=== PATIENT | female | born 1990 | race Hispanic/Latino ===

== ENCOUNTER 2018-06-25 20:49 | Emergency (ER) | payer OTHER, SELFPAY ==
--- NOTE | 2018-06-25 22:14 | ER ---
Nurse's Notes [facility] Name: Sandra Amado Age: 27 yrs Sex: Female : 1990 Arrival Date: 06/25/2018 Time: 20:53 Bed 5 Private MD: Diagnosis: Vomiting;Bronchitis, not specified as acute or chronic;Acute tonsillitis Presentation: 06/25 21:10 Presenting complaint: Patient states: "For the past week I've been throwing up blood. aj1 Then last night my right throat and right ear are hurting and I'm having bad chest pain, bad shortness of breath and my left kidney is hurting" Patient has not seen her PHCP regarding this complaint. Denies fever, abdominal pain. Transition of care: patient was not received from another setting of care. Onset of symptoms was June 18, 2018. Risk Assessment: Do you want to hurt yourself or someone else? Patient reports no desire to harm self or others. Initial Sepsis Screen: Does the patient meet any 2 criteria? HR > 90 bpm. No. Patient's initial sepsis screen is negative. Does the patient have a suspected source of infection? No. Patient's initial sepsis screen is negative. Care prior to arrival: None. 21:10 Method Of Arrival: Ambulatory aj 21:10 Acuity: HUGO 3 aj1 Triage Assessment: 21:14 General: Appears in no apparent distress. uncomfortable, Behavior is calm, cooperative, aj1 appropriate for age. Pain: Complains of pain in right ear, chest, left aspect of posterior pharynx and right aspect of posterior pharynx Pain currently is 10 out of 10 on a pain scale. Neuro: Level of Consciousness is awake, alert, obeys commands. Cardiovascular: Patient's skin is warm and dry. Respiratory: Airway is patent Respiratory effort is even, unlabored, Respiratory pattern is regular, symmetrical, Denies cough, Parent/caregiver reports the patient having shortness of breath. GI: Abdomen is non-distended, Reports nausea, vomiting, Patient currently denies abdominal pain. Derm: Skin is pink, warm \\T\\ dry. normal. 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 - Social history:: Smoking status: Patient uses tobacco products, denies chronic smoking, but will smoke occasionally. - Ebola Screening: : Patient denies travel to an Ebola-affected area in the 21 days before illness onset. - Family history:: not pertinent. Screenin:27 Abuse screen: Denies threats or abuse. Denies injuries from another. Nutritional bp screening: No deficits noted. Tuberculosis screening: No symptoms or risk factors identified. Fall Risk None identified. Assessment: 21:25 General: Appears in no apparent distress. comfortable, Behavior is cooperative, bp appropriate for age, anxious. Pain: Complains of pain in right ear, chest, left aspect of posterior pharynx and right aspect of posterior pharynx. Neuro: Level of Consciousness is awake, alert, obeys commands, Oriented to person, place, time, situation, Appropriate for age. Cardiovascular: Capillary refill < 3 seconds Patient's skin is warm and dry. Respiratory: Airway is patent Respiratory effort is even, unlabored, Respiratory pattern is regular, symmetrical. GI: No deficits noted. : No signs and/or symptoms were reported regarding the genitourinary system. EENT: No signs and/or symptoms were reported regarding the EENT system. Derm: No deficits noted. Musculoskeletal: Circulation, motion, and sensation intact. Range of motion: intact in all extremities. 22:40 Reassessment: PT D/C HOME AMBULATORY, AIRWAY PATENT, DX WITH BRONCHITIS AND TONSILITIS. bp Vital Signs: 21:14 BP 120 / 90; Pulse 103; Resp 18; Temp 98.8(TE); Pulse Ox 99% on R/A; Weight 84.82 kg aj1 (R); Height 5 ft. 5 in. (165.10 cm); Pain 10/10; 21:14 Body Mass Index 31.12 (84.82 kg, 165.10 cm) aj ED Course: 20:53 Patient arrived in ED. es 21:13 Triage completed. aj1 21:14 Arm band placed on Patient placed in an exam room. [facility] 21:16 Rubén Gonzáles MD is Attending Physician. [facility] 21:24 Anamaria, Robert, RN is Primary Nurse. bp 21:28 Patient has correct armband on for positive identification. Bed in low position. Call bp light in reach. Side rails up X2. 22:39 No provider procedures requiring assistance completed. Patient did not have IV access bp during this emergency room visit. Administered Medications: 22:30 Drug: Zofran 4 mg Route: PO; bp 22:38 Follow up: Response: No adverse reaction bp 22:30 Drug: Zithromax 500 mg Route: PO; bp 22:38 Follow up: Response: No adverse reaction bp 22:30 Drug: Tylenol #3 (300 mg-30 mg) 2 tabs Route: PO; bp 22:38 Follow up: Response: Medication administered at discharge. bp Outcome: 22:14 Discharge ordered by . allan 22:39 Discharged to home ambulatory. bp 22:39 Condition: stable 22:39 Discharge instructions given to patient, Instructed on discharge instructions, follow up and referral plans. medication usage, Demonstrated understanding of instructions, follow-up care, medications, Prescriptions given X 3. 22:40 Patient left the ED. bp Signatures: Liset Espinoza, RN RN aj1 Rubén Gonzáles MD MD cha Salyer, Edna es Peltier, Brian, RN RN bp
--- NOTE | 2018-06-25 22:14 | EDPHYS ---
Physician Documentation [facility] Name: Sandra Amado Age: 27 yrs Sex: Female : 1990 Arrival Date: 06/25/2018 Time: 20:53 Bed 5 Private MD: ED Physician Rubén Gonzáles HPI: 06/25 21:24 This 27 yrs old Female presents to ER via Ambulatory with complaints of allan Vomiting, Chest Pain, Sore Throat, Shortness Of Breath. 21:24 The patient presents to the emergency department with nausea, vomiting, abdominal pain, allan of the epigastric area, right upper quadrant and left upper quadrant. Onset: The symptoms/episode began/occurred 2 day(s) ago. Possible causes: unknown. The symptoms are aggravated by nothing. The symptoms are alleviated by nothing. Associated signs and symptoms: The patient has no apparent associated signs or symptoms. Severity of symptoms: At their worst the symptoms were mild in the emergency department the symptoms are unchanged. The patient has not experienced similar symptoms in the past. 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 - Social history:: Smoking status: Patient uses tobacco products, denies chronic smoking, but will smoke occasionally. - Ebola Screening: : Patient denies travel to an Ebola-affected area in the 21 days before illness onset. - Family history:: not pertinent. ROS: 21:24 Constitutional: Negative for fever, chills, and weight loss, Eyes: Negative for injury, allan pain, redness, and discharge, Neck: Negative for injury, pain, and swelling, Cardiovascular: Negative for chest pain, palpitations, and edema, Respiratory: Negative for shortness of breath, cough, wheezing, and pleuritic chest pain, Back: Negative for injury and pain, : Negative for injury, bleeding, discharge, and swelling, MS/Extremity: Negative for injury and deformity, Skin: Negative for injury, rash, and discoloration, Neuro: Negative for headache, weakness, numbness, tingling, and seizure, Psych: Negative for depression, anxiety, suicide ideation, homicidal ideation, and hallucinations, Allergy/Immunology: Negative for hives, rash, and allergies, Endocrine: Negative for neck swelling, polydipsia, polyuria, polyphagia, and marked weight changes, Hematologic/Lymphatic: Negative for swollen nodes, abnormal bleeding, and unusual bruising. 21:24 ENT: Positive for sore throat. 21:24 Abdomen/GI: Positive for abdominal pain, nausea and vomiting, trace blood. Exam: 21:24 Constitutional: This is a well developed, well nourished patient who is awake, alert, allan and in no acute distress. Head/Face: Normocephalic, atraumatic. Eyes: Pupils equal round and reactive to light, extra-ocular motions intact. Lids and lashes normal. Conjunctiva and sclera are non-icteric and not injected. Cornea within normal limits. Periorbital areas with no swelling, redness, or edema. Neck: Trachea midline, no thyromegaly or masses palpated, and no cervical lymphadenopathy. Supple, full range of motion without nuchal rigidity, or vertebral point tenderness. No Meningismus. Chest/axilla: Normal chest wall appearance and motion. Nontender with no deformity. No lesions are appreciated. Cardiovascular: Regular rate and rhythm with a normal S1 and S2. No gallops, murmurs, or rubs. Normal PMI, no JVD. No pulse deficits. Respiratory: Lungs have equal breath sounds bilaterally, clear to auscultation and percussion. No rales, rhonchi or wheezes noted. No increased work of breathing, no retractions or nasal flaring. Abdomen/GI: Soft, non-tender, with normal bowel sounds. No distension or tympany. No guarding or rebound. No evidence of tenderness throughout. Back: No spinal tenderness. No costovertebral tenderness. Full range of motion. Skin: Warm, dry with normal turgor. Normal color with no rashes, no lesions, and no evidence of cellulitis. MS/ Extremity: Pulses equal, no cyanosis. Neurovascular intact. Full, normal range of motion. Neuro: Awake and alert, GCS 15, oriented to person, place, time, and situation. Cranial nerves II-XII grossly intact. Motor strength 5/5 in all extremities. Sensory grossly intact. Cerebellar exam normal. Normal gait. Psych: Awake, alert, with orientation to person, place and time. Behavior, mood, and affect are within normal limits. 21:24 ENT: Posterior pharynx: Tonsils: enlarged on the right, with erythema. Vital Signs: 21:14 BP 120 / 90; Pulse 103; Resp 18; Temp 98.8(TE); Pulse Ox 99% on R/A; Weight 84.82 kg [facility] (R); Height 5 ft. 5 in. (165.10 cm); Pain 10/10; 21:14 Body Mass Index 31.12 (84.82 kg, 165.10 cm) [facility] MDM: 21:16 Patient medically screened. [facility] 21:40 Data reviewed: vital signs, nurses notes, lab test result(s). [facility] 06/25 21:24 Order name: Urine Culture [facility] 06/25 21:47 Order name: Urine Dipstick--Ancillary (enter results) [facility] 06/25 21:47 Order name: Urine --Ancillary (enter results) [facility] 06/25 21:24 Order name: Urine Dipstick-Ancillary (obtain specimen); Complete Time: 21:39 [facility] 06/25 21:24 Order name: Urine Test (obtain specimen); Complete Time: 21:39 [facility] Administered Medications: 22:30 Drug: Zofran 4 mg Route: PO; bp 22:38 Follow up: Response: No adverse reaction bp 22:30 Drug: Zithromax 500 mg Route: PO; bp 22:38 Follow up: Response: No adverse reaction bp 22:30 Drug: Tylenol #3 (300 mg-30 mg) 2 tabs Route: PO; bp 22:38 Follow up: Response: Medication administered at discharge. bp Disposition: 06/25/18 22:14 Discharged to Home. Impression: Vomiting, Bronchitis, not specified as acute or chronic, Acute tonsillitis. - Condition is Stable. - Discharge Instructions: Acute Bronchitis, Adult, Nausea and Vomiting, Adult, Tonsillitis, Nausea and Vomiting, Adult, [id number]. - Prescriptions for Pepcid 20 mg Oral Tablet - take 1 tablet by ORAL route every 12 hours for 10 days; 20 tablet. Zofran 4 mg Oral Tablet - take 1 tablet by ORAL route every 12 hours As needed; 20 tablet. Zithromax Z- Derian 250 mg Oral Tablet - take 1 tablet by ORAL route as directed for 5 days Day 1 - take two (2) tablets one time. Day 2, 3, 4 , 5 take one (1) tablet once daily.; 6 tablet. - Medication Reconciliation Form, Thank You Letter, Antibiotic Education, Prescription Opioid Use, Work release form form. - Follow up: Private Physician; When: 2 - 3 days; Reason: Recheck today's complaints, Continuance of care, Re-evaluation by your physician. - Problem is new. - Symptoms have improved. Signatures: Dispatcher [employer] EDLiset Samuel RN RN aj1 Rubén Gonzáles MD MD cha Peltier, Brian RN RN bp Corrections: (The following items were deleted from the chart) 22:40 22:14 06/25/2018 22:14 Discharged to Home. Impression: Vomiting; Bronchitis, not bp specified as acute or chronic; Acute tonsillitis. Condition is Stable. Forms are Medication Reconciliation Form, Thank You Letter, Antibiotic Education, Prescription Opioid Use. Follow up: Private Physician; When: 2 - 3 days; Reason: Recheck today's complaints, Continuance of care, Re-evaluation by your physician. Problem is new. Symptoms have improved. allan
[2018-06-25 22:16] LABS: Urine Blood TRACE (NEG); Urine Glucose NEGATIVE (NEG); Urine Protein 1+ (NEG); Urine Specific Gravity 1.015 (1.005-1.030); Urine pH 8.5 (5.0-7.0)
[2018-06-25] MEDS ORDERED: AZITHROMYCIN 250 MG TAB ONE (22:30)
[2018-06-25] MEDS ORDERED: ONDANSETRON 4 MG (ODT) TAB ONE (22:30)
[2018-06-25] MEDS ORDERED: CODEINE 30MG/APAP 300MG TAB ONE (22:38)
[2018-06-25 22:44] VITALS: BP 120/90; TEMP 98.8; O2SAT 99
== END 2018-06-25 22:40 | disposition home or self-care (01) ==
LOC: ER 20:49
DX: J40 Bronchitis, not specified as acute or chronic (principal); R11.10 Vomiting, unspecified; Z88.5 Allergy status to narcotic agent; Z88.0 Allergy status to penicillin; Z72.0 Tobacco use; I10 Essential (primary) hypertension
CPT/HCPCS: 81003; 81025; 87077; 87086; 87088; 87186; 99283

== ENCOUNTER 2018-08-13 16:12 | Emergency (ER) | payer SELFPAY ==
[2018-08-13 17:21] LABS: Urine Blood TRACE (NEG); Urine Glucose NEGATIVE (NEG); Urine Protein TRACE (NEG); Urine Specific Gravity 1.025 (1.005-1.030)
[2018-08-13 17:31] LABS: Urine Bacteria >50 /HPF (<20); Urine Culture Reflex Order REFLEXED; Urine RBC <5 /HPF (NONE SEEN)
--- NOTE | 2018-08-13 17:47 | ER ---
Nurse's Notes [facility] Name: Sandra Amado Age: 27 yrs Sex: Female : 1990 Arrival Date: 08/13/2018 Time: 16:14 Bed 25 Private MD: None, None Diagnosis: Presentation: 08/13 16:19 Presenting complaint: Patient states: RLQ and left back pain started last night. c/o sv nausea, denies vomiting, diarrhea. Transition of care: patient was not received from another setting of care. Onset of symptoms was August 12, 2018. Care prior to arrival: None. 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 - Social history:: Smoking status: Patient uses tobacco products, smokes one-half pack cigarettes per day. - Ebola Screening: : No symptoms or risks identified at this time. Assessment: 17:30 Reassessment: Pt not found in room or in ER lobby. Attempted to call patient with ss number on file. Not a working number. Vital Signs: 16:20 BP 106 / 64; Pulse 88; Resp 16; Temp 97; Pulse Ox 100% ; Weight 78.47 kg; Height 5 ft. sv 5 in. (165.10 cm); Pain 8/10; 16:20 Body Mass Index 28.79 (78.47 kg, 165.10 cm) sv ED Course: 16:14 Patient arrived in ED. sb2 16:15 None, None is Private Physician. sb2 16:20 Triage completed. sv 16:21 Arm band placed on left wrist. sv 16:23 Tanya Torres F[facility]-C [facility] kb 16:23 Lorena Bryan MD is Attending Physician. kb 17:25 Venice Walls RN is Primary Nurse. tw2 Administered Medications: No medications were administered Outcome: 17:30 Eloped from patient exam room, after seeing physician Time discovered patient gone: tw2 August 13, 2018 at 17:30 17:46 Patient left the ED. tw2 Addendum: 08/17/2018 10:42 Addendum: Culture Results: Positive urine culture. No further action required. Patient a a5 eloped prior to discharge. Signatures: Tanya Torres, LUCIO-C ORTHOPAEDIC NURSE-Tanja Small, RN RN Anita Baxter, RN RN aa5 Suyapa Bullock RN RN ss Wise, Tara, RN RN tw2 Katerin Weaver 2
--- NOTE | 2018-08-13 17:47 | EDPHYS ---
Physician Documentation [facility] Name: Sandra Amado Age: 27 yrs Sex: Female : 1990 Arrival Date: 08/13/2018 Time: 16:14 Bed 25 Private MD: None, None ED Physician Lorena Bryan HPI: 08/13 17:34 This 27 yrs old Female presents to ER via Ambulatory with complaints of kb Abdominal Pain. 17:34 The patient presents with abdominal pain right lower quadrant. Onset: The kb symptoms/episode began/occurred this morning. The symptoms do not radiate. Associated signs and symptoms: Pertinent positives: nausea and vomiting. The symptoms are described as constant. Modifying factors: The symptoms are alleviated by nothing, the symptoms are aggravated by pressure. Severity of pain: At its worst the pain was moderate in the emergency department the pain is unchanged. The patient has not experienced similar symptoms in the past. The patient has not recently seen a physician. 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 - Social history:: Smoking status: Patient uses tobacco products, smokes one-half pack cigarettes per day. - Ebola Screening: : No symptoms or risks identified at this time. ROS: 17:33 Constitutional: Negative for fever, chills, and weight loss, Cardiovascular: Negative kb for chest pain, palpitations, and edema, Respiratory: Negative for shortness of breath, cough, wheezing, and pleuritic chest pain, : Negative for injury, bleeding, discharge, and swelling, MS/Extremity: Negative for injury and deformity, Skin: Negative for injury, rash, and discoloration, Neuro: Negative for headache, weakness, numbness, tingling, and seizure. 17:33 Abdomen/GI: Positive for abdominal pain, nausea and vomiting, Negative for diarrhea, constipation, abdominal cramps, abdominal distension, anorexia. 17:33 Back: Positive for flank pain, on the left. Exam: 17:34 Constitutional: This is a well developed, well nourished patient who is awake, alert, kb and in no acute distress. Head/Face: Normocephalic, atraumatic. Chest/axilla: Normal chest wall appearance and motion. Nontender with no deformity. No lesions are appreciated. Cardiovascular: Regular rate and rhythm with a normal S1 and S2. No gallops, murmurs, or rubs. Normal PMI, no JVD. No pulse deficits. Respiratory: Lungs have equal breath sounds bilaterally, clear to auscultation and percussion. No rales, rhonchi or wheezes noted. No increased work of breathing, no retractions or nasal flaring. Back: No spinal tenderness. No costovertebral tenderness. Full range of motion. Skin: Warm, dry with normal turgor. Normal color with no rashes, no lesions, and no evidence of cellulitis. MS/ Extremity: Pulses equal, no cyanosis. Neurovascular intact. Full, normal range of motion. Neuro: Awake and alert, GCS 15, oriented to person, place, time, and situation. Cranial nerves II-XII grossly intact. Motor strength 5/5 in all extremities. Sensory grossly intact. Cerebellar exam normal. Normal gait. 17:34 Abdomen/GI: Inspection: abdomen appears normal, Bowel sounds: normal, in all quadrants, Palpation: soft, in all quadrants, moderate abdominal tenderness, in the suprapubic area and right lower quadrant. Vital Signs: 16:20 BP 106 / 64; Pulse 88; Resp 16; Temp 97; Pulse Ox 100% ; Weight 78.47 kg; Height 5 ft. sv 5 in. (165.10 cm); Pain 8/10; 16:20 Body Mass Index 28.79 (78.47 kg, 165.10 cm) sv MDM: 16:23 Patient medically screened. kb 17:33 Data reviewed: vital signs, nurses notes. Data interpreted: Pulse oximetry: on room air kb is 100 %. Interpretation: normal. 08/13 17:12 Order name: Urine Microscopic Only; Complete Time: 17:31 kb 08/13 16:24 Order name: Urine Test (obtain specimen); Complete Time: 17:25 kb 08/13 17:18 Order name: Urine Dipstick--Ancillary (enter results); Complete Time: 17:22 eb 08/13 17:18 Order name: Urine --Ancillary (enter results); Complete Time: 17:22 eb 08/13 17:33 Order name: Urine Culture [facility] 08/13 16:24 Order name: Urine Dipstick-Ancillary (obtain specimen); Complete Time: 17:25 kb Administered Medications: No medications were administered Disposition: 18:43 Co-signature as Attending Physician, Lorena Bryan MD. ma2 Disposition: 08/13/18 17:46 Patient left the facility after being seen by provider. - Patient left due to (see nurse's notes). Signatures: Dispatcher [employer] [facility] Tanya Torres, LUCIO-C LUCIO-Tanja Small, RN RN Venice Walls RN RN tw2 Lorena Bryan MD MD ma2 Corrections: (The following items were deleted from the chart) 17:46 17:46 08/13/2018 17:46 Patient left the facility after being seen by provider. Reason tw2 stated they are leaving due to (see nurse's notes). tw2
[2018-08-13 17:58] VITALS: BP 106/64; TEMP 97; O2SAT 100
== END 2018-08-13 17:46 | disposition left against medical advice (07) ==
LOC: ER 16:12
DX: R11.2 Nausea with vomiting, unspecified (principal); I10 Essential (primary) hypertension; F17.210 Nicotine dependence, cigarettes, uncomplicated; Z88.0 Allergy status to penicillin; Z88.6 Allergy status to analgesic agent
CPT/HCPCS: 81003; 81015; 81025; 87077; 87086; 87088; 87186; 99281

== ENCOUNTER 2018-10-15 13:57 | Emergency (ER) | payer SELFPAY ==
[2018-10-15] MEDS ORDERED: IBUPROFEN 400 MG TAB ONE (15:18)
[2018-10-15] MEDS ORDERED: ONDANSETRON 4 MG (ODT) TAB ONE (16:14)
--- NOTE | 2018-10-15 16:47 | EDPHYS ---
Physician Documentation [facility] Name: Sandra Amado Age: 27 yrs Sex: Female : 1990 Arrival Date: 10/15/2018 Time: 14:00 Bed 12 Private MD: None, None ED Physician Benjamin Luna HPI: 10/15 16:54 This 27 yrs old Female presents to ER via Ambulatory with complaints of Sore kb Throat, Body aches. 16:54 The patient presents with sore throat. The patient describes throat pain as constant. kb Onset: The symptoms/episode began/occurred 2 day(s) ago. Severity of symptoms: At their worst the symptoms were moderate, in the emergency department the symptoms are unchanged. Modifying factors: The symptoms are alleviated by nothing, the symptoms are aggravated by swallowing, Patient's oral intake status: limited fluid intake, limited food intake. Associated signs and symptoms: Pertinent positives: chills, nausea, Sore throat vomiting. The patient has not experienced similar symptoms in the past. The patient has not recently seen a physician. 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 - Social history:: Smoking status: Patient/guardian denies using tobacco. - Ebola Screening: : Patient negative for fever greater than or equal to 101.5 degrees Fahrenheit, and additional compatible Ebola Virus Disease symptoms Patient denies exposure to infectious person Patient denies travel to an Ebola-affected area in the 21 days before illness onset No symptoms or risks identified at this time. ROS: 16:52 Cardiovascular: Negative for chest pain, palpitations, and edema, Respiratory: Negative kb for shortness of breath, cough, wheezing, and pleuritic chest pain, Back: Negative for injury and pain, : Negative for injury, bleeding, discharge, and swelling, MS/Extremity: Negative for injury and deformity, Skin: Negative for injury, rash, and discoloration, Neuro: Negative for headache, weakness, numbness, tingling, and seizure. 16:52 Constitutional: Positive for body aches, chills, malaise, Negative for fatigue, fever, poor PO intake, weight loss. 16:52 ENT: Positive for sore throat. 16:52 Abdomen/GI: Positive for nausea and vomiting. Exam: 16:53 Constitutional: This is a well developed, well nourished patient who is awake, alert, kb and in no acute distress. Head/Face: Normocephalic, atraumatic. Chest/axilla: Normal chest wall appearance and motion. Nontender with no deformity. No lesions are appreciated. Cardiovascular: Regular rate and rhythm with a normal S1 and S2. No gallops, murmurs, or rubs. Normal PMI, no JVD. No pulse deficits. Respiratory: Lungs have equal breath sounds bilaterally, clear to auscultation and percussion. No rales, rhonchi or wheezes noted. No increased work of breathing, no retractions or nasal flaring. Abdomen/GI: Soft, non-tender, with normal bowel sounds. No distension or tympany. No guarding or rebound. No evidence of tenderness throughout. Back: No spinal tenderness. No costovertebral tenderness. Full range of motion. Skin: Warm, dry with normal turgor. Normal color with no rashes, no lesions, and no evidence of cellulitis. MS/ Extremity: Pulses equal, no cyanosis. Neurovascular intact. Full, normal range of motion. Neuro: Awake and alert, GCS 15, oriented to person, place, time, and situation. Cranial nerves II-XII grossly intact. Motor strength 5/5 in all extremities. Sensory grossly intact. Cerebellar exam normal. Normal gait. 16:53 ENT: Posterior pharynx: Airway: normal, no evidence of obstruction, Tonsils: bilaterally enlarged, with erythema, with exudate, Uvula: normal, midline, swelling, that is mild, that is moderate, erythema, that is moderate, exudate, that is moderate. Vital Signs: 14:28 BP 102 / 67; Pulse 83; Resp 19; Temp 98.6; Pulse Ox 100% on R/A; Weight 79.83 kg; aj Height 5 ft. 5 in. (165.10 cm); 14:28 Body Mass Index 29.29 (79.83 kg, 165.10 cm) aj MDM: 14:54 Patient medically screened. kb 16:53 Data reviewed: vital signs, nurses notes. Data interpreted: Pulse oximetry: on room air kb is 100 %. Interpretation: normal. Counseling: I had a detailed discussion with the patient and/or guardian regarding: the historical points, exam findings, and any diagnostic results supporting the discharge/admit diagnosis, lab results, the need for outpatient follow up, a family practitioner, to return to the emergency department if symptoms worsen or persist or if there are any questions or concerns that arise at home. 10/15 14:39 Order name: Flu; Complete Time: 15:57 kb 10/15 14:39 Order name: Strep; Complete Time: 15:57 kb 10/15 15:37 Order name: Throat Culture EDCO 10/15 16:02 Order name: PO challenge; Complete Time: 16:04 kb Administered Medications: 15:15 Drug: Ibuprofen 800 mg Route: PO; sg 16:04 Drug: Zofran 4 mg Route: PO; sg Disposition: 10/16 13:54 Co-signature as Attending Physician, Benjamin Luna MD I agree with the assessment and kdr plan of care. Disposition: 10/15/18 16:47 Discharged to Home. Impression: Acute pharyngitis. - Condition is Stable. - Discharge Instructions: Pharyngitis, [id number]. - Prescriptions for Zofran 4 mg Oral Tablet - take 1 tablet by ORAL route every 6 hours As needed; 20 tablet. - Medication Reconciliation Form, Thank You Letter, Antibiotic Education, Prescription Opioid Use, Work release form form. - Follow up: Emergency Department; When: As needed; Reason: Worsening of condition. Follow up: Private Physician; When: 2 - 3 days; Reason: Recheck today's complaints, Continuance of care, Re-evaluation by your physician. Signatures: Dispatcher [employer] EDCO Tanya Torres, DARY SMITHP-Kevin Brown RN RN sg Myers, Amanda, RN RN aj Rittger, Kevin, MD MD [facility] Liliya Rios RN RN iw Corrections: (The following items were deleted from the chart) 10/15 16:55 16:54 Onset: The symptoms/episode began/occurred this morning, kb kb 17:35 16:47 10/15/2018 16:47 Discharged to Home. Impression: Acute pharyngitis. Condition is iw Stable. Forms are Work release form, Medication Reconciliation Form, Thank You Letter, Antibiotic Education, Prescription Opioid Use. Follow up: Emergency Department; When: As needed; Reason: Worsening of condition. Follow up: Private Physician; When: 2 - 3 days; Reason: Recheck today's complaints, Continuance of care, Re-evaluation by your physician. kb
--- NOTE | 2018-10-15 16:47 | ER ---
Nurse's Notes [facility] Name: Sandra Amado Age: 27 yrs Sex: Female : 1990 Arrival Date: 10/15/2018 Time: 14:00 Bed 12 Private MD: None, None Diagnosis: Acute pharyngitis Presentation: 10/15 14:25 Presenting complaint: Patient states: Sore throat, body aches, and cough for 2 days. aj Transition of care: patient was not received from another setting of care. Onset of symptoms was October 13, 2018. Risk Assessment: Do you want to hurt yourself or someone else? Patient reports no desire to harm self or others. Initial Sepsis Screen: Does the patient meet any 2 criteria? No. Patient's initial sepsis screen is negative. Does the patient have a suspected source of infection? No. Patient's initial sepsis screen is negative. Care prior to arrival: None. 14:25 Method Of Arrival: Ambulatory 14:25 Acuity: HUGO 4 aj Triage Assessment: 14:28 General: Appears in no apparent distress. comfortable, Behavior is calm, cooperative, aj appropriate for age. Pain: Complains of pain in left aspect of posterior pharynx and right aspect of posterior pharynx. EENT: Reports pain when swallowing. Neuro: Level of Consciousness is awake, alert, obeys commands, Oriented to person, place, time, situation, Appropriate for age. Respiratory: Airway is patent Respiratory effort is even, unlabored, Respiratory pattern is regular, symmetrical. Respiratory: Reports cough that is. Derm: Skin is intact, is healthy with good turgor, Skin is pink, warm \T\ dry. normal. 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 - Social history:: Smoking status: Patient/guardian denies using tobacco. - Ebola Screening: : Patient negative for fever greater than or equal to 101.5 degrees Fahrenheit, and additional compatible Ebola Virus Disease symptoms Patient denies exposure to infectious person Patient denies travel to an Ebola-affected area in the 21 days before illness onset No symptoms or risks identified at this time. Screenin:10 Abuse screen: Denies threats or abuse. Denies injuries from another. Nutritional sg screening: No deficits noted. Tuberculosis screening: No symptoms or risk factors identified. Never had TB. Fall Risk None identified. Assessment: 15:10 General: Appears in no apparent distress. comfortable, well groomed, well developed, sg well nourished, Behavior is calm, cooperative, appropriate for age. Pain: Complains of pain in sore throat and body aches. 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 Full function Speech is normal, Facial symmetry appears normal. Cardiovascular: Capillary refill is brisk in bilateral Patient's skin is warm and dry. Chest pain is denied. Respiratory: Airway is patent Respiratory effort is even, unlabored, Respiratory pattern is regular, symmetrical, Breath sounds are clear. GI: No signs and/or symptoms were reported involving the gastrointestinal system. : No signs and/or symptoms were reported regarding the genitourinary system. EENT: No signs and/or symptoms were reported regarding the EENT system. Sclera/Cornea are clear in right eye and left eye Nares are clear bilaterally Oral mucosa is moist. Throat is pink. Derm: Skin is pink, warm \T\ dry. Musculoskeletal: No signs and/or symptoms reported regarding the musculoskeletal system. Vital Signs: 14:28 BP 102 / 67; Pulse 83; Resp 19; Temp 98.6; Pulse Ox 100% on R/A; Weight 79.83 kg; aj Height 5 ft. 5 in. (165.10 cm); 14:28 Body Mass Index 29.29 (79.83 kg, 165.10 cm) aj ED Course: 14:00 Patient arrived in ED. mr 14:01 None, None is Private Physician. mr 14:27 Triage completed. aj 14:28 Arm band placed on left wrist. Patient placed in waiting room, Patient notified of wait aj time. 14:39 Tanya Torres [facility]C [facility] kb 14:39 Benjamin Luna MD is Attending Physician. kb 15:07 Mathur, Kevin, RN is Primary Nurse. sg 15:15 No provider procedures requiring assistance completed. Flu and/or RSV swab sent to lab. sg Strep swab sent to lab. Patient did not have IV access during this emergency room visit. Administered Medications: 15:15 Drug: Ibuprofen 800 mg Route: PO; sg 16:04 Drug: Zofran 4 mg Route: PO; sg Outcome: 16:47 Discharge ordered by . kb 17:35 Patient left the ED. iw Signatures: Tanya Torres, LUCIO-C LUCIO-Kevin Brown, RN Amanda Wagoner RN RN aj Rivera, Mary mr Williams, Irene, RN RN iw
[2018-10-15 19:15] VITALS: BP 102/67; TEMP 98.6; O2SAT 100
== END 2018-10-15 17:35 | disposition home or self-care (01) ==
LOC: ER 13:57
DX: J02.9 Acute pharyngitis, unspecified (principal); I10 Essential (primary) hypertension; Z88.0 Allergy status to penicillin; Z88.5 Allergy status to narcotic agent
CPT/HCPCS: 87070; 87081; 87804; 99283

== ENCOUNTER 2019-01-11 23:38 | Emergency (ER) | payer SELFPAY ==
--- OUTSIDE RECORDS SUMMARY | 2019-01-11 23:58 | XMS REPORT ---
:1990 Author Organization [facility] Address [address] [place] [address] Dr. Johnson [address] [place] [id number] Care Team Providers Name Role Phone Unavailable Unavailable Unavailable Problems This patient has no known problems. Allergies, Adverse Reactions, Alerts This patient has no known allergies or adverse reactions. Medications This patient has no known medications.
[2019-01-12 00:19] LABS: Absolute Lymphocytes (CBC) 2.4 K/uL (0.7-4.9); Absolute Monocytes 0.7 K/uL (0.1-1.3); Basophils % 0.8 % (0-1.3); Eosinophils % 2.4 % (0-4.4); Hematocrit 41.1 % (36.0-45.0); Lymphocytes % 22.8 % (15.3-44.8); MPV 8.6 fL (7.6-11.3); Monocytes % 6.7 % (3.3-12.3); RBC Red Blood Cell Count 4.83 M/uL (3.86-4.86)
[2019-01-12 00:36] LABS: BUN Blood Urea Nitrogen 17 mg/dL (7-18); Bicarbonate 26 mmol/L (21-32); Glucose Level 99 mg/dL (74-106); Potassium 3.9 mmol/L (3.5-5.1); Sodium Level 141 mmol/L (136-145)
[2019-01-12 00:39] LABS: HCG, Quantitative < 1 mIU/mL (1-3)
[2019-01-12 00:47] LABS: Urine Blood 2+ (NEG); Urine Glucose NEGATIVE (NEG); Urine Protein NEGATIVE (NEG)
--- NOTE | 2019-01-12 00:57 | EDPHYS ---
Physician Documentation [facility] Name: Sandra Amado Age: 28 yrs Sex: Female : 1990 Arrival Date: 01/11/2019 Time: 23:40 Bed 6 Private MD: ED Physician Rubén Gonzáles HPI: 01/12 00:26 This 28 yrs old Female presents to ER via EMS with complaints of Vaginal snw Bleeding, + Preg <12wks. 00:26 The patient presents with vaginal bleeding that is moderate. Onset: The snw symptoms/episode began/occurred suddenly, just prior to arrival. Associated signs and symptoms: The patient has no apparent associated signs or symptoms. Severity of symptoms: At their worst the symptoms were moderate. The patient has not experienced similar symptoms in the past. pt states she was seen at [facility] in , awaiting Medicaid so has not been seen since. Pt states she had some bright red blood post void today with some abd cramping. UPT negative in ED.. 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 - Social history:: Smoking status: Patient/guardian denies using tobacco. - Ebola Screening: : Patient negative for fever greater than or equal to 101.5 degrees Fahrenheit, and additional compatible Ebola Virus Disease symptoms Patient denies exposure to infectious person Patient denies travel to an Ebola-affected area in the 21 days before illness onset No symptoms or risks identified at this time. ROS: 01/12 00:09 Constitutional: Negative for fever, chills, and weight loss, Eyes: Negative for injury, snw pain, redness, and discharge, ENT: Negative for injury, pain, and discharge, Neck: Negative for injury, pain, and swelling, Cardiovascular: Negative for chest pain, palpitations, and edema, Respiratory: Negative for shortness of breath, cough, wheezing, and pleuritic chest pain, Abdomen/GI: Negative for abdominal pain, nausea, vomiting, diarrhea, and constipation, Back: Negative for injury and pain, Skin: Negative for injury, rash, and discoloration, Neuro: Negative for headache, weakness, numbness, tingling, and seizure. Exam: 00:09 Constitutional: This is a well developed, well nourished patient who is awake, alert, snw and in no acute distress. Head/Face: Normocephalic, atraumatic. Eyes: Pupils equal round and reactive to light, extra-ocular motions intact. Lids and lashes normal. Conjunctiva and sclera are non-icteric and not injected. Cornea within normal limits. Periorbital areas with no swelling, redness, or edema. ENT: Nares patent. No nasal discharge, no septal abnormalities noted. Tympanic membranes are normal and external auditory canals are clear. Oropharynx with no redness, swelling, or masses, exudates, or evidence of obstruction, uvula midline. Mucous membranes moist. Neck: Trachea midline, no thyromegaly or masses palpated, and no cervical lymphadenopathy. Supple, full range of motion without nuchal rigidity, or vertebral point tenderness. No Meningismus. Chest/axilla: Normal chest wall appearance and motion. Nontender with no deformity. No lesions are appreciated. Cardiovascular: Regular rate and rhythm with a normal S1 and S2. No gallops, murmurs, or rubs. Normal PMI, no JVD. No pulse deficits. Respiratory: Lungs have equal breath sounds bilaterally, clear to auscultation and percussion. No rales, rhonchi or wheezes noted. No increased work of breathing, no retractions or nasal flaring. Abdomen/GI: Soft, non-tender, with normal bowel sounds. No distension or tympany. No guarding or rebound. No evidence of tenderness throughout. Back: No spinal tenderness. No costovertebral tenderness. Full range of motion. Skin: Warm, dry with normal turgor. Normal color with no rashes, no lesions, and no evidence of cellulitis. MS/ Extremity: Pulses equal, no cyanosis. Neurovascular intact. Full, normal range of motion. Neuro: Awake and alert, GCS 15, oriented to person, place, time, and situation. Cranial nerves II-XII grossly intact. Motor strength 5/5 in all extremities. Sensory grossly intact. Cerebellar exam normal. Normal gait. Vital Signs: 01/11 23:43 BP 111 / 77; Pulse 65; Resp 16; Temp 98(O); Pulse Ox 100% on R/A; Weight 80.74 kg; ed1 Height 5 ft. 5 in. (165.10 cm); Pain 07/11; 01/12 00:43 BP 109 / 76; Pulse 64; Resp 16; Pulse Ox 99% on R/A; Pain 8; ed1 01/11 23:43 Body Mass Index 29.62 (80.74 kg, 165.10 cm) ed1 MDM: 01/11 23:45 Patient medically screened. [facility] 01/12 00:58 Data reviewed: vital signs, nurses notes. Data interpreted: Pulse oximetry: on room air snw is 99 %. Interpretation: normal. Counseling: I had a detailed discussion with the patient and/or guardian regarding: the historical points, exam findings, and any diagnostic results supporting the discharge/admit diagnosis, lab results, the need for outpatient follow up, to return to the emergency department if symptoms worsen or persist or if there are any questions or concerns that arise at home. Special discussion: Based on the patient's Hx, exam, and Dx evaluation, there is no indication for emergent surgery or inpatient Tx. It is understood by the patient/guardian that if the Sx's persist or worsen they need to return immediately for re-evaluation. Based on the history and exam findings, there is no indication for further emergent testing or inpatient evaluation. 01/11 23:45 Order name: Quantitative Hcg; Complete Time: 00:55 snw 01/11 23:45 Order name: Abo/rh Typing; Complete Time: 00:55 snw 01/11 23:45 Order name: Basic Metabolic Panel; Complete Time: 00:55 snw 01/11 23:45 Order name: CBC with Diff snw 01/12 00:05 Order name: Urine Dipstick--Ancillary (enter results) 01/12 00:05 Order name: Urine --Ancillary (enter results) 01/11 23:45 Order name: Urine Test (obtain specimen); Complete Time: 00:06 snw 02/10 23:45 Order name: IV Saline Lock; Complete Time: 00:06 snw 01/11 23:45 Order name: Labs collected and sent; Complete Time: 00:06 snw 01/11 23:45 Order name: NPO; Complete Time: 00:06 snw 01/11 23:45 Order name: Urine Dipstick-Ancillary (obtain specimen); Complete Time: 00:06 snw Administered Medications: No medications were administered Point of Care Testing: Urine : 00:04 hCG Reading: Negative; Control Reading: Positive; ed1 Disposition: 09:03 Co-signature as Attending Physician, Rubén Gonzáles MD I agree with the assessment and allan plan of care. Disposition: 01/12/19 00:57 Discharged to Home. Impression: Menses. - Condition is Stable. - Discharge Instructions: Abdominal Pain, Adult, Premenstrual Syndrome. - Medication Reconciliation Form, Thank You Letter, Antibiotic Education, Prescription Opioid Use form. - Follow up: Private Physician; When: 2 - 3 days; Reason: Recheck today's complaints, Continuance of care, Re-evaluation by your physician. Follow up: Emergency Department; When: As needed; Reason: Worsening of condition. Signatures: Dispatcher [employer] [facility] Rubén Gonzáles MD MD cha Therrien, Shelly, DOOR FRAME ASSEMBLER MACHINE-C DOOR FRAME ASSEMBLER MACHINE-Quintonw Florencia Yoon RN RN ed1 Corrections: (The following items were deleted from the chart) 00:22 01/11 23:49 OB Limited+[id number].BRZ ordered. [facility] 01/12 01:06 00:57 01/12/2019 00:57 Discharged to Home. Impression: Menses. Condition is Stable. ed1 Forms are Medication Reconciliation Form, Thank You Letter, Antibiotic Education, Prescription Opioid Use. Follow up: Private Physician; When: 2 - 3 days; Reason: Recheck today's complaints, Continuance of care, Re-evaluation by your physician. Follow up: Emergency Department; When: As needed; Reason: Worsening of condition. snw
--- NOTE | 2019-01-12 00:57 | ER ---
Nurse's Notes [facility] Name: Sandra Amado Age: 28 yrs Sex: Female : 1990 Arrival Date: 01/11/2019 Time: 23:40 Bed 6 Private MD: Diagnosis: Menses Presentation: 01/11 23:41 Presenting complaint: EMS states: She was using the bathroom and wiped and there was a ed1 large amount of red blood and a blood clot. Patient is around 14 weeks . No care at this time. Transition of care: patient was not received from another setting of care. Onset of symptoms was January 11, 2019. Risk Assessment: Do you want to hurt yourself or someone else? Patient reports no desire to harm self or others. Initial Sepsis Screen: Does the patient meet any 2 criteria? No. Patient's initial sepsis screen is negative. Does the patient have a suspected source of infection? No. Patient's initial sepsis screen is negative. Care prior to arrival: IV initiated. 20 GA, in the right hand. 23:41 Method Of Arrival: [facility] ed1 23:41 Acuity: HUGO 3 ed1 Triage Assessment: 23:43 General: Appears uncomfortable, Behavior is calm, cooperative. Pain: Complains of pain ed1 in suprapubic area and right lower quadrant Pain radiates to low back area Pain currently is 8 out of 10 on a pain scale. Quality of pain is described as crampy, sharp, Pain began gradually, 2 hours ago. EENT: No signs and/or symptoms were reported regarding the EENT system. Neuro: Level of Consciousness is awake, alert, obeys commands, Oriented to person, place, time, situation. Cardiovascular: Denies chest pain, Heart tones S1 S2 present. Respiratory: Airway is patent Respiratory effort is even, unlabored, Respiratory pattern is regular, symmetrical, Breath sounds are clear bilaterally. GI: Abdomen is non-distended, Bowel sounds present X 4 quads. Abd is soft and non tender X 4 quads. Reports lower abdominal pain, Patient currently denies diarrhea, nausea, vomiting. : Reports vaginal bleeding that is bright red, with clots. Derm: Skin is intact, is healthy with good turgor, Skin is dry, Skin is normal, Skin temperature is warm. Musculoskeletal: Circulation, motion, and sensation intact. Range of motion: intact in all extremities. DAM OPERATOR: 23:43 6, 1, Living 4, LMP 10/13/2018, Verified, EDC 07/20/2019, ed1 Gestational age from LMP: 13 weeks 0 days Historical: - Allergies: 23:43 PENICILLINS (Anaphylaxis); ed1 23:43 tramadol; hallucinations; ed1 - Home Meds: 23:43 Metoprolol Tartrate Oral [Active]; ed1 - PMHx: 23:43 Hypertension; Kidney stones; RAPID HEART RATE; Diabetes - NIDDM; ed1 - PSHx: 23:43 None; ed1 - Immunization history:: Adult Immunizations up to date. - Social history:: Smoking status: Patient/guardian denies using tobacco. - Ebola Screening: : Patient negative for fever greater than or equal to 101.5 degrees Fahrenheit, and additional compatible Ebola Virus Disease symptoms Patient denies exposure to infectious person Patient denies travel to an Ebola-affected area in the 21 days before illness onset No symptoms or risks identified at this time. Screenin:47 Abuse screen: Denies threats or abuse. Denies injuries from another. Nutritional ed1 screening: No deficits noted. Tuberculosis screening: No symptoms or risk factors identified. Fall Risk None identified. Assessment: 23:47 Obstetrical Assessment: General assessment: awake and alert, skin warm and dry, ed1 respirations even and unlabored, Patient reports Abdominal pain, vaginal bleeding, bright red with clots. General: See triage assessment. 01/12 00:43 Reassessment: Patient appears in no apparent distress at this time. Patient and/or ed1 family updated on plan of care and expected duration. Pain level reassessed. Patient is alert, oriented x 3, equal unlabored respirations, skin warm/dry/pink. Pt states "Can you take this IV out? They brought me from the [place] detention and I don't have a phone or anything.". 01:04 Reassessment: Patient appears in no apparent distress at this time. Patient and/or ed1 family updated on plan of care and expected duration. Pain level reassessed. Patient is alert, oriented x 3, equal unlabored respirations, skin warm/dry/pink. Patient states symptoms have improved. Vital Signs: 01/11 23:43 BP 111 / 77; Pulse 65; Resp 16; Temp 98(O); Pulse Ox 100% on R/A; Weight 80.74 kg; ed1 Height 5 ft. 5 in. (165.10 cm); Pain 8; 01/12 00:43 BP 109 / 76; Pulse 64; Resp 16; Pulse Ox 99% on R/A; Pain 8/10; ed1 01/11 23:43 Body Mass Index 29.62 (80.74 kg, 165.10 cm) ed1 Vitals: 01:06 Heart Tones N/A. ed1 ED Course: 01/11 23:40 Patient arrived in ED. ed1 23:42 Triage completed. ed1 23:43 Arm band placed on. ed1 23:45 Daylin Mcguire FNP-C is PHCP. snw 23:45 Rubén Gonzáles MD is Attending Physician. snw 23:47 Patient has correct armband on for positive identification. Placed in gown. Bed in low ed1 position. Call light in reach. Side rails up X 1. Pulse ox on. NIBP on. 23:47 Maintain EMS IV. Dressing intact. Good blood return noted. Site clean \\T\\ dry. Gauge \\T\\ ed 1 site: 20G right hand. 11 00:04 Florencia Yoon, RN is Primary Nurse. ed1 00:04 Initial lab(s) drawn, by me, sent to lab. Urine collected: clean catch specimen, cloudy.ed1 00:43 No provider procedures requiring assistance completed. IV discontinued, intact, ed1 bleeding controlled, No redness/swelling at site. Pressure dressing applied. Administered Medications: No medications were administered Point of Care Testing: Urine : 00:04 hCG Reading: Negative; Control Reading: Positive; ed1 Outcome: 00:43 Discharged to home ambulatory. ed1 00:43 Condition: good 00:43 Discharge instructions given to patient, Instructed on discharge instructions, follow up and referral plans. Demonstrated understanding of instructions, follow-up care. 00:57 Discharge ordered by . chantel 01:06 Patient left the ED. ed1 Signatures: Daylin Mcguire FNP-C MACHINE CERAMIC COATER-Csnw Florencia Yoon, RN RN ed1 Corrections: (The following items were deleted from the chart) 01:05 00:43 Pulse 64bpm; Resp 16bpm; Pulse Ox 99% RA; Pain 8/10; ed1 ed1
[2019-01-12 01:33] VITALS: TEMP 98
[2019-01-12 01:34] VITALS: BP 109/76; O2SAT 99
== END 2019-01-12 01:06 | disposition home or self-care (01) ==
LOC: ER 23:38
DX: N92.6 Irregular menstruation, unspecified (principal); I10 Essential (primary) hypertension; E11.9 Type 2 diabetes mellitus without complications; Z88.0 Allergy status to penicillin; Z88.5 Allergy status to narcotic agent
CPT/HCPCS: 36415; 80048; 81003; 81025; 84702; 85025; 86900; 86901; 99284

== ENCOUNTER 2019-04-24 19:42 | Emergency (ER) | payer SELFPAY ==
--- OUTSIDE RECORDS SUMMARY | 2019-04-24 19:45 | XMS REPORT ---
:1990 [facility] Address [address] [place] [address] Dr. Johnson [address] [place] [id number] Care Team Providers Name Role Phone Unavailable Unavailable Unavailable Problems This patient has no known problems. Allergies, Adverse Reactions, Alerts This patient has no known allergies or adverse reactions. Medications This patient has no known medications.
[2019-04-24 20:15] LABS: Absolute Lymphocytes (CBC) 2.4 K/uL (0.7-4.9); Absolute Monocytes 0.6 K/uL (0.1-1.3); Absolute Neutrophil 7.6 K/uL (1.8-8.0); Basophils % 0.8 % (0-1.3); Eosinophils % 2.6 % (0-4.4); Hematocrit 39.7 % (36.0-45.0); Lymphocytes % 22.2 % (15.3-44.8); MPV 8.6 fL (7.6-11.3); Monocytes % 5.6 % (3.3-12.3); RBC Red Blood Cell Count 4.56 M/uL (3.86-4.86)
[2019-04-24 20:34] LABS: Barbiturates NEGATIVE (NEGATIVE); Benzodiazepines NEGATIVE (NEGATIVE); Cocaine NEGATIVE (NEGATIVE); METHAMPHETAM NEGATIVE (NEGATIVE); Methadone NEGATIVE (NEGATIVE); Opiates NEGATIVE (NEGATIVE); Phencyclidine NEGATIVE (NEGATIVE); THC Cannibis POSITIVE (NEGATIVE)
[2019-04-24 20:54] LABS: ALT/SGPT 21 U/L (12-78); AST/SGOT 12 U/L (15-37); Albumin 3.7 g/dL (3.4-5.0); Alkaline Phosphatase 56 U/L (45-117); BUN Blood Urea Nitrogen 16 mg/dL (7-18); Bicarbonate 25 mmol/L (21-32); Bilirubin Direct < 0.1 mg/dL (0-0.2); Bilirubin Total 0.3 mg/dL (0.2-1.0); Glucose Level 89 mg/dL (74-106); Magnesium 2.1 mg/dL (1.8-2.4); NT PRO-BNP 142 pg/mL (<125); Potassium 3.9 mmol/L (3.5-5.1); Protein, Total 6.7 g/dL (6.4-8.2); Sodium Level 144 mmol/L (136-145); Troponin (Emerg Dept Use Only) 0.02 ng/mL (0.0-0.045)
[2019-04-24 22:01] LABS: Protime INR 0.93
--- NOTE | 2019-04-24 22:38 | ER ---
Nurse's Notes [facility] Name: Sandra Amado Age: 28 yrs Sex: Female : 1990 Arrival Date: 04/24/2019 Time: 19:45 Bed 14 Private MD: Diagnosis: Chest pain Presentation: 04/24 19:40 Presenting complaint: EMS states: started to have chest pain 10/10 pain score. she rr5 supposed to take lopressor but have not taken it. she has history of SVT. 19:40 Transition of care: [facility]. Onset of symptoms was April 24, 2019 at 18:30. Risk Assessment: rr5 Do you want to hurt yourself or someone else? Patient reports no desire to harm self or others. Initial Sepsis Screen: Does the patient meet any 2 criteria? No. Patient's initial sepsis screen is negative. Does the patient have a suspected source of infection? No. Patient's initial sepsis screen is negative. Note she is 2 weeks VS BP 127/65, CR 80-BPM. from 09/10 for the went to 07/11 after she took the aspirin said by the patient per EMS. Care prior to arrival: Medication(s) given: ASA, 324mg by EMS. 19:40 Method Of Arrival: EMS: [facility] rr5 19:40 Acuity: HUGO 3 rr5 FLOOR SPACE ALLOCATOR: 20:00 LMP 02/21/2019 rr5 Historical: - Allergies: 19:40 PENICILLINS (Anaphylaxis); rr5 19:40 tramadol; hallucinations; rr5 - Home Meds: 19:40 Metoprolol Tartrate Oral [Active]; anxiety, depression and bipolar medication cannot rr5 recall the name [Active]; - PMHx: 19:40 Diabetes - NIDDM; Hypertension; Kidney stones; RAPID HEART RATE; neck Cancer; ovary rr5 cyst; Depression; Bipolar disorder; Anxiety; - PSHx: 19:40 None; rr5 - Immunization history:: Adult Immunizations up to date. - Social history:: Smoking status: Patient/guardian denies using tobacco, Patient/guardian denies using alcohol, street drugs. - Ebola Screening: : Patient negative for fever greater than or equal to 101.5 degrees Fahrenheit, and additional compatible Ebola Virus Disease symptoms Patient denies exposure to infectious person Patient denies travel to an Ebola-affected area in the 21 days before illness onset. Screenin:00 Abuse screen: Denies threats or abuse. Denies injuries from another. Nutritional rr5 screening: No deficits noted. Tuberculosis screening: No symptoms or risk factors identified. Fall Risk IV access (20 points). Total Dumont Fall Scale indicates No Risk (0-24 pts). Assessment: 19:45 General: Appears in no apparent distress. uncomfortable, Behavior is calm, cooperative, rr5 appropriate for age. Pain: Complains of pain in chest Pain radiates to left arm Pain currently is 8 out of 10 on a pain scale. Quality of pain is described as aching, Pain began gradually, Is intermittent. Neuro: Level of Consciousness is awake, alert, obeys commands, Oriented to person, place, time, situation, Appropriate for age. 19:45 Cardiovascular: Reports chest pain, Capillary refill < 3 seconds Patient's skin is warm rr5 and dry. Respiratory: Airway is patent Respiratory effort is even, unlabored, Respiratory pattern is regular, symmetrical. GI: No signs and/or symptoms were reported involving the gastrointestinal system. : Reports i am 2 weeks ago tested positive in test. EENT: No signs and/or symptoms were reported regarding the EENT system. Derm: Skin is intact, Skin temperature is warm. Musculoskeletal: Circulation, motion, and sensation intact. Capillary refill < 3 seconds. 20:05 Reassessment: test negative result. ED provider aware. rr5 20:50 Reassessment: Patient appears in no apparent distress at this time. Patient is alert, rr5 oriented x 3, equal unlabored respirations, skin warm/dry/pink. no complaints made, awaiting for review. Patient states symptoms have improved. 21:52 Reassessment: Patient appears in no apparent distress at this time. Patient is alert, rr5 oriented x 3, equal unlabored respirations, skin warm/dry/pink. no complaints made awaiting for D dimer result. 22:40 Reassessment: Patient appears in no apparent distress at this time. Patient is alert, rr5 oriented x 3, equal unlabored respirations, skin warm/dry/pink. discharge instruction given and explained without complaints made. escorted by safety instruction police officer. Patient states feeling better. Patient states symptoms have improved. Vital Signs: 19:40 BP 104 / 63; Pulse 67; Resp 18; Pulse Ox 97% on R/A; Weight 77.11 kg; Height 5 ft. 5 rr5 in. (165.10 cm); Pain 8/10; 20:00 Temp 98.3(O); rr5 20:50 BP 107 / 74; Pulse 60; Resp 16; Temp 98.2; Pulse Ox 99% on R/A; Pain 3/10; rr5 21:17 BP 97 / 55; Pulse 60; Resp 16; Pulse Ox 99% on R/A; rr5 22:00 BP 99 / 60; Pulse 58; Resp 15; Pulse Ox 98% on R/A; rr5 22:40 BP 102 / 61; Pulse 60; Resp 16; Temp 98.3; Pulse Ox 99% on R/A; rr5 19:40 Body Mass Index 28.29 (77.11 kg, 165.10 cm) rr5 ED Course: 19:40 Maintain EMS IV. Dressing intact. Good blood return noted. Site clean \T\ dry. Gauge \T\ rr 5 site: G20 at Right AC. IV is patent, is intact, Flushed right antecubital with 5 ml normal saline. 19:44 Gabe Cheatham, RN is Primary Nurse. rr5 19:45 Patient arrived in ED. ds1 19:45 Patient has correct armband on for positive identification. Placed in gown. Bed in low rr5 position. Call light in reach. Side rails up X2. slide fasteners inspector on. Pulse ox on. NIBP on. 19:45 Arm band placed on. rr5 19:52 Triage completed. rr5 19:58 Mata Platt MD is Attending Physician. pkl 22:40 No provider procedures requiring assistance completed. IV discontinued, intact, rr5 bleeding controlled, No redness/swelling at site. Pressure dressing applied. Administered Medications: No medications were administered Outcome: 22:37 Discharge ordered by . pkl 22:40 Discharged to shelter rr5 22:40 Condition: stable 22:40 Discharge instructions given to patient, Instructed on discharge instructions, follow up and referral plans. Demonstrated understanding of instructions, follow-up care. 22:44 Patient left the ED. rr5 Signatures: Mata Platt MD MD pkl Daija Manzanares ds1 Gabe Cheatham, RN RN rr5
--- NOTE | 2019-04-24 22:39 | EDPHYS ---
Physician Documentation [facility] Name: Sandra Amado Age: 28 yrs Sex: Female : 1990 Arrival Date: 04/24/2019 Time: 19:45 Bed 14 Private MD: ED Physician Mata Platt HPI: 04/24 20:24 This 28 yrs old Female presents to ER via EMS with complaints of Chest Pain. pkl 20:24 The patient or guardian reports chest pain that is located primarily in the substernal pkl area. The pain radiates to the left arm. Associated signs and symptoms: The patient has no apparent associated signs or symptoms. The chest pain is described as stabbing. The patient has experienced similar episodes in the past, a few times. 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 - Social history:: Smoking status: Patient/guardian denies using tobacco, Patient/guardian denies using alcohol, street drugs. - Ebola Screening: : Patient negative for fever greater than or equal to 101.5 degrees Fahrenheit, and additional compatible Ebola Virus Disease symptoms Patient denies exposure to infectious person Patient denies travel to an Ebola-affected area in the 21 days before illness onset. ROS: 20:24 Eyes: Negative for injury, pain, redness, and discharge, ENT: Negative for injury, pkl pain, and discharge, Neck: Negative for injury, pain, and swelling. 20:24 Cardiovascular: Positive for chest pain. 20:24 Respiratory: Negative for cough, shortness of breath. 20:24 Abdomen/GI: Negative for abdominal pain, nausea, vomiting, and diarrhea. 20:24 Back: Negative for acute changes. 20:24 : Negative for urinary symptoms. 20:24 MS/extremity: Negative for acute changes. 20:24 Skin: Negative for rash. 20:24 Neuro: Negative for altered mental status. Exam: 20:24 Head/Face: Normocephalic, atraumatic. Eyes: Pupils equal round and reactive to light, pkl extra-ocular motions intact. Lids and lashes normal. Conjunctiva and sclera are non-icteric and not injected. Cornea within normal limits. Periorbital areas with no swelling, redness, or edema. ENT: Nares patent. No nasal discharge, no septal abnormalities noted. Tympanic membranes are normal and external auditory canals are clear. Oropharynx with no redness, swelling, or masses, exudates, or evidence of obstruction, uvula midline. Mucous membranes moist. Neck: Trachea midline, no thyromegaly or masses palpated, and no cervical lymphadenopathy. Supple, full range of motion without nuchal rigidity, or vertebral point tenderness. No Meningismus. Chest/axilla: Normal chest wall appearance and motion. Nontender with no deformity. No lesions are appreciated. Cardiovascular: Regular rate and rhythm with a normal S1 and S2. No gallops, murmurs, or rubs. Normal PMI, no JVD. No pulse deficits. Respiratory: Lungs have equal breath sounds bilaterally, clear to auscultation and percussion. No rales, rhonchi or wheezes noted. No increased work of breathing, no retractions or nasal flaring. Abdomen/GI: Soft, non-tender, with normal bowel sounds. No distension or tympany. No guarding or rebound. No evidence of tenderness throughout. Back: No spinal tenderness. No costovertebral tenderness. Full range of motion. Skin: Warm, dry with normal turgor. Normal color with no rashes, no lesions, and no evidence of cellulitis. MS/ Extremity: Pulses equal, no cyanosis. Neurovascular intact. Full, normal range of motion. Neuro: Awake and alert, GCS 15, oriented to person, place, time, and situation. Cranial nerves II-XII grossly intact. Motor strength 5/5 in all extremities. Sensory grossly intact. Cerebellar exam normal. Normal gait. Vital Signs: 19:40 BP 104 / 63; Pulse 67; Resp 18; Pulse Ox 97% on R/A; Weight 77.11 kg; Height 5 ft. 5 rr5 in. (165.10 cm); Pain 8/10; 20:00 Temp 98.3(O); rr5 20:50 BP 107 / 74; Pulse 60; Resp 16; Temp 98.2; Pulse Ox 99% on R/A; Pain 3/10; rr5 21:17 BP 97 / 55; Pulse 60; Resp 16; Pulse Ox 99% on R/A; rr5 22:00 BP 99 / 60; Pulse 58; Resp 15; Pulse Ox 98% on R/A; rr5 22:40 BP 102 / 61; Pulse 60; Resp 16; Temp 98.3; Pulse Ox 99% on R/A; rr5 19:40 Body Mass Index 28.29 (77.11 kg, 165.10 cm) rr5 MDM: 19:58 Patient medically screened. pkl 22:36 Data reviewed: vital signs, nurses notes, lab test result(s), EKG. pkl 04/24 20:01 Order name: Basic Metabolic Panel; Complete Time: 21:23 rr5 04/24 20:01 Order name: CBC with Diff; Complete Time: 21:23 rr5 04/24 20:01 Order name: LFT's; Complete Time: 21:23 rr5 04/24 20:01 Order name: Magnesium; Complete Time: 21:23 rr5 04/24 20:01 Order name: NT PRO-BNP; Complete Time: 21:23 rr5 04/24 20:01 Order name: PT-INR; Complete Time: 22:34 rr5 04/24 20:01 Order name: Troponin (emerg Dept Use Only); Complete Time: 21:23 rr5 04/24 20:01 Order name: EKG; Complete Time: 20:01 rr5 04/24 20:01 Order name: Cardiac monitoring; Complete Time: 20:00 rr5 04/24 20:08 Order name: Test, Serum; Complete Time: 21:23 pkl 04/24 20:09 Order name: UDS; Complete Time: 21:23 pkl 04/24 21:45 Order name: D-Dimer; Complete Time: 22:34 EDMS 04/24 20:01 Order name: EKG - Nurse/Tech; Complete Time: 20:01 rr5 04/24 20:01 Order name: IV Saline Lock; Complete Time: 20:14 rr5 05/24 20:01 Order name: Labs collected and sent; Complete Time: 20:14 rr5 04/24 20:01 Order name: O2 Per Protocol; Complete Time: 20:14 rr5 04/24 20:01 Order name: O2 Sat Monitoring; Complete Time: 20:14 rr5 Administered Medications: No medications were administered Disposition: 04/24/19 22:37 Discharged to Home. Impression: Chest pain. - Condition is Stable. - Medication Reconciliation Form, Thank You Letter, Antibiotic Education, Prescription Opioid Use form. - Follow up: Private Physician; When: 2 - 3 days; Reason: Re-evaluation by your physician. - Problem is new. - Symptoms have improved. Signatures: Dispatcher [employer] EDWV Mata Platt MD MD pkGabe Stern RN RN rr5 Corrections: (The following items were deleted from the chart) 20:24 20:01 Chest Single View+RAD.RAD.BRZ ordered. [facility] EDWV 21:44 20:08 D-DIMER+COAG.LAB.BRZ ordered. [facility] 22:44 22:37 04/24/2019 22:37 Discharged to Home. Impression: Chest pain. Condition is Stable. rr5 Forms are Medication Reconciliation Form, Thank You Letter, Antibiotic Education, Prescription Opioid Use. Follow up: Private Physician; When: 2 - 3 days; Reason: Re-evaluation by your physician. Problem is new. Symptoms have improved. pkl
[2019-04-24 23:01] VITALS: TEMP 98.2
[2019-04-24 23:04] VITALS: BP 99/60; O2SAT 98
--- NOTE | 2019-04-25 08:11 | EKG ---
Test Date: 2019-04-24 Test Time: 19:54:17 Calender Roll Operator: PAM MEASUREMENT RESULTS: Intervals: Rate: 69 RI: 126 QRSD: 74 QT: 404 QTc: 432 [place]: P: 57 RI: 126 QRS: 73 T: 56 INTERPRETIVE STATEMENTS: Normal sinus rhythm with sinus arrhythmia Normal ECG Compared to ECG 09/26/2016 01:04:17 Sinus tachycardia no longer present Electronically Signed On 04-25-19 08:10:09 CDT by Timothy Quintanilla
== END 2019-04-24 22:44 | disposition home or self-care (01) ==
LOC: ER 19:42
DX: R07.9 Chest pain, unspecified (principal); I10 Essential (primary) hypertension; F32.9 Major depressive disorder, single episode, unspecified; F31.9 Bipolar disorder, unspecified; E11.9 Type 2 diabetes mellitus without complications; F41.9 Anxiety disorder, unspecified; Z88.0 Allergy status to penicillin; Z88.5 Allergy status to narcotic agent; Z85.89 Personal history of malignant neoplasm of other organs and systems
CPT/HCPCS: 36415; 80048; 80076; 80307; 83735; 83880; 84484; 84703; 85025; 85379; 85610; 93005; 99284

== ENCOUNTER 2019-10-04 15:30 | Emergency (ER) | payer SELFPAY ==
--- NOTE | 2019-10-04 15:42 | ER ---
Nurse's Notes [facility] Name: Sandra Amado Age: 28 yrs Sex: Female : 1990 Arrival Date: 10/04/2019 Time: 15:32 Bed 20 Private MD: None, None Diagnosis: Acute pharyngitis;Otalgia, left ear Presentation: 10/04 15:33 Presenting complaint: Patient states: sore throat since saturday. Transition of care: la1 patient was not received from another setting of care. Onset of symptoms was October 04, 2019. Risk Assessment: Do you want to hurt yourself or someone else? Patient reports no desire to harm self or others. Initial Sepsis Screen: Does the patient meet any 2 criteria? No. Patient's initial sepsis screen is negative. Does the patient have a suspected source of infection? No. Patient's initial sepsis screen is negative. Care prior to arrival: None. 15:33 Method Of Arrival: Ambulatory la1 15:33 Acuity: HUGO 4 la1 Historical: - Allergies: 15:34 PENICILLINS (Anaphylaxis); la1 15:34 tramadol; hallucinations; la1 - PMHx: 15:34 Anxiety; Bipolar disorder; Depression; Hypertension; Kidney stones; Neck Cancer; ovary la1 cyst; RAPID HEART RATE; - Immunization history:: Adult Immunizations up to date. - Social history:: Smoking status: Patient/guardian denies using tobacco. - Ebola Screening: : No symptoms or risks identified at this time. Screenin:46 Abuse screen: Denies threats or abuse. Nutritional screening: No deficits noted. em Tuberculosis screening: No symptoms or risk factors identified. Fall Risk None identified. Assessment: 15:46 General: Appears in no apparent distress. uncomfortable, Behavior is calm, cooperative, em appropriate for age, Denies fever. Pain: Complains of pain in left ear and throat Pain currently is 6 out of 10 on a pain scale. Neuro: Level of Consciousness is awake, alert, obeys commands, Oriented to person, place, time, situation, Appropriate for age. Cardiovascular: Capillary refill < 3 seconds Patient's skin is warm and dry. Respiratory: Airway is patent Respiratory effort is even, unlabored, Respiratory pattern is regular, symmetrical, Breath sounds are clear bilaterally. EENT: Nares are clear Oral mucosa is moist. Throat is reddened bilaterally Reports pain when swallowing. Derm: Skin is intact, is healthy with good turgor, Skin is pink, warm \T\ dry. Musculoskeletal: Capillary refill < 3 seconds, Range of motion: intact in all extremities. Vital Signs: 15:34 BP 103 / 72; Pulse 105; Resp 16; Temp 98.7; Pulse Ox 100% on R/A; Weight 77.11 kg; la1 Height 5 ft. 5 in. (165.10 cm); 15:34 Body Mass Index 28.29 (77.11 kg, 165.10 cm) la1 ED Course: 15:32 Patient arrived in ED. ag5 15:33 None, None is Private Physician. ag5 15:34 Triage completed. la1 15:34 Arm band placed on left wrist. la1 15:35 Tyrese Barry NP is PHCP. pm1 15:35 Wesley Holguin MD is Attending Physician. pm1 15:39 Gaetano Hernandez LVN is Primary Nurse. em 15:41 Wesley Holguin MD is Referral Physician. pm1 15:46 Patient has correct armband on for positive identification. Call light in reach. em 15:46 No provider procedures requiring assistance completed. em 15:46 Patient did not have IV access during this emergency room visit. em Administered Medications: No medications were administered Outcome: 15:42 Discharge ordered by . pm1 15:46 Discharged to home ambulatory. em 15:46 Condition: good 15:46 Discharge instructions given to patient, Instructed on discharge instructions, follow up and referral plans. medication usage, Demonstrated understanding of instructions, follow-up care, medications, Prescriptions given X 1. 16:03 Patient left the ED. em Signatures: Gaetano Hernandez LVN LVN em Derik Mcmillan RN RN la1 Tyrese Barry NP CONFIGURATION MANAGEMENT MANAGER pm1 Nitin Sheldon ag5
--- NOTE | 2019-10-04 15:43 | EDPHYS ---
Physician Documentation [facility] Name: Sandra Amado Age: 28 yrs Sex: Female : 1990 Arrival Date: 10/04/2019 Time: 15:32 Bed 20 Private MD: None, None ED Physician Wesley Holguin HPI: 10/04 15:49 This 28 yrs old Female presents to ER via Ambulatory with complaints of Sore pm1 Throat, Ear Pain. 15:49 The patient presents with sore throat. The patient describes throat pain as constant, pm1 raw, scratchy. Onset: The symptoms/episode began/occurred 2 day(s) ago. Severity of symptoms: in the emergency department the symptoms are actually worse. Modifying factors: The symptoms are alleviated by nothing, the symptoms are aggravated by swallowing, Patient's oral intake status: good. Associated signs and symptoms: Pertinent positives: earache, Pertinent negatives chest pain, cough, fever, flu-like symptoms, shortness of breath, vomiting. The patient has not recently seen a physician, and does not have an established primary care provider. Historical: - Allergies: 15:34 PENICILLINS (Anaphylaxis); la1 15:34 tramadol; hallucinations; la1 - PMHx: 15:34 Anxiety; Bipolar disorder; Depression; Hypertension; Kidney stones; Neck Cancer; ovary la1 cyst; RAPID HEART RATE; - Immunization history:: Adult Immunizations up to date. - Social history:: Smoking status: Patient/guardian denies using tobacco. - Ebola Screening: : No symptoms or risks identified at this time. ROS: 15:49 Constitutional: Negative for fever, chills, and weight loss, Eyes: Negative for injury, pm1 pain, redness, and discharge. 15:49 Neck: Negative for injury, pain, and swelling, Cardiovascular: Negative for chest pain, palpitations, and edema, Respiratory: Negative for shortness of breath, cough, wheezing, and pleuritic chest pain, Abdomen/GI: Negative for abdominal pain, nausea, vomiting, diarrhea, and constipation, Back: Negative for injury and pain, MS/Extremity: Negative for injury and deformity, Skin: Negative for injury, rash, and discoloration. 15:49 Neuro: Negative for headache, weakness, numbness, tingling, and seizure. 15:49 ENT: Positive for ear pain, sore throat, Negative for drainage from ear(s), rhinorrhea, sinus congestion, sinus pain. Exam: 15:49 Constitutional: This is a well developed, well nourished patient who is awake, alert, pm1 and in no acute distress. Head/Face: Normocephalic, atraumatic. 15:49 Chest/axilla: Normal chest wall appearance and motion. Nontender with no deformity. No lesions are appreciated. Cardiovascular: Regular rate and rhythm with a normal S1 and S2. No gallops, murmurs, or rubs. Normal PMI, no JVD. No pulse deficits. Respiratory: Lungs have equal breath sounds bilaterally, clear to auscultation and percussion. No rales, rhonchi or wheezes noted. No increased work of breathing, no retractions or nasal flaring. Back: No spinal tenderness. No costovertebral tenderness. Full range of motion. Skin: Warm, dry with normal turgor. Normal color with no rashes, no lesions, and no evidence of cellulitis. MS/ Extremity: Pulses equal, no cyanosis. Neurovascular intact. Full, normal range of motion. 15:49 ENT: External ear(s): are unremarkable, Ear canal(s): are normal, TM's: bulging, on the left, erythema, is not appreciated, Examination of the other ear shows no obvious abnormality, Nose: is normal, Mouth: is normal, no gum abnomalities, no lip abnormalities, no mucosal abnormalities, no tongue abnormalities, abscess, is not appreciated, drooling, is not appreciated. 15:49 Neck: External neck: is normal, Lymph nodes: lymphadenopathy is appreciated, anterior cervical nodes. 15:49 Neuro: Orientation: is normal, Motor: is normal, Gait: is steady, at a normal pace, without difficulty. Vital Signs: 15:34 BP 103 / 72; Pulse 105; Resp 16; Temp 98.7; Pulse Ox 100% on R/A; Weight 77.11 kg; la1 Height 5 ft. 5 in. (165.10 cm); 15:34 Body Mass Index 28.29 (77.11 kg, 165.10 cm) la1 MDM: 15:35 Patient medically screened. pm1 15:40 Data reviewed: vital signs. Data interpreted: Pulse oximetry: on room air is 100 %. pm1 Interpretation: normal. Counseling: I had a detailed discussion with the patient and/or guardian regarding: the historical points, exam findings, and any diagnostic results supporting the discharge/admit diagnosis, the need for outpatient follow up, to return to the emergency department if symptoms worsen or persist or if there are any questions or concerns that arise at home. 10/04 15:40 Order name: Strep; Complete Time: 16:02 pm1 10/04 15:58 Order name: Throat Culture EDMS Administered Medications: No medications were administered Disposition: 17:31 Co-signature as Attending Physician, Wesley Holguin MD. rn Disposition: 10/04/19 15:42 Discharged to Home. Impression: Acute pharyngitis, Otalgia, left ear. - Condition is Stable. - Discharge Instructions: Earache, Adult, Pharyngitis. - Prescriptions for Zithromax Z- Derian 250 mg Oral Tablet - take 1 tablet by ORAL route as directed for 5 days Day 1 - take two (2) tablets one time. Day 2, 3, 4 , 5 take one (1) tablet once daily.; 6 tablet. - Work release form, Medication Reconciliation Form, Thank You Letter, Antibiotic Education, Prescription Opioid Use form. - Follow up: Emergency Department; When: As needed; Reason: Worsening of condition. Follow up: Wesley Holguin MD; When: 2 - 3 days; Reason: Recheck today's complaints, Continuance of care, Re-evaluation by your physician. - Problem is new. - Symptoms have improved. Signatures: Dispatcher [employer] EDNE Gaetano Hernandez, VEHICLE WINDOW TINTER VEHICLE WINDOW TINTER Wesley Nickerson MD MD rn Attema, Lee, RN RN la1 Tyrese Barry, [employer] AUTOMATIC [employer]IC CUTTER pm1 Corrections: (The following items were deleted from the chart) 16:03 15:42 10/04/2019 15:42 Discharged to Home. Impression: Acute pharyngitis; Otalgia, left em ear. Condition is Stable. Forms are Medication Reconciliation Form, Thank You Letter, Antibiotic Education, Prescription Opioid Use. Follow up: Emergency Department; When: As needed; Reason: Worsening of condition. Follow up: Dr. Wesley Holguin; When: 2 - 3 days; Reason: Recheck today's complaints, Continuance of care, Re-evaluation by your physician. Problem is new. Symptoms have improved. pm1
[2019-10-04 20:36] VITALS: BP 103/72; TEMP 98.7; O2SAT 100
== END 2019-10-04 16:03 | disposition home or self-care (01) ==
LOC: ER 15:30
DX: J02.9 Acute pharyngitis, unspecified (principal); H92.02 Otalgia, left ear; Z88.0 Allergy status to penicillin; Z88.6 Allergy status to analgesic agent
CPT/HCPCS: 87070; 87081; 99282

== ENCOUNTER 2019-10-13 19:32 | Emergency (ER) | payer SELFPAY ==
--- OUTSIDE RECORDS SUMMARY | 2019-10-13 19:35 | XMS REPORT ---
:1990 [facility] Address [address] [place] [address] Dr. Licona[address] [place] [id number] Care Team Providers Name Role Phone Unavailable Unavailable Unavailable Problems This patient has no known problems. Allergies, Adverse Reactions, Alerts This patient has no known allergies or adverse reactions. Medications This patient has no known medications.
[2019-10-13] MEDS ORDERED: dexAMETHasone 10 MG/ML VIAL ONE (20:45)
--- NOTE | 2019-10-13 20:45 | EDPHYS ---
Physician Documentation [facility] Name: Sandra Amado Age: 28 yrs Sex: Female : 1990 Arrival Date: 10/13/2019 Time: 19:36 Bed 9 Private MD: ED Physician Rubén Gonzáles HPI: 10/13 20:41 This 28 yrs old Female presents to ER via Ambulatory with complaints of Ear jmm Pain, Vomiting, Sore Throat. 20:41 The patient presents with pain. Onset: The symptoms/episode began/occurred gradually, 1 jmm week(s) ago. Modifying factors: The symptoms are alleviated by nothing, the symptoms are aggravated by nothing. This is a 28 year old female with a history of anxiety, bipolar that presents to the ED with complaints of sore throat, right ear pain which began approx 1 week ago. Patient prescribed oral abx without relief. patient states ear pain has worsened. . Historical: - Allergies: 19:44 PENICILLINS (Anaphylaxis); rv 19:44 tramadol; hallucinations; rv - Home Meds: 19:44 anxiety, depression and bipolar medication cannot recall the name [Active]; Metoprolol rv Tartrate Oral [Active]; - PMHx: 19:44 Anxiety; Bipolar disorder; Depression; Diabetes - NIDDM; Hypertension; Kidney stones; rv Neck Cancer; ovary cyst; RAPID HEART RATE; - PSHx: 19:44 None; rv - Immunization history:: Adult Immunizations up to date. - Social history:: Smoking status: Patient/guardian denies using tobacco. - Ebola Screening: : No symptoms or risks identified at this time. ROS: 20:41 Constitutional: Positive for body aches, chills. jmm 20:41 ENT: Positive for sore throat. 20:41 Respiratory: Positive for cough. 20:41 Abdomen/GI: Negative for vomiting. 20:41 All other systems are negative. Exam: 20:41 Constitutional: This is a well developed, well nourished patient who is awake, alert, jmm and in no acute distress. Head/Face: atraumatic. Eyes: EOMI, no conjunctival erythema appreciated 20:41 Cardiovascular: Regular rate and rhythm. No edema appreciated Respiratory: Normal respirations, no respiratory distress appreciated Abdomen/GI: Non distended, soft Back: Normal ROM Skin: General appearance color normal MS/ Extremity: Moves all extremities, no obvious deformities appreciated, no edema noted to the lower extremities Neuro: Awake and alert, normal gait Psych: Behavior is normal, Mood is normal, Patient is cooperative and pleasant 20:41 ENT: Posterior pharynx: erythema, that is moderate, exudate, that is mild. Vital Signs: 19:43 BP 104 / 72; Pulse 96; Resp 16; Temp 98.4; Pulse Ox 97% on R/A; Weight 77.11 kg; Height rv 5 ft. 5 in. (165.10 cm); 19:43 Body Mass Index 28.29 (77.11 kg, 165.10 cm) rv MDM: 20:32 Patient medically screened. ashley 20:42 Data reviewed: vital signs, nurses notes. Counseling: I had a detailed discussion with mer the patient and/or guardian regarding: the historical points, exam findings, and any diagnostic results supporting the discharge/admit diagnosis, the need for outpatient follow up, to return to the emergency department if symptoms worsen or persist or if there are any questions or concerns that arise at home. ED course: Patient is alert and non toxic in appearance in the ED. Patient advised to follow up with ent for reevaluation. Otherwise given strict return precautions. patient also advised to closely monitor Bgl due to dexamethasone. . 10/13 20:41 Order name: Franklyn john Administered Medications: 20:52 Drug: Dexamethasone 10 mg Route: IM; Site: right deltoid; aj1 21:17 Follow up: Response: No adverse reaction aj1 Disposition: 10/14 06:56 Co-signature as Attending Physician, Rubén Gonzáles MD I agree with the assessment and allan plan of care. Disposition: 10/13/19 20:45 Discharged to Home. Impression: Acute pharyngitis, Otalgia, right ear. - Condition is Stable. - Discharge Instructions: Pharyngitis. - Prescriptions for Clindamycin HCl 300 mg Oral Capsule - take 1 capsule by ORAL route every 6 hours for 10 days; 40 capsule. - Work release form, Medication Reconciliation Form, Thank You Letter, Antibiotic Education, Prescription Opioid Use form. - Follow up: Tanja House MD; When: 2 - 3 days; Reason: Recheck today's complaints, Continuance of care, Re-evaluation by your physician. Signatures: Dispatcher [employer] EDLiset Samuel, DENIS RN aj1 Rubén Gonzáles MD MD cha Mickail, Joel, PA PA jmm Vicente, Ronaldo, RN RN rv Corrections: (The following items were deleted from the chart) 10/13 21:24 20:45 10/13/2019 20:45 Discharged to Home. Impression: Acute pharyngitis; Otalgia, aj1 right ear. Condition is Stable. Forms are Medication Reconciliation Form, Thank You Letter, Antibiotic Education, Prescription Opioid Use. Follow up: Tanja House; When: 2 - 3 days; Reason: Recheck today's complaints, Continuance of care, Re-evaluation by your physician. mer
--- NOTE | 2019-10-13 20:45 | ER ---
Nurse's Notes [facility] Name: Sandra Amado Age: 28 yrs Sex: Female : 1990 Arrival Date: 10/13/2019 Time: 19:36 Bed 9 Private MD: Diagnosis: Acute pharyngitis;Otalgia, right ear Presentation: 10/13 19:40 Presenting complaint: Patient states: STARTED HAVING FEVER, SORE THROAT AND EAR PAINS rv TWO DAYS AGO. HAVE BEEN TAKING TYLENOL FOR THE FEVER AND PAIN. TODAY SHE VOMITED AND IS NOT ABLE TO EAT BECAUSE OF THE PAIN. Transition of care: patient was not received from another setting of care. Onset of symptoms was October 11, 2019 at 08:00. Risk Assessment: Do you want to hurt yourself or someone else? Patient reports no desire to harm self or others. Initial Sepsis Screen: Does the patient meet any 2 criteria? No. Patient's initial sepsis screen is negative. Does the patient have a suspected source of infection? No. Patient's initial sepsis screen is negative. Care prior to arrival: None. 19:40 Method Of Arrival: Ambulatory rv 19:40 Acuity: HUGO 4 rv Triage Assessment: 19:44 General: Appears in no apparent distress. Behavior is calm, cooperative. Pain: rv Complains of pain in THROAT. EENT: Throat is reddened. Neuro: Level of Consciousness is awake, alert, obeys commands, Oriented to person, place, time, situation. Cardiovascular: Patient's skin is warm and dry. Respiratory: Airway is patent. GI: No signs and/or symptoms were reported involving the gastrointestinal system. : No signs and/or symptoms were reported regarding the genitourinary system. Derm: Skin is intact. Musculoskeletal: No signs and/or symptoms reported regarding the musculoskeletal system. Historical: - Allergies: 19:44 PENICILLINS (Anaphylaxis); rv 19:44 tramadol; hallucinations; rv - Home Meds: 19:44 anxiety, depression and bipolar medication cannot recall the name [Active]; Metoprolol rv Tartrate Oral [Active]; - PMHx: 19:44 Anxiety; Bipolar disorder; Depression; Diabetes - NIDDM; Hypertension; Kidney stones; rv Neck Cancer; ovary cyst; RAPID HEART RATE; - PSHx: 19:44 None; rv - Immunization history:: Adult Immunizations up to date. - Social history:: Smoking status: Patient/guardian denies using tobacco. - Ebola Screening: : No symptoms or risks identified at this time. Screenin:00 Abuse screen: Denies threats or abuse. Denies injuries from another. Nutritional aj1 screening: No deficits noted. Tuberculosis screening: No symptoms or risk factors identified. Fall Risk None identified. Assessment: 21:00 General: Appears in no apparent distress. comfortable, Behavior is calm, cooperative, aj1 appropriate for age. Pain: Complains of pain in left aspect of posterior pharynx and right aspect of posterior pharynx Pain does not radiate. Neuro: Level of Consciousness is awake, alert, obeys commands, Oriented to person, place, time, situation. Cardiovascular: Patient's skin is warm and dry. Respiratory: Airway is patent Respiratory effort is even, unlabored, Respiratory pattern is regular, symmetrical. GI: No signs and/or symptoms were reported involving the gastrointestinal system. : No signs and/or symptoms were reported regarding the genitourinary system. EENT: Reports sore throat, ear pain. Derm: No signs and/or symptoms reported regarding the dermatologic system. Skin is pink, warm \T\ dry. normal. Musculoskeletal: No signs and/or symptoms reported regarding the musculoskeletal system. Circulation, motion, and sensation intact. Vital Signs: 19:43 BP 104 / 72; Pulse 96; Resp 16; Temp 98.4; Pulse Ox 97% on R/A; Weight 77.11 kg; Height rv 5 ft. 5 in. (165.10 cm); 19:43 Body Mass Index 28.29 (77.11 kg, 165.10 cm) rv ED Course: 19:36 Patient arrived in ED. cf2 19:43 Triage completed. rv 19:47 James Mcwilliams PA is PHCP. jmm 19:48 Rubén Gonzáles MD is Attending Physician. jmm 20:42 Liset Espinoza, DENIS is Primary Nurse. aj1 20:44 Tanja House MD is Referral Physician. m 21:00 Patient has correct armband on for positive identification. Bed in low position. Call aj1 light in reach. Side rails up X 1. 21:00 No provider procedures requiring assistance completed. Patient did not have IV access aj1 during this emergency room visit. Administered Medications: 20:52 Drug: Dexamethasone 10 mg Route: IM; Site: right deltoid; aj1 21:17 Follow up: Response: No adverse reaction aj1 Outcome: 20:45 Discharge ordered by . mer 21:22 Discharged to home ambulatory. aj1 21:22 Condition: good 21:22 Discharge instructions given to patient, Instructed on discharge instructions, follow up and referral plans. no driving heavy equipment, Demonstrated understanding of instructions, follow-up care, medications, Prescriptions given X 1. 21:24 Patient left the ED. aj1 Signatures: Liset Espinoza, RN RN aj1 James Mcwilliams PA PA jmm Vicente, Ronaldo, RN RN Gama Callaway cf2
[2019-10-13 21:29] VITALS: BP 104/72; TEMP 98.4; O2SAT 97
== END 2019-10-13 21:24 | disposition home or self-care (01) ==
LOC: ER 19:32
DX: J02.9 Acute pharyngitis, unspecified (principal); I10 Essential (primary) hypertension; E11.9 Type 2 diabetes mellitus without complications; F31.9 Bipolar disorder, unspecified; F41.9 Anxiety disorder, unspecified; Z88.0 Allergy status to penicillin; Z88.5 Allergy status to narcotic agent; Z85.89 Personal history of malignant neoplasm of other organs and systems
CPT/HCPCS: 87070; 87081; 96372; 99283; J1100

== ENCOUNTER 2020-01-28 00:42 | Emergency (ER) | payer OTHER, SELFPAY ==
[2020-01-28] MEDS ORDERED: NA CHLORIDE 0.9% 500 ML ONE (01:38)
[2020-01-28 02:05] LABS: Absolute Lymphocytes (CBC) 2.6 K/uL (0.7-4.9); Hematocrit 39.3 % (36.0-45.0); Lymphocytes % 23.4 % (15.3-44.8); MPV 8.3 fL (7.6-11.3); RBC Red Blood Cell Count 4.53 M/uL (3.86-4.86)
[2020-01-28 02:34] LABS: BUN Blood Urea Nitrogen 18 mg/dL (7-18); Bicarbonate 26 mmol/L (21-32); Glucose Level 78 mg/dL (74-106); Potassium 3.6 mmol/L (3.5-5.1); Sodium Level 138 mmol/L (136-145)
--- NOTE | 2020-01-28 02:40 | ER ---
Nurse's Notes [facility] Name: Sandra Amado Age: 29 yrs Sex: Female : 1990 Arrival Date: 01/28/2020 Time: 00:44 Bed 16 Private MD: Diagnosis: Orthostatic hypotension;Cough;Chest pain, unspecified Presentation: 01/28 00:44 Chief complaint: Patient states: Reports chest pain, dizziness, shortness of breath for ea about a week and a half. States she is 10 weeks reports spotting last night. Coronavirus screen: The patient has NOT traveled to [place] in the past 14 days. Proceed with normal triage procedures. Ebola Screen: No symptoms or risks identified at this time. Risk Assessment: Do you want to hurt yourself or someone else? Patient reports no desire to harm self or others. 00:44 Method Of Arrival: Ambulatory ea 00:44 Acuity: HUGO 3 ea 00:48 Initial Sepsis Screen: Does the patient meet any 2 criteria? No. Patient's initial ea sepsis screen is negative. Does the patient have a suspected source of infection? No. Patient's initial sepsis screen is negative. 01:15 Onset of symptoms is unknown. Triage Assessment: 00:47 General: Appears in no apparent distress. Behavior is calm, cooperative, appropriate ea for age. Pain: Complains of pain in chest Pain radiates to right arm. Cardiovascular: Patient's skin is warm and dry. PERSONNEL ASSISTANT: 01:15 Verified Historical: - Allergies: 00:47 PENICILLINS (Anaphylaxis); ea 00:47 tramadol; hallucinations; ea - Home Meds: 01:49 Vitamin Oral tab 1 tab once daily [Active]; wh - PMHx: 00:47 Anxiety; Bipolar disorder; Depression; Hypertension; Diabetes - NIDDM; Kidney stones; ea Neck Cancer; ovary cyst; RAPID HEART RATE; - PSHx: 00:47 None; ea - Immunization history:: Adult Immunizations up to date. - Social history:: Smoking status: Patient denies any tobacco usage or history of. Screenin:55 Abuse screen: Denies threats or abuse. Nutritional screening: No deficits noted. ea Tuberculosis screening: No symptoms or risk factors identified. Fall Risk None identified. Assessment: 01:15 General: Appears in no apparent distress. Behavior is calm, cooperative, appropriate for age. Pain: Complains of pain in chest Pain does not radiate. Pain currently is 5 out of 10 on a pain scale. Quality of pain is described as sharp, Pain began 1 week ago Is intermittent. Neuro: Level of Consciousness is awake, alert, obeys commands, Oriented to person, place, time, situation, Appropriate for age. Cardiovascular: Heart tones S1 S2 Rhythm is regular. Respiratory: Airway is patent Respiratory effort is even, unlabored, Respiratory pattern is regular, symmetrical, Breath sounds are clear bilaterally. GI: Abdomen is flat, non-distended. : No signs and/or symptoms were reported regarding the genitourinary system. EENT: No signs and/or symptoms were reported regarding the EENT system. Derm: Skin is intact, is healthy with good turgor, Skin is pink, warm \T\ dry. normal. Musculoskeletal: Circulation, motion, and sensation intact. 02:30 Reassessment: Patient appears in no apparent distress at this time. No changes from previously documented assessment. Patient and/or family updated on plan of care and expected duration. Pain level reassessed. Patient is alert, oriented x 3, equal unlabored respirations, skin warm/dry/pink. Pt with order awaiting Rhogam injection being prepared by Lab, Charge Nurse notified. 03:30 Reassessment: Patient appears in no apparent distress at this time. No changes from previously documented assessment. Patient and/or family updated on plan of care and expected duration. Pain level reassessed. Patient is alert, oriented x 3, equal unlabored respirations, skin warm/dry/pink. Pt sleeping well no signs of distress noted. 04:30 Reassessment: Patient appears in no apparent distress at this time. No changes from previously documented assessment. Patient and/or family updated on plan of care and expected duration. Pain level reassessed. Patient is alert, oriented x 3, equal unlabored respirations, skin warm/dry/pink. Vital Signs: 00:56 BP 91 / 59; Pulse 81; Resp 18; Temp 97.7; Pulse Ox 99% on R/A; Weight 75.75 kg; Height ea 5 ft. 5 in. (165.10 cm); 01:45 BP 102 / 62; Pulse 89; Resp 18; Pulse Ox 98% on R/A; 03:00 BP 106 / 52; Pulse 70; Resp 18; Pulse Ox 98% on R/A; wh 04:30 BP 98 / 52; Pulse 60; Resp 18; Pulse Ox 98% on R/A; wh 00:56 Body Mass Index 27.79 (75.75 kg, 165.10 cm) ED Course: 00:44 Patient arrived in ED. ag3 00:45 Derik Mcmillan FNP-C [facility]. la1 00:45 Wesley Holguin MD is Attending Physician. la1 00:46 Triage completed. ea 00:55 EKG done, by ED staff. ea 00:56 Arm band placed on right wrist. Patient placed in an exam room, on a stretcher. ea 00:57 Patient maintains SpO2 saturation greater than 95% on room air. ea 01:15 Patient has correct armband on for positive identification. Bed in low position. Call light in reach. Side rails up X 1. golf club head inspector and adjuster on. Pulse ox on. NIBP on. 01:25 Noemi Lo is Primary Nurse. 01:41 Chest Single View XRAY In Process Unspecified. EDMS 04:38 No provider procedures requiring assistance completed. IV discontinued, intact, wh bleeding controlled, No redness/swelling at site. Administered Medications: 01:45 Drug: NS 0.9% 500 ml Route: IV; Rate: bolus; Site: left antecubital; 04:39 Follow up: Response: No adverse reaction; IV Status: Completed infusion 04:25 Drug: RhoGAM (Human) 300 mcg Route: IM; Site: left deltoid; 04:39 Follow up: Response: No adverse reaction Outcome: 02:39 Discharge ordered by . la1 04:38 Discharged to home ambulatory, with family. 04:38 Condition: stable 04:38 Discharge instructions given to patient, family, Instructed on discharge instructions, follow up and referral plans. POC Demonstrated understanding of instructions, follow-up care, POC 04:40 Patient left the ED. Signatures: Dispatcher [employer] EDMS Derik Mcmillan FNP-C RAILWAY TRACTION LINE WORKER-Cla1 Anisa Javier RN RN ea [place], Winsy Sandie Subramanian ag3
--- NOTE | 2020-01-28 02:41 | EDPHYS ---
Physician Documentation [facility] Name: Sandra Amado Age: 29 yrs Sex: Female : 1990 Arrival Date: 01/28/2020 Time: 00:44 Bed 16 Private MD: ED Physician Wesley Holguin HPI: 01/28 01:25 This 29 yrs old Female presents to ER via Ambulatory with complaints of Cough, la1 Chest Pain. 01:25 The patient or guardian reports cough, described as moderate, with productive sputum, la1 that is green, that is yellow. Onset: The symptoms/episode began/occurred 1.5 week(s) ago. Severity of symptoms: At their worst the symptoms were moderate. Modifying factors: The symptoms are alleviated by nothing, the symptoms are aggravated by nothing. Associated signs and symptoms: Pertinent positives: syncope. The patient has not experienced similar symptoms in the past. pt reports that she has been having chest pain, cough, dizziness for the last 1.5 weeks and had one syncopal episode after changing position from laying down to standing. Pt reports some blood streaking in her sputum as well. Also reports some light spotting and being about 17 weeks , confirmed IUP, denies abd pain. No swelling/pain to LE, pt quit smoking about three weeks ago but was smoking about 1/2PPD prior to that.. 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 - Social history:: Smoking status: Patient denies any tobacco usage or history of. ROS: 01:28 Constitutional: Negative for fever, chills, and weight loss, Eyes: Negative for injury, la1 pain, redness, and discharge, ENT: Negative for injury, pain, and discharge. 01:28 Abdomen/GI: Negative for abdominal pain, nausea, vomiting, diarrhea, and constipation, Back: Negative for injury and pain. 01:28 MS/Extremity: Negative for injury and deformity, Neuro: Negative for headache, weakness, numbness, tingling, and seizure. 01:28 Neck: Positive for swollen nodes, of the left anterior aspect of neck. 01:28 Cardiovascular: Positive for chest pain, Negative for edema, orthopnea, palpitations, paroxysmal nocturnal dyspnea. 01:28 Respiratory: Positive for cough, with clear sputum, hemoptysis. 01:28 : Positive for vaginal bleeding. Exam: :29 Constitutional: This is a well developed, well nourished patient who is awake, alert, la1 and in no acute distress. Head/Face: Normocephalic, atraumatic. Eyes: Pupils equal round and reactive to light, extra-ocular motions intact ENT: Mucous membranes moist. Neck: Trachea midline, Supple, full range of motion without nuchal rigidity, or vertebral point tenderness. No Meningismus. Chest/axilla: Normal chest wall appearance and motion. Nontender with no deformity. No lesions are appreciated. Cardiovascular: Regular rate and rhythm with a normal S1 and S2. No gallops, murmurs, or rubs. Normal PMI, no JVD. No pulse deficits. Respiratory: Lungs have equal breath sounds bilaterally, clear to auscultation Abdomen/GI: Soft, non-tender, with normal bowel sounds. No distension or tympany. Back: No spinal tenderness. No costovertebral tenderness. Full range of motion. Skin: Warm, dry with normal turgor. Normal color with no rashes, no lesions, and no evidence of cellulitis. MS/ Extremity: Pulses equal, no cyanosis. Neurovascular intact. Full, normal range of motion. Vital Signs: 00:56 BP 91 / 59; Pulse 81; Resp 18; Temp 97.7; Pulse Ox 99% on R/A; Weight 75.75 kg; Height ea 5 ft. 5 in. (165.10 cm); 01:45 BP 102 / 62; Pulse 89; Resp 18; Pulse Ox 98% on R/A; wh 03:00 BP 106 / 52; Pulse 70; Resp 18; Pulse Ox 98% on R/A; wh 04:30 BP 98 / 52; Pulse 60; Resp 18; Pulse Ox 98% on R/A; wh 00:56 Body Mass Index 27.79 (75.75 kg, 165.10 cm) ea MDM: 01:17 Patient medically screened. la1 02:33 Data reviewed: vital signs, nurses notes, lab test result(s), EKG, radiologic studies, la1 I have discussed the patient's presentation/case with the attending Emergency Department Physician; and as a result, I will discharge patient. Data interpreted: Pulse oximetry: on room air is 98 %. Interpretation: normal. Test interpretation: by ED physician or midlevel provider: ECG, plain radiologic studies. Counseling: I had a detailed discussion with the patient and/or guardian regarding: the historical points, exam findings, and any diagnostic results supporting the discharge/admit diagnosis, lab results, radiology results, the need for outpatient follow up, an OB/Gyne specialist, to return to the emergency department if symptoms worsen or persist or if there are any questions or concerns that arise at home. Special discussion: Based on the patient's history, exam, and Dx evaluation, there is no indication for emergent intervention or inpatient Tx. It is understood by the patient/guardian that if the Sx's persist or worsen they need to return immediately for re-evaluation. Based on the history and exam findings, there is no indication for further emergent testing or inpatient evaluation. I discussed with the patient/guardian the need to see the OB Gyne specialist for further evaluation of the symptoms. ED course: pt is not tachypneic, tachycardic, or hypoxic, does not have any swelling in her lower extremities, denies SOB. Instructed pt to FU with OB and PCP. Strict return precautions given for new or worsening of symptoms.. 01/28 01:19 Order name: CBC with Diff; Complete Time: 02:29 01/28 01:19 Order name: BMP; Complete Time: 02:34 01/28 01:19 Order name: Rh Typing 01/28 02:36 Order name: Antibody Screen EDAL 01/28 02:36 Order name: Fetalscreen [facility] 01/28 02:36 Order name: Cord Rh type [facility] 01/28 01:19 Order name: EKG; Complete Time: 01:19 01/28 01:19 Order name: EKG - Nurse/Tech; Complete Time: 01:45 01/28 01:19 Order name: Chest Single View XRAY 01/28 01:19 Order name: IV; Complete Time: 01:45 la1 01/28 02:36 Order name: Rhogam EDMS Administered Medications: 01:45 Drug: NS 0.9% 500 ml Route: IV; Rate: bolus; Site: left antecubital; 04:39 Follow up: Response: No adverse reaction; IV Status: Completed infusion 04:25 Drug: RhoGAM (Human) 300 mcg Route: IM; Site: left deltoid; 04:39 Follow up: Response: No adverse reaction Disposition: 04:47 Co-signature as Attending Physician, Wesley Holguin MD. rn Disposition: 01/28/20 02:39 Discharged to Home. Impression: Orthostatic hypotension, Cough, Chest pain, unspecified. - Condition is Stable. - Discharge Instructions: Acute Bronchitis, Adult, Orthostatic Hypotension, Cough, Adult. - Medication Reconciliation Form, Thank You Letter, Work release form, Family Work Release form. - Follow up: Private Physician; When: 2 - 3 days; Reason: Recheck today's complaints, Re-evaluation by your physician. Follow up: Emergency Department; When: As needed; Reason: Trouble breathing, Worsening of condition. - Problem is new. - Symptoms have improved. Signatures: Dispatcher [employer] EDMS Wesley Holguin MD MD rn Derik Mcmillan, EMERGENCY MAN-C EMERGENCY MAN-Cla1 Anisa Javier RN RN ea [place], Winsy Corrections: (The following items were deleted from the chart) 04:40 02:39 01/28/2020 02:39 Discharged to Home. Impression: Orthostatic hypotension; Cough; wh Chest pain, unspecified. Condition is Stable. Discharge Instructions: Acute Bronchitis, Adult, Orthostatic Hypotension, Cough, Adult. Forms are Medication Reconciliation Form, Thank You Letter, Antibiotic Education, Prescription Opioid Use. Follow up: Private Physician; When: 2 - 3 days; Reason: Recheck today's complaints, Re-evaluation by your physician. Follow up: Emergency Department; When: As needed; Reason: Trouble breathing, Worsening of condition. Problem is new. Symptoms have improved. la1
[2020-01-28 04:45] VITALS: TEMP 97.7
[2020-01-28 04:47] VITALS: O2SAT 98
[2020-01-28 04:52] VITALS: BP 98/52
--- NOTE | 2020-01-28 10:09 | EKG ---
Test Date: 2020-01-28 Test Time: 00:53:50 Inventory Control Analyst: FAUSTINO MEASUREMENT RESULTS: Intervals: Rate: 84 DE: 118 QRSD: 70 QT: 346 QTc: 408 [place]: P: 50 DE: 118 QRS: 45 T: 24 INTERPRETIVE STATEMENTS: Normal sinus rhythm with sinus arrhythmia Normal ECG Compared to ECG 04/24/2019 19:54:17 No significant changes Electronically Signed On 01-28-20 10:08:41 FASHION MODEL by Timothy Quintanilla
--- NOTE | 2020-01-28 10:21 | RAD REPORT ---
EXAM DESCRIPTION: RAD - Chest Single View - 01/28/2020 5:00 am CLINICAL HISTORY: The patient is 29 years old and is Female; COUGH TECHNIQUE: Frontal view of the chest. COMPARISON: No relevant prior studies available. FINDINGS: LUNGS: Unremarkable. No consolidation. PLEURAL SPACE: Unremarkable. No pneumothorax. HEART: Unremarkable. No cardiomegaly. MEDIASTINUM: Unremarkable. BONES/JOINTS: Unremarkable. IMPRESSION: No acute cardiopulmonary process. Electronically signed by: Lorena Boucher MD 01/28/2020 4:46 AM SYSTEMS ADMINISTRATION ANALYST Due to temporary technical issues with the PACS/Fluency reporting system, reports are being signed by the in house radiologist as a courtesy to ensure prompt reporting. The interpreting radiologist is f ully responsible for the content of the report.
== END 2020-01-28 04:40 | disposition home or self-care (01) ==
LOC: ER 00:42
DX: O26.891 Other specified pregnancy related conditions, first trimester (principal); I95.1 Orthostatic hypotension; Z3A.10 10 weeks gestation of pregnancy; Z88.0 Allergy status to penicillin; Z88.6 Allergy status to analgesic agent
CPT/HCPCS: 36415; 71045; 80048; 85025; 86850; 86901; 93005; 96360; 96361; 96372; 99285; J2790; J7040

== ENCOUNTER 2020-12-25 12:14 | Emergency (ER) | payer OTHER ==
--- OUTSIDE RECORDS SUMMARY | 2020-12-25 12:16 | XMS REPORT | Continuity of Care Document ---
:1990 Author Organization [facility] t Address [address] [place] [place] [address] Care Team Providers Name Role Phone Rowdy Saez MD Attending Clinician Jose RN, D Attending Clinician Unavailable Roque VALDES, R Attending Clinician Ashley Lees MA Attending Clinician Unavailable Ultrasound Attending Clinician Unavailable Gabriel VALDES, N Attending Clinician Rowdy Saez MD Admitting Clinician Problems This patient has no known problems. Allergies, Adverse Reactions, Alerts This patient has no known allergies or adverse reactions. Medications This patient has no known medications. Procedures This patient has no known procedures. Encounters Start End Encounter Admission Attending Care Care Encounter Source Date/Time Date/Time Type Type Clinicians Facility Department ID 2020-07-03 2020-07-06 [facility] SUBHASH Saez [id number] 19:39:00 16:26:00 Encounter Pedro Rowdy CALIXTO [id number] [facility] [id number] 2020-07-02 2020-07-02 Nurse SUBHASH Garcia [id number] 00:00:00 00:00:00 Triage Lilo Sarabia MARILY [id number] [facility] [id number] 2020-06-27 2020-06-27 Routine Roque INVICKY [id number] 15:32:39 16:14:31 Roshunda R FIRE FIGHTER [id number] Visit REGIONAL [id number] MATERNAL [id number] & CHILD 107 [facility] 2020-06-23 2020-06-23 Abstract Roque INVICKY [id number] 00:00:00 00:00:00 Roshunda R FIRE FIGHTER [id number] REGIONAL [id number] MATERNAL [id number] & CHILD 107 [facility] 2020-06-23 2020-06-23 Telephone SUBHASH Lees [id number] 00:00:00 00:00:00 Cherie Ashley MARILY [id number] [facility] [id number] 2020-06-22 2020-06-22 Process Safety Engineer Ultrasound, [facility] [id number] 14:18:43 14:48:43 Visit [facility]ley FIRE FIGHTER [id number] REGIONAL [id number] MATERNAL [id number] & CHILD 369 [facility] 2020-06-22 2020-06-22 Telephone Gabriel, [facility] [id number] 00:00:00 00:00:00 Pretty Ashraf FIRE FIGHTER [id number] REG[facility]AL [id number] MATERNAL [id number] & CHILD 107 [facility] 2020-06-21 2020-06-21 Routine Roque [facility] [id number] 14:11:25 15:15:39 Roshunda R FIRE FIGHTER [id number] Visit REGIONAL [id number] MATERNAL [id number] & CHILD 107 [facility] Results This patient has no known results.
--- NOTE | 2020-12-25 13:38 | RAD REPORT ---
EXAM DESCRIPTION: RAD - Chest Single View - 12/25/2020 1:24 pm CLINICAL HISTORY: COUGHI am going to pain, shortness of breath COMPARISON: Portable January 2020 TECHNIQUE: AP portable chest image was obtained 12/25/2020 1:24 pm . FINDINGS: Lungs are clear. Heart and vasculature are normal. No measurable pleural effusion and no p neumothorax. No acute bony abnormality seen. No acute aortic findings suspected. IMPRESSION: No acute cardiopulmonary process. No significant change from comparison study.
[2020-12-25 14:19] LABS: SARS-COV-2 RT PCR POSITIVE (NEGATIVE)
--- NOTE | 2020-12-25 14:26 | ER ---
Nurse's Notes [facility] Name: Sandra Amado Age: 30 yrs Sex: Female : 1990 Arrival Date: 12/25/2020 Time: 12:17 Bed 16 Private MD: Diagnosis: Coronavirus infection, unspecified Presentation: 12/25 12:27 Chief complaint: Patient states: chest pain, cough, SOB, my lungs burning, can't keep ca1 anything down, N/V, loss of appetite started yesterday at 0200. Coronavirus screen: Client denies travel out of the [place] in the last 14 days. congestion, cough unrelated to allergies, nausea, shortness of breath, vomiting. Client presents with at least one sign or symptom that may indicate coronavirus-19. Standard/surgical mask placed on the client. Provider contacted for isolation considerations. Ebola Screen: Patient negative for fever greater than or equal to 101.5 degrees Fahrenheit, and additional compatible Ebola Virus Disease symptoms Patient denies exposure to infectious person. Patient denies travel to an Ebola-affected area in the 21 days before illness onset. No symptoms or risks identified at this time. Initial Sepsis Screen: Does the patient meet any 2 criteria? No. Patient's initial sepsis screen is negative. Does the patient have a suspected source of infection? No. Patient's initial sepsis screen is negative. Risk Assessment: Do you want to hurt yourself or someone else? Patient reports no desire to harm self or others. Onset of symptoms was December 24, 2020. 12:27 Method Of Arrival: Ambulatory ca1 12:27 Acuity: HUGO 3 ca1 IT SECURITY ANALYST: 12:31 LMP 12/13/2020 ca1 Historical: - Allergies: 12:31 PENICILLINS (Anaphylaxis); ca1 12:31 tramadol; hallucinations; ca1 - Home Meds: 12:31 none [Active]; ca1 - PMHx: 12:31 Anxiety; Bipolar disorder; Depression; Diabetes - NIDDM; Hypertension; Kidney stones; ca1 Neck Cancer; ovary cyst; RAPID HEART RATE; gestational diabetes; - PSHx: 12:31 None; ca1 - Immunization history:: Flu vaccine is not up to date. - Social history:: Smoking status: Patient denies any tobacco usage or history of. Screenin:00 Abuse screen: Denies threats or abuse. Denies injuries from another. Nutritional zb screening: No deficits noted. Tuberculosis screening: No symptoms or risk factors identified. Fall Risk None identified. Assessment: 12:32 Reassessment: Notified ARMOND Martínez. No EKG at this time. ca1 13:00 General: Appears in no apparent distress. uncomfortable, Behavior is calm, cooperative, zb appropriate for age. Pain: Complains of pain in mid-sternal area and posterior chest Pain does not radiate. Pain currently is 6 out of 10 on a pain scale. Quality of pain is described as aching, dull, Pain began 1 day ago. Neuro: Level of Consciousness is awake, alert, obeys commands, Oriented to person, place, time, situation. Cardiovascular: Heart tones S1 S2 Capillary refill < 3 seconds in bilateral fingers Patient's skin is warm and dry. Respiratory: Reports cough that is Airway is patent Respiratory effort is even, unlabored, Respiratory pattern is regular, symmetrical, Breath sounds are diminished in right posterior middle lobe and right posterior lower lobe. GI: Abdomen is round non-distended, Bowel sounds present X 4 quads. Abd is soft and non tender X 4 quads. Reports diarrhea, nausea. : No signs and/or symptoms were reported regarding the genitourinary system. EENT: No signs and/or symptoms were reported regarding the EENT system. Derm: Skin is intact, Skin is dry, Skin is normal, Skin temperature is warm. Musculoskeletal: Circulation, motion, and sensation intact. Capillary refill < 3 seconds, in bilateral fingers. Range of motion: intact in all extremities. 14:00 Reassessment: Patient appears in no apparent distress at this time. Patient and/or zb family updated on plan of care and expected duration. Pain level reassessed. Patient is alert, oriented x 3, equal unlabored respirations, skin warm/dry/pink. pt waiting covid results. 14:15 Reassessment: EKG preformed given to ECP. zb 14:50 Reassessment: pt d/c gait even and steady. questions answer. covid precautions zb discussed. Vital Signs: 12:27 BP 100 / 73; Pulse 91; Resp 16 S; Temp 97.8(TE); Pulse Ox 100% on R/A; Weight 97.52 kg ca1 (R); Height 5 ft. 5 in. (165.10 cm) (R); Pain 9/10; 13:00 BP 102 / 69; Pulse 74; Resp 16; Pulse Ox 99% on R/A; zb 14:00 BP 101 / 70; Pulse 80; Resp 18; Pulse Ox 98% on R/A; zb 12:27 Body Mass Index 35.78 (97.52 kg, 165.10 cm) [facility] ED Course: 12:17 Patient arrived in ED. ag5 12:30 Triage completed. ca1 12:31 Arm band placed on right wrist. ca1 12:32 Tanya Torres FNP-C is PHCP. kb 12:32 Wesley Holguin MD is Attending Physician. kb 12:40 COVID swab sent to lab. Flu and/or RSV swab sent to lab. ca1 12:41 Flu Sent. ca1 13:24 Chest Single View XRAY In Process Unspecified. EDMS 13:47 Carole Arce, RN is Primary Nurse. zb 14:38 Patient has correct armband on for positive identification. Call light in reach. zb color television console monitor on. Pulse ox on. NIBP on. 14:38 Patient did not have IV access during this emergency room visit. Patient maintains SpO2 zb saturation greater than 95% on room air. 14:39 No provider procedures requiring assistance completed. zb Administered Medications: No medications were administered Outcome: 14:25 Discharge ordered by MD. kb 14:40 Discharged to home ambulatory. zb 14:40 Condition: stable 14:40 Discharge instructions given to patient, Instructed on discharge instructions, follow up and referral plans. Demonstrated understanding of instructions, follow-up care, medications, Prescriptions given X 1. 14:51 Patient left the ED. zb Signatures: Dispatcher [employer] EDMS Tanya Torres FNP-C FNP-CkNicol Mcclendon RN RN ca1 Nitin Sheldon ag5 Carole Arce, DENIS RN zb Corrections: (The following items were deleted from the chart) 13:19 12:41 CORONAVIRUS+ drawn and sent. ca1 EDMS 14:38 13:00 Respiratory: Airway is patent Respiratory effort is even, unlabored, Respiratory zb pattern is regular, symmetrical, Breath sounds are diminished in right posterior middle lobe and right posterior lower lobe zb 14:41 14:40 Discharge instructions given to patient, Instructed on discharge instructions, zb follow up and referral plans. Demonstrated understanding of instructions, follow-up care, zb
--- NOTE | 2020-12-25 14:26 | EDPHYS ---
Physician Documentation [facility] Name: Sandra Amado Age: 30 yrs Sex: Female : 1990 Arrival Date: 12/25/2020 Time: 12:17 Bed 16 Private MD: ED Physician Wesley Holguin HPI: 12/25 14:29 This 30 yrs old Female presents to ER via Ambulatory with complaints of Chest kb Pain, Shortness Of Breath. 14:29 The patient or guardian reports cough, that is intermittent, described as moderate, kb with no sputum, flu symptoms, myalgias. Onset: The symptoms/episode began/occurred yesterday, at 02:00. Severity of symptoms: At their worst the symptoms were moderate, in the emergency department the symptoms are unchanged. Modifying factors: The symptoms are alleviated by nothing, the symptoms are aggravated by nothing. Associated signs and symptoms: Pertinent positives: chest pain, nausea, rhinorrhea, sore throat, vomiting. The patient has not experienced similar symptoms in the past. The patient has not recently seen a physician. APPLICATION COUNSELOR: 12:31 LMP 12/13/2020 ca1 Historical: - Allergies: 12:31 PENICILLINS (Anaphylaxis); ca1 12:31 tramadol; hallucinations; ca1 - Home Meds: 12:31 none [Active]; ca1 - PMHx: 12:31 Anxiety; Bipolar disorder; Depression; Diabetes - NIDDM; Hypertension; Kidney stones; ca1 Neck Cancer; ovary cyst; RAPID HEART RATE; gestational diabetes; - PSHx: 12:31 None; ca1 - Immunization history:: Flu vaccine is not up to date. - Social history:: Smoking status: Patient denies any tobacco usage or history of. ROS: 14:28 Back: Negative for injury and pain, MS/Extremity: Negative for injury and deformity, kb Skin: Negative for injury, rash, and discoloration, Neuro: Negative for headache, weakness, numbness, tingling, and seizure. 14:28 Constitutional: Positive for body aches, chills, fatigue, malaise. 14:28 ENT: Positive for ear pain, sore throat. 14:28 Cardiovascular: Positive for chest pain, with cough. 14:28 Respiratory: Positive for cough, Negative for dyspnea on exertion, hemoptysis, orthopnea, pleurisy, shortness of breath, sputum production, wheezing. 14:28 Abdomen/GI: Positive for nausea and vomiting. 14:28 Neuro: Positive for headache. Exam: 14:29 Constitutional: This is a well developed, well nourished patient who is awake, alert, kb and in no acute distress. Head/Face: Normocephalic, atraumatic. ENT: Nares patent. No nasal discharge, no septal abnormalities noted. Tympanic membranes are normal and external auditory canals are clear. Oropharynx with no redness, swelling, or masses, exudates, or evidence of obstruction, uvula midline. Mucous membranes moist. Chest/axilla: Normal chest wall appearance and motion. Nontender with no deformity. No lesions are appreciated. Cardiovascular: Regular rate and rhythm with a normal S1 and S2. No gallops, murmurs, or rubs. Normal PMI, no JVD. No pulse deficits. Respiratory: Lungs have equal breath sounds bilaterally, clear to auscultation and percussion. No rales, rhonchi or wheezes noted. No increased work of breathing, no retractions or nasal flaring. Abdomen/GI: Soft, non-tender, with normal bowel sounds. No distension or tympany. No guarding or rebound. No evidence of tenderness throughout. Skin: Warm, dry with normal turgor. Normal color with no rashes, no lesions, and no evidence of cellulitis. MS/ Extremity: Pulses equal, no cyanosis. Neurovascular intact. Full, normal range of motion. Neuro: Awake and alert, GCS 15, oriented to person, place, time, and situation. Cranial nerves II-XII grossly intact. Motor strength 5/5 in all extremities. Sensory grossly intact. Cerebellar exam normal. Normal gait. Vital Signs: 12:27 BP 100 / 73; Pulse 91; Resp 16 S; Temp 97.8(TE); Pulse Ox 100% on R/A; Weight 97.52 kg ca1 (R); Height 5 ft. 5 in. (165.10 cm) (R); Pain 9/10; 13:00 BP 102 / 69; Pulse 74; Resp 16; Pulse Ox 99% on R/A; zb 14:00 BP 101 / 70; Pulse 80; Resp 18; Pulse Ox 98% on R/A; zb 12:27 Body Mass Index 35.78 (97.52 kg, 165.10 cm) ca1 MDM: 13:22 Patient medically screened. kb 14:23 Data reviewed: vital signs, nurses notes. Data interpreted: Pulse oximetry: on room air kb is 100 %. Interpretation: normal. Counseling: I had a detailed discussion with the patient and/or guardian regarding: the historical points, exam findings, and any diagnostic results supporting the discharge/admit diagnosis, lab results, radiology results, the need for outpatient follow up, a family practitioner, to return to the emergency department if symptoms worsen or persist or if there are any questions or concerns that arise at home. 12/25 12:32 Order name: Chest Single View XRAY; Complete Time: 13:38 kb 12/25 13:38 Order name: EKG; Complete Time: 13:38 kb 12/25 13:38 Order name: EKG - Nurse/Tech; Complete Time: 14:33 kb 12/25 14:20 Order name: COVID-19/FLU A+B; Complete Time: 14:23 EDMS Administered Medications: No medications were administered Disposition: 16:05 Co-signature as Attending Physician, Wesley Holguin MD. rn Disposition: 12/25/20 14:25 Discharged to Home. Impression: Coronavirus infection, unspecified. - Condition is Stable. - Discharge Instructions: Viral Respiratory Infection, Nkoo-Zy-Rqrn, COVID-19. - Prescriptions for Zofran 4 mg Oral Tablet - take 1 tablet by ORAL route every 6 hours As needed; 20 tablet. - Medication Reconciliation Form, Thank You Letter, Antibiotic Education, Prescription Opioid Use form. - Follow up: Emergency Department; When: As needed; Reason: Worsening of condition. Follow up: Private Physician; When: 2 - 3 days; Reason: Recheck today's complaints, Continuance of care, Re-evaluation by your physician. Signatures: Dispatcher [employer] EDVT Tanya Torres, CONSUMER INSIGHT ANALYST-C CONSUMER INSIGHT ANALYST-Ckb Wesley Holguin MD MD rn Acob, Nicol, RN Carole Bess RN RN zb Corrections: (The following items were deleted from the chart) 13:19 12:34 CORONAVIRUS+.BRÁlvaro ordered. EDVT EDVT 14:51 14:25 12/25/2020 14:25 Discharged to Home. Impression: Coronavirus infection, zb unspecified. Condition is Stable. Forms are Medication Reconciliation Form, Thank You Letter, Antibiotic Education, Prescription Opioid Use. Follow up: Emergency Department; When: As needed; Reason: Worsening of condition. Follow up: Private Physician; When: 2 - 3 days; Reason: Recheck today's complaints, Continuance of care, Re-evaluation by your physician. kb
[2020-12-25 14:55] VITALS: TEMP 97.8
[2020-12-25 14:58] VITALS: BP 101/70; O2SAT 98
--- NOTE | 2020-12-26 07:31 | EKG ---
Test Date: 2020-12-25 Test Time: 13:57:46 Substance Abuse Rn: MANAS MEASUREMENT RESULTS: Intervals: Rate: 76 FL: 128 QRSD: 70 QT: 390 QTc: 438 [place]: P: 48 FL: 128 QRS: 66 T: 53 INTERPRETIVE STATEMENTS: Normal sinus rhythm Normal ECG Compared to ECG 01/28/2020 00:53:50 Sinus arrhythmia no longer present Electronically Signed On 12-26-20 07:30:03 COUNTY ASSESSOR by Timothy Quintanilla
== END 2020-12-25 14:51 | disposition home or self-care (01) ==
LOC: ER 12:14
DX: U07.1 COVID-19 (principal); I10 Essential (primary) hypertension; Z88.0 Allergy status to penicillin; Z88.5 Allergy status to narcotic agent; Z85.89 Personal history of malignant neoplasm of other organs and systems
CPT/HCPCS: 93005; 0240U; 71045; 99285

== ENCOUNTER 2022-08-24 17:21 | Emergency (ER) | payer OTHER ==
--- OUTSIDE RECORDS SUMMARY | 2022-08-24 17:24 | XMS REPORT | Continuity of Care Document ---
:1990 Author Organization [facility] t Address [address] [place] [address] Care Team Providers Name Role Phone KAREN RIDLEY Primary Care Physician Unavailable CHRISTOPHER ADAMS Attending Clinician Unavailable CHRISTOPHER ADAMS Attending Clinician Unavailable NICKIE CAROLINA Attending Clinician Unavailable KAREN RIDLEY Attending Clinician Unavailable Nickie Venegas Attending Clinician [phone] Pedro Saez MD Attending Clinician Lilo Garcia RN Attending Clinician Unavailable Karen Espinal Attending Clinician Cherie Lees MA Attending Clinician Unavailable Ultrasound, Ang[facility] Attending Clinician Unavailable Pretty Gray Attending Clinician Edd_Naun Attending Clinician Unavailable Pedro Saez MD Admitting Clinician Jose A Admitting Clinician Unavailable Payers Payer Name Policy Type Policy Number Effective Date Expiration Date [facility] [id number] 2019 CHOICE [place] STAR 00:00:00 Problems Condition Condition Condition Status Onset Resolution Last Treating Co mments Source Name Details Category Date Date Treatment Clinician Date Supervisio Supervisio Disease Active U nivers n of n of 808 [place] Grand Grand Disease Active Univers multiparit multiparit 07-09 it y of y, y, 00:00: [place] antepartum antepartum 00 Me dical Branch Other Other Disease Active Overview: Univer s depression depression 07-09 Formattin ity of 00:00: g of this [place] 00 note Medical might be Branch different from the original. Reports father passed 01/2020, report recent break with FOB Obesity in Obesity in Disease Active U nivers 7-27 ity of 00:00: Medical Branch Rh Rh Disease Active Univers negative negative 3-24 ity of state in state in 00:00: [place] antepartum antepartum 00 Me dical period period Branch History of History of Disease Active U nivers substance substance 3-24 ity of use use 00:00: Medical Branch Allergies, Adverse Reactions, Alerts Allergy Allergy Status Severity Reaction(s) Onset Inactive Treating Comm ents Source Name Type Date Date Clinician Tramadol Propensi Active Hives Univer s ty to 1-14 ity of adverse 00:00: [place] reaction 00 Medical s Branch TRAMADOL DRUG Active Hives Univers INGREDI 1-14 ity of 00:00: Medical Branch Penicill Propensi Active Hives Univer s ins ty to 5-13 ity of adverse 00:00: [place] reaction 00 Medical s Branch PENICILL Drug Active Hives Univers INS Class 5-13 ity of 00:00: [place] 00 Medical Branch Social History Social Habit Start Date Stop Date Quantity Comments Source ASSERTION 2022-06-13 University of 00:00:00 [facility] Branch Exposure to 2022-06-29 2022-07-09 Not sure University SARS-CoV-2 00:00:00 13:49:00 [facility] (event) Branch Tobacco use and 2022-07-09 2022-07-09 User of smokeless Un iversity of exposure 00:00:00 00:00:00 tobacco [facility] Alcohol intake 2022-07-09 2022-07-09 Ex-drinker University of 00:00:00 00:00:00 (finding) [facility] Tobacco Comment 2022-07-09 2022-07-09 2 ciggs a day Univer sity of 00:00:00 00:00:00 [facility] History of 2021-07-02 Passive smoker [place] of tobacco use 00:00:00 [facility] Sex Ass[birth year] At [birth year] Universit y of 00:00:00 00:00:00 [facility] Smoking Status Start Date Stop Date Source Ex-smoker 2022-07-09 00:00:00 2022-07-09 00:00:00 Universi ty of [facility] Medications Ordered Filled Start Stop Current Ordering Indication Dosage Frequency Signature Comments Components Source Medication Medication Date Date Medication? Clinician (SIG) Name Name Yes [id number] 1{tbl} Take 1 U nivers multivitami 8-08 tablet by ity of n ( [place] VITAMIN[place] 00 the Medical tablet morning. Branch buPROPion Yes [id number] 150mg Take 1 U nivers XL 8-08 tablet by ity of (WELLBUTRIN [place] XL[place] 150 mg 00 the Medical 24 hr morning. Branch tablet 2021- No [id number] 1{tbl} Take 1 Univers vitamin 07-06- tablet by ity of w/FA tablet 00:00[place] :[place] daily. Medical Branch docusate 2021- No [id number] 240mg Take 1 Univers calcium 240 07-06 capsule by i ty of mg capsule 00:00: 00:00 mouth once [place] 00 :00 daily as Medical needed for Branch Constipati on. ferrous 2021- No [id number] 325mg Take 1 U nivers sulfate 325 07-06- tablet by it y of mg (65 mg 00:00: 00:00 [place] iron[place] 00 :00 (two) Medical tablet times Branch daily. ibuprofen 2021- No [id number] 600mg Take 1 Univers 600 mg 07-06- tablet by ity of tablet 00:00: 00:00 mouth [place] 00 :00 every 6 Medical (six) Branch hours as needed (Pain). Take with food or milk. Immunizations Ordered Filled Immunization Date Status Comments Sour e Immunization Name Name Rho (d) Immune 2009-09-19 Completed [facility] 00:00:00 [facility] Vital Signs Vital Name Observation Time Observation Value Comments Source Systolic blood 2022-07-09 20:04:00 109 mm[Hg] Univer sity of pressure [facility] Diastolic blood 2022-07-09 20:04:00 58 mm[Hg] [facility] 2022-07-09 20:04:00 68 /min [facility] Body temperature 2022-07-09 20:04:00 36.28 Mary [facility] Res[facility] rate 2022-07-09 20:04:00 20 /min [facility] Body height 2022-07-09 20:04:00 165.1 cm [facility] Body weight 2022-07-09 20:04:00 99.905 kg [facility] BMI 2022-07-09 20:04:00 36.65 kg/m2 [facility] Procedures Procedure Date / Time Performed Performing Clinician Harley winter POCT TEST 2022-07-09 19:55:00 Nickie Carolina Uni [facility] POCT URINALYSIS W/O 2022-07-09 19:55:00 Nickie Carolina [facility] Encounters Start End Encounter Admission Attending Care Care Encounter Source Date/Time Date/Time Type Type Clinicians Facility Department ID 2022-08-27 2022-08-27 Outpatient R CHRISTOPHER ADAMS [facility] B [id number] Univers 08:00:00 08:00:00 CHRISTOPHER ADAMS [id number] [facility] 2022-08-27 2022-08-27 Outpatient R CHRISTOPHER ADAMS [facility] B [id number] Univers 08:00:00 08:00:00 CHRISTOPHER ADAMS [facility] 2022-08-14 2022-08-14 Outpatient R OSIEL [facility] [id number] Univers 10:45:00 10:45:00 NICKIE [id number] ity o f [facility] 2022-08-14 2022-08-14 Outpatient R AKINSIPE, [facility] [id number] Univers 10:45:00 10:45:00 NICKIE ity o f [facility] 2022-07-23 2022-07-23 Outpatient R AKINSIPE, [facility] [id number] Univers 10:45:00 10:45:00 NICKIE ity o [facility] 2022-07-16 2022-07-16 Outpatient R RIDLEY, [facility] [id number] Univers 13:15:00 13:15:00 ROSDANETTENDA ity o [facility] 2022-07-16 2022-07-16 Outpatient R [facility] [id number] Univers 13:15:00 13:15:00 [id number] ity [facility] 2022-07-09 2022-07-09 [facility] [id number] Univers 15:00:00 16:30:53 Nickie Johnson DOCTOR OF VETERIN[facility] MEDICINE [id number] ity of Visit [facility] [id number] [place] as MATERNAL [id number] [facility] ical & CHILD [address] [place] [address] 2022-07-09 2022-07-09 [facility] [id number] Univers 15:00:00 16:30:53 NICKIE ity o f [facility] 2020-07-03 2020-07-06 Hospital SUBHASH Saez [id number] 19:39:00 16:26:00 Encounter Pedro CALIXTO [id number] [facility] [id number] [id number] 2020-07-02 2020-07-02 Nurse SUBAHSH Garcia [id number] 00:00:00 00:00:00 Triage Lilo CALIXTO [id number] [facility] [id number] [id number] 2020-06-27 2020-06-27 Routine [facility] [id number] 15:32:39 16:14:31 Roshunda R [facility] [id number] Visit REGIONAL [id number] MATERNAL [id number] & CHILD 107 [facility] 2020-06-23 2020-06-23 [facility] [id number] 00:00:00 00:00:00 Roshunda R [facility] [id number] REGIONAL [id number] MATERNAL [id number] & CHILD 107 [facility] 2020-06-23 2020-06-23 Telephone SUBHASH Lees [id number] 00:00:00 00:00:00 Cherie CALIXTO [id number] [facility] [id number] [id number] 2020-06-22 2020-06-22 [facility], [facility] [id number] 14:18:43 14:48:43 Visit [facility] DO[facility] OF VETERINARY MEDICINE [id number] REGIONAL 4.2.7.2.686 MATERNAL [id number] & CHILD 369 [facility] 2020-06-22 2020-06-22 Telephone [facility] [id number] 00:00:00 00:00:00 Pretty Ashraf [facility] MEDICINE [id number] REGIONAL [id number] MATERNAL [id number] & CHILD 107 [facility] 2020-06-21 2020-06-21 [facility] [id number] 14:11:25 15:15:39 Roshunda R [facility] [id number] Visit REGIONAL 4.2.7.2.686 MATERNAL [id number] & CHILD 107 [facility] 2020-03-17 2020-03-17 Outpatient Raju_P MM[facility] MMG [id number] [place] 09:35:00 09:35:00 [id number] [facility] Results Test Description Test Time Test Comments Results Result Comments Source POCT TEST 2022-07-09 19:55:00 Test Item Value Reference Range Interpretation Comme nts POCT PREG (test code = 1605) Positive On board controls acceptable with C Line (test code = 3574) Yes POCT PREG LOT # (test code = 3575) POCT PREG TEST DATE (test code = 3576) [facility] SPECIFIC [id number] 19:55:00 Test Item Value Reference Range Interpretation Comments POCT PH U (test code = 3254) 5 mg/dl 5-8 POCT U LEUK EST (test code = 2+ Negative - Negative 3263) POCT U NIT (test code = 3262) Neg Negative - Negative POCT U PROT (test code = 3259) Trace Negative - Negative POCT U GLU (test code = 3256) Neg Negative - Negative POCT U KETONE (test code = 3258) Neg Negative - Negative POCT U BLD (test code = 3257) Negative - Negative [facility]
[2022-08-24] MEDS ORDERED: NA CHLORIDE 0.9% 1,000 ML ONE (18:12)
[2022-08-24 18:49] LABS: Absolute Lymphocytes (CBC) 1.7 K/uL (0.7-4.9); Hematocrit 37.2 % (36.0-45.0); Lymphocytes % 14.5 % (15.3-44.8); MCV 83.8 fL (80-100); MPV 7.7 fL (7.6-11.3); RBC Red Blood Cell Count 4.43 M/uL (3.86-4.86)
[2022-08-24 18:59] LABS: Potassium 4.1 mmol/L (3.5-5.1); Troponin High Sensitivity 36.4 pg/mL (<58.9)
--- NOTE | 2022-08-24 19:23 | ER ---
Nurse's Notes [facility] Name: Sandra Amado Age: 31 yrs Sex: Female : 1990 Arrival Date: 08/24/2022 Time: 17:38 Bed 18 Private MD: Diagnosis: Chest pain, unspecified Presentation: 08/24 17:49 Chief complaint: EMS states: "patient complains of epigastric pain and numbness in the em6 fingertips. she states being 12 weeks .we gave her [address]". Coronavirus screen: Client denies travel out of the [place] in the last 14 days. Ebola Screen: Patient negative for fever greater than or equal to 101.5 degrees Fahrenheit, and additional compatible Ebola Virus Disease symptoms. Initial Sepsis Screen: Does the patient meet any 2 criteria? No. Patient's initial sepsis screen is negative. Does the patient have a suspected source of infection? No. Patient's initial sepsis screen is negative. Risk Assessment: Do you want to hurt yourself or someone else? Patient reports no desire to harm self or others. Onset of symptoms was August 24, 2022. 17:49 Method Of Arrival: EMS: [facility] em6 17:49 Acuity: HUGO 3 em6 Triage Assessment: 17:56 General: Appears in no apparent distress. Behavior is cooperative. Pain: Complains of em6 pain in epigastric area Pain does not radiate. Pain currently is 3 out of 10 on a pain scale. Quality of pain is described as pressure. Cardiovascular: Heart tones present Patient's skin is warm and dry. Rhythm is sinus rhythm. DANCE STUDIO MANAGER: 17:57 Full Term 7, 1, Living 5 em6 Historical: - Allergies: 17:58 PENICILLINS (Anaphylaxis); em6 17:58 tramadol; hallucinations; em6 - PMHx: 17:58 Anxiety; Bipolar disorder; Depression; Diabetes - NIDDM; gestational diabetes; em6 Hypertension; Kidney stones; Neck Cancer; ovary cyst; RAPID HEART RATE; - Immunization history:: Adult Immunizations unknown. - Social history:: Smoking status: unknown. Screenin:56 Abuse screen: Denies threats or abuse. Nutritional screening: No deficits noted. em6 Tuberculosis screening: No symptoms or risk factors identified. 17:56 Fall Risk IV access (20 points). Total Dumont Fall Scale indicates No Risk (0-24 pts). em6 Assessment: 17:49 General: Appears in no apparent distress. Behavior is calm, cooperative. Pain: em6 Complains of pain in epigastric area Pain does not radiate. Pain currently is 3 out of 10 on a pain scale. Quality of pain is described as pressure, Pain began pain began with she's 12 weeks gestation Is continuous. Neuro: Level of Consciousness is awake, alert, obeys commands, Oriented to person, place, time, situation, Reports numbness in right hand and left hand. Cardiovascular: Heart tones present Patient's skin is warm and dry. Rhythm is sinus rhythm. Respiratory: Airway is patent Respiratory effort is even, unlabored, Respiratory pattern is regular, symmetrical, Breath sounds are clear bilaterally. GI: Abdomen is non-distended. : No signs and/or symptoms were reported regarding the genitourinary system. EENT: No signs and/or symptoms were reported regarding the EENT system. Derm: No signs and/or symptoms reported regarding the dermatologic system. Musculoskeletal: Circulation, motion, and sensation intact. Range of motion: intact in all extremities. 18:50 Reassessment: Patient appears in no apparent distress at this time. No changes from em6 previously documented assessment. Patient and/or family updated on plan of care and expected duration. Pain level reassessed. Patient is alert, oriented x 3, equal unlabored respirations, skin warm/dry/pink. 19:35 General: Appears in no apparent distress. Behavior is calm, cooperative. Pain: Denies lg3 pain. Neuro: No deficits noted. Level of Consciousness is awake, alert, obeys commands, Oriented to person, place, time, situation. Cardiovascular: No deficits noted. Denies chest pain, shortness of breath, Capillary refill < 3 seconds Clubbing of nail beds is absent JVD is absent Patient's skin is warm and dry. Respiratory: No deficits noted. Airway is patent Trachea midline Respiratory effort is even, unlabored, Respiratory pattern is regular, symmetrical, Breath sounds are clear bilaterally. GI: No deficits noted. Abdomen is round non-distended. : No deficits noted. No signs and/or symptoms were reported regarding the genitourinary system. EENT: No deficits noted. No signs and/or symptoms were reported regarding the EENT system. Derm: No deficits noted. No signs and/or symptoms reported regarding the dermatologic system. Skin is intact, is healthy with good turgor, Skin is dry, Skin is normal, Skin temperature is warm. Musculoskeletal: No deficits noted. No signs and/or symptoms reported regarding the musculoskeletal system. Circulation, motion, and sensation intact. Range of motion: intact in all extremities. Vital Signs: 17:49 BP 98 / 59; Pulse 82; Resp 16; Temp 98.3; Pulse Ox 100% ; Weight 104.33 kg; Height 5 em6 ft. 5 in. (165.10 cm); Pain 3/10; 19:37 BP 104 / 81; Pulse 87; Resp 18 S; Pulse Ox 100% on R/A; lg3 17:49 Body Mass Index 38.27 (104.33 kg, 165.10 cm) em6 ED Course: 17:38 Patient arrived in ED. eb 17:49 [facility]. jl9 17:49 Wesley Holguin MD is Attending Physician. jl9 17:56 Triage completed. em6 17:57 Arm band placed on right wrist. em6 17:57 Bed in low position. Call light in reach. Side rails up X2. senior software qa engineer on. Pulse em6 ox on. NIBP on. Warm blanket given. 17:57 Patient maintains SpO2 saturation greater than 95% on room air. em6 18:40 Accessed peripheral vein via ultrasound, utilizing dynamic ultrasound technique using jd3 20G Nexia IV catheter ,sterile technique, per hospital protocol. Clean \\T\\ dry. Dressing intact. Good blood return. Flushes easily. 18:46 Ari Shepard, RN is Primary Nurse. jd3 19:35 No provider procedures requiring assistance completed. IV discontinued, intact, lg3 bleeding controlled, No redness/swelling at site. Pressure dressing applied. Administered Medications: 18:39 Drug: NS 0.9% 1000 ml Route: IV; Rate: 1000 ml; Site: left antecubital; em6 19:34 Follow up: Response: No adverse reaction; IV Status: Completed infusion; IV Intake: lg3 700ml Medication: 19:35 VIS not applicable for this client. lg3 Intake: 19:34 IV: 700ml; Total: 700ml. lg3 Outcome: 19:22 Discharge ordered by . jl9 19:35 Discharged to home ambulatory. lg3 19:35 Condition: stable 19:35 Discharge instructions given to patient, Instructed on discharge instructions, follow up and referral plans. Demonstrated understanding of instructions, follow-up care. 19:38 Patient left the ED. lg3 Signatures: Ari Shepard, RN RN jd3 Rebecca Mares Lacie, RN RN lg3 Rafael Peterson9 Florencia Nielsen RN RN em6 Corrections: (The following items were deleted from the chart) 18:42 17:57 Pain: Pain began started since 12 weeks ago em6 em6
--- NOTE | 2022-08-24 19:23 | EDPHYS ---
Physician Documentation [facility] Name: Sandra Amado Age: 31 yrs Sex: Female : 1990 Arrival Date: 08/24/2022 Time: 17:38 Bed 18 Private MD: ED Physician Wesley Holguin HPI: 08/24 18:48 This 31 yrs old Female presents to ER via EMS with complaints of Chest Pain jl9 earlier today, also reports hyperventilating and feeling her fingers tingle for a short period. Patient reports psych history.. 18:48 Onset: The symptoms/episode began/occurred today. Associated signs and symptoms: The jl9 patient has no apparent associated signs or symptoms. Modifying factors: The patient symptoms are alleviated by nothing, the patient symptoms are aggravated by nothing. The patient has not experienced similar symptoms in the past. 19:11 Patient reports being 12 weeks . . 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 - Social history:: Smoking status: unknown. ROS: 18:49 Constitutional: Negative for fever, chills, and weight loss, Eyes: Negative for injury, jl9 pain, redness, and discharge, ENT: Negative for injury, pain, and discharge, Neck: Negative for injury, pain, and swelling. 18:49 Respiratory: Negative for shortness of breath, cough, wheezing, and pleuritic chest pain, Abdomen/GI: Negative for abdominal pain, nausea, vomiting, diarrhea, and constipation, Back: Negative for injury and pain, : Negative for injury, bleeding, discharge, and swelling, MS/Extremity: Negative for injury and deformity, Skin: Negative for injury, rash, and discoloration, Neuro: Negative for headache, weakness, numbness, tingling, and seizure, Psych: Negative for depression, anxiety, suicide ideation, homicidal ideation, and hallucinations, Allergy/Immunology: Negative for hives, rash, and allergies, Endocrine: Negative for neck swelling, polydipsia, polyuria, polyphagia, and marked weight changes, Hematologic/Lymphatic: Negative for swollen nodes, abnormal bleeding, and unusual bruising. 18:49 Cardiovascular: Positive for chest pain, Negative for edema, orthopnea, palpitations, paroxysmal nocturnal dyspnea. Exam: 18:49 Constitutional: This is a well developed, well nourished patient who is awake, alert, jl9 and in no acute distress. Head/Face: Normocephalic, atraumatic. Eyes: Pupils equal round and reactive to light, extra-ocular motions intact. Lids and lashes normal. Conjunctiva and sclera are non-icteric and not injected. Cornea within normal limits. Periorbital areas with no swelling, redness, or edema. ENT: Mucous membranes moist. Neck: Trachea midline, no thyromegaly or masses palpated, and no cervical lymphadenopathy. Supple, full range of motion without nuchal rigidity, or vertebral point tenderness. No Meningismus. Chest/axilla: Normal chest wall appearance and motion. Nontender with no deformity. No lesions are appreciated. Cardiovascular: Regular rate and rhythm with a normal S1 and S2. No gallops, murmurs, or rubs. Normal PMI, no JVD. No pulse deficits. Respiratory: Lungs have equal breath sounds bilaterally, clear to auscultation and percussion. No rales, rhonchi or wheezes noted. No increased work of breathing, no retractions or nasal flaring. Abdomen/GI: Soft, non-tender, with normal bowel sounds. No distension or tympany. No guarding or rebound. No evidence of tenderness throughout. Back: No spinal tenderness. No costovertebral tenderness. Full range of motion. Skin: Warm, dry with normal turgor. Normal color with no rashes, no lesions, and no evidence of cellulitis. MS/ Extremity: Pulses equal, no cyanosis. Neurovascular intact. Full, normal range of motion. Neuro: Awake and alert, GCS 15, oriented to person, place, time, and situation. Cranial nerves II-XII grossly intact. Motor strength 5/5 in all extremities. Sensory grossly intact. Cerebellar exam normal. Normal gait. Psych: Awake, alert, with orientation to person, place and time. Behavior, mood, and affect are within normal limits. Vital Signs: 17:49 BP 98 / 59; Pulse 82; Resp 16; Temp 98.3; Pulse Ox 100% ; Weight 104.33 kg; Height 5 em6 ft. 5 in. (165.10 cm); Pain 3/10; 19:37 BP 104 / 81; Pulse 87; Resp 18 S; Pulse Ox 100% on R/A; lg3 17:49 Body Mass Index 38.27 (104.33 kg, 165.10 cm) em6 MDM: 17:49 Patient medically screened. 9 18:20 Test interpretation: by ED physician or midlevel provider: ECG. [facility] 18:49 Data reviewed: vital signs, nurses notes. [facility] 19:21 Counseling: I had a detailed discussion with the patient and/or guardian regarding: the [facility] historical points, exam findings, and any diagnostic results supporting the discharge/admit diagnosis, lab results, radiology results, the need for outpatient follow up, to return to the emergency department if symptoms worsen or persist or if there are any questions or concerns that arise at home. Response to treatment: the patient is now symptom free. 08/24 17:57 Order name: Basic Metabolic Panel; Complete Time: 19:02 08/24 17:57 Order name: CBC with Diff; Complete Time: 18:56 [facility] 08/24 17:57 Order name: Troponin HS; Complete Time: 19:02 [facility] 08/24 17:57 Order name: EKG; Complete Time: 17:58 08/24 19:29 Order name: Urine Dipstick-Ancillary; Complete Time: 19:30 [facility] 08/24 17:57 Order name: Cardiac monitoring; Complete Time: 18:42 [facility] 08/24 17:57 Order name: EKG - Nurse/Tech; Complete Time: 18:42 [facility] 08/24 17:57 Order name: IV Saline Lock; Complete Time: 18:42 [facility] 08/24 17:57 Order name: Labs collected and sent; Complete Time: 18:42 [facility] 08/24 17:57 Order name: O2 Per Protocol; Complete Time: 18:42 [facility] 08/24 17:57 Order name: O2 Sat Monitoring; Complete Time: 18:42 08/24 18:58 Order name: Urine Dipstick-Ancillary (obtain specimen); Complete Time: 19:32 [facility] Administered Medications: 18:39 Drug: NS 0.9% 1000 ml Route: IV; Rate: 1000 ml; Site: left antecubital; em6 19:34 Follow up: Response: No adverse reaction; IV Status: Completed infusion; IV Intake: lg3 700ml Disposition: 08/25 08:23 Co-signature as Attending Physician, Wesley Holguin MD. rn Disposition Summary: 08/24/22 19:22 Discharge Ordered Location: Home jl9 Condition: Stable jl9 Diagnosis - Chest pain, unspecified jl9 Followup: jl9 - With: Private Physician - When: 1 - 2 days - Reason: Recheck today's complaints, Continuance of care, Re-evaluation by your physician Discharge Instructions: - Discharge Summary Sheet jl9 - Nonspecific Chest Pain, Adult, [id number] jl9 Forms: - Medication Reconciliation Form jl9 - Thank You Letter jl9 - Antibiotic Education jl9 - Prescription Opioid Use jl9 Signatures: Dispatcher [employer] EDMS Wesley Holguin MD MD rn Linares, John jl9 Florencia Nielsen RN RN em6 Yadira Tan RN lg3 Corrections: (The following items were deleted from the chart) 08/24 18:50 18:48 This 31 yrs old Female presents to ER via EMS with complaints of Chest jl9 Pain earlier today, also reports hyperventilating and feeling her fingers tingle for a short period. . jl9
[2022-08-24 19:29] LABS: Urine Blood Negative (Negative); Urine Glucose Negative (Negative); Urine Protein 1+ (Negative); Urine Specific Gravity 1.025 (1.005-1.030)
[2022-08-26 10:20] VITALS: TEMP 98.3; O2SAT 100
[2022-08-26 10:22] VITALS: BP 104/81
--- NOTE | 2022-08-27 14:12 | EKG ---
Test Date: 2022-08-24 Test Time: 18:10:16 Field Observer: MEASUREMENT RESULTS: Intervals: Rate: 72 WA: 144 QRSD: 74 QT: 386 QTc: 422 Dowell: P: 36 WA: 144 QRS: 65 T: 50 INTERPRETIVE STATEMENTS: Normal sinus rhythm Normal ECG Compared to ECG 12/25/2020 13:57:46 No significant changes Electronically Signed On 08-27-22 14:09:50 CDT by Saurabh Tucker
== END 2022-08-24 19:38 | disposition home or self-care (01) ==
LOC: ER 17:21
DX: O26.891 Other specified pregnancy related conditions, first trimester (principal); R07.9 Chest pain, unspecified; Z3A.12 12 weeks gestation of pregnancy; Z88.5 Allergy status to narcotic agent; Z88.0 Allergy status to penicillin
CPT/HCPCS: 93005; 85025; 80048; 36415; 81003; 84484; 96360; 99285; J7030

== ENCOUNTER 2023-07-22 00:12 | Emergency (ER) | payer OTHER ==
--- OUTSIDE RECORDS SUMMARY | 2023-07-22 00:17 | XMS REPORT | Continuity of Care Document ---
:1990 Author Organization [facility] t Address [address] [place] [address] Care Team Providers Name Role Phone Karen Espinal Primary Care Physician Unavailable BILL VELAZQUEZ Attending Clinician Unavailable Tadeo GARVIN, Priscila Attending Clinician Bethany Parra MD Attending Clinician Bill Velazquez MD Attending Clinician Demarcus Constantino MD Attending Clinician Robert Cannon CRNA Attending Clinician Maurisio Rodriguez MD Attending Clinician MAURISIO RODRIGUEZ Attending Clinician Unavailable Pob, [facility] Attending Clinician Unavailable Doctor Unassigned, [place] Attending Clinician Unavailable CHRISTOPHER ADAMS Attending Clinician Unavailable CHRISTOPHER ADAMS Attending Clinician Unavailable 1, [facility] Attending Clinician Unavailable Radha Britt MD, Gisselle Attending Clinician [phone] GISSELLE ARNOLD Attending Clinician Unavailable BURT ROJAS Attending Clinician Unavailable MICK XIE Attending Clinician Unavailable MICK XIE Attending Clinician Unavailable SENAIT MCKINLEY Attending Clinician Unavailable NNEKA CAROLINA Attending Clinician Unavailable KAREN RIDLEY Attending Clinician Unavailable Nneka Venegas Attending Clinician [phone] ROSA CARDENAS Attending Clinician Unavailable Rosa Cardenas MD Attending Clinician Pedro Saez MD Attending Clinician Jose BARRIOS, Lilo Sarabia Attending Clinician Unavailable Karen Espinal Attending Clinician Cherie Lees MA Attending Clinician Unavailable Raquel, [facility] Attending Clinician Unavailable Senait Gray Attending Clinician BRADLEY TOVAR Attending Clinician Unavailable Rajveronica_P Attending Clinician Unavailable JAGDISH HENLEY Attending Clinician Unavailable LAUREN BANUELOS Attending Clinician Unavailable BILL VELAZQUEZ Admitting Clinician Unavailable Bill Velazquez MD Admitting Clinician ROSA CARDENAS Admitting Clinician Unavailable Pedro Saez MD Admitting Clinician Edd_Naun Admitting Clinician Unavailable Payers Payer Name Policy Type Policy Number Effective Date Expiration Date [facility] [id number] 2019 [facility] MEDICAID 00:00:00 Problems Condition Condition Condition Status Onset Resolution Last Treating Co mments Source Name Details Category Date Date Treatment Clinician Date Encounter Encounter Disease Active Uni vers for for 4-14 [place] of [place] of [place] 00 Med[place] Morbid Morbid Disease Active Univers obesity obesity 4-14 [place] of with body with [place] mass index mass index 00 Me dical of of [place] 40.0-49.9 40.0-49.9 Liveborn Liveborn Disease Active Unive rs infant, of , of 4-14 it y of [place] , , 00 Me dical born in born in [facility] by vaginal by vaginal delivery delivery Inability Inability Disease Active Uni vers to access to access 4-12 ity of health health 00:00: [place] care due care due 00 Medica l to to Branch transporta transporta tion tion insecurity insecurity Need for Need for Disease Active Unive rs Tdap Tdap 3-06 ity of vaccinatio vacc[place] n 00 [place] Back pain Back pain Disease Active 2021-12 Uni vers during during 2-16 [place] of 00:[place] Sciatic Sciatic Disease Active 2021-12 Univers pain, pain, 2-16 ity of right right 00:00: [place] 00 Medical Branch Anxiety Anxiety Disease Active Univers disorder, disorder, 08-29 ity of unspecifie unspecifie 00:[place] d type d type 00 Medical [place] SVT SVT Disease Active Univers (supravent (supravent 08-29 it y of ricular ricular 00:00: [place] tachycardi tachycardi 00 Me dical a) a) Branch Anxiety Anxiety Disease Active Univers and and 08-29 [place] of depression depression [place] Supervisio Supervisio Disease Active U nivers n of n of 8-08 ity of high-risk high-risk 00:[place] 00 [facility] Branch [place] Disease Active Univers multiparit multiparit 8-08 it y of y, y, 00:00: [place] antepartum antepartum 00 Md dical Branch Other Other Disease Active Overview: Univer s depression depression 808 Formattin ity of 00:00: g of this [place] 00 note Medical might be Branch different from the original. Reports father passed 01/2020, report recent break with FOB 41 weeks 41 weeks Disease Active Unive rs gestation gestation 8-02 ity of of of 00:00: [place] 00 [facility] Obesity in Obesity in Disease Active U nivers 7- ity of 00:00: [place] 00 Medical Branch Group B Group B Disease Active Overview: Univ ers streptococ streptococ 7- Formattin ity of critical access hospital 00:00: g of this [place] carriage carriage 00 note Medica l complicati complicati might be Branch ng ng different from the original. Address in Labor and Delivery. Anemia of Anemia of Disease Active Uni vers mother in mother in 7-22 ity of , , 00:00[place] antepartum antepartum 00 Me dical Branch Insufficie Insufficie Disease Active 2019-0 U nivers nt nt 7-21 ity of 00:00: [place] care in care in 00 Medical third third Branch trimester trimester Rh Rh Disease Active Overview: Univer s negative, negative, 3-24 Formattin i ty of antepartum antepartum 00:00: g of this 00 note Medical might be Branch different from the original. Rhogam at 28 weeks History of History of Disease Active 2019- U nivers substance substance 3-24 ity of use use 00:00: [place] 00 Medical Branch Allergies, Adverse Reactions, Alerts Allergy Allergy Status Severity Reaction(s) Onset Inactive Treating Comm ents Source Name Type Date Date Clinician Tramadol Propensi Active Hives Univer s ty to 1-14 ity of adverse 00:00: [place] reaction 00 [facility] TRAMADOL DRUG Active Hives Univers INGREDI 1-14 ity of 00:00: [place] 00 Medical Branch Penicill Propensi Active Hives Univer s ins ty to 5-13 ity of adverse 00:00: [place] reaction 00 Medical s Branch PENICILL Drug Active Hives Univers INS Class 5-13 ity of 00:00: [place] 00 Medical Branch Penicill Propensi Active Hives Univer s ins ty to 5-13 ity of adverse 00:00: [place] reaction [facility] Social History Social Habit Start Date Stop Date Quantity Comments Source ASSERTION 2022-06-13 [facility] 00:00:00 [facility] Exposure to 2023-03-05 2023-03-15 Not sure [facility] SARS-CoV-2 00:00:00 04:57:00 [facility] (event) Branch Alcohol intake 2023-03-12 2023-03-12 Ex-drinker [facility] 00:00:00 00:00:00 (finding) [facility] Tobacco use and 2022-07-09 2022-07-09 User of smokeless Un iversity of exposure 00:00:00 00:00:00 tobacco [facility] Tobacco Comment 2022-07-09 2022-07-09 2 ciggs a day Univer sity of 00:00:00 00:00:00 [facility] History of 2021-07-02 Passive smoker University of tobacco use 00:00:00 [facility] Sex [birth year] At [birth year] Universit y of 00:00:00 00:00:00 [facility] Smoking Status Start Date Stop Date Source Never smoked tobacco [facility] Ex-smoker 2022-07-09 00:00:00 2022-07-09 00:00:00 [facility] Medications Ordered Filled Start Stop Current Ordering Indication Dosage Frequency Signature Comments Components Source Medication Medication Date Date Medication? Clinician (SIG) Name Name abdifatah Farmer Yes Topical, [place] (TUCKS) 50 4-15 Q4HPRN, ity of % topical 00:08: [place] pad 26 on [facility] 03/15/23 at Branch 1908, Until Discontinu ed, Routine, rectal/hem orrhoidal pain ibuprofen 2022-0 Yes 600mg 600 mg, Univ ers (IBU) 4-15 Oral, ity of tablet 600 00:08: Q6HPRN, [place] mg 26 Starting Medical on Sat [place] 03/15/23 at 1908, Until Discontinu ed, Routine, Pain (scale 4-6) acetaminoph 2022-0 Yes 650mg 650 mg, Un [place] en 4-15 Oral, ity of (TYLENOL) 00:08: Q6HPRN, [place] tablet 650 26 Starting Medic al mg on Sat [place] 03/15/23 at 1908, Until Discontinu ed, Routine, Pain (scale 1-3) diphenhydrA 2022-0 Yes 25mg 25 mg, Univ ers MINE 4-15 Oral, ity of (BENADRYL) 00:08: Q6HPRN, [place] tablet 25 26 Starting Medica l mg on Sat [place] 03/15/23 at 1908, Until Discontinu ed, Routine, Sleep, Itching ondansetron 2022-0 Yes 4mg 4 mg, Slow Univers (ZOFRAN 4-15 IV Push, ity of (PF)) 00:08: Q8HPRN, [place] injection 4 26 Starting Medi blair mg on Fri Branch 03/15/23 at 1908, Until Discontinu ed, Routine, Nausea and Vomiting (N/V) simethicone 2022-0 Yes 160mg 160 mg, [place] (GAS RELIEF 4-15 Oral, ity of (SIMETHICON 00:08: PC+HSPRN, [place] E)) 26 Starting Medical chewable on Sat Branch tablet 160 03/15/23 at mg 1908, Until Discontinu ed, Routine, Gas docusate 0 Yes 200mg 200 mg, Unive rs (COLACE) 4-15 Oral, ity of capsule 200 00:08: QDAILYPRN, [place] mg 26 Starting Medical on Fri Branch 03/15/23 at 1908, Until Discontinu ed, Routine, Constipati on magnesium 0 Yes 30mL 30 mL, Univer s hydroxide 4-15 Oral, ity of (MILK OF 00:08: QDAILYPRN, [place] MAGNESIA) 26 Starting Medica l 400 mg/5 mL on Sat Branch suspension 03/15/23 at 30 mL 1907, Until Discontinu ed, Routine, Constipati on benzocaine- 0 Yes Topical, [place] menthol 4-15 PRN, ity of (DERMOPLAST 00:08: [place] 20-0.5 % 26 on Sat Medical topical 03/15/23 at Branch spray 1908, Until Discontinu ed, Routine, Perineum discomfort 0 Yes [id number] 1{tbl} Take 1 Univers vitamin 4-15 tablet by ity of w/FA tablet 00:00: mouth in [place] 00 the Medical morning. Branch docusate 0 Yes [id number] 200mg Take 2 U nivers 100 mg 4-15 capsules ity of capsule 00:00: by mouth [place] 00 once daily Medical as needed Branch for Constipati on. ferrous 0 Yes [id number] 325mg Take 1 [place] sulfate 325 4-15 tablet by ity of mg (65 mg 00:00: [place] iron) 00 the Medical tablet morning Branch and 1 tablet in the evening. ibuprofen 0 Yes [id number] 600mg Take 1 Univers 600 mg 4-15 tablet by ity of tablet 00:00: mouth [place] 00 every 6 Medical (six) Branch hours as needed (Pain). Take with food or milk. 0 Yes [id number] 1{tbl} Take 1 Univers vitamin 4-15 tablet by ity of w/FA tablet 00:00: mouth in [place] 00 the Medical morning. Branch docusate 0 Yes [id number] 200mg Take 2 U nivers 100 mg 4-15 capsules ity of capsule 00:00: by mouth [place] 00 once daily Medical as needed Branch for Constipati on. ferrous 0 Yes [id number] 325mg Take 1 [place] sulfate 325 4-15 tablet by ity of mg (65 mg 00:00: [place] iron) 00 the Medical tablet morning Branch and 1 tablet in the evening. ibuprofen 0 Yes [id number] 600mg Take 1 Univers 600 mg 4-15 tablet by ity of tablet 00:00: mouth [place] 00 every 6 Medical (six) Branch hours as needed (Pain). Take with food or milk. 0 Yes [id number] 1{tbl} Take 1 Univers vitamin 4-15 tablet by ity of w/FA tablet 00:00: mouth in [place] 00 the Medical morning. Branch docusate 0 Yes [id number] 200mg Take 2 U nivers 100 mg 4-15 capsules ity of capsule 00:00: by mouth [place] 00 once daily Medical as needed Branch for Constipati on. ferrous 0 Yes [id number] 325mg Take 1 [place] sulfate 325 4-15 tablet by ity of mg (65 mg 00:00: [place] iron) 00 the Medical tablet morning Branch and 1 tablet in the evening. ibuprofen 0 Yes [id number] 600mg Take 1 Univers 600 mg 4-15 tablet by ity of tablet 00:00: mouth [place] 00 every 6 Medical (six) Branch hours as needed (Pain). Take with food or milk. terbutaline 2022- No .25mg 0.25 mg, Univers (BRETHINE) 03-15 Subcutaneo it y of injection 23:45: 22:46 us, ONCE, [place] 0.25 mg 00 :00 1 dose, On Medica l Fri Branch 03/15/23 at 1845, Routine amnioinfusi 2022- No 1000mL at 750 U nivers on IV 03-15-14 mL/hr, ity of infusion 22:15: 22:36 Intrauteri [place] via PUMP 00 :00 ne, ONCE, Medica l 0.9 NaCL 1 dose, On Branc h 1,000 mL 03/15/23 at 1715, JESS
Ma y give up 1000 mL.&nb sp; I nfuse via Intrauteri ne Pressure Catheter.& nbsp;&nbsp ;The infusion is started at 750 mL/hr by volume controlled infusion pump. "The infusion pump should be clearly labeled AMNIOINF USION.&n bsp; Once 750 mL has been infused, the infusion may be discontinu ed or decreased to 100 mL/hr until the liter is complete.& nbsp;&nbsp ;Notify [facility] Associate if uterine resting tone exceeds 25 mmHg at any time during the amnioinfus ion. Obst etrics (SUNITA) Aminoinfus ion Orders
fentaNYL-ro 2022- No Epidural, Univers pivacaine 2 03-15 ONCE INTRA i ty of mcg/mL-0.1 21:47: 01:01 PROCEDURE, [place] % (PF) in 00 :29 Starting Medica l NS 200 mL on Fri Branch epidural 03/15/23 at infusion 1647, RTU Until Sat03/15/23 at 2000, Routine, Intra-op fentaNYL-ro 2022- No Epidural, Univers pivacaine 2 03-15 CONTINUOUS i ty of mcg/mL-0.1 21:47: 01:01 PRN, [place] % (PF) in 00 :29 Starting Medica l NS 200 mL on Fri Branch epidural 03/15/23 at infusion 1647, RTU Until Sat03/15/23 at 2000, Routine, Intra-op fentaNYL-ro 2022-0 2022- No Epidural, Univers pivacaine 2 03-15 ONCE INTRA i ty of mcg/mL-0.1 21:47: 01:01 PROCEDURE, [place] % (PF) in 00 :29 Starting Medica l NS 200 mL on Fri Branch epidural 4/14/23 at infusion 1647, RTU Until Sat03/15/23 at 2000, Routine, Intra-op fentaNYL-ro 2022- No Epidural, Univers pivacaine 2 03-15 CONTINUOUS i ty of mcg/mL-0.1 21:47: 01:01 PRN, [place] % (PF) in 00 :29 Starting Medica l NS 200 mL on Fri Branch epidural 03/15/23 at infusion 1647, RTU Until Sat03/15/23 at 2000, Routine, Intra-op lidocaine-e 2022- No Epidural, Univers pinephrine 03-15 ONCE INTRA it y of (XYLOCAINE 21:41: 01:01 PROCEDURE, [facility]/EPINEPHRI 00 :29 Starting [facility] [place]) 1.5 on Sat Branch %-1:200,000 03/15/23 at injection 1641, Until Sat03/15/23 at 2000, Routine, Intra-op lidocaine-e 2022- No Epidural, Univers pinephrine 03-15 ONCE INTRA it y of (XYLOCAINE 21:41: 01:01 PROCEDURE, [place] W/EPINEPHRI 00 :29 Starting [facility] [place]) 1.5 on Sat Branch %-1:200,000 03/15/23 at injection 1641, Until Sat03/15/23 at 2000, Routine, Intra-op oxytocin 2022- No 2mU/min at 2-40 [place] (PITOCIN) 03-1515 mL/hr, IV ity of 30 units in 12:53: 00:08 Infusion, [place] NS 500 mL 24 :32 TITRATE, Medica l IV infusion Starting Bran ch on Sat03/15/23 at 0753, Until Sat03/15/23 at 1908, JESS proMETHazin 2022- No 25mg 25 mg, IV Univers e 03-15 Piggyback, ity of (PHENERGAN) 09:34: 00:08 Q4HPRN, [place] 25 mg in 52 :32 Starting Medical NaCl 0.9% on Sat Branch (NS) 50 mL 03/15/23 at IV 0434, piggyback Until Sat03/15/23 at 1908, Routine, Nausea and Vomiting (N/V) FENTanyl PF 2022- No 100ug 100 mcg, Univers (SUBLIMAZE 03-15 04-15 Slow IV ity o f (PF)) 09:34: 00:08 Push, [place] injection 20 :32 Q1HPRN, Medical 100 mcg Starting Branch on Sat03/15/23 at 0434, Until Sat03/15/23 at 1908, Routine, Pain (scale 7-10) lactated 2022- No 500mL at 999 Unive rs ringers IV 03-15 04-15 mL/hr, 500 it y of infusion 09:23: 00:08 mL, IV [place] 500 mL 08 :32 Infusion, Medical PRN - SEE Branch INSTRUCTIO NS, Starting on Sat03/15/23 at 0423, Until Sat03/15/23 at 1908, Routine D5W-LR IV 2022- No 1000mL at 1-125 U nivers infusion 03-15 04-15 mL/hr, IV ity o f 1,000 mL 09:23: 00:08 Infusion, [place] as 08 :32 TITRATE, Medical Starting Branch on Sat03/15/23 at 0423, Until Sat03/15/23 at 1908, Routine buPROPion 2022-0 Yes [id number] 150mg Take 1 U nivers XL 3-31 tablet by ity of (WELLBUTRIN 00:00: mouth in [place] XL) 150 mg 00 the Medical 24 hr morning. Branch tablet buPROPion 2022-0 Yes [id number] 150mg Take 1 U nivers XL 3-31 tablet by ity of (WELLBUTRIN 00:00: mouth in [place] XL) 150 mg 00 the Medical 24 hr morning. Branch tablet buPROPion 2022-0 Yes [id number] 150mg Take 1 U nivers XL 3-31 tablet by ity of (WELLBUTRIN 00:00: mouth in [place] XL) 150 mg 00 the Medical 24 hr morning. Branch tablet buPROPion 2023-0 Yes [id number] 150mg Take 1 U nivers XL 3-31 tablet by ity of (WELLBUTRIN 00:00: mouth in [place] XL) 150 mg 00 the Medical 24 hr morning. Branch tablet buPROPion 2023-0 Yes [id number] 150mg Take 1 U nivers XL 3-31 tablet by ity of (WELLBUTRIN 00:00: mouth in [place] XL) 150 mg 00 the Medical 24 hr morning. Branch tablet buPROPion 2023-0 Yes [id number] 150mg Take 1 U nivers XL 3-31 tablet by ity of (WELLBUTRIN 00:00: mouth in [place] XL) 150 mg 00 the Medical 24 hr morning. Branch tablet buPROPion 3-0 Yes [id number] 150mg Take 1 U nivers XL 3-31 tablet by ity of (WELLBUTRIN 00:00: mouth in [place] XL) 150 mg 00 the Medical 24 hr morning. Branch tablet buPROPion 3-0 Yes [id number] 150mg Take 1 U nivers XL 3-31 tablet by ity of (WELLBUTRIN 00:00: mouth in [place] XL) 150 mg 00 the Medical 24 hr morning. Branch tablet buPROPion 3-0 Yes [id number] 150mg Take 1 U nivers XL 3-31 tablet by ity of (WELLBUTRIN 00:00: mouth in [place] XL) 150 mg 00 the Medical 24 hr morning. Branch tablet buPROPion 2022-0 Yes [id number] 150mg Take 1 U nivers XL 3-31 tablet by ity of (WELLBUTRIN 00:00: mouth in [place] XL) 150 mg 00 the Medical 24 hr morning. Branch tablet buPROPion 3-0 Yes [id number] 150mg Take 1 U nivers XL 3-31 tablet by ity of (WELLBUTRIN 00:00: mouth in [place] XL) 150 mg 00 the Medical 24 hr morning. Branch tablet buPROPion 3-0 Yes [id number] 150mg Take 1 U nivers XL 3-31 tablet by ity of (WELLBUTRIN 00:00: mouth in [place] XL) 150 mg 00 the Medical 24 hr morning. Branch tablet buPROPion 3-0 Yes [id number] 150mg Take 1 U nivers XL 3-31 tablet by ity of (WELLBUTRIN 00:00: mouth in [place] XL) 150 mg 00 the Medical 24 hr morning. Branch tablet busPIRone 5 2022-0 Yes [id number] 5mg Take 1 Univers mg tablet 3-30 tablet by ity o f 00:00: mouth in [place] 00 the Medical morning Branch and 1 tablet in the evening. busPIRone 5 2022-0 Yes [id number] 5mg Take 1 Univers mg tablet 3-30 tablet by ity o f 00:00: mouth in [place] 00 the Medical morning Branch and 1 tablet in the evening. busPIRone 5 2022-0 Yes Univer s mg tablet 3-30 ity of 00:00: [place] 00 Medical Branch busPIRone 5 2022-0 Yes Univer s mg tablet 3-30 ity of 00:00: [place] 00 Medical Branch busPIRone 5 2022-0 Yes Univer s mg tablet 3-30 ity of 00:00: [place] 00 Medical Branch busPIRone 5 2022-0 Yes Univer s mg tablet 3-30 ity of 00:00: [place] 00 Medical Branch busPIRone 5 2022-0 Yes Univer s mg tablet 3-30 ity of 00:00: [place] 00 Medical Branch busPIRone 5 2022-0 Yes Univer s mg tablet 3-30 ity of 00:00: [place] 00 Medical Branch busPIRone 5 2022-0 Yes Univer s mg tablet 3-30 ity of 00:00: [place] 00 Medical Branch busPIRone 5 2022-0 Yes Univer s mg tablet 3-30 ity of 00:00: [place] 00 Medical Branch busPIRone 5 2022-0 2023- No Unive rs mg tablet 3-30 04-15 ity of 00:00: 00:00 [place] 00 :00 Medical Branch busPIRone 5 2022-0 2023- No [id number] 5mg Take 1 Univers mg tablet 3-30 03-31 tablet by ity of 00:00: 00:00 mouth in [place] 00 :00 the Medical morning Branch and 1 tablet in the evening. famotidine 2022-0 Yes [id number] 20mg Take 1 U nivers 20 mg 3-21 tablet by ity of tablet 00:00: mouth in [place] 00 the Medical morning Branch and 1 tablet in the evening. famotidine 2022-0 Yes [id number] 20mg Take 1 U nivers 20 mg 3-21 tablet by ity of tablet 00:00: mouth in [place] 00 the Medical morning Branch and 1 tablet in the evening. famotidine 2022-0 Yes [id number] 20mg Take 1 U nivers 20 mg 3-21 tablet by ity of tablet 00:00: mouth in [place] 00 the Medical morning Branch and 1 tablet in the evening. famotidine 2023-0 Yes [id number] 20mg Take 1 U nivers 20 mg 3-21 tablet by ity of tablet 00:00: mouth in [place] [address] the Medical morning Branch and 1 tablet in the evening. famotidine 2023-0 Yes [id number] 20mg Take 1 U nivers 20 mg 3-21 tablet by ity of tablet 00:00: mouth in [place] [address] the Medical morning Branch and 1 tablet in the evening. famotidine 2023-0 Yes [id number] 20mg Take 1 U nivers 20 mg 3-21 tablet by ity of tablet 00:00: mouth in [place] [address] the Medical morning Branch and 1 tablet in the evening. famotidine 2023-0 Yes [id number] 20mg Take 1 U nivers 20 mg 3-21 tablet by ity of tablet 00:00: mouth in [place] [address] the Medical morning Branch and 1 tablet in the evening. famotidine 2023-0 Yes [id number] 20mg Take 1 U nivers 20 mg 3-21 tablet by ity of tablet 00:00: mouth in [place] [address] the Medical morning Branch and 1 tablet in the evening. famotidine 2023-0 Yes [id number] 20mg Take 1 U nivers 20 mg 3-21 tablet by ity of tablet 00:00: mouth in [place] [address] the Medical morning Branch and 1 tablet in the evening. famotidine 2023-0 Yes [id number] 20mg Take 1 U nivers 20 mg 3-21 tablet by ity of tablet 00:00: mouth in [place] [address] the Medical morning Branch and 1 tablet in the evening. famotidine 2023-0 Yes [id number] 20mg Take 1 U nivers 20 mg 3-21 tablet by ity of tablet 00:00: mouth in [place] [address] the Medical morning Branch and 1 tablet in the evening. famotidine 2023-0 Yes [id number] 20mg Take 1 U nivers 20 mg 3-21 tablet by ity of tablet 00:00: mouth in [place] [address] the Medical morning Branch and 1 tablet in the evening. famotidine 2023-0 Yes [id number] 20mg Take 1 U nivers 20 mg 3-21 tablet by ity of tablet 00:00: mouth in [place] [address] the Medical morning Branch and 1 tablet in the evening. famotidine 2023-0 Yes [id number] 20mg Take 1 U nivers 20 mg 3-21 tablet by ity of tablet 00:00: mouth in [place] 00 the Medical morning Branch and 1 tablet in the evening. famotidine 2022- No [id number] 20mg Take 1 Univers 20 mg 3-21 06-20 tablet by ity of tablet 00:00: 04:59 mouth in [place] 00 :00 the Medical morning Branch and 1 tablet in the evening. Do all this for 90 days. famotidine 2022- No [id number] 20mg Take 1 Univers 20 mg 3-21 06-20 tablet by ity of tablet 00:00: 04:59 mouth in [place] 00 :00 the Medical morning Branch and 1 tablet in the evening. Do all this for 90 days. famotidine 2022-2022- No [id number] 20mg Take 1 Univers 20 mg 3-21 06-20 tablet by ity of tablet 00:00: 04:59 mouth in [place] 00 :00 the [facility] and 1 tablet in the evening. Do all this for 90 days. famotidine 2022- No [id number] 20mg Take 1 Univers 20 mg 3-21 06-20 tablet by ity of tablet 00:00: 04:59 mouth in [place] 00 :00 the [facility] morning Branch and 1 tablet in the evening. Do all this for 90 days. famotidine 2022- No [id number] 20mg Take 1 Univers 20 mg 3-21 06-20 tablet by ity of tablet 00:00: 04:59 mouth in [place] 00 :00 the [facility] morning Branch and 1 tablet in the evening. Do all this for 90 days. famotidine 2022- No [id number] 20mg Take 1 Univers 20 mg 3-21 06-20 tablet by ity of tablet 00:00: 04:59 mouth in [place] 00 :00 the [facility] morning Branch and 1 tablet in the evening. Do all this for 90 days. famotidine 2022-0 2022- No [id number] 20mg Take 1 Univers 20 mg 3-21 06-20 tablet by ity of tablet 00:00: 04:59 mouth in [place] 00 :00 the [facility] morning Branch and 1 tablet in the evening. Do all this for 90 days. famotidine 2022-0 2022- No [id number] 20mg Take 1 Univers 20 mg 3-21 06-20 tablet by ity of tablet 00:00: 04:59 mouth in [place] 00 :00 the [facility] morning Branch and 1 tablet in the evening. Do all this for 90 days. famotidine 2022-0 2022- No [id number] 20mg Take 1 Univers 20 mg 3-21 06-20 tablet by ity of tablet 00:00: 04:59 mouth in [place] 00 :00 the [facility] Branch and 1 tablet in the evening. Do all this for 90 days. famotidine 2022-2022- No [id number] 20mg Take 1 Univers 20 mg 3-21 06-20 tablet by ity of tablet 00:00: 04:59 mouth in [place] 00 :00 the [facility] Branch and 1 tablet in the evening. Do all this for 90 days. famotidine 2022-2022- No [id number] 20mg Take 1 Univers 20 mg 3-21 06-20 tablet by ity of tablet 00:00: 04:59 mouth in [place] 00 :00 the [facility] and 1 tablet in the evening. Do all this for 90 days. famotidine 2022-0 2022- No [id number] 20mg Take 1 Univers 20 mg 3-21 06-20 tablet by ity of tablet 00:00: 04:59 mouth in [place] 00 :00 the [facility] and 1 tablet in the evening. Do all this for 90 days. famotidine 2022-0 2022- No [id number] 20mg Take 1 Univers 20 mg 3-21 06-20 tablet by ity of tablet 00:00: 04:59 mouth in [place] 00 :00 the [facility] and 1 tablet in the evening. Do all this for 90 days. famotidine 2022-0 2022- No [id number] 20mg Take 1 [facility] 20 mg 3-21 06-20 tablet by ity of tablet 00:00: 04:59 mouth in [place] 00 :00 the [facility] and 1 tablet in the evening. Do all this for 90 days. famotidine 2022-0 2022- No [id number] 20mg Take 1 [facility] 20 mg 3-21 06-20 tablet by ity of tablet 00:00: 04:59 mouth in [place] 00 :00 the [facility] and 1 tablet in the evening. Do all this for 90 days. famotidine 2023-0 2023- No [id number] 20mg Take 1 [facility] 20 mg 3-21 04-15 tablet by ity of tablet 00:00: 00:00 mouth in [place] 00 :00 the Medical morning Branch and 1 tablet in the evening. Do all this for 90 days. famotidine 2022- No [id number] 20mg Take 1 [facility] 20 mg 3-21 04-15 tablet by ity of tablet 00:00: 00:00 mouth in [place] 00 :00 the Medical morning Branch and 1 tablet in the evening. famotidine 0 Yes [id number] 20mg Take 1 [facility] nivers 20 mg 3-17 tablet by ity of tablet 00:00: mouth in [place] 00 the Medical morning Branch and 1 tablet in the evening. famotidine 0 Yes [id number] 20mg Take 1 [facility]ivers 20 mg 3-17 tablet by ity of tablet 00:00: mouth in [place] 00 the Medical morning Branch and 1 tablet in the evening. famotidine 2022- No [id number] 20mg Take 1 [facility] 20 mg 3-17 03-21 tablet by ity of tablet 00:00: 00:00 mouth in [place] 00 :00 the Medical morning Branch and 1 tablet in the evening. SELECT-OB + 2022-0 Yes [facility]iver s DHA 29 mg 1-06 ity of iron-1 mg 00:00: [place] -250 mg 00 Medical combo pack Branch SELECT-OB + 2022-0 Yes Univer s DHA 29 mg 1-06 ity of iron-1 mg 00:00: [place] -250 mg 00 Medical combo pack Branch SELECT-OB + 2022-0 Yes [facility] s DHA 29 mg 1-06 ity of iron-1 mg 00:00: [place] -250 mg 00 Medical combo pack Branch SELECT-OB + 2022-0 Yes Univer s DHA 29 mg 1-06 ity of iron-1 mg 00:00: [place] -250 mg 00 Medical combo pack Branch SELECT-OB + 2022-0 Yes [facility]iver s DHA 29 mg 1-06 ity of iron-1 mg 00:00: [place] -250 mg 00 Medical combo pack Branch SELECT-OB + 2022-0 Yes [facility] s DHA 29 mg 1-06 ity of iron-1 mg 00:00: [place] -250 mg 00 Medical combo pack Branch SELECT-OB + 2022-0 Yes Univer s DHA 29 mg 1-06 ity of iron-1 mg 00:00: [place] -250 mg 00 Medical combo pack Branch SELECT-OB + 2022-0 Yes [facility] s DHA 29 mg 1-06 ity of iron-1 mg 00:00: [place] -250 mg 00 Medical combo pack Branch SELECT-OB + 2022-0 Yes [facility]iver s DHA 29 mg 1-06 ity of iron-1 mg 00:00: [place] -250 mg 00 Medical combo pack Branch SELECT-OB + 2022-0 Yes [facility]iver s DHA 29 mg 1-06 ity of iron-1 mg 00:00: [place] -250 mg 00 Medical combo pack Branch SELECT-OB + 2022-0 Yes Univer s DHA 29 mg 1-06 ity of iron-1 mg 00:00: [place] -250 mg 00 Medical combo pack Branch SELECT-OB + 2022-0 Yes Univer s DHA 29 mg 1-06 ity of iron-1 mg 00:00: [place] -250 mg 00 Medical combo pack Branch SELECT-OB + 2022-0 Yes [facility]iver s DHA 29 mg 1-06 ity of iron-1 mg 00:00: [place] -250 mg 00 Medical combo pack Branch SELECT-OB + 2022-0 Yes Univer s DHA 29 mg 1-06 ity of iron-1 mg 00:00: [place] -250 mg 00 Medical combo pack Branch SELECT-OB + 2022-0 Yes Univer s DHA 29 mg 1-06 ity of iron-1 mg 00:00: [place] -250 mg 00 Medical combo pack Branch SELECT-OB + 2022-0 Yes Univer s DHA 29 mg 1-06 ity of iron-1 mg 00:00: [place] -250 mg 00 Medical combo pack Branch SELECT-OB + 2022-0 Yes Univer s DHA 29 mg 1-06 ity of iron-1 mg 00:00: [place] -250 mg 00 Medical combo pack Branch SELECT-OB + 2022-0 Yes Univer s DHA 29 mg 1-06 ity of iron-1 mg 00:00: [place] -250 mg 00 Medical combo pack Branch SELECT-OB + 2022-0 2022- No Unive rs DHA 29 mg 1-06 04-15 ity of iron-1 mg 00:00: 00:00 [place] -250 mg 00 :00 Medical combo pack Branch magnesium 2021-12 Yes [id number] 400mg Take 1 U nivers oxide 400 1-18 tablet by ity o f mg (241.3 00:00: [place] mg 00 the Medical magnesium) morning. Branc h tablet magnesium 2021-12 Yes [id number] 400mg Take 1 U nivers oxide 400 1-18 tablet by ity o f mg (241.3 00:00: [place] mg 00 the Medical magnesium) morning. Branc h tablet magnesium 2021-12 Yes [id number] 400mg Take 1 U nivers oxide 400 1-18 tablet by ity o f mg (241.3 00:00: [place] mg 00 the Medical magnesium) morning. Branc h tablet magnesium 2021-12 Yes [id number] 400mg Take 1 U nivers oxide 400 1-18 tablet by ity o f mg (241.3 00:00: [place] mg 00 the Medical magnesium) morning. Branc h tablet magnesium 2021-12 Yes [id number] 400mg Take 1 U nivers oxide 400 1-18 tablet by ity o f mg (241.3 00:00: [place] mg 00 the Medical magnesium) morning. Branc h tablet magnesium 2021-12 Yes [id number] 400mg Take 1 U nivers oxide 400 1-18 tablet by ity o f mg (241.3 00:00: [place] mg 00 the Medical magnesium) morning. Branc h tablet magnesium 2021-12 Yes [id number] 400mg Take 1 U nivers oxide 400 1-18 tablet by ity o f mg (241.3 00:00: [place] mg 00 the Medical magnesium) morning. Branc h tablet magnesium 2021-12 Yes [id number] 400mg Take 1 U nivers oxide 400 1-18 tablet by ity o f mg (241.3 00:00: [place] mg 00 the Medical magnesium) morning. Branc h tablet magnesium 2021-12 Yes [id number] 400mg Take 1 U nivers oxide 400 1-18 tablet by ity o f mg (241.3 00:00: [place] mg 00 the Medical magnesium) morning. Branc h tablet magnesium 2021-12 Yes [id number] 400mg Take 1 U nivers oxide 400 1-18 tablet by ity o f mg (241.3 00:00: [place] mg 00 the Medical magnesium) morning. Branc h tablet magnesium 2021-12 Yes [id number] 400mg Take 1 U nivers oxide 400 1-18 tablet by ity o f mg (241.3 00:00: [place] mg 00 the Medical magnesium) morning. Branc h tablet magnesium 2021-12 Yes [id number] 400mg Take 1 U nivers oxide 400 1-18 tablet by ity o f mg (241.3 00:00: [place] mg 00 the Medical magnesium) morning. Branc h tablet magnesium 2021-12 Yes [id number] 400mg Take 1 U nivers oxide 400 1-18 tablet by ity o f mg (241.3 00:00: [place] mg 00 the Medical magnesium) morning. Branc h tablet magnesium 2021-12 Yes [id number] 400mg Take 1 U nivers oxide 400 1-18 tablet by ity o f mg (241.3 00:00: [place] mg 00 the Medical magnesium) morning. Branc h tablet magnesium 2021-12 Yes [id number] 400mg Take 1 U nivers oxide 400 1-18 tablet by ity o f mg (241.3 00:00: [place] mg 00 the Medical magnesium) morning. Branc h tablet magnesium 2021-12 Yes [id number] 400mg Take 1 U nivers oxide 400 1-18 tablet by ity o f mg (241.3 00:00: [place] mg 00 the Medical magnesium) morning. Branc h tablet magnesium 2021-12 Yes [id number] 400mg Take 1 U nivers oxide 400 1-18 tablet by ity o f mg (241.3 00:00: [place] mg 00 the Medical magnesium) morning. Branc h tablet magnesium 2021-12 Yes [id number] 400mg Take 1 U nivers oxide 400 1-18 tablet by ity o f mg (241.3 00:00: [place] mg 00 the Medical magnesium) morning. Branc h tablet magnesium 2021-12 Yes [id number] 400mg Take 1 U nivers oxide 400 1-18 tablet by ity o f mg (241.3 00:00: [place] mg 00 the Medical magnesium) morning. Branc h tablet magnesium 2021-12 Yes [id number] 400mg Take 1 U nivers oxide 400 1-18 tablet by ity o f mg (241.3 00:00: [place] mg 00 the Medical magnesium) morning. Branc h tablet magnesium 2021-12- No [id number] 400mg Take 1 [facility] oxide 400 1-18 04-15 tablet by ity of mg (241.3 00:00: 00:00 mouth in [place] mg 00 :00 the Medical magnesium) morning. Branc h tablet 2021-12 Yes [id number] 1{tbl} Take 1 U nivers multivitami 0-03 tablet by ity of n ( 00:00: mouth in [place] VITAMIN) 00 the Medical tablet morning. [place] 2021-12 Yes [id number] 1{tbl} Take 1 U nivers multivitami 0-03 tablet by ity of n ( 00:00: mouth in [place] VITAMIN) 00 the Medical tablet morning. [place] 2021-12 Yes [id number] 1{tbl} Take 1 U nivers multivitami 0-03 tablet by ity of n ( 00:00: mouth in [place] VITAMIN) 00 the Medical tablet morning. [place] 2021-12 Yes [id number] 1{tbl} Take 1 U nivers multivitami 0-03 tablet by ity of n ( 00:00: mouth in [place] VITAMIN) 00 the Medical tablet morning. [place] 2021-12 Yes [id number] 1{tbl} Take 1 U nivers multivitami 0-03 tablet by ity of n ( 00:00: mouth in [place] VITAMIN) 00 the Medical tablet morning. [place] 2021-12 Yes [id number] 1{tbl} Take 1 U nivers multivitami 0-03 tablet by ity of n ( 00:00: mouth in [place] VITAMIN) 00 the Medical tablet morning. [place] 2021-12 Yes [id number] 1{tbl} Take 1 U nivers multivitami 0-03 tablet by ity of n ( 00:00: mouth in [place] VITAMIN) 00 the Medical tablet morning. [facility] 2021-12 Yes [id number] 1{tbl} Take 1 U nivers multivitami 0-03 tablet by ity of n ( 00:00: mouth in [place] VITAMIN) 00 the Medical tablet morning. [place] 2021-12 Yes [id number] 1{tbl} Take 1 U nivers multivitami 0-03 tablet by ity of n ( 00:00: mouth in [place] VITAMIN) 00 the Medical tablet morning. [place] 2021-12 Yes [id number] 1{tbl} Take 1 U nivers multivitami 0-03 tablet by ity of n ( 00:00: mouth in [place] VITAMIN) 00 the Medical tablet morning. [place] 2021-12 Yes [id number] 1{tbl} Take 1 U nivers multivitami 0-03 tablet by ity of n ( 00:00: mouth in [place] VITAMIN) 00 the Medical tablet morning. [facility] 2021-12 Yes [id number] 1{tbl} Take 1 U nivers multivitami 0-03 tablet by ity of n ( 00:00: mouth in [place] VITAMIN) 00 the Medical tablet morning. [place] 2021-12 Yes [id number] 1{tbl} Take 1 U nivers multivitami 0-03 tablet by ity of n ( 00:00: mouth in [place] VITAMIN) 00 the Medical tablet morning. [place] 2021-12 Yes [id number] 1{tbl} Take 1 U nivers multivitami 0-03 tablet by ity of n ( 00:00: mouth in [place] VITAMIN) 00 the Medical tablet morning. [place] 2021-12 Yes [id number] 1{tbl} Take 1 U nivers multivitami 0-03 tablet by ity of n ( 00:00: mouth in [place] VITAMIN) 00 the Medical tablet morning. [place] 2021-12 Yes [id number] 1{tbl} Take 1 U nivers multivitami 0-03 tablet by ity of n ( 00:00: mouth in [place] VITAMIN) 00 the Medical tablet morning. [facility] 2021-12 Yes [id number] 1{tbl} Take 1 U nivers multivitami 0-03 tablet by ity of n ( 00:00: mouth in [place] VITAMIN) 00 the Medical tablet morning. [place] 2021-12 Yes [id number] 1{tbl} Take 1 U nivers multivitami 0-03 tablet by ity of n ( 00:00: mouth in [place] VITAMIN) 00 the Medical tablet morning. [place] 2021-12 Yes [id number] 1{tbl} Take 1 U nivers multivitami 0-03 tablet by ity of n ( 00:00: mouth in [place] VITAMIN) 00 the Medical tablet morning. [place] 2021-12 Yes [id number] 1{tbl} Take 1 U nivers multivitami 0-03 tablet by ity of n ( 00:00: mouth in [place] VITAMIN) 00 the Medical tablet morning. [place] 2021-12 Yes [id number] 1{tbl} Take 1 U nivers multivitami 0-03 tablet by ity of n ( 00:00: mouth in [place] VITAMIN) 00 the Medical tablet morning. [place] 2021-12 Yes [id number] 1{tbl} Take 1 U nivers multivitami 0-03 tablet by ity of n ( 00:00: mouth in [place] VITAMIN) 00 the Medical tablet morning. [place] 2021-12 Yes [id number] 1{tbl} Take 1 U nivers multivitami 0-03 tablet by ity of n ( 00:00: mouth in [place] VITAMIN) 00 the Medical tablet morning. [place] 2021-12 Yes [id number] 1{tbl} Take 1 U nivers multivitami 0-03 tablet by ity of n ( 00:00: mouth in [place] VITAMIN) 00 the Medical tablet morning. [place] 2021-12 [id number] 1{tbl} Take 1 [facility] multivitami 0-03 04-15 tablet by it y of n ( 00:00: 00:00 mouth in [place] VITAMIN) 00 :00 the Medical tablet morning. [place] buPROPion Yes [id number] 150mg Take 1 U nivers XL 9-28 tablet by ity of (WELLBUTRIN 00:00: mouth in [place] XL) 150 mg 00 the Medical 24 hr morning. [place] tablet busPIRone 5 Yes [id number] 5mg Take 1 [facility] mg tablet 9-28 tablet by ity o f 00:00: mouth in [place] 00 the Medical morning Branch and 1 tablet in the evening. buPROPion 2021-0 Yes [id number] 150mg Take 1 U nivers XL 9-28 tablet by ity of (WELLBUTRIN 00:00: mouth in [place] XL) 150 mg 00 the Medical 24 hr morning. Branch tablet busPIRone 5 2021-0 Yes [id number] 5mg Take 1 [facility] mg tablet 9-28 tablet by ity o f 00:00: mouth in [place] 00 the Medical morning Branch and 1 tablet in the evening. buPROPion 2021-0 Yes [id number] 150mg Take 1 U nivers XL 9-28 tablet by ity of (WELLBUTRIN 00:00: mouth in [place] XL) 150 mg 00 the Medical 24 hr morning. Branch tablet busPIRone 5 2021-0 Yes [id number] 5mg Take 1 [facility] mg tablet 9-28 tablet by ity o f 00:00: mouth in [place] 00 the Medical morning Branch and 1 tablet in the evening. buPROPion 2021-0 Yes [id number] 150mg Take 1 U nivers XL 9-28 tablet by ity of (WELLBUTRIN 00:00: mouth in [place] XL) 150 mg 00 the Medical 24 hr morning. Branch tablet busPIRone 5 2021-0 Yes [id number] 5mg Take 1 [facility] mg tablet 9-28 tablet by ity o f 00:00: mouth in [place] 00 the Medical morning Branch and 1 tablet in the evening. buPROPion 2021-0 Yes [id number] 150mg Take 1 U nivers XL 9-28 tablet by ity of (WELLBUTRIN 00:00: mouth in [place] XL) 150 mg 00 the Medical 24 hr morning. Branch tablet busPIRone 5 2021-0 Yes [id number] 5mg Take 1 [facility] mg tablet 9-28 tablet by ity o f 00:00: mouth in [place] 00 the Medical morning Branch and 1 tablet in the evening. buPROPion 2021-0 Yes [id number] 150mg Take 1 U nivers XL 9-28 tablet by ity of (WELLBUTRIN 00:00: mouth in [place] XL) 150 mg 00 the Medical 24 hr morning. Branch tablet busPIRone 5 2021-0 Yes [id number] 5mg Take 1 [facility] mg tablet 9-28 tablet by ity o f 00:00: mouth in [place] 00 the Medical morning Branch and 1 tablet in the evening. buPROPion 2021-0 Yes [id number] 150mg Take 1 U nivers XL 9-28 tablet by ity of (WELLBUTRIN 00:00: mouth in [place] XL) 150 mg 00 the Medical 24 hr morning. Branch tablet busPIRone 5 2021-0 Yes [id number] 5mg Take 1 [facility] mg tablet 9-28 tablet by ity o f 00:00: mouth in [place] 00 the Medical morning Branch and 1 tablet in the evening. buPROPion 2021-0 Yes [id number] 150mg Take 1 U nivers XL 9-28 tablet by ity of (WELLBUTRIN 00:00: mouth in [place] XL) 150 mg 00 the Medical 24 hr morning. Branch tablet busPIRone 5 2021-0 Yes [id number] 5mg Take 1 [facility] mg tablet 9-28 tablet by ity o f 00:00: mouth in [place] 00 the Medical morning Branch and 1 tablet in the evening. buPROPion 2021-0 Yes [id number] 150mg Take 1 U nivers XL 9-28 tablet by ity of (WELLBUTRIN 00:00: mouth in [place] XL) 150 mg 00 the Medical 24 hr morning. Branch tablet busPIRone 5 2021-0 Yes [id number] 5mg Take 1 [facility] mg tablet 9-28 tablet by ity o f 00:00: mouth in [place] 00 the Medical morning Branch and 1 tablet in the evening. buPROPion 2021-0 Yes [id number] 150mg Take 1 U nivers XL 9-28 tablet by ity of (WELLBUTRIN 00:00: mouth in [place] XL) 150 mg 00 the Medical 24 hr morning. Branch tablet busPIRone 5 2021-0 Yes [id number] 5mg Take 1 [facility] mg tablet 9-28 tablet by ity o f 00:00: mouth in [place] 00 the Medical morning Branch and 1 tablet in the evening. buPROPion 2021-0 Yes [id number] 150mg Take 1 U nivers XL 9-28 tablet by ity of (WELLBUTRIN 00:00: mouth in [place] XL) 150 mg 00 the Medical 24 hr morning. Branch tablet busPIRone 5 2021-0 Yes [id number] 5mg Take 1 [facility] mg tablet 9-28 tablet by ity o f 00:00: mouth in [place] 00 the Medical morning Branch and 1 tablet in the evening. buPROPion 2021-0 Yes [id number] 150mg Take 1 U nivers XL 9-28 tablet by ity of (WELLBUTRIN 00:00: mouth in [place] XL) 150 mg 00 the Medical 24 hr morning. Branch tablet busPIRone 5 2021-0 Yes [id number] 5mg Take 1 [facility] mg tablet 9-28 tablet by ity o f 00:00: mouth in [place] 00 the Medical morning Branch and 1 tablet in the evening. buPROPion 2021-0 Yes [id number] 150mg Take 1 U nivers XL 9-28 tablet by ity of (WELLBUTRIN 00:00: mouth in [place] XL) 150 mg 00 the Medical 24 hr morning. Branch tablet busPIRone 5 2021-0 Yes [id number] 5mg Take 1 [facility] mg tablet 9-28 tablet by ity o f 00:00: mouth in [place] 00 the Medical morning Branch and 1 tablet in the evening. buPROPion 2021-0 Yes [id number] 150mg Take 1 U nivers XL 9-28 tablet by ity of (WELLBUTRIN 00:00: mouth in [place] XL) 150 mg 00 the Medical 24 hr morning. Branch tablet busPIRone 5 2021-0 Yes [id number] 5mg Take 1 [facility] mg tablet 9-28 tablet by ity o f 00:00: mouth in [place] 00 the Medical morning Branch and 1 tablet in the evening. buPROPion 2021-0 Yes [id number] 150mg Take 1 U nivers XL 9-28 tablet by ity of (WELLBUTRIN 00:00: mouth in [place] XL) 150 mg 00 the Medical 24 hr morning. Branch tablet buPROPion 2021-0 Yes [id number] 150mg Take 1 U nivers XL 9-28 tablet by ity of (WELLBUTRIN 00:00: mouth in [place] XL) 150 mg 00 the Medical 24 hr morning. Branch tablet buPROPion 2021-0 3- No [id number] 150mg Take 1 [facility] XL 9-28 03-31 tablet by ity of (WELLBUTRIN 00:00: 00:00 mouth in [place] XL) 150 mg 00 :00 the Medical 24 hr morning. Branch tablet busPIRone 5 2022- No [id number] 5mg Take 1 [facility] mg tablet 08-29-30 tablet by ity of 00:00: 00:00 mouth in [place] 00 :00 the Medical morning Branch and 1 tablet in the evening. Yes [id number] 1{tbl} Take 1 U nivers multivitami 8-08 tablet by ity of n ( 00:00: mouth in [place] VITAMIN) 00 the Medical tablet morning. Branch buPROPion Yes [id number] 150mg Take 1 U nivers XL 8-08 tablet by ity of (WELLBUTRIN 00:00: mouth in [place] XL) 150 mg 00 the Medical 24 hr morning. Branch tablet Yes [id number] 1{tbl} Take 1 U nivers multivitami 8-08 tablet by ity of n ( 00:00: mouth in [place] VITAMIN) 00 the Medical tablet morning. Branch buPROPion Yes [id number] 150mg Take 1 U nivers XL 8-08 tablet by ity of (WELLBUTRIN 00:00: mouth in [place] XL) 150 mg 00 the Medical 24 hr morning. Branch tablet Yes [id number] 1{tbl} Take 1 U nivers multivitami 8-08 tablet by ity of n ( 00:00: mouth in [place] VITAMIN) 00 the Medical tablet morning. Branch Yes [id number] 1{tbl} Take 1 U nivers multivitami 8-08 tablet by ity of n ( 00:00: mouth in [place] VITAMIN) 00 the Medical tablet morning. Branch 2021- No [id number] 1{tbl} Take 1 [facility] multivitami 8-08 10-03 tablet by it y of n ( 00:00: 00:00 mouth in [place] VITAMIN) 00 :00 the Medical tablet morning. Branch buPROPion 2021- No [id number] 150mg Take 1 [facility] XL 8-08 -28 tablet by ity of (WELLBUTRIN 00:00: 00:00 mouth in [place] XL) 150 mg 00 :00 the Medical 24 hr morning. Branch tablet No [id number] 1{tbl} Take 1 [facility] vitamin 07-06 tablet by ity of w/FA tablet 00:00: [place] :[place] daily. Medical Branch docusate No [id number] 240mg Take 1 [facility] calcium 240 07-06 capsule by i ty of mg capsule 00:00: 00:00 mouth once [place] 00 :00 daily as Medical needed for Branch Constipati on. ferrous No [id number] 325mg Take 1 U nivers sulfate 325 07-06 tablet by it y of mg (65 mg 00:00: 00:00 [place] iron) 00 :00 (two) Medical tablet times Branch daily. ibuprofen No [id number] 600mg Take 1 [facility] 600 mg 07-06 tablet by ity of tablet 00:00: 00:00 mouth [place] 00 :00 every 6 Medical (six) Branch hours as needed (Pain). Take with food or milk. Immunizations Ordered Filled Immunization Date Status Comments [facility] e Immunization Name Name Rho (d) Immune 2023-03-16 Completed [facility] Gl[facility] 00:00:00 [facility] Rho (d) Immune 2023-03-16 Completed [facility] Globulin 00:00:00 [facility] TDAP 2023-02-04 Completed University of 00:00:00 [facility] Rho (d) Immune 2023-02-04 Completed [facility] of Globulin 00:00:00 [facility] TDAP 2023-02-04 Completed University of 00:00:00 [facility] Rho (d) Immune 2023-02-04 Completed [facility] of Globulin 00:00:00 [facility] TDAP 2023-02-04 Completed University of 00:00:00 [facility] Rho (d) Immune 2023-02-04 Completed [facility] of Globulin 00:00:00 [facility] TDAP 2023-02-04 Completed University of 00:00:00 [facility] Rho (d) Immune 2023-02-04 Completed [facility] of Globulin 00:00:00 [facility] TDAP 2023-02-04 Completed University of 00:00:00 [facility] Rho (d) Immune 2023-02-04 Completed University of Globulin 00:00:00 [facility] TDAP 2023-02-04 Completed University of 00:00:00 [facility] Rho (d) Immune 2023-02-04 Completed University of Globulin 00:00:00 [facility] TDAP 2023-02-04 Completed University of 00:00:00 [facility] Branch Rho (d) Immune 2023-02-04 Completed University of Globulin 00:00:00 [facility] TDAP 2023-02-04 Completed University of 00:00:00 [facility] Rho (d) Immune 2023-02-04 Completed University of Globulin 00:00:00 [facility] TDAP 2023-02-04 Completed University of 00:00:00 [facility] Rho (d) Immune 2023-02-04 Completed University of Globulin 00:00:00 [facility] TDAP 2023-02-04 Completed University of 00:00:00 [facility] Rho (d) Immune 2023-02-04 Completed University of Globulin 00:00:00 [facility] TDAP 2023-02-04 Completed University of 00:00:00 [facility] Rho (d) Immune 2023-02-04 Completed University of Globulin 00:00:00 [facility] TDAP 2023-02-04 Completed University of 00:00:00 [facility] Rho (d) Immune 2023-02-04 Completed University of Globulin 00:00:00 [facility] TDAP 2023-02-04 Completed University of 00:00:00 [facility] Rho (d) Immune 2023-02-04 Completed University of Globulin 00:00:00 [facility] TDAP 2023-02-04 Completed University of 00:00:00 [facility] Branch Rho (d) Immune 2023-02-04 Completed University of Globulin 00:00:00 [facility] TDAP 2023-02-04 Completed University of 00:00:00 [facility] Branch Rho (d) Immune 2023-02-04 Completed University of Globulin 00:00:00 [facility] TDAP 2023-02-04 Completed University of 00:00:00 [facility] Rho (d) Immune 2023-02-04 Completed University of Globulin 00:00:00 [facility] TDAP 2023-02-04 Completed University of 00:00:00 [facility] Branch Rho (d) Immune 2023-02-04 Completed University of Globulin 00:00:00 [facility] TDAP 2023-02-04 Completed University of 00:00:00 [facility] Rho (d) Immune 2023-02-04 Completed University of Globulin 00:00:00 [facility] TDAP 2023-02-04 Completed University of 00:00:00 [facility] Rho (d) Immune 2023-02-04 Completed University of Globulin 00:00:00 [facility] TDAP 2023-02-04 Completed University of 00:00:00 [facility] Rho (d) Immune 2023-02-04 Completed University of Globulin 00:00:00 [facility] TDAP 2023-02-04 Completed University of 00:00:00 [facility] Rho (d) Immune 2023-02-04 Completed University of Globulin 00:00:00 [facility] TDAP 2023-02-04 Completed University of 00:00:00 [facility] Rho (d) Immune 2023-02-04 Completed University of Globulin 00:00:00 [facility] Rho (d) Immune 2009-09-19 Completed University of Globulin 00:00:00 [facility] Rho (d) Immune 2009-09-19 Completed University of Globulin 00:00:00 [facility] Rho (d) Immune 2009-09-19 Completed University of Globulin 00:00:00 [facility] Rho (d) Immune 2009-09-19 Completed University of Globulin 00:00:00 [facility] Rho (d) Immune 2009-09-19 Completed University of Globulin 00:00:00 [facility] Rho (d) Immune 2009-09-19 Completed University of Globulin 00:00:00 [facility] Rho (d) Immune 2009-09-19 Completed University of Globulin 00:00:00 [facility] Rho (d) Immune 2009-09-19 Completed University of Globulin 00:00:00 [facility] Rho (d) Immune 2009-09-19 Completed University of Globulin 00:00:00 [facility] Rho (d) Immune 2009-09-19 Completed University of Globulin 00:00:00 [facility] Rho (d) Immune 2009-09-19 Completed University of Globulin 00:00:00 [facility] Rho (d) Immune 2009-09-19 Completed University of Globulin 00:00:00 [facility] Rho (d) Immune 2009-09-19 Completed [facility] 00:00:00 [facility] Rho (d) Immune 2009-09-19 Completed [facility] Gl[facility]ulin 00:00:00 [facility] Rho (d) Immune 2009-09-19 Completed [facility] Globulin 00:00:00 [facility] Rho (d) Immune 2009-09-19 Completed [facility] Globulin 00:00:00 [facility] Rho (d) Immune 2009-09-19 Completed [facility]ulin 00:00:00 [facility] Rho (d) Immune 2009-09-19 Completed [facility] Globulin 00:00:00 [facility] Rho (d) Immune 2009-09-19 Completed [facility] Globulin 00:00:00 [facility] Rho (d) Immune 2009-09-19 Completed [facility] Gl[facility]ulin 00:00:00 [facility] Rho (d) Immune 2009-09-19 Completed [facility] 00:00:00 [facility] Rho (d) Immune 2009-09-19 Completed [facility] Gl[facility]ulin 00:00:00 [facility] Rho (d) Immune 2009-09-19 Completed [facility]ulin 00:00:00 [facility] Rho (d) Immune 2009-09-19 Completed [facility] Gl[facility]ulin 00:00:00 [facility] Rho (d) Immune 2009-09-19 Completed [facility] Gl[facility]ulin 00:00:00 [facility] Rho (d) Immune 2009-09-19 Completed [facility] Gl[facility]ulin 00:00:00 [facility] Rho (d) Immune 2009-09-19 Completed [facility] Gl[facility]ulin 00:00:00 [facility] Rho (d) Immune 2009-09-19 Completed [facility] Gl[facility]ulin 00:00:00 [facility] Rho (d) Immune 2009-09-19 Completed [facility] 00:00:00 [facility] Rho (d) Immune 2009-09-19 Completed [facility] 00:00:00 [facility] Rho (d) Immune 2009-09-19 Completed [facility] 00:00:00 [facility] Rho (d) Immune 2009-09-19 Completed [facility] 00:00:00 [facility] Vital Signs Vital Name Observation Time Observation Value Comments Source Systolic blood 2023-03-17 01:40:00 112 mm[Hg] Univer sity of pressure [facility] Diastolic blood 2023-03-17 01:40:00 61 mm[Hg] Unive rsity of pressure [facility] Heart rate 2023-03-17 01:40:00 73 /min [facility] Body temperature 2023-03-17 01:40:00 36.11 Mary [facility] Respiratory rate 2023-03-17 01:40:00 18 /min [facility] Oxygen saturation in 2023-03-17 01:40:00 99 /min [facility] Arterial blood by [facility] Pulse oximetry Branch Body height 2023-03-15 10:03:00 165.1 cm [facility] Body weight 2023-03-15 10:03:00 117.935 kg [facility] BMI 2023-03-15 10:03:00 43.27 kg/m2 [facility] Systolic blood 2023-03-12 21:25:00 111 mm[Hg] [facility] Diastolic blood 2023-03-12 21:25:00 75 mm[Hg] Unive [facility] Heart rate 2023-03-12 21:25:00 87 /min [facility] Body temperature 2023-03-12 21:25:00 36.72 Mary [facility] Respiratory rate 2023-03-12 21:25:00 17 /min [facility] Body height 2023-03-12 21:25:00 165.1 cm [facility] Body weight 2023-03-12 21:25:00 117.028 kg [facility] BMI 2023-03-12 21:25:00 42.93 kg/m2 [facility] Systolic blood 2023-03-05 14:31:00 115 mm[Hg] [facility] Diastolic blood 2023-03-05 14:31:00 78 mm[Hg] [facility] Heart rate 2023-03-05 14:31:00 81 /min [facility] Respiratory rate 2023-03-05 14:31:00 18 /min [facility] Body height 2023-03-05 14:31:00 165.1 cm [facility] Body weight 2023-03-05 14:31:00 117.028 kg [facility] BMI 2023-03-05 14:31:00 42.93 kg/m2 [facility] Systolic blood 2023-02-15 20:17:00 118 mm[Hg] [facility] Diastolic blood 2023-02-15 20:17:00 76 mm[Hg] [facility] Heart rate 2023-02-15 20:17:00 80 /min [facility] Body temperature 2023-02-15 20:17:00 36.67 Mary [facility] Respiratory rate 2023-02-15 20:17:00 18 /min [facility] Body height 2023-02-15 20:17:00 165.1 cm [facility] Body weight 2023-02-15 20:17:00 115.667 kg [facility] BMI 2023-02-15 20:17:00 42.43 kg/m2 [facility] Systolic blood 2023-02-04 21:13:00 126 mm[Hg] [facility] Diastolic blood 2023-02-04 21:13:00 72 mm[Hg] [facility] Heart rate 2023-02-04 21:13:00 88 /min [facility] Body temperature 2023-02-04 21:13:00 36.83 Mary [facility] Respiratory rate 2023-02-04 21:13:00 18 /min [facility] Body height 2023-02-04 21:13:00 165.1 cm [facility] Body weight 2023-02-04 21:13:00 114.261 kg [facility] BMI 2023-02-04 21:13:00 41.92 kg/m2 [facility] Systolic blood 2022-11-16 20:26:00 102 mm[Hg] [facility] Diastolic blood 2022-11-16 20:26:00 66 mm[Hg] [facility] Heart rate 2022-11-16 20:26:00 77 /min [facility] Body temperature 2022-11-16 20:26:00 36.67 Mary [facility] Respiratory rate 2022-11-16 20:26:00 18 /min [facility] Body height 2022-11-16 20:26:00 165.1 cm [facility] Body weight 2022-11-16 20:26:00 113.853 kg [facility] BMI 2022-11-16 20:26:00 41.77 kg/m2 [facility] Systolic blood 2022-10-19 20:58:00 104 mm[Hg] [facility] Diastolic blood 2022-10-19 20:58:00 68 mm[Hg] [facility] Heart rate 2022-10-19 20:58:00 91 /min [facility] Body temperature 2022-10-19 20:58:00 36.78 Mary [facility] Respiratory rate 2022-10-19 20:58:00 18 /min [facility] Body height 2022-10-19 20:58:00 165.1 cm [facility] Body weight 2022-10-19 20:58:00 113.853 kg [facility] BMI 2022-10-19 20:58:00 41.77 kg/m2 [facility] Systolic blood 2022-08-29 16:00:00 109 mm[Hg] [facility] Diastolic blood 2022-08-29 16:00:00 71 mm[Hg] Unive [facility] Heart rate 2022-08-29 15:21:00 80 /min [facility] Body temperature 2022-08-29 15:21:00 36.94 Mary [facility] Respiratory rate 2022-08-29 15:21:00 18 /min [facility] Body height 2022-08-29 15:21:00 165.1 cm [facility] Body weight 2022-08-29 15:21:00 105.325 kg [facility] BMI 2022-08-29 15:21:00 38.64 kg/m2 [facility] Systolic blood 2022-07-09 20:04:00 109 mm[Hg] [facility] Diastolic blood 2022-07-09 20:04:00 58 mm[Hg] [facility] Heart rate 2022-07-09 20:04:00 68 /min [facility] Body temperature 2022-07-09 20:04:00 36.28 [facility] Respiratory rate 2022-07-09 20:04:00 20 /[facility] Body height 2022-07-09 20:04:00 165.1 cm [facility] Body weight 2022-07-09 20:04:00 99.905 kg [facility] BMI 2022-07-09 20:04:00 36.65 kg/m2 [facility] Procedures Procedure Date / Time Performed Performing Clinician Sour e CBC WITH DIFF 2023-03-16 10:02:00 [facility] 2023-03-16 10:02:00 Priscila Piedra [facility] HEMORRHAGE SCREEN [facility] CENTRAL NEURAXIAL 2023-03-15 21:32:00 Demarcus Constantino [facility] ANTI-D R/O PANEL 2023-03-15 18:36:00 [facility]AV (BLOOD 2023-03-15 18:36:00 Bill Velazquez [facility] BANK) [facility] PREPARE PACKED RBC 2023-03-15 18:14:00 Bill [facility]az[facility] HB ABO GROUPING 2023-03-15 10:44:[address] [facility] [place] [place] RHO (D) IMMUNE 2023-03-15 10:44:00 [facility] CONSENT/REFUSAL FOR 2023-03-13 22:06:36 Doctor Unassigned, No Un [facility] DIAGNOSIS AND Name Medical Branch TREATMENT PHYSICIAN ORDERS 2023-03-12 05:01:00 [facility] PO[facility] URINALYSIS W/O 2023-03-12 00:00:00 Christopher [facility] POCT URINALYSIS W/O 2023-03-05 00:00:00 Christopher Adams [facility] POCT URINALYSIS W/O 2023-02-15 00:00:00 Bill Velazquez [facility] DSU PRE-OP 2023-02-08 06:01:00 Doctor UnassKristie craven sity [facility] TDAP VACCINE, >11 YRS, 2023-02-04 21:44:40 [facility]/O 2023-02-04 00:00:00 Christopher [facility] POCT URINALYSIS W/O 2022-11-16 00:00:00 Bill Velazquez [facility] POCT URINALYSIS W/O 2022-10-19 00:00:00 Christopher [facility] <14 WEEKS US 2022-08-29 19:59:32 Bill Velazquez [facility] GLUCOSE 1 HOUR POST 2022-08-29 18:05:00 Bill Velazquez [facility] ASSIGNMENT OF BENEFITS 2022-08-29 16:33:28 Doctor UnassKristie craven [facility] POCT URINALYSIS W/O 2022-08-29 00:00:00 Bill Velazquez [facility] POCT TEST 2022-07-09 19:55:00 Nneka [facility] POCT URINALYSIS W/O 2022-07-09 19:55:00 Nneka Carolina Uni [facility] Encounters Start End Encounter Admission Attending Care Care Encounter Source Date/Time Date/Time Type Type Clinicians Facility Department ID 2021-09-29 Outpatient [facility] [id number] Univers 10:16:10 ity of [facility] 2023-04-05 2023-04-05 Outpatient BILL KRISHNAMURTHY [facility] [id number] Univers 15:15:00 15:15:00 ity of [facility] 2023-03-20 2023-03-20 [facility] 1.2.840.11 [id number] Univers 00:00:00 00:00:00 kandiceMaryPriscilakymberly HADDAD 350.1.13.10 ity of [place] [facility] [id number] [place] [address] Branch 2023-03-15 2023-03-16 Inpatient BILL FAYE [facility] SUNITA [id number] Univers 04:02:00 21:47:00 ity of [facility] 2023-03-15 2023-03-16 [facility] Bethany Parra [facility] 1.2.840.11 [id number] Univers 04:02:00 21:47:00 Encounter MarcusBill Lai DI[place] 350.1.13.10 [place] 4.2.7.2.686 [facility] [id number] [place] [id number] Branch 2023-03-15 2023-03-15 [facility]est[facility] 1.2.840.114 1 [id number] Univers 16:32:00 19:59:00 Event Demarcus DIAMOND 350.1.13.10 ity [address] [facility] 4.2.7.2.686 [facility] [id number] [facility] 083 Branch 2023-03-15 2023-03-15 Anesthesia [facility] 1.2.840.114 [id number] Univers 13:15:30 13:15:30 Event Robert DIAMOND 350.1.13.10 i ty of [facility] 4.2.7.2.686 [facility] [id number] [place] 083883 Branch 2023-03-14 2023-03-14 Hospital BIGG Rodriguez 1.2.840.114 [id number] Univers 13:17:00 23:59:00 Encounter Maurisio Maddox 350.1.13.10 ity of [facility] 4.2.7.2.686 [place] [id number] [facility] 031 Branch 2023-03-14 2023-03-14 Outpatient R JENN[facility]ER[facility] ACO [id number] Univers 00:00:00 23:59:00 MAURISIO itdiandra [facility] 2023-03-13 2023-03-13 Softball Coach Vladimir, Adc Lab Main [facility] 1.2.8 40.114 [id number] Univers 08:45:00 09:00:00 Visit Maurisio Rodriguez 350.1.13.10 [place] [id number] Md dical [facility] [address] [facility] 2023-03-13 2023-03-13 Outpatient Rik JENNIFER [facility] [id number] Univers 08:45:00 08:45:00 MAURISIO itdiandra [facility] 2023-03-13 2023-03-13 Orders Doctor SUBHASH 1.2.840.114 [id number] Univers 00:00:00 00:00:00 Only Unassigned, MARILY 350.1.13.10 ity of [place] [facility] 4.2.7.2.686 [place] [id number] [facility] 009 Branch 2023-03-12 2023-03-12 Outpatient R AMALIACHRISTOPHER BOONE [facility] B [id number] Univers 16:15:00 16:37:17 TRICHRISTOPHER BOONE ity [facility] 2023-03-12 2023-03-12 Routine [facility] 1.2.840.114 [id number] Univers 16:15:00 16:37:17 Christopher HADDAD 350.1.13.10 i ty of [place] [id number] [facility] 134 Branch 2023-03-12 2023-03-12 Orders Doctor SUBHASH 1.2.840.114 [id number] Univers 00:00:00 00:00:00 Only Unassigned, MARILY 350.1.13.10 ity of [place] [facility] 4.2.7.2.686 [place] [id number] [place] [address] Branch 2023-03-08 2023-03-08 Tele[facility] 1.2.840.114 [id number] Univers 00:00:00 00:00:00 Lai HADDAD 350.1.13.10 it y [place] [id number] [address] 2023-03-05 2023-03-05 Outpatient R CHRISTOPHER ADAMS [facility] B [id number] Univers 09:15:00 09:51:39 CHRISTOPHER ADAMS ity [facility] 2023-03-05 2023-03-05 [facility]ine [facility] 1.2.840.114 [id number] Univers 09:15:00 09:51:39 Christopher HADDAD 350.1.13.10 i ty of [place] [id number] [address] 2023-03-01 2023-03-01 Outpatient R MARCUS [facility] [id number] Univers 08:00:00 08:00:00 ity of [facility] 2023-03-01 2023-03-01 Telephone Marcus [facility] 1.2.840.114 10 [id number] Univers 00:00:00 00:00:00 Lai DIAMOND 350.1.13.10 i ty of [facility] 4.2.7.2.[place] [id number] Md dic[address] 2023-02-28 2023-02-28 Telephone Marcus [facility] 1.2.840.114 [id number] Univers 00:00:00 00:00:00 Lai DIAMOND 350.1.13.10 i ty [place] [id number] Md dicok NAL [address] [place] [address] 2023-02-28 2023-02-28 Telephone Marcus [facility] 1.2.840.114 [id number] Univers 00:00:00 00:00:00 Lai HADDAD 350.1.13.10 it [place] [facility] [id number] [address] 2023-02-22 2023-02-22 Outpatient R MARCUS BILL [facility] [id number] Univers 13:00:00 13:00:00 ity of [facility] 2023-02-20 2023-02-20 Softball Coach 1Lin Room [facility] 1.2. 840.114 [id number] Univers 08:00:00 09:00:00 Visit Gisselle Arnold SOFTWARE TEST MANAGER 350.1. 13.[address] [facility] 4.2.7.2.686 [place] MATERNAL [id number] Med ical & CHILD [address] [place] [address] 2023-02-20 2023-02-20 Outpatient P RADHA [facility] [id number] Univers 08:00:00 08:00:00 NOREEN it y of S [place] [facility] 2023-02-20 2023-02-20 Case Stefano [facility] 1.2.840.114 [id number] Univers 00:00:00 00:00:00 Management Christopher HADDAD 350.1.13.10 it[place] [id number] [address] 2023-02-19 2023-02-19 Telephone Marcus [facility] 1.2.840.114 10 [id number] Univers 00:00:00 00:00:00 Lai DIAMOND 350.1.13.10 i [place] [id number] Md dical [address] 2023-02-15 2023-02-15 Outpatient R MARCUS BILL [facility] [id number] Univers 15:15:00 15:34:40 ity of [facility] 2023-02-15 2023-02-15 Routine Marcus [facility] 1.2.840.114 10 [id number] Univers 15:15:00 15:34:40 Lai HADDAD 350.1.13.10 i ty of [place] [id number] [facility] 134 Branch 2023-02-08 2023-02-08 Orders Doctor SUBHASH 1.2.840.114 [id number] Univers 00:00:00 00:00:00 Only Unassigned, MARILY 350.1.13.10 ity of [place] [facility] 4.2.7.2.686 [place] [id number] [facility] 009 Branch 2023-02-05 2023-02-05 Outpatient R [facility] [id number] Univers 09:30:00 09:30:00 [facility] 2023-02-04 2023-02-04 Outpatient R CHRISTOPHER ADAMS [facility] B [id number] Univers 14:45:00 15:47:35 CHRISTOPHER ADAMS [facility] 2023-02-04 2023-02-04 [facility] 1.2.840.114 [id number] Univers 14:45:00 15:47:35 Christopher HADDAD 350.1.13.10 i ty of Visit [place] [id number] [facility] 134 Branch 2023-01-30 2023-01-30 Outpatient R CHRISTOPHER ADAMS [facility] B [id number] Univers 16:15:00 16:15:00 CHRISTOPHER ADAMS [facility] 2022-12-14 2022-12-14 Outpatient R CHRISTOPHER ADAMS [facility] B [id number] Univers 13:30:00 13:30:00 CHRISTOPHER ADAMS [facility] 2022-12-03 2022-12-03 Outpatient R CRYSTAL [facility] [id number] Univers 14:00:00 14:00:00 BURT kiser o f [facility] 2022-11-30 2022-11-30 Outpatient P [facility] [id number] Univers 08:45:00 08:45:00 y [facility] 2022-11-20 2022-11-20 Outpatient R MICK XIE [facility] [id number] Univers 13:00:00 13:00:00 MICK XIE itdiandra [facility] 2022-11-16 2022-11-16 Outpatient R BILL VELAZQUEZ [facility] [id number] Univers 14:00:00 15:22:13 ity of [facility] 2022-11-16 2022-11-16 Routine Bill Velazquez [facility] 1.2.840.114 [id number] Univers 14:00:00 15:22:13 Lai HADDAD 350.1.13.10 i ty of [place] [id number] [address] 2022-10-19 2022-10-19 Outpatient R ELOISELAZARO [facility] B [id number] Univers 14:15:00 15:18:29 ELOISECHRISTOPHER WILLIS diandra [facility] 2022-10-19 2022-10-19 [facility] 1.2.840.114 [id number] Univers 14:15:00 15:18:29 Christopher HADDAD 350.1.13.10 i ty of [place] [id number] [address] 2022-10-19 2022-10-19 Case Stefano [facility] 1.2.840.114 [id number] Univers 00:00:00 00:00:00 Management Christopher CATIE 350.1.13.10 [place] [id number] [address] 2022-09-26 2022-09-26 Outpatient R ELOISELUDIVINA WILLISJOANNE [facility] B [id number] Univers 09:30:00 09:30:00 [facility] 2022-09-07 2022-09-07 Telephone Bill Velazquez [facility] 1.2.840.114 [id number] Univers 00:00:00 00:00:00 Lai DIAMOND 350.1.13.10 i ty [place] [id number] Md dical NAL [address] [facility] 2022-08-31 2022-08-31 Telephone Bill Velazquez [facility] 1.2.840.114 [id number] Univers 00:00:00 00:00:00 Cam [place] 350.1.13.10 i ty of [facility] 4.2.7.2.[place] [id number] Md dicok NAL [address] [facility] 2022-08-29 2022-08-29 Softball Coach Fern Gilbert Lab Main [facility] 1.2.8 40.114 [id number] Univers 11:15:00 11:30:00 Visit Bill Velazquez 350.1.13.10 ity [facility] 4.2.7.2.[place] [id number] [facility] NAL [address] [facility] 2022-08-29 2022-08-29 Outpatient R BILL VELAZQUEZ [facility] [id number] Univers 10:00:00 11:08:03 ity of [facility] 2022-08-29 2022-08-29 Initial Bill Velazquez [facility] 1.2.340.860 [id number] Univers 10:00:00 11:08:03 Lai DIAMOND 350.1.13.10 ity of [place] [id number] [facility] [address] [facility] 2022-08-29 2022-08-29 Orders Doctor SUBHASH 1.2.840.114 [id number] Univers 00:00:00 00:00:00 Only Unassigned, MARILY 350.1.13.10 ity of [place] [facility] 4.2.7.2.686 [place] [id number] [address] 2022-08-27 2022-08-27 Outpatient P ARLEN [facility] [id number] Univers 14:00:00 14:00:00 SENAIT kiser [facility] 2022-08-27 2022-08-27 Outpatient R CHRISTOPHER ADAMS [facility] B [id number] Univers 08:00:00 08:00:00 CHRISTOPHER ADAMS [facility] 2022-08-14 2022-08-14 Outpatient R AKINSIPE, [facility] [id number] Univers 10:45:00 10:45:00 NNEKA ity o [facility] 2022-07-23 2022-07-23 Outpatient R AKINSIPE, [facility] [id number] Univers 10:45:00 10:45:00 NNEKA ity o [facility] 2022-07-16 2022-07-16 Outpatient R KHAI, [facility] [id number] Univers 13:15:00 13:15:00 NAOMINDA ity o [facility] 2022-07-09 2022-07-09 Initial Ronnsipe, [facility] 1.2.003.270 [id number] Univers 15:00:00 16:30:53 Nneka Johnson SOFTWARE TEST MANAGER 350.1.13.[address] [facility] 4.2.7.2.686 [place] MATERNAL [id number] [facility] ical & CHILD [address] [place] [address] 2022-07-09 2022-07-09 Outpatient R AKINSIPE, [facility] [id number] Univers 15:00:00 16:30:53 NNEKA ity o [facility] 2022-07-09 2022-07-09 Outpatient R AKINSIPE, [facility] [id number] Univers 15:00:00 16:30:53 NNEKA ity o [facility] 2022-07-09 2022-07-09 Outpatient R AKINSIPE, [facility] [id number] Univers 15:00:00 16:30:53 NNEKA ity o [facility] 2022-07-09 2022-07-09 Orders Doctor SUBHASH 1.2.840.114 [id number] Univers 00:00:00 00:00:00 Only Unassigned, MARILY 350.1.13.10 ity of [place] [facility] 4.2.7.2.686 [place] [id number] [address] 2022-04-24 2022-04-25 Emergency X JOSH, [facility] ERT [id number] Univers 23:27:00 02:29:00 ROSA ity [facility] 2022-04-24 2022-04-25 Emergency [facility] [id number] Univers 23:27:00 02:29:00 Rosa DIAMOND [id number] [facility] 4.2.7[facility]2.686 [facility] [id number] [place] [address] [place] 2020-09-19 2020-09-19 Outpatient R AKINSIPE, [facility] [id number] Univers 15:15:00 15:15:00 NNEKA ity o f [facility] 2020-08-01 2020-08-01 Outpatient R AKINSIPE, [facility] [id number] Univers 13:45:00 13:45:00 NNEKA ity o f [facility] 2020-07-28 2020-07-28 Outpatient R AKINSIPE, [facility] [id number] Univers 14:45:00 14:45:00 NNEKA ity o [facility] 2020-07-03 2020-07-06 Hospital SUBHASH Saez [id number] 19:39:00 16:26:00 Encounter Pedro CALIXTO [id number] [facility] 4.2.7.2.686 [id number] 2020-07-02 2020-07-02 Nurse SUBHASH Garcia [id number] 00:00:00 00:00:00 Triage Lilo Cornell CALIXTO [id number] [facility] 4.2.7.2.686 [id number] 2020-06-27 2020-06-27 [facility] [id number] 15:32:39 16:14:31 Karen R SOFTWARE TEST MANAGER [id number] Visit REGIONAL 4.2.7.2.686 MATERNAL [id number] & CHILD [address] [place] [address] 2020-06-27 2020-06-27 Outpatient R KHAI [facility] [id number] Univers 15:30:00 15:30:00 ROSHUNDA margi o [place] [facility] 2020-06-23 2020-06-23 Margarito Ridley [facility] [id number] 00:00:00 00:00:00 Roshunda R SOFTWARE TEST MANAGER [id number] REGIONAL 4.2.7.2.686 MATERNAL [id number] & CHILD 107 [facility] 2020-06-23 2020-06-23 Telephone SUBHASH Lees [id number] 00:00:00 00:00:00 Cherie CALIXTO 350.1.13.10 [place] [id number] 2020-06-22 2020-06-22 Softball Coach Ultrasound, [facility] [id number] 14:18:43 14:48:43 Visit [facility] SOFTWARE TEST MANAGER [id number] REGIONAL 4.2.7.2.686 MATERNAL [id number] & CHILD 369 [facility] 2020-06-22 2020-06-22 Outpatient P [facility] [id number] Univers 14:15:00 14:15:[facility] 2020-06-22 2020-06-22 Telephone [facility] [id number] 00:00:00 00:00:00 Senait N SOFTWARE TEST MANAGER 350.1.13.10 REGIONAL 4.2.7.2.686 MATERNAL [id number] & CHILD 107 [facility] 2020-06-21 2020-06-21 [facility] [id number] 14:11:25 15:15:39 Roshunda R SOFTWARE TEST MANAGER [id number] Visit REGIONAL 4.2.7.2.686 MATERNAL [id number] & CHILD 107 [facility] 2020-06-21 2020-06-21 Outpatient R RIDLEY, [facility] [id number] Univers 10:00:00 10:00:00 ROSHUNDA ity o f [facility] 2020-06-03 2020-06-03 Outpatient R AKINSIPE, [facility] [id number] Univers 14:15:00 14:15:00 NNEKA ity o f [facility] 2020-05-16 2020-05-16 Outpatient P [facility] [id number] Univers 11:00:00 11:00:00 [facility] 2020-05-12 2020-05-12 Outpatient R AKINSIPE, [facility] [id number] Univers 15:30:00 15:30:00 NNEKA ity o f [facility] 2020-04-05 2020-04-05 Outpatient R AKINSIPE, [facility] [id number] Univers 13:15:00 13:15:00 NNEKA granty o [facility] 2020-04-04 2020-04-04 Outpatient P BRADLEY TOVAR [facility] [id number] Univers 11:45:00 11:45:00 [facility] 2020-03-22 2020-03-22 Outpatient R AKINSIPE, [facility] [id number] Univers 13:45:00 13:45:00 NNEKA kiser o [facility] 2020-03-17 2020-03-17 Outpatient Raju_P [facility] [id number] [place] 09:35:00 09:35:00 [facility] 2020-03-07 2020-03-07 Outpatient P [facility] [id number] Univers 11:00:00 11:00:00 [facility] 2020-03-04 2020-03-04 Outpatient P KALE, [facility] [id number] Univers 13:30:00 13:30:00 JAGDISH [facility] 2020-02-26 2020-02-26 Outpatient R AKINSIPE, [facility] [id number] Univers 15:00:00 15:00:00 NNEKA ity o [facility] 2020-02-25 2020-02-25 Outpatient R [facility] [id number] Univers 13:30:00 13:30:00 [facility] 2020-02-23 2020-02-23 Outpatient R ARLEN, [facility] [id number] Univers 12:45:00 12:45:00 SENAIT [facility] 2020-01-08 2020-01-08 Outpatient R LAKISHA, [facility] [id number] Univers 15:45:00 15:45:00 LAUREN [facility] Results Test Description Test Time Test Comments Results Result Comments Source RHO (D) IMMUNE GLOBULIN 2023-03-16 01:34:00 Test Item Value Reference Range Interpretation Comme nts RHIG CANDIDATE? (test code = Yes- see comment A Patient is a candidate for RhIg- 5188) Patient is Rh N egative and baby is Rh Positive.Per formed at [facility] Laboratory Serv ices - [facility] Blood [address] [place] [id number] Free: [phone] No. [id number] Lab Interpretation (test code Abnormal = 90680-5) [facility] [id number] 00:23:24 Test Item Value Reference Range Interpretation Comments ANTIBODY (test Anti-D Probable PATIENT RE CEIVED code = 683) RhIg RHIG 02/04/23.Performe d at [facility] - [facility] Blood [address] [place] [address] 417[address]Ckxq Free: [phone] A No. [id number] [facility] Screen - ONCE [id number] 12:12:00 Test Item Value Reference Range Interpretation Comments ABO & RH (test code = 20) A Negative IAT (test code = 1185) Positive [facility] W/O SPECIFIC [id number] 21:22:00 Test Item Value Reference Range Interpretation Comments POCT PH U (test code = 3254) n/a 5-8 POCT U LEUK EST (test code = n/a Negative - Negative 3263) POCT U NIT (test code = 3262) n/a Negative - Negative POCT U PROT (test code = 3259) negative Negative - Negative POCT U GLU (test code = 3256) negative Negative - Negative POCT U KETONE (test code = 3258) n/a Negative - Negative POCT U BLD (test code = 3257) n/a Negative - Negative [facility] W/O SPECIFIC [id number] 14:41:00 Test Item Value Reference Range Interpretation Comments POCT PH U (test code = 3254) N/A 5-8 POCT U LEUK EST (test code = N/A Negative - Negative 3263) POCT U NIT (test code = 3262) N/A Negative - Negative POCT U PROT (test code = 3259) Negative Negative - Negative POCT U GLU (test code = 3256) Negative Negative - Negative POCT U KETONE (test code = 3258) N/A Negative - Negative POCT U BLD (test code = 3257) N/A Negative - Negative [facility] URINALYSIS W/O SPECIFIC [id number] 20:17:00 Test Item Value Reference Range Interpretation Comments POCT PH U (test code = 3254) n/a 5-8 POCT U LEUK EST (test code = n/a Negative - Negative 3263) POCT U NIT (test code = 3262) n/a Negative - Negative POCT U PROT (test code = 3259) negative Negative - Negative POCT U GLU (test code = 3256) negative Negative - Negative POCT U KETONE (test code = 3258) n/a Negative - Negative POCT U BLD (test code = 3257) n/a Negative - Negative [facility] URINALYSIS W/O SPECIFIC [id number] 21:11:00 Test Item Value Reference Range Interpretation Comments POCT PH U (test code = 3254) n/a 5-8 POCT U LEUK EST (test code = n/a Negative - Negative 3263) POCT U NIT (test code = 3262) n/a Negative - Negative POCT U PROT (test code = 3259) negative Negative - Negative POCT U GLU (test code = 3256) negative Negative - Negative POCT U KETONE (test code = 3258) n/a Negative - Negative POCT U BLD (test code = 3257) n/a Negative - Negative [facility] SPECIFIC [id number] 20:30:00 Test Item Value Reference Range Interpretation Comments POCT PH U (test code = 3254) 7 mg/dl 5-8 POCT U LEUK EST (test code = neg Negative - Negative 3263) POCT U NIT (test code = 3262) neg Negative - Negative POCT U PROT (test code = 3259) trace Negative - Negative POCT U GLU (test code = 3256) neg Negative - Negative POCT U KETONE (test code = 3258) neg Negative - Negative POCT U BLD (test code = 3257) neg Negative - Negative [facility] W/O SPECIFIC [id number] 21:06:00 Test Item Value Reference Range Interpretation Comments POCT PH U (test code = 3254) N/A 5-8 POCT U LEUK EST (test code = N/A Negative - Negative 3263) POCT U NIT (test code = 3262) N/A Negative - Negative POCT U PROT (test code = 3259) Negative Negative - Negative POCT U GLU (test code = 3256) Negative Negative - Negative POCT U KETONE (test code = 3258) N/A Negative - Negative POCT U BLD (test code = 3257) N/A Negative - Negative [facility] H[facility] POST [id number] 19:18:59 Test Item Value Reference Range Interpretation Comments GLUC 1 HR (test code = [id number]) 68 mg/dL 120-170 L Lab Interpretation (test code = Abnormal 63987-0) [facility] URINALYSIS W/O SPECIFIC [id number] 15:26:00 Test Item Value Reference Range Interpretation Comments POCT PH U (test code = 3254) n/a 5-8 POCT U LEUK EST (test code = n/a Negative - Negative 3263) POCT U NIT (test code = 3262) n/a Negative - Negative POCT U PROT (test code = 3259) negative Negative - Negative POCT U GLU (test code = 3256) negative Negative - Negative POCT U KETONE (test code = 3258) n/a Negative - Negative POCT U BLD (test code = 3257) n/a Negative - Negative [facility] [id number] 19:55:00 Test Item Value Reference Range Interpretation Comments POCT PREG (test code = 1605) Positive On board controls acceptable with C Yes Line (test code = 3574) POCT PREG LOT # (test code = 3575) POCT PREG TEST DATE (test code = 3576) [facility] URINALYSIS W/O SPECIFIC [id number] 19:55:00 Test Item Value Reference Range Interpretation [...] (test code = 3257) Negative - Negative [facility]
[2023-07-22 01:36] LABS: Absolute Lymphocytes (CBC) 2.5 K/uL (0.7-4.9); Hematocrit 35.5 % (36.0-45.0); Lymphocytes % 33.5 % (15.3-44.8); MPV 8.1 fL (7.6-11.3); Platelets 270 thou/uL (152-406); RBC Red Blood Cell Count 4.17 M/uL (3.86-4.86)
[2023-07-22 01:38] LABS: Protime INR 0.92
[2023-07-22 01:54] LABS: Albumin 3.6 g/dL (3.4-5.0); Bilirubin Total 0.3 mg/dL (0.2-1.0); Protein, Total 7.1 g/dL (6.4-8.2)
[2023-07-22 01:55] LABS: Potassium 4.3 mEq/L (3.5-5.1)
--- NOTE | 2023-07-22 03:12 | ER ---
Nurse's Notes [facility] Name: Sandra Amado Age: 32 yrs Sex: Female : 1990 Arrival Date: 07/22/2023 Time: 00:12 Bed 13 Private MD: Diagnosis: of undetermined location Presentation: 07/22 00:34 Chief complaint: Patient states: I've had my period for over a month, I'm having bad vc1 stomach cramps. Last night my heart rate shot way up and I feel numbness in my hands. Today at work I felt dizzy and felt like passing out. Coronavirus screen: Vaccine status: Patient reports being unvaccinated. Client denies travel out of the [place] in the last 14 days. At this time, the client does not indicate any symptoms associated with coronavirus-19. Ebola Screen: Patient negative for fever greater than or equal to 101.5 degrees Fahrenheit, and additional compatible Ebola Virus Disease symptoms Patient denies exposure to infectious person. Patient denies travel to an Ebola-affected area in the 21 days before illness onset. No symptoms or risks identified at this time. Initial Sepsis Screen: Does the patient meet any 2 criteria? No. Patient's initial sepsis screen is negative. Does the patient have a suspected source of infection? No. Patient's initial sepsis screen is negative. Risk Assessment: Do you want to hurt yourself or someone else? Patient reports no desire to harm self or others. Onset of symptoms is unknown. 00:34 Method Of Arrival: Ambulatory vc1 00:34 Acuity: HUGO 3 vc1 Triage Assessment: 00:37 General: Appears in no apparent distress. uncomfortable, Behavior is calm, cooperative, vc1 appropriate for age. Pain: Complains of pain in abdomen Pain does not radiate. Pain currently is 7 out of 10 on a pain scale. Quality of pain is described as crampy, Pain began over a month Also complains of dizziness. EENT: No deficits noted. No signs and/or symptoms were reported regarding the EENT system. Neuro: Level of Consciousness is awake, alert, obeys commands, Oriented to person, place, time, situation, Appropriate for age. Cardiovascular: No deficits noted. Respiratory: Airway is patent Respiratory effort is even, unlabored, Respiratory pattern is regular, symmetrical. GI: Reports cramping. : Reports vaginal bleeding that is bright red, since over a month. Derm: No deficits noted. No signs and/or symptoms reported regarding the dermatologic system. Musculoskeletal: No deficits noted. No signs and/or symptoms reported regarding the musculoskeletal system. 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 - Social history:: Smoking status: Reported history of juuling and/or vaping. - Family history:: not pertinent. Screenin:39 Abuse screen: Denies threats or abuse. Nutritional screening: No deficits noted. vc1 Tuberculosis screening: No symptoms or risk factors identified. 03:21 [facility] ED Fall Risk Assessment (Adult) History of falling in the last 3 months, vc1 including since admission No falls in past 3 months (0 pts) Confusion or Disorientation No (0 pts) Intoxicated or Sedated Impaired Gait No (0 pts) Mobility Assist Device Used No (0 pt) Altered Elimination No (0 pt) Score/Fall Risk Level 0 - 2 = Low Risk Oriented to surroundings, Maintained a safe environment, Educated pt \T\ family on fall prevention, incl call for assistance when getting out of bed. Vital Signs: 00:34 BP 118 / 89; Pulse 67; Resp 15; Temp 98.7; Pulse Ox 97% ; Weight 108.86 kg; Height 5 vc1 ft. 5 in. ; Pain 7/10; 02:00 BP 100 / 67; Pulse 64; Resp 15; Pulse Ox 98% ; vc1 03:00 BP 119 / 70; Pulse 67; Resp 15; Pulse Ox 98% ; vc1 00:34 Body Mass Index 39.94 (108.86 kg, 165.1 cm) vc1 00:34 Pain Scale: Adult vc1 ED Course: 00:16 Patient arrived in ED. es 00:30 Erick Nesbitt MD is Attending Physician. rt 00:34 Calcote, Ruby, RN is Primary Nurse. vc1 00:36 Triage completed. vc1 00:38 Arm band placed on left wrist. vc1 00:39 Patient has correct armband on for positive identification. Bed in low position. Call vc1 light in reach. Pulse ox on. NIBP on. 01:17 Inserted saline lock: 22 gauge in right forearm, using aseptic technique. Blood ha1 collected. 02:41 HCG, Quantitative Sent. pf1 02:56 Transvaginal OB In Process Unspecified. EDMS 03:21 No provider procedures requiring assistance completed. vc1 03:41 Provided Education on: RhoGam. vc1 03:42 IV discontinued, intact, bleeding controlled, No redness/swelling at site. Pressure vc1 dressing applied. Administered Medications: 04:00 Drug: Rho D Immune Globulin IM 300 mcg Route: IM; Site: right gluteus; vc1 04:11 Follow up: Response: No adverse reaction vc1 Medication: 00:39 VIS not applicable for this client. vc1 Outcome: 03:11 Discharge ordered by MD. rt 03:41 Condition: good vc1 03:41 Discharge instructions given to patient, Instructed on discharge instructions, follow up and referral plans. Demonstrated understanding of instructions, follow-up care. 04:12 Discharged to home ambulatory, with significant other. vc1 04:12 Patient left the ED. vc1 Signatures: Dispatcher [employer] Narda Molina Vanessa, RN RN vc1 Jaelyn Anton RN RN ha1 Erick Nesbitt MD MD rt Manda Hoffman RN RN pf1 Corrections: (The following items were deleted from the chart) 04:11 04:11 Rho D Immune Globulin IM 300 mcg IM in right gluteus vc1 vc1
--- NOTE | 2023-07-22 03:12 | EDPHYS ---
Physician Documentation [facility] Name: Sandra Amado Age: 32 yrs Sex: Female : 1990 Arrival Date: 07/22/2023 Time: 00:12 Bed 13 Private MD: ED Physician Erick Nesbitt HPI: 07/22 02:13 This 32 yrs old Female presents to ER via Ambulatory with complaints of rt Abdominal Pain, Vaginal Bleeding, Numbness Of Hand. 02:13 Patient presents to the ED with vaginal bleeding for 1 month. The patient is a G6, P6 rt having her last child in March. She states that she has been on her menstruation for that whole time and that she has abdominal cramping. She denies other acute complaints at this time. Symptoms are moderate severity, no other aggravating or alleviating factors.. 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 - Social history:: Smoking status: Reported history of juuling and/or vaping. - Family history:: not pertinent. ROS: 02:13 Constitutional: Negative for fever, chills, and weight loss, Cardiovascular: Negative rt for chest pain, palpitations, and edema, Respiratory: Negative for shortness of breath, cough, wheezing, and pleuritic chest pain, MS/Extremity: Negative for injury and deformity, Skin: Negative for injury, rash, and discoloration, Neuro: Negative for headache, weakness, numbness, tingling, and seizure. 02:13 Abdomen/GI: Positive for abdominal pain, Negative for nausea. 02:13 : Positive for vaginal bleeding, Negative for urinary symptoms. Exam: 02:13 Constitutional: This is a well developed, well nourished patient who is awake, alert, rt and in no acute distress. Head/Face: Normocephalic, atraumatic. Chest/axilla: Normal chest wall appearance and motion. Nontender with no deformity. No lesions are appreciated. Cardiovascular: Regular rate and rhythm with a normal S1 and S2. No gallops, murmurs, or rubs. Normal PMI, no JVD. No pulse deficits. Respiratory: Lungs have equal breath sounds bilaterally, clear to auscultation and percussion. No rales, rhonchi or wheezes noted. No increased work of breathing, no retractions or nasal flaring. Abdomen/GI: Soft, non-tender, with normal bowel sounds. No distension or tympany. No guarding or rebound. No evidence of tenderness throughout. Skin: Warm, dry with normal turgor. Normal color with no rashes, no lesions, and no evidence of cellulitis. MS/ Extremity: Pulses equal, no cyanosis. Neurovascular intact. Full, normal range of motion. Neuro: Awake and alert, GCS 15, oriented to person, place, time, and situation. Cranial nerves II-XII grossly intact. Motor strength 5/5 in all extremities. Sensory grossly intact. Cerebellar exam normal. Normal gait. Psych: Awake, alert, with orientation to person, place and time. Behavior, mood, and affect are within normal limits. Vital Signs: 00:34 BP 118 / 89; Pulse 67; Resp 15; Temp 98.7; Pulse Ox 97% ; Weight 108.86 kg; Height 5 vc1 ft. 5 in. ; Pain 7/10; 02:00 BP 100 / 67; Pulse 64; Resp 15; Pulse Ox 98% ; vc1 03:00 BP 119 / 70; Pulse 67; Resp 15; Pulse Ox 98% ; vc1 00:34 Body Mass Index 39.94 (108.86 kg, 165.1 cm) vc1 00:34 Pain Scale: Adult vc1 MDM: 00:44 Patient medically screened. rt 05:36 Differential diagnosis: Menses, ectopic , miscarriage, first trimester rt . Data reviewed: vital signs, nurses notes, lab test result(s), radiologic studies. I considered the following discharge prescriptions or medication management in the emergency department Medications were administered in the Emergency Department. See MAR. Care significantly affected by the following chronic conditions: Diabetes. Counseling: I had a detailed discussion with the patient and/or guardian regarding the historical points, exam findings, and any diagnostic results supporting the discharge/admit diagnosis, lab results, radiology results, Discussed findings of low beta-hCG with unremarkable ultrasound. Patient was instructed to obtain follow-up within 48 hours for recheck of hCG with possible follow-on ultrasound. Patient verbalizes understanding and will follow-up.. 07/22 00:45 Order name: CBC with Diff; Complete Time: 02:07 rt 07/22 00:45 Order name: CMP; Complete Time: 02:48 rt 07/22 00:45 Order name: PT-INR; Complete Time: 02:07 rt 07/22 00:45 Order name: Ptt, Activated; Complete Time: 02:07 rt 07/22 00:45 Order name: Test, Serum; Complete Time: 02:07 rt 07/22 00:45 Order name: Type And Screen rt 07/22 02:20 Order name: HCG, Quantitative; Complete Time: 02:48 EDMS 07/22 03:27 Order name: Rh Typing EDMS 07/22 03:27 Order name: Fetalscreen EDMS 07/22 03:27 Order name: Cord Rh type EDMS 07/22 03:27 Order name: Rhogam EDMS 07/22 02:56 Order name: Transvaginal OB EDMS Administered Medications: 04:00 Drug: Rho D Immune Globulin IM 300 mcg Route: IM; Site: right gluteus; vc1 04:11 Follow up: Response: No adverse reaction vc1 Disposition Summary: 07/22/23 03:11 Discharge Ordered Location: Home rt Problem: new rt Symptoms: are unchanged rt Condition: Stable rt Diagnosis - of undetermined location rt Followup: rt - With: Emergency Department - When: 48 Hours - Reason: Repeat Beta-HCG (48 Hours) Followup: rt - With: Private Physician - When: 48 Hours - Reason: Discharge Instructions: - Discharge Summary Sheet rt - Ectopic rt - Vaginal Bleeding During , First Trimester rt Forms: - Work release form rt - Medication Reconciliation Form rt - Thank You Letter rt - Antibiotic Education rt - Prescription Opioid Use rt - Patient Portal Instructions rt - Leadership Thank You Letter rt Signatures: Dispatcher [employer] Ruby Mejia RN RN vc1 Erick Nesbitt MD MD rt Corrections: (The following items were deleted from the chart) 02:20 02:09 QUANTITATIVE HCG+C.LAB.BRZ ordered. EDMS EDMS 02:56 02:09 OB Limited+US.RAD.BRZ ordered. EDMS EDMS
[2023-07-22 04:57] VITALS: TEMP 98.7
[2023-07-22 05:10] VITALS: BP 119/70; O2SAT 98
--- NOTE | 2023-07-22 13:28 | RAD REPORT ---
EXAM DESCRIPTION: US - Transvaginal OB - 07/22/2023 2:55 am CLINICAL HISTORY: 32 years, Female, VAGINAL BLEEDING COMPARISON: None. TECHNIQUE: Utilizing a transvaginal array transducer, real-time ultrasound evaluation of the female pelvis was performed. Color Doppler imaging was used to assess vascular flow. FINDINGS: The uterus measures 7.3 x 3.9 x 5.0 cm. The endometrial stripe demonstrate to be normal and measure 6.1 mm. No evidence for intrauterine /or gestational sac identified within the e ndometrial cavity. The right ovary measured 2.4 x 1.5 x 1.5 cm, the left ovary measures 2.9 x 2.1 x 1.6 cm. There is nor mal vascular flow and spectral waveforms with no evidence for torsion. No free fluid was identified in the posterior cul-de-sac, no adnexal masses seen. IMPRESSION: No evidence for intrauterine . Otherwise unremarkable pelvic ultrasound. Electronically signed by: Rafael Garcia MD 07/22/2023 3:20 AM CDT Due to temporary technical issues with the PACS/Fluency reporting system, reports are being signed by the in house radiologist without review as a courtesy to ensure prompt reporting. The interpreting r adiologist is fully responsible for the content of the report.
== END 2023-07-22 04:12 | disposition home or self-care (01) ==
LOC: ER 00:12
DX: O00.90 Unspecified ectopic pregnancy without intrauterine pregnancy (principal); Z88.0 Allergy status to penicillin; Z88.5 Allergy status to narcotic agent
CPT/HCPCS: 36415; 76817; 80053; 84702; 84703; 85025; 85610; 85730; 86850; 86900; 86901; 96372; 99284

== ENCOUNTER 2023-07-25 20:59 | Emergency (ER) | payer OTHER ==
--- OUTSIDE RECORDS SUMMARY | 2023-07-25 21:04 | XMS REPORT | Continuity of Care Document ---
:1990 Author Organization [facility] t Address [address] [place] [address] Care Team Providers Name Role Phone Karen Espinal Primary Care Physician Unavailable BILL VELAZQUEZ Attending Clinician Unavailable Tadeo GARVIN, Priscila Attending Clinician Bethany Parra MD Attending Clinician Bill Velazquez MD Attending Clinician Demarcus Constantino MD Attending Clinician Robert Cannon CRNA Attending Clinician Maurisio Rodriguez MD Attending Clinician MAURISIO RODRIGUEZ Attending Clinician Unavailable Pob, [facility] Attending Clinician Unavailable Doctor Unassigned, [place] Attending Clinician Unavailable CHRISTOPHER ADAMS Attending Clinician Unavailable CHRISTOPHER ADAMS Attending Clinician Unavailable 1, [facility] Attending Clinician Unavailable Radha Britt MD, Gisselle Attending Clinician [phone] GISSELLE ARNOLD Attending Clinician Unavailable BURT ROJAS Attending Clinician Unavailable MICK XIE Attending Clinician Unavailable MICK XIE Attending Clinician Unavailable SENAIT MCKINLEY Attending Clinician Unavailable NNEKA CAROLINA Attending Clinician Unavailable KAREN RIDLEY Attending Clinician Unavailable Nneka Venegas Attending Clinician [phone] ROSA CARDENAS Attending Clinician Unavailable Rosa [...] Type Policy Number Effective Date Expiration Date [facility] [id number] 2019 [facility] MEDICAID 00:00:00 Problems Condition Condition Condition Status Onset Resolution Last Treating Co mments Source Name Details Category Date Date Treatment Clinician Date Encounter Encounter Disease Active Uni vers for for 4-14 [place] labor of [place] 00 Med[place] Morbid Morbid Disease Active Univers obesity obesity 4-14 [place] with [place] mass index mass index 00 Me dical of of [place] 40.0-49.9 40.0-49.9 Liveborn Liveborn Disease Active Unive rs infant, of , of 4-14 [place] y of [place] , , 00 [place] dical born in born in [facility] by vaginal by vaginal delivery delivery [...] of high-risk high-risk 00:[place] 00 [facility] Grand Grand Disease Active Univers multiparit multiparit 8-08 it y of y, y, 00:00: [place] antepartum antepartum 00 Pa dical Branch Other Other Disease Active Overview: Univer s depression depression 808 Formattin ity of 00:00: g of this [place] 00 note Medical might be Branch different from the original. Reports father passed 01/2020, report recent break with FOB 41 weeks 41 weeks Disease Active Unive rs gestation gestation 8-02 ity of of of 00:00: [place] 00 [facility] Obesity in Obesity in Disease Active U nivers 7- ity of 00:00: [place] 00 Medical Branch Group B Group B Disease Active Overview: Univ ers streptococ streptococ 7- Formattin ity of [facility] 00:00: g of this [place] carriage [...] nivers nt nt 7-21 ity of 00:00: [place] care in care in 00 Medical third [...] ity of adverse 00:00: [place] reaction 00 [facility] Branch TRAMADOL DRUG Active Hives Univers INGREDI [...] 5-13 ity of adverse 00:00: [place] reaction [facility] Branch Social History Social Habit Start Date Stop Date Quantity Comments Source ASSERTION 2022-06-13 [facility] 00:00:00 [place] [facility] Exposure to 2023-03-05 2023-03-15 Not sure [facility] SARS-CoV-2 00:00:00 04:57:00 [facility] (event) Branch Alcohol intake 2023-03-12 2023-03-12 Ex-drinker [facility] 00:00:00 00:00:00 (finding) [place] [facility] Tobacco use and 2022-07-09 2022-07-09 User of smokeless Un iversity of exposure 00:00:00 00:00:00 tobacco [place] [facility] Tobacco Comment 2022-07-09 2022-07-09 2 ciggs a day Univer sity of 00:00:00 00:00:00 [place] [facility] History of 2021-07-02 Passive smoker University of tobacco use 00:00:00 [place] [facility] Sex Ass[birth year] At [birth year] Universit y of 00:00:00 00:00:00 [place] [facility] Smoking Status Start Date Stop Date Source Never smoked tobacco [facility] Ex-smoker 2022-07-09 00:00:00 2022-07-09 [facility] Medications Ordered Filled Start Stop Current Ordering Indication Dosage Frequency Signature Comments Components Source Medication Medication Date Date Medication? Clinician (SIG) Name Name abdifatah Farmer Yes Topical, Un [place] (TUCKS) 50 4-15 Q4HPRN, ity of % topical 00:08[place] 26 on [facility] 03/15/23 at Branch 1908, Until Discontinu ed, Routine, rectal/hem orrhoidal pain ibuprofen 2022-0 Yes 600mg 600 mg, Univ ers (IBU) 4-15 Oral, ity of tablet 600 00:08: Q6HPRN, [place] mg 26 Starting Medical on Sat [place] 03/15/23 at 1908, Until Discontinu ed, Routine, Pain (scale 4-6) acetaminoph 2022-0 Yes 650mg 650 mg, Un [place] en 4-15 Oral, ity of (TYLENOL) 00:08: Q6HPRN, [place] tablet 650 26 Starting Medic al mg on Sat [place] 03/15/23 at 1908, Until Discontinu ed, Routine, Pain (scale 1-3) diphenhydrA 2022-0 Yes 25mg 25 mg, Univ ers MINE 4-15 Oral, ity of (BENADRYL) 00:08: Q6HPRN, [place] tablet 25 26 Starting Medica l mg on Sat [place] 03/15/23 at 1908, Until Discontinu ed, Routine, [...] Discontinu ed, Routine, Perineum discomfort 0 Yes [id number] 1{tbl} Take 1 Univers vitamin 4-15 tablet by ity of w/FA tablet 00:00: mouth [place] 00 the Medical morning. Branch docusate 0 Yes [id number] 200mg Take 2 U nivers 100 mg 4-15 capsules ity of capsule 00:00: by mouth [place] 00 once daily Medical as needed Branch for Constipati on. ferrous 0 Yes [id number] 325mg Take 1 Un [place] sulfate 325 4-15 tablet by ity of mg (65 mg 00:00: [place] iron) 00 the Medical tablet morning Branch and 1 tablet in the evening. ibuprofen 0 Yes [id number] 600mg Take 1 Univers 600 mg 4-15 tablet by ity of tablet 00:00: mouth [place] 00 every 6 Medical (six) Branch hours as needed (Pain). Take with food or milk. 0 Yes [id number] 1{tbl} Take 1 Univers vitamin 4-15 tablet by ity of w/FA tablet 00:00: mouth [place] 00 the Medical morning. Branch docusate 0 Yes [id number] 200mg Take 2 U nivers 100 mg 4-15 capsules ity of capsule 00:00: by mouth [place] 00 once daily Medical as needed Branch for Constipati on. ferrous 0 Yes [id number] 325mg Take 1 [place] sulfate 325 4-15 tablet by ity of mg (65 mg 00:00: [place] iron) 00 the Medical tablet morning Branch and 1 tablet in the evening. ibuprofen 0 Yes [id number] 600mg Take 1 Univers 600 mg 4-15 tablet by ity of tablet 00:00: mouth [place] 00 every 6 Medical (six) Branch hours as needed (Pain). Take with food or milk. 0 Yes [id number] 1{tbl} Take 1 Univers vitamin 4-15 tablet by ity of w/FA tablet 00:00: mouth [place] 00 the Medical morning. Branch docusate 0 Yes [id number] 200mg Take 2 U nivers 100 mg 4-15 capsules ity of capsule 00:00: by mouth [place] 00 once daily Medical as needed Branch for Constipati on. ferrous 0 Yes [id number] 325mg Take 1 [place] sulfate 325 4-15 tablet by ity of mg (65 mg 00:00: [place] iron) 00 the Medical tablet morning Branch and 1 tablet in the evening. ibuprofen 0 Yes [id number] 600mg Take 1 Univers 600 mg 4-15 [...] until the liter is complete.& nbsp;&nbsp ;Notify Press Bucker if uterine resting tone exceeds 25 mmHg [...] it y of (XYLOCAINE 21:41: 01:01 PROCEDURE, [facility]/EPINEPHRI 00 :29 Starting [facility] [place]) 1.5 on Sat Branch %-1:200,000 03/15/23 at injection 1641, Until Sat03/15/23 at 2000, Routine, Intra-op lidocaine-e 2022- No Epidural, Univers pinephrine 03-15 ONCE INTRA it y of (XYLOCAINE 21:41: 01:01 PROCEDURE, [place] W/EPINEPHRI 00 :29 Starting [facility] [place]) 1.5 on Sat Branch %-1:200,000 03/15/23 at injection 1641, Until Sat03/15/23 at 2000, Routine, Intra-op oxytocin 2022- No 2mU/min at 2-40 [place] (PITOCIN) 03-1515 mL/hr, IV ity of 30 units in 12:53: 00:08 Infusion, [place] NS 500 mL 24 :32 TITRATE, Medica [...] Sat03/15/23 at 1908, Routine buPROPion 2022-0 Yes [id number] 150mg Take 1 U nivers XL 3-31 tablet by ity of (WELLBUTRIN 00:00: mouth in [place] XL) 150 mg 00 the Medical 24 hr morning. Branch tablet buPROPion 2022-0 Yes [id number] 150mg Take 1 U nivers XL 3-31 tablet by ity of (WELLBUTRIN 00:00: mouth in [place] XL) 150 mg 00 the Medical 24 hr morning. Branch tablet buPROPion 2022-0 Yes [id number] 150mg Take 1 U nivers XL 3-31 tablet by ity of (WELLBUTRIN 00:00: mouth in [place] XL) 150 mg 00 the Medical 24 hr morning. Branch tablet buPROPion 2023-0 Yes [id number] 150mg Take 1 U nivers XL 3-31 tablet by ity of (WELLBUTRIN 00:00: mouth in [place] XL) 150 mg 00 the Medical 24 hr morning. Branch tablet buPROPion 2023-0 Yes [id number] 150mg Take 1 U nivers XL 3-31 tablet by ity of (WELLBUTRIN 00:00: mouth in [place] XL) 150 mg 00 the Medical 24 hr morning. Branch tablet buPROPion 2023-0 Yes [id number] 150mg Take 1 U nivers XL 3-31 tablet by ity of (WELLBUTRIN 00:00: mouth in [place] XL) 150 mg 00 the Medical 24 hr morning. Branch tablet buPROPion 3-0 Yes [id number] 150mg Take 1 U nivers XL 3-31 tablet by ity of (WELLBUTRIN 00:00: mouth in [place] XL) 150 mg 00 the Medical 24 hr morning. Branch tablet buPROPion 3-0 Yes [id number] 150mg Take 1 U nivers XL 3-31 tablet by ity of (WELLBUTRIN 00:00: mouth in [place] XL) 150 mg 00 the Medical 24 hr morning. Branch tablet buPROPion 3-0 Yes [id number] 150mg Take 1 U nivers XL 3-31 tablet by ity of (WELLBUTRIN 00:00: mouth [place] XL) 150 mg 00 the Medical 24 hr morning. Branch tablet buPROPion 2022-0 Yes [id number] 150mg Take 1 U nivers XL 3-31 tablet by ity of (WELLBUTRIN 00:00: mouth [place] XL) 150 mg 00 the Medical 24 hr morning. Branch tablet buPROPion 3-0 Yes [id number] 150mg Take 1 U nivers XL 3-31 tablet by ity of (WELLBUTRIN 00:00: mouth [place] XL) 150 mg 00 the Medical 24 hr morning. Branch tablet buPROPion 3-0 Yes [id number] 150mg Take 1 U nivers XL 3-31 tablet by ity of (WELLBUTRIN 00:00: mouth [place] XL) 150 mg 00 the Medical 24 hr morning. Branch tablet buPROPion 3-0 Yes [id number] 150mg Take 1 U nivers XL 3-31 tablet by ity of (WELLBUTRIN 00:00: mouth [place] XL) 150 mg 00 the Medical 24 hr morning. Branch tablet busPIRone 5 2022-0 Yes [id number] 5mg Take 1 Univers mg tablet 3-30 tablet by ity o f 00:00: mouth in [place] 00 the Medical morning Branch and 1 tablet in the evening. busPIRone 5 2022-0 Yes [id number] 5mg Take 1 Univers mg tablet 3-30 tablet by ity o f 00:00: mouth in [place] 00 the Medical morning Branch and 1 tablet in the evening. busPIRone 5 2022-0 Yes Univer s mg tablet 3-30 ity of 00:00: [place] 00 Medical Branch busPIRone 5 2022-0 Yes Univer s mg tablet 3-30 ity of 00:00: [place] 00 Medical Branch busPIRone 5 2022-0 Yes Univer s mg tablet 3-30 ity of 00:00: [place] 00 Medical Branch busPIRone 5 2022-0 Yes Univer s mg tablet 3-30 ity of 00:00: [place] 00 Medical Branch busPIRone 5 2022-0 Yes Univer s mg tablet 3-30 ity of 00:00: [place] 00 Medical Branch busPIRone 5 2022-0 Yes Univer s mg tablet 3-30 ity of 00:00: [place] 00 Medical Branch busPIRone 5 2022-0 Yes Univer s mg tablet 3-30 ity of 00:00: [place] 00 Medical Branch busPIRone 5 2022-0 Yes Univer s mg tablet 3-30 ity of 00:00: [place] 00 Medical Branch busPIRone 5 2022-0 2023- No Unive rs mg tablet 3-30 04-15 ity of 00:00: 00:00 [place] 00 :00 Medical Branch busPIRone 5 2022-0 2023- No [id number] 5mg Take 1 Univers mg tablet 3-30 03-31 tablet by ity of 00:00: 00:00 mouth in [place] 00 :00 the Medical morning Branch and 1 tablet in the evening. famotidine 2022-0 Yes [id number] 20mg Take 1 U nivers 20 mg 3-21 tablet by ity of tablet 00:00: mouth in [place] 00 the Medical morning Branch and 1 tablet in the evening. famotidine 2022-0 Yes [id number] 20mg Take 1 U nivers 20 mg 3-21 tablet by ity of tablet 00:00: mouth in [place] 00 the Medical morning Branch and 1 tablet in the evening. famotidine 2022-0 Yes [id number] 20mg Take 1 U nivers 20 mg 3-21 tablet by ity of tablet 00:00: mouth in [place] 00 the Medical morning Branch and 1 tablet in the evening. famotidine 2023-0 Yes [id number] 20mg Take 1 U nivers 20 mg 3-21 tablet by ity of tablet 00:00: mouth in [place] [address] the Medical morning Branch and 1 tablet in the evening. famotidine 2023-0 Yes [id number] 20mg Take 1 U nivers 20 mg 3-21 tablet by ity of tablet 00:00: mouth in [place] [address] the Medical morning Branch and 1 tablet in the evening. famotidine 2023-0 Yes [id number] 20mg Take 1 U nivers 20 mg 3-21 tablet by ity of tablet 00:00: mouth in [place] [address] the Medical morning Branch and 1 tablet in the evening. famotidine 2023-0 Yes [id number] 20mg Take 1 U nivers 20 mg 3-21 tablet by ity of tablet 00:00: mouth in [place] [address] the Medical morning Branch and 1 tablet in the evening. famotidine 2023-0 Yes [id number] 20mg Take 1 U nivers 20 mg 3-21 tablet by ity of tablet 00:00: mouth in [place] [address] the Medical morning Branch and 1 tablet in the evening. famotidine 2023-0 Yes [id number] 20mg Take 1 U nivers 20 mg 3-21 tablet by ity of tablet 00:00: mouth in [place] [address] the Medical morning Branch and 1 tablet in the evening. famotidine 2023-0 Yes [id number] 20mg Take 1 U nivers 20 mg 3-21 tablet by ity of tablet 00:00: mouth in [place] [address] the Medical morning Branch and 1 tablet in the evening. famotidine 2023-0 Yes [id number] 20mg Take 1 U nivers 20 mg 3-21 tablet by ity of tablet 00:00: mouth in [place] [address] the Medical morning Branch and 1 tablet in the evening. famotidine 2023-0 Yes [id number] 20mg Take 1 U nivers 20 mg 3-21 tablet by ity of tablet 00:00: mouth in [place] [address] the Medical morning Branch and 1 tablet in the evening. famotidine 2023-0 Yes [id number] 20mg Take 1 U nivers 20 mg 3-21 tablet by ity of tablet 00:00: mouth in [place] [address] the Medical morning Branch and 1 tablet in the evening. famotidine 2023-0 Yes [id number] 20mg Take 1 U nivers 20 mg 3-21 tablet by ity of tablet 00:00: mouth in [place] 00 the Medical morning Branch and 1 tablet in the evening. famotidine 2022- No [id number] 20mg Take 1 Univers 20 mg 3-21 06-20 tablet by ity of tablet 00:00: 04:59 mouth in [place] 00 :00 the Medical morning Branch and 1 tablet in the evening. Do all this for 90 days. famotidine 2022- No [id number] 20mg Take 1 Univers 20 mg 3-21 06-20 tablet by ity of tablet 00:00: 04:59 mouth in [place] 00 :00 the Medical morning Branch and 1 tablet in the evening. Do all this for 90 days. famotidine 2022-2022- No [id number] 20mg Take 1 Univers 20 mg 3-21 06-20 tablet by ity of tablet 00:00: 04:59 mouth in [place] 00 :00 the [facility] and 1 tablet in the evening. Do all this for 90 days. famotidine 2022- No [id number] 20mg Take 1 Univers 20 mg 3-21 06-20 tablet by ity of tablet 00:00: 04:59 mouth in [place] 00 :00 the [facility] morning Branch and 1 tablet in the evening. Do all this for 90 days. famotidine 2022- No [id number] 20mg Take 1 Univers 20 mg 3-21 06-20 tablet by ity of tablet 00:00: 04:59 mouth in [place] 00 :00 the [facility] morning Branch and 1 tablet in the evening. Do all this for 90 days. famotidine 2022- No [id number] 20mg Take 1 Univers 20 mg 3-21 06-20 tablet by ity of tablet 00:00: 04:59 mouth in [place] 00 :00 the [facility] morning Branch and 1 tablet in the evening. Do all this for 90 days. famotidine 2022-0 2022- No [id number] 20mg Take 1 Univers 20 mg 3-21 06-20 tablet by ity of tablet 00:00: 04:59 mouth in [place] 00 :00 the [facility] morning Branch and 1 tablet in the evening. Do all this for 90 days. famotidine 2022-0 2022- No [id number] 20mg Take 1 Univers 20 mg 3-21 06-20 tablet by ity of tablet 00:00: 04:59 mouth in [place] 00 :00 the [facility] morning Branch and 1 tablet in the evening. Do all this for 90 days. famotidine 2022-0 2022- No [id number] 20mg Take 1 Univers 20 mg 3-21 06-20 tablet by ity of tablet 00:00: 04:59 mouth in [place] 00 :00 the [facility] Branch and 1 tablet in the evening. Do all this for 90 days. famotidine 2022-2022- No [id number] 20mg Take 1 Univers 20 mg 3-21 06-20 tablet by ity of tablet 00:00: 04:59 mouth in [place] 00 :00 the [facility] Branch and 1 tablet in the evening. Do all this for 90 days. famotidine 2022-2022- No [id number] 20mg Take 1 Univers 20 mg 3-21 06-20 tablet by ity of tablet 00:00: 04:59 mouth in [place] 00 :00 the [facility] and 1 tablet in the evening. Do all this for 90 days. famotidine 2022-0 2022- No [id number] 20mg Take 1 Univers 20 mg 3-21 06-20 tablet by ity of tablet 00:00: 04:59 mouth in [place] 00 :00 the [facility] and 1 tablet in the evening. Do all this for 90 days. famotidine 2022-0 2022- No [id number] 20mg Take 1 Univers 20 mg 3-21 06-20 tablet by ity of tablet 00:00: 04:59 mouth in [place] 00 :00 the [facility] and 1 tablet in the evening. Do all this for 90 days. famotidine 2022-0 2022- No [id number] 20mg Take 1 Univers 20 mg 3-21 06-20 tablet by ity of tablet 00:00: 04:59 mouth in [place] 00 :00 the [facility] Branch and 1 tablet in the evening. Do all this for 90 days. famotidine 2022-0 2022- No [id number] 20mg Take 1 Univers 20 mg 3-21 06-20 tablet by ity of tablet 00:00: 04:59 mouth in [place] 00 :00 the [facility] and 1 tablet in the evening. Do all this for 90 days. famotidine 2023-0 2023- No [id number] 20mg Take 1 Univers 20 mg 3-21 04-15 tablet by ity of tablet 00:00: 00:00 mouth in [place] 00 :00 the Medical morning Branch and 1 tablet in the evening. Do all this for 90 days. famotidine 2022- No [id number] 20mg Take 1 Univers 20 mg 3-21 04-15 tablet by ity of tablet 00:00: 00:00 mouth in [place] 00 :00 the Medical morning Branch and 1 tablet in the evening. famotidine 0 Yes [id number] 20mg Take 1 U nivers 20 mg 3-17 tablet by ity of tablet 00:00: mouth in [place] 00 the Medical morning Branch and 1 tablet in the evening. famotidine 0 Yes [id number] 20mg Take 1 U nivers 20 mg 3-17 tablet by ity of tablet 00:00: mouth in [place] 00 the Medical morning Branch and 1 tablet in the evening. famotidine 2022- No [id number] 20mg Take 1 Univers 20 mg 3-17 03-21 tablet by ity of tablet 00:00: 00:00 mouth in [place] 00 :00 the Medical morning Branch and [...] Medical combo pack Branch magnesium 2021-12 Yes [id number] 400mg Take 1 U nivers oxide 400 1-18 tablet by ity o f mg (241.3 00:00: [place] mg 00 the Medical magnesium) morning. Branc h tablet magnesium 2021-12 Yes [id number] 400mg Take 1 U nivers oxide 400 1-18 tablet by ity o f mg (241.3 00:00: [place] mg 00 the Medical magnesium) morning. Branc h tablet magnesium 2021-12 Yes [id number] 400mg Take 1 U nivers oxide 400 1-18 tablet by ity o f mg (241.3 00:00: [place] mg 00 the Medical magnesium) morning. Branc h tablet magnesium 2021-12 Yes [id number] 400mg Take 1 U nivers oxide 400 1-18 tablet by ity o f mg (241.3 00:00: [place] mg 00 the Medical magnesium) morning. Branc h tablet magnesium 2021-12 Yes [id number] 400mg Take 1 U nivers oxide 400 1-18 tablet by ity o f mg (241.3 00:00: [place] mg 00 the Medical magnesium) morning. Branc h tablet magnesium 2021-12 Yes [id number] 400mg Take 1 U nivers oxide 400 1-18 tablet by ity o f mg (241.3 00:00: [place] mg 00 the Medical magnesium) morning. Branc h tablet magnesium 2021-12 Yes [id number] 400mg Take 1 U nivers oxide 400 1-18 tablet by ity o f mg (241.3 00:00: [place] mg 00 the Medical magnesium) morning. Branc h tablet magnesium 2021-12 Yes [id number] 400mg Take 1 U nivers oxide 400 1-18 tablet by ity o f mg (241.3 00:00: [place] mg 00 the Medical magnesium) morning. Branc h tablet magnesium 2021-12 Yes [id number] 400mg Take 1 U nivers oxide 400 1-18 tablet by ity o f mg (241.3 00:00: [place] mg 00 the Medical magnesium) morning. Branc h tablet magnesium 2021-12 Yes [id number] 400mg Take 1 U nivers oxide 400 1-18 tablet by ity o f mg (241.3 00:00: [place] mg 00 the Medical magnesium) morning. Branc h tablet magnesium 2021-12 Yes [id number] 400mg Take 1 U nivers oxide 400 1-18 tablet by ity o f mg (241.3 00:00: [place] mg 00 the Medical magnesium) morning. Branc h tablet magnesium 2021-12 Yes [id number] 400mg Take 1 U nivers oxide 400 1-18 tablet by ity o f mg (241.3 00:00: [place] mg 00 the Medical magnesium) morning. Branc h tablet magnesium 2021-12 Yes [id number] 400mg Take 1 U nivers oxide 400 1-18 tablet by ity o f mg (241.3 00:00: [place] mg 00 the Medical magnesium) morning. Branc h tablet magnesium 2021-12 Yes [id number] 400mg Take 1 U nivers oxide 400 1-18 tablet by ity o f mg (241.3 00:00: [place] mg 00 the Medical magnesium) morning. Branc h tablet magnesium 2021-12 Yes [id number] 400mg Take 1 U nivers oxide 400 1-18 tablet by ity o f mg (241.3 00:00: [place] mg 00 the Medical magnesium) morning. Branc h tablet magnesium 2021-12 Yes [id number] 400mg Take 1 U nivers oxide 400 1-18 tablet by ity o f mg (241.3 00:00: [place] mg 00 the Medical magnesium) morning. Branc h tablet magnesium 2021-12 Yes [id number] 400mg Take 1 U nivers oxide 400 1-18 tablet by ity o f mg (241.3 00:00: [place] mg 00 the Medical magnesium) morning. Branc h tablet magnesium 2021-12 Yes [id number] 400mg Take 1 U nivers oxide 400 1-18 tablet by ity o f mg (241.3 00:00: [place] mg 00 the Medical magnesium) morning. Branc h tablet magnesium 2021-12 Yes [id number] 400mg Take 1 U nivers oxide 400 1-18 tablet by ity o f mg (241.3 00:00: [place] mg 00 the Medical magnesium) morning. Branc h tablet magnesium 2021-12 Yes [id number] 400mg Take 1 U nivers oxide 400 1-18 tablet by ity o f mg (241.3 00:00: [place] mg 00 the Medical magnesium) morning. Branc h tablet magnesium 2021-12- No [id number] 400mg Take 1 Univers oxide 400 1-18 04-15 tablet by ity of mg (241.3 00:00: 00:00 mouth in [place] mg 00 :00 the Medical magnesium) morning. Branc h tablet 2021-12 Yes [id number] 1{tbl} Take 1 U nivers multivitami 0-03 tablet by ity of n ( 00:00: mouth in [place] VITAMIN) 00 the Medical tablet morning. [place] 2021-12 Yes [id number] 1{tbl} Take 1 U nivers multivitami 0-03 tablet by ity of n ( 00:00: mouth [place] VITAMIN) 00 the Medical tablet morning. [place] 2021-12 Yes [id number] 1{tbl} Take 1 U nivers multivitami 0-03 tablet by ity of n ( 00:00: mouth [place] VITAMIN) 00 the Medical tablet morning. [place] 2021-12 Yes [id number] 1{tbl} Take 1 U nivers multivitami 0-03 tablet by ity of n ( 00:00: mouth [place] VITAMIN) 00 the Medical tablet morning. [place] 2021-12 Yes [id number] 1{tbl} Take 1 U nivers multivitami 0-03 tablet by ity of n ( 00:00: mouth in [place] VITAMIN) 00 the Medical tablet morning. [place] 2021-12 Yes [id number] 1{tbl} Take 1 U nivers multivitami 0-03 tablet by ity of n ( 00:00: mouth [place] VITAMIN) 00 the Medical tablet morning. [place] 2021-12 Yes [id number] 1{tbl} Take 1 U nivers multivitami 0-03 tablet by ity of n ( 00:00: [place] VITAMIN) 00 the Medical tablet morning. [facility] 2021-12 Yes [id number] 1{tbl} Take 1 U nivers multivitami 0-03 tablet by ity of n ( 00:00: mouth [place] VITAMIN) 00 the Medical tablet morning. [place] 2021-12 Yes [id number] 1{tbl} Take 1 U nivers multivitami 0-03 tablet by ity of n ( 00:00: mouth in [place] VITAMIN) 00 the Medical tablet morning. [place] 2021-12 Yes [id number] 1{tbl} Take 1 U nivers multivitami 0-03 tablet by ity of n ( 00:00: mouth in [place] VITAMIN) 00 the Medical tablet morning. [place] 2021-12 Yes [id number] 1{tbl} Take 1 U nivers multivitami 0-03 tablet by ity of n ( 00:00: mouth [place] VITAMIN) 00 the Medical tablet morning. [facility] 2021-12 Yes [id number] 1{tbl} Take 1 U nivers multivitami 0-03 tablet by ity of n ( 00:00: mouth [place] VITAMIN) 00 the Medical tablet morning. [place] 2021-12 Yes [id number] 1{tbl} Take 1 U nivers multivitami 0-03 tablet by ity of n ( 00:00: [place] VITAMIN) 00 the Medical tablet morning. [place] 2021-12 Yes [id number] 1{tbl} Take 1 U nivers multivitami 0-03 tablet by ity of n ( 00:00: mouth in [place] VITAMIN) 00 the Medical tablet morning. [place] 2021-12 Yes [id number] 1{tbl} Take 1 U nivers multivitami 0-03 tablet by ity of n ( 00:00: mouth in [place] VITAMIN) 00 the Medical tablet morning. [place] 2021-12 Yes [id number] 1{tbl} Take 1 U nivers multivitami 0-03 tablet by ity of n ( 00:00: mouth in [place] VITAMIN) 00 the Medical tablet morning. [facility] 2021-12 Yes [id number] 1{tbl} Take 1 U nivers multivitami 0-03 tablet by ity of n ( 00:00: mouth in [place] VITAMIN) 00 the Medical tablet morning. [place] 2021-12 Yes [id number] 1{tbl} Take 1 U nivers multivitami 0-03 tablet by ity of n ( 00:00: mouth in [place] VITAMIN) 00 the Medical tablet morning. [place] 2021-12 Yes [id number] 1{tbl} Take 1 U nivers multivitami 0-03 tablet by ity of n ( 00:00: mouth in [place] VITAMIN) 00 the Medical tablet morning. [place] 2021-12 Yes [id number] 1{tbl} Take 1 U nivers multivitami 0-03 tablet by ity of n ( 00:00: mouth in [place] VITAMIN) 00 the Medical tablet morning. [place] 2021-12 Yes [id number] 1{tbl} Take 1 U nivers multivitami 0-03 tablet by ity of n ( 00:00: mouth in [place] VITAMIN) 00 the Medical tablet morning. [place] 2021-12 Yes [id number] 1{tbl} Take 1 U nivers multivitami 0-03 tablet by ity of n ( 00:00: mouth in [place] VITAMIN) 00 the Medical tablet morning. [place] 2021-12 Yes [id number] 1{tbl} Take 1 U nivers multivitami 0-03 tablet by ity of n ( 00:00: mouth in [place] VITAMIN) 00 the Medical tablet morning. [place] 2021-12 Yes [id number] 1{tbl} Take 1 U nivers multivitami 0-03 tablet by ity of n ( 00:00: mouth in [place] VITAMIN) 00 the Medical tablet morning. [place] 2021-12 [id number] 1{tbl} Take 1 Univers multivitami 0-03 04-15 tablet by it y of n ( 00:00: 00:00 mouth [place] VITAMIN) 00 :00 the Medical tablet morning. [place] buPROPion Yes [id number] 150mg Take 1 U nivers XL 9-28 tablet by ity of (WELLBUTRIN 00:00: mouth in [place] XL) 150 mg 00 the Medical 24 hr morning. [place] tablet busPIRone 5 Yes [id number] 5mg Take 1 Univers mg tablet 9-28 tablet by ity o f 00:00: mouth in [place] 00 the Medical morning Branch and 1 tablet in the evening. buPROPion 2021-0 Yes [id number] 150mg Take 1 U nivers XL 9-28 tablet by ity of (WELLBUTRIN 00:00: mouth in [place] XL) 150 mg 00 the Medical 24 hr morning. Branch tablet busPIRone 5 2021-0 Yes [id number] 5mg Take 1 Univers mg tablet 9-28 tablet by ity o f 00:00: mouth in [place] 00 the Medical morning Branch and 1 tablet in the evening. buPROPion 2021-0 Yes [id number] 150mg Take 1 U nivers XL 9-28 tablet by ity of (WELLBUTRIN 00:00: mouth [place] XL) 150 mg 00 the Medical 24 hr morning. Branch tablet busPIRone 5 2021-0 Yes [id number] 5mg Take 1 Univers mg tablet 9-28 tablet by ity o f 00:00: mouth in [place] 00 the Medical morning Branch and 1 tablet in the evening. buPROPion 2021-0 Yes [id number] 150mg Take 1 U nivers XL 9-28 tablet by ity of (WELLBUTRIN 00:00: mouth [place] XL) 150 mg 00 the Medical 24 hr morning. Branch tablet busPIRone 5 2021-0 Yes [id number] 5mg Take 1 Univers mg tablet 9-28 tablet by ity o f 00:00: mouth in [place] 00 the Medical morning Branch and 1 tablet in the evening. buPROPion 2021-0 Yes [id number] 150mg Take 1 U nivers XL 9-28 tablet by ity of (WELLBUTRIN 00:00: mouth [place] XL) 150 mg 00 the Medical 24 hr morning. Branch tablet busPIRone 5 2021-0 Yes [id number] 5mg Take 1 Univers mg tablet 9-28 tablet by ity o f 00:00: mouth in [place] 00 the Medical morning Branch and 1 tablet in the evening. buPROPion 2021-0 Yes [id number] 150mg Take 1 U nivers XL 9-28 tablet by ity of (WELLBUTRIN 00:00: mouth [place] XL) 150 mg 00 the Medical 24 hr morning. Branch tablet busPIRone 5 2021-0 Yes [id number] 5mg Take 1 Univers mg tablet 9-28 tablet by ity o f 00:00: mouth in [place] 00 the Medical morning Branch and 1 tablet in the evening. buPROPion 2021-0 Yes [id number] 150mg Take 1 U nivers XL 9-28 tablet by ity of (WELLBUTRIN 00:00: mouth [place] XL) 150 mg 00 the Medical 24 hr morning. Branch tablet busPIRone 5 2021-0 Yes [id number] 5mg Take 1 Univers mg tablet 9-28 tablet by ity o f 00:00: mouth in [place] 00 the Medical morning Branch and 1 tablet in the evening. buPROPion 2021-0 Yes [id number] 150mg Take 1 U nivers XL 9-28 tablet by ity of (WELLBUTRIN 00:00: mouth [place] XL) 150 mg 00 the Medical 24 hr morning. Branch tablet busPIRone 5 2021-0 Yes [id number] 5mg Take 1 Univers mg tablet 9-28 tablet by ity o f 00:00: mouth in [place] 00 the Medical morning Branch and 1 tablet in the evening. buPROPion 2021-0 Yes [id number] 150mg Take 1 U nivers XL 9-28 tablet by ity of (WELLBUTRIN 00:00: mouth [place] XL) 150 mg 00 the Medical 24 hr morning. Branch tablet busPIRone 5 2021-0 Yes [id number] 5mg Take 1 Univers mg tablet 9-28 tablet by ity o f 00:00: mouth in [place] 00 the Medical morning Branch and 1 tablet in the evening. buPROPion 2021-0 Yes [id number] 150mg Take 1 U nivers XL 9-28 tablet by ity of (WELLBUTRIN 00:00: mouth [place] XL) 150 mg 00 the Medical 24 hr morning. Branch tablet busPIRone 5 2021-0 Yes [id number] 5mg Take 1 Univers mg tablet 9-28 tablet by ity o f 00:00: mouth in [place] 00 the Medical morning Branch and 1 tablet in the evening. buPROPion 2021-0 Yes [id number] 150mg Take 1 U nivers XL 9-28 tablet by ity of (WELLBUTRIN 00:00: mouth [place] XL) 150 mg 00 the Medical 24 hr morning. Branch tablet busPIRone 5 2021-0 Yes [id number] 5mg Take 1 Univers mg tablet 9-28 tablet by ity o f 00:00: mouth in [place] 00 the Medical morning Branch and 1 tablet in the evening. buPROPion 2021-0 Yes [id number] 150mg Take 1 U nivers XL 9-28 tablet by ity of (WELLBUTRIN 00:00: mouth [place] XL) 150 mg 00 the Medical 24 hr morning. Branch tablet busPIRone 5 2021-0 Yes [id number] 5mg Take 1 Univers mg tablet 9-28 tablet by ity o f 00:00: mouth in [place] 00 the Medical morning Branch and 1 tablet in the evening. buPROPion 2021-0 Yes [id number] 150mg Take 1 U nivers XL 9-28 tablet by ity of (WELLBUTRIN 00:00: mouth [place] XL) 150 mg 00 the Medical 24 hr morning. Branch tablet busPIRone 5 2021-0 Yes [id number] 5mg Take 1 Univers mg tablet 9-28 tablet by ity o f 00:00: mouth in [place] 00 the Medical morning Branch and 1 tablet in the evening. buPROPion 2021-0 Yes [id number] 150mg Take 1 U nivers XL 9-28 tablet by ity of (WELLBUTRIN 00:00: mouth [place] XL) 150 mg 00 the Medical 24 hr morning. Branch tablet busPIRone 5 2021-0 Yes [id number] 5mg Take 1 Univers mg tablet 9-28 tablet by ity o f 00:00: mouth in [place] 00 the Medical morning Branch and 1 tablet in the evening. buPROPion 2021-0 Yes [id number] 150mg Take 1 U nivers XL 9-28 tablet by ity of (WELLBUTRIN 00:00: mouth [place] XL) 150 mg 00 the Medical 24 hr morning. Branch tablet buPROPion 2021-0 Yes [id number] 150mg Take 1 U nivers XL 9-28 tablet by ity of (WELLBUTRIN 00:00: mouth [place] XL) 150 mg 00 the Medical 24 hr morning. Branch tablet buPROPion 2021-0 3- No [id number] 150mg Take 1 Univers XL 9-28 03-31 tablet by ity of (WELLBUTRIN 00:00: 00:00 mouth [place] XL) 150 mg 00 :00 the Medical 24 hr morning. Branch tablet busPIRone 5 2022- No [id number] 5mg Take 1 Univers mg tablet 08-29-30 tablet by ity of 00:00: 00:00 mouth in [place] 00 :00 the Medical morning Branch and 1 tablet in the evening. Yes [id number] 1{tbl} Take 1 U nivers multivitami 8-08 tablet by ity of n ( 00:00: mouth [place] VITAMIN) 00 the Medical tablet morning. Branch buPROPion Yes [id number] 150mg Take 1 U nivers XL 8-08 tablet by ity of (WELLBUTRIN 00:00: mouth [place] XL) 150 mg 00 the Medical 24 hr morning. Branch tablet Yes [id number] 1{tbl} Take 1 U nivers multivitami 8-08 tablet by ity of n ( 00:00: mouth [place] VITAMIN) 00 the Medical tablet morning. Branch buPROPion Yes [id number] 150mg Take 1 U nivers XL 8-08 tablet by ity of (WELLBUTRIN 00:00: mouth [place] XL) 150 mg 00 the Medical 24 hr morning. Branch tablet Yes [id number] 1{tbl} Take 1 U nivers multivitami 8-08 tablet by ity of n ( 00:00: mouth [place] VITAMIN) 00 the Medical tablet morning. Branch Yes [id number] 1{tbl} Take 1 U nivers multivitami 8-08 tablet by ity of n ( 00:00: mouth [place] VITAMIN) 00 the Medical tablet morning. Branch 2021- No [id number] 1{tbl} Take 1 Univers multivitami 8-08 10-03 tablet by it y of n ( 00:00: 00:00 mouth [place] VITAMIN) 00 :00 the Medical tablet morning. Branch buPROPion 2021- No [id number] 150mg Take 1 Univers XL 8-08 -28 tablet by ity of (WELLBUTRIN 00:00: 00:00 mouth [place] XL) 150 mg 00 :00 the Medical 24 hr morning. Branch tablet No [id number] 1{tbl} Take 1 [facility] vitamin 07-06 tablet by ity of w/FA tablet 00:00: [place] :[place] daily. Medical Branch docusate No [id number] 240mg Take 1 Univers calcium 240 07-06 capsule by i ty of mg capsule 00:00: 00:00 mouth once [place] 00 :00 daily as Medical needed for Branch Constipati on. ferrous No [id number] 325mg Take 1 U nivers sulfate 325 07-06 tablet by it y of mg (65 mg 00:00: 00:[place] iron) 00 :00 (two) Medical tablet times Branch daily. ibuprofen No [id number] 600mg Take 1 Univers 600 mg 07-06 tablet by ity of tablet 00:00: 00:00 mouth [place] 00 :00 every 6 Medical (six) Branch hours as needed (Pain). Take with food or milk. Immunizations Ordered Filled Immunization Date Status Comments [facility] e Immunization Name Name Rho (d) Immune 2023-03-16 Completed University of Globulin 00:00:00 [facility] Rho (d) Immune 2023-03-16 Completed University of Globulin 00:00:00 [facility] TDAP 2023-02-04 Completed University of 00:00:00 [facility] Rho (d) Immune 2023-02-04 Completed University of Globulin 00:00:00 [facility] TDAP 2023-02-04 Completed University of 00:00:00 [facility] Rho (d) Immune 2023-02-04 Completed University of Globulin 00:00:00 [facility] TDAP 2023-02-04 Completed University of 00:00:00 [facility] Rho (d) Immune 2023-02-04 Completed University of Globulin 00:00:00 [facility] TDAP 2023-02-04 Completed University of 00:00:00 [facility] Rho (d) Immune 2023-02-04 Completed University of Globulin 00:00:00 [facility] TDAP 2023-02-04 Completed University of 00:00:00 [facility] Rho (d) Immune 2023-02-04 Completed University of Globulin 00:00:00 [facility] TDAP 2023-02-04 Completed University of 00:00:00 [facility] Rho (d) Immune 2023-02-04 Completed University of Globulin 00:00:00 [facility] TDAP 2023-02-04 Completed University of 00:00:00 [facility] Rho (d) Immune 2023-02-04 Completed University of Globulin 00:00:00 [facility] TDAP 2023-02-04 Completed University of 00:00:00 [facility] Rho (d) Immune 2023-02-04 Completed University of Globulin 00:00:00 [facility] TDAP 2023-02-04 Completed University of 00:00:00 [facility] Rho (d) Immune 2023-02-04 Completed University of Globulin 00:00:00 [facility] TDAP 2023-02-04 Completed University of 00:00:00 [facility] Rho (d) Immune 2023-02-04 Completed University of Globulin 00:00:00 [facility] TDAP 2023-02-04 Completed University of 00:00:00 [facility] Rho (d) Immune 2023-02-04 Completed University of Globulin 00:00:00 [facility] TDAP 2023-02-04 Completed University of 00:00:00 [facility] Rho (d) Immune 2023-02-04 Completed University of Globulin 00:00:00 [facility] TDAP 2023-02-04 Completed University of 00:00:00 [facility] Rho (d) Immune 2023-02-04 Completed University of Globulin 00:00:00 [facility] TDAP 2023-02-04 Completed University of 00:00:00 [facility] Rho (d) Immune 2023-02-04 Completed University of Globulin 00:00:00 [facility] TDAP 2023-02-04 Completed University of 00:00:00 [facility] Rho (d) Immune 2023-02-04 Completed University of Globulin 00:00:00 [facility] TDAP 2023-02-04 Completed University of 00:00:00 [facility] Rho (d) Immune 2023-02-04 Completed University of Globulin 00:00:00 [facility] TDAP 2023-02-04 Completed University of 00:00:00 [facility] Rho (d) Immune 2023-02-04 Completed University of Globulin 00:00:00 [facility] TDAP 2023-02-04 Completed University of 00:00:00 [facility] Rho (d) Immune 2023-02-04 Completed University of Globulin 00:00:00 [facility] TDAP 2023-02-04 Completed University of 00:00:00 [facility] Rho (d) Immune 2023-02-04 Completed University of Globulin 00:00:00 [facility] TDAP 2023-02-04 Completed University of 00:00:00 [facility] Rho (d) Immune 2023-02-04 Completed University of Globulin 00:00:00 [facility] TDAP 2023-02-04 Completed University of 00:00:00 [facility] Rho (d) Immune 2023-02-04 Completed University of Globulin 00:00:00 [facility] TDAP 2023-02-04 Completed University of 00:00:00 [facility] Rho (d) Immune 2023-02-04 Completed University of Globulin 00:00:00 [facility] Rho (d) Immune 2009-09-19 Completed University of Globulin 00:00:00 [facility] Rho (d) Immune 2009-09-19 Completed University of Globulin 00:00:00 [facility] Rho (d) Immune 2009-09-19 Completed University of Globulin 00:00:00 [facility] Rho (d) Immune 2009-09-19 Completed University of Globulin 00:00:00 [facility] Rho (d) Immune 2009-09-19 Completed University of Globulin 00:00:00 [facility] Rho (d) Immune 2009-09-19 Completed University of Globulin 00:00:00 [facility] Rho (d) Immune 2009-09-19 Completed University of Globulin 00:00:00 [facility] Rho (d) Immune 2009-09-19 Completed University of Globulin 00:00:00 [facility] Rho (d) Immune 2009-09-19 Completed University of Globulin 00:00:00 [facility] Rho (d) Immune 2009-09-19 Completed University of Globulin 00:00:00 [facility] Rho (d) Immune 2009-09-19 Completed University of Globulin 00:00:00 [facility] Rho (d) Immune 2009-09-19 Completed University of Globulin 00:00:00 [facility] Rho (d) Immune 2009-09-19 Completed University of Globulin 00:00:00 [facility] Rho (d) Immune 2009-09-19 Completed University of Globulin 00:00:00 [facility] Rho (d) Immune 2009-09-19 Completed University of Globulin 00:00:00 [facility] Rho (d) Immune 2009-09-19 Completed University of Globulin 00:00:00 [facility] Rho (d) Immune 2009-09-19 Completed University of Globulin 00:00:00 [facility] Rho (d) Immune 2009-09-19 Completed University of Globulin 00:00:00 [facility] Rho (d) Immune 2009-09-19 Completed University of Globulin 00:00:00 [facility] Rho (d) Immune 2009-09-19 Completed University of Globulin 00:00:00 [facility] Rho (d) Immune 2009-09-19 Completed University of Globulin 00:00:00 [facility] Rho (d) Immune 2009-09-19 Completed University of Globulin 00:00:00 [facility] Rho (d) Immune 2009-09-19 Completed University of Globulin 00:00:00 [facility] Rho (d) Immune 2009-09-19 Completed University of Globulin 00:00:00 [facility] Rho (d) Immune 2009-09-19 Completed University of Globulin 00:00:00 [facility] Rho (d) Immune 2009-09-19 Completed University of Globulin 00:00:00 [facility] Rho (d) Immune 2009-09-19 Completed University of Globulin 00:00:00 [facility] Rho (d) Immune 2009-09-19 Completed University of Globulin 00:00:00 [facility] Rho (d) Immune 2009-09-19 Completed University of Globulin 00:00:00 [facility] Rho (d) Immune 2009-09-19 Completed University of Globulin 00:00:00 [facility] Rho (d) Immune 2009-09-19 Completed University of Globulin 00:00:00 [facility] Rho (d) Immune 2009-09-19 Completed University of Globulin 00:00:00 [facility] Vital Signs Vital Name Observation Time Observation Value Comments Source Systolic blood 2023-03-17 01:40:00 112 mm[Hg] Univer sity of pressure [facility] Diastolic blood 2023-03-17 01:40:00 61 mm[Hg] Unive rsity of pressure [facility] Heart rate 2023-03-17 01:40:00 73 /min [facility] [place] [facility] Body temperature 2023-03-17 01:40:00 36.11 [facility] [place] [facility] Respiratory rate 2023-03-17 01:40:00 18 /min [facility] [place] [facility] Oxygen saturation in 2023-03-17 01:40:00 99 /min University of Arterial blood by [facility] Pulse oximetry Branch Body height 2023-03-15 10:03:00 165.1 cm [facility] [place] [facility] Body weight 2023-03-15 10:03:00 117.935 kg [facility] [place] [facility] BMI 2023-03-15 10:03:00 43.27 kg/m2 [facility] [place] [facility] Systolic blood 2023-03-12 21:25:00 111 mm[Hg] Univer sity of pressure [place] [facility] Diastolic blood 2023-03-12 21:25:00 75 mm[Hg] Unive rsity of pressure [place] [facility] Heart rate 2023-03-12 21:25:00 87 /min [facility] [place] [facility] Body temperature 2023-03-12 21:25:00 36.72 [facility] [place] [facility] Respiratory rate 2023-03-12 21:25:00 17 /min [facility] [place] [facility] Body height 2023-03-12 21:25:00 165.1 cm [facility] [place] [facility] Body weight 2023-03-12 21:25:00 117.028 kg [facility] [place] [facility] BMI 2023-03-12 21:25:00 42.93 kg/m2 [facility] [place] [facility] Systolic blood 2023-03-05 14:31:00 115 mm[Hg] Univer sity of pressure [place] [facility] Diastolic blood 2023-03-05 14:31:00 78 mm[Hg] Unive rsity of pressure [place] [facility] Heart rate 2023-03-05 14:31:00 81 /min [facility] [place] [facility] Respiratory rate 2023-03-05 14:31:00 18 /min [facility] [place] [facility] Body height 2023-03-05 14:31:00 165.1 cm [facility] [place] [facility] Body weight 2023-03-05 14:31:00 117.028 kg [facility] [place] [facility] BMI 2023-03-05 14:31:00 42.93 kg/m2 [facility] [place] [facility] Systolic blood 2023-02-15 20:17:00 118 mm[Hg] Univer sity of pressure [place] [facility] Diastolic blood 2023-02-15 20:17:00 76 mm[Hg] Unive rsity of pressure [place] [facility] Heart rate 2023-02-15 20:17:00 80 /min [facility] [place] [facility] Body temperature 2023-02-15 20:17:00 36.67 [facility] [place] [facility] Respiratory rate 2023-02-15 20:17:00 18 /min [facility] [place] [facility] Body height 2023-02-15 20:17:00 165.1 cm [facility] [place] [facility] Body weight 2023-02-15 20:17:00 115.667 kg [facility] [place] [facility] BMI 2023-02-15 20:17:00 42.43 kg/m2 [facility] [place] [facility] Systolic blood 2023-02-04 21:13:00 126 mm[Hg] Univer sity of pressure [place] [facility] Diastolic blood 2023-02-04 21:13:00 72 mm[Hg] Unive rsity of pressure [place] [facility] Heart rate 2023-02-04 21:13:00 88 /min [facility] [place] [facility] Body temperature 2023-02-04 21:13:00 36.83 [facility] [place] [facility] Respiratory rate 2023-02-04 21:13:00 18 /min [facility] [place] [facility] Body height 2023-02-04 21:13:00 165.1 cm [facility] [place] [facility] Body weight 2023-02-04 21:13:00 114.261 kg [facility] [place] [facility] BMI 2023-02-04 21:13:00 41.92 kg/m2 [facility] [place] [facility] Systolic blood 2022-11-16 20:26:00 102 mm[Hg] Univer sity of pressure [place] [facility] Diastolic blood 2022-11-16 20:26:00 66 mm[Hg] Unive rsity of pressure [place] [facility] Heart rate 2022-11-16 20:26:00 77 /min [facility] [place] [facility] Body temperature 2022-11-16 20:26:00 36.67 [facility] [place] [facility] Respiratory rate 2022-11-16 20:26:00 18 /min [facility] [place] [facility] Body height 2022-11-16 20:26:00 165.1 cm [facility] [place] [facility] Body weight 2022-11-16 20:26:00 113.853 kg [facility] [place] [facility] BMI 2022-11-16 20:26:00 41.77 kg/m2 [facility] [place] [facility] Systolic blood 2022-10-19 20:58:00 104 mm[Hg] Univer sity of pressure [place] [facility] Diastolic blood 2022-10-19 20:58:00 68 mm[Hg] Unive rsity of pressure [place] [facility] Heart rate 2022-10-19 20:58:00 91 /min [facility] [place] [facility] Body temperature 2022-10-19 20:58:00 36.78 [facility] [place] [facility] Respiratory rate 2022-10-19 20:58:00 18 /min [facility] [place] [facility] Body height 2022-10-19 20:58:00 165.1 cm [facility] [place] [facility] Body weight 2022-10-19 20:58:00 113.853 kg [facility] [place] [facility] BMI 2022-10-19 20:58:00 41.77 kg/m2 [facility] [place] [facility] Systolic blood 2022-08-29 16:00:00 109 mm[Hg] Univer sity of pressure [place] [facility] Diastolic blood 2022-08-29 16:00:00 71 mm[Hg] Unive rsity of pressure [place] [facility] Heart rate 2022-08-29 15:21:00 80 /min [facility] [place] [facility] Body temperature 2022-08-29 15:21:00 36.94 [facility] [place] [facility] Respiratory rate 2022-08-29 15:21:00 18 /min [facility] [place] [facility] Body height 2022-08-29 15:21:00 165.1 cm [facility] [place] [facility] Body weight 2022-08-29 15:21:00 105.325 kg [facility] [place] [facility] BMI 2022-08-29 15:21:00 38.64 kg/m2 [facility] Systolic blood 2022-07-09 20:04:00 109 mm[Hg] [facility] 2022-07-09 20:04:00 58 mm[Hg] [facility] Heart rate 2022-07-09 20:04:00 68 /min [facility] Body temperature 2022-07-09 20:04:00 36.28 [facility] Respiratory rate 2022-07-09 20:04:00 20 /min [facility] Body height 2022-07-09 20:04:00 165.1 cm [facility] Body weight 2022-07-09 20:04:00 99.905 kg [facility] BMI 2022-07-09 20:04:00 36.65 kg/m2 [facility] Procedures Procedure Date / Time Performed Performing Clinician Sour e CBC WITH DIFF 2023-03-16 10:02:00 [facility] HB -MATERNAL 2023-03-16 10:02:00 Priscila Piedra [facility] HEMORRHAGE SCREEN [facility] CENTRAL NEURAXIAL 2023-03-15 21:32:00 Demarcus Constantino [facility] ANTI-D R/O PANEL 2023-03-15 18:36:00 [facility] (BLOOD 2023-03-15 18:36:00 Bill Velazquez [facility] BANK) [facility] PREPARE PACKED RBC 2023-03-15 18:14:00 Bill Velazquez [facility] HB ABO GROUPING 2023-03-15 10:44:00 [facility] RHO (D) IMMUNE 2023-03-15 10:44:00 [facility] CONSENT/REFUSAL FOR 2023-03-13 22:06:36 Doctor Unassigned, No Un [facility] DIAGNOSIS AND Name Medical Branch TREATMENT PHYSICIAN ORDERS 2023-03-12 05:01:00 Doctor UnassignedKristie [facility] POCT URINALYSIS W/O 2023-03-12 00:00:00 Christopher Adams [facility] POCT URINALYSIS W/O 2023-03-05 00:00:00 Christopher Adams [facility] POCT URINALYSIS W/O 2023-02-15 00:00:00 Bill Velazquez [facility] DSU PRE-OP 2023-02-08 06:01:00 Doctor UnassKristie craven sity [facility] TDAP VACCINE, >11 YRS, 2023-02-04 21:44:40 [facility]INALYSIS W/O 2023-02-04 00:00:00 Christopher Adams [facility] POCT URINALYSIS W/O 2022-11-16 00:00:00 Bill Velazquez [facility] POCT URINALYSIS W/O 2022-10-19 00:00:00 Christopher Adams [facility] <14 WEEKS US 2022-08-29 19:59:32 Bill Velazquez [facility] GLUCOSE 1 HOUR POST 2022-08-29 18:05:00 Bill Velazquez [facility] ASSIGNMENT OF BENEFITS 2022-08-29 16:33:28 Doctor UnassKristie craven [facility] POCT URINALYSIS W/O 2022-08-29 00:00:00 Bill Velazquez [facility] POCT TEST 2022-07-09 19:55:00 N[facility]ka [place] [facility] W/O 2022-07-09 19:55:00 Nneka Carolina Uni [facility] Encounters Start End Encounter Admission Attending Care Care Encounter Source Date/Time Date/Time Type Type Clinicians Facility Department ID 2021-09-29 Outpatient [facility] [id number] Univers 10:16:10 ity of [facility] 2023-04-05 2023-04-05 Outpatient BILL KRISHNAMURTHY [facility] [id number] Univers 15:15:00 15:15:00 ity of [facility] 2023-03-20 2023-03-20 [facility] 1.2.840.11 [id number] Univers 00:00:00 00:00:00 kandiceMaryPriscilakymberly HADDAD 350.1.13.10 ity of PEDIAT[place]IC [place].2.[place] [facility] [id number] [place] [address] Branch 2023-03-15 2023-03-16 Inpatient BILL FAYE [place] SUNITA [id number] Univers 04:02:00 21:47:00 ity of [facility] 2023-03-15 2023-03-16 [facility] Bethany Parra [place] 1.2.840.11 [id number] Univers 04:02:00 21:47:00 Encounter MarcusBill Lai DIAMOND 350.1.13.10 ity of [place] 4.2.7.2.686 [facility] [id number] [place] [address]803 Branch 2023-03-15 2023-03-15 [facility] 1.2.840.114 1 [id number] Univers 16:32:00 19:59:00 Event Demarcus DIAMOND 350.1.13.10 ity of [facility] 4.2.7.2.686 [facility] [id number] [facility] 083 Branch 2023-03-15 2023-03-15 Anesthesia [facility] 1.2.840.114 [id number] Univers 13:15:30 13:15:30 Event Robert DIAMOND 350.1.13.10 i ty of [facility] 4.2.7.2.686 [facility] [id number] [place] [address]803 Branch 2023-03-14 2023-03-14 Hospital BIGG Rodriguez 1.2.840.114 1 [id number] Univers 13:17:00 23:59:00 Encounter Maurisio Maddox 350.1.13.10 ity of [facility] 4.2.7.2.686 [place] [id number] [facility] 031 Branch 2023-03-14 2023-03-14 Outpatient [facility] ACO [id number] Univers 00:00:00 23:59:[address] [facility] 2023-03-13 2023-03-13 Stock Clipper Vladimir, Adc Lab Main [place] 1.2.8 40.114 [id number] Univers 08:45:00 09:00:00 Visit Maurisio Rodriguez 350.1.13.10 ity of [place]2.[place] [id number] Pa dical [facility] 2023-03-13 2023-03-13 Outpatient Rik JENNIFER [facility] [id number] Univers 08:45:00 08:45:[address] [facility] 2023-03-13 2023-03-13 Orders Doctor SUBHASH 1.2.840.114 [id number] Univers 00:00:00 00:00:00 Only Unassigned, MARILY 350.1.13.10 ity of [place] [facility] 4.2.7.2.686 [place] [id number] [facility] 009 Branch 2023-03-12 2023-03-12 Outpatient R AMALIACHRISTOPHER BOONE [facility] B [id number] Univers 16:15:00 16:37:17 [address]HER BOONE ity [facility] 2023-03-12 2023-03-12 Routine [facility] 1.2.840.114 [id number] Univers 16:15:00 16:37:17 Christopher HADDAD 350.1.13.10 i ty of Visit [place] [id number] [facility] 134 Branch 2023-03-12 2023-03-12 Orders Doctor SUBHASH 1.2.840.114 [id number] Univers 00:00:00 00:00:00 Only Unassigned, MARILY 350.1.13.10 ity of [place] [facility] 4.2.7.2.686 [place] [id number] [place] [address] Branch 2023-03-08 2023-03-08 [facility]phone [facility] 1.2.840.114 [id number] Univers 00:00:00 00:00:00 Lai HADDAD 350.1.13.10 it y of [place] [id number] [address] 2023-03-05 2023-03-05 Outpatient R CHRISTOPHER ADAMS [facility] B [id number] Univers 09:15:00 09:51:39 CHRISTOPHER ADAMS ity [facility] 2023-03-05 2023-03-05 Routine [facility] 1.2.840.114 [id number] Univers 09:15:00 09:51:39 Christopher HADDAD 350.1.13.10 i ty of Visit [place] [id number] [address] 2023-03-01 2023-03-01 Outpatient R MARCUS [facility] [id number] Univers 08:00:00 08:00:00 ity of [facility] 2023-03-01 2023-03-01 Telephone [facility] 1.2.840.114 10 [id number] Univers 00:00:00 00:00:00 Lai DIAMOND 350.1.13.10 i ty of [facility] 4.2.7.2.[place] [id number] Pa dic[address] 2023-02-28 2023-02-28 Telephone [facility] 1.2.840.114 10 [id number] Univers 00:00:00 00:00:00 Lai DIAMOND 350.1.13.10 i ty of [place] [id number] Pa dicma NAL [address] [place] [address] 2023-02-28 2023-02-28 Telephone [facility] 1.2.840.114 [id number] Univers 00:00:00 00:00:00 Lai HADDAD 350.1.13.10 it y of [place] [id number] [address] 2023-02-22 2023-02-22 Outpatient R MARCUS BILL [facility] [id number] Univers 13:00:00 13:00:00 ity of [facility] 2023-02-20 2023-02-20 Stock Clipper 1Lin Room [place] 1.2. 840.114 [id number] Univers 08:00:00 09:00:00 Visit Gisselle Arnold [employer] 350.1. 13.10 ity of [facility] 4.2.7.2.686 [place] MATERNAL [id number] Med ical & CHILD [address] [place] [address] 2023-02-20 2023-02-20 Outpatient P RADHA [facility] [id number] Univers 08:00:00 08:00:00 NOREEN it y of S [place] [facility] 2023-02-20 2023-02-20 Case Stefano [facility] 1.2.840.114 [id number] Univers 00:00:00 00:00:00 Management Christopher HADDAD 350.1.13.10 ity [place] [id number] [address] 2023-02-19 2023-02-19 Telephone [facility] 1.2.840.114 10 [id number] Univers 00:00:00 00:00:00 Lai DIAMOND 350.1.13.10 i ty of [place] [id number] Pa dical [address] 2023-02-15 2023-02-15 Outpatient R MARCUS BILL [facility] [id number] Univers 15:15:00 15:34:40 ity of [facility] 2023-02-15 2023-02-15 Routine [facility] 1.2.840.114 10 [id number] Univers 15:15:00 15:34:40 Lai HADDAD 350.1.13.10 i ty of Visit [place] [id number] [facility] 134 Branch 2023-02-08 2023-02-08 Orders Doctor SUBHASH 1.2.840.114 [id number] Univers 00:00:00 00:00:00 Only Unassigned, MARILY 350.1.13.10 ity of [place] [facility] 4.2.7.2.686 [place] [id number] [facility] 009 Branch 2023-02-05 2023-02-05 Outpatient R [facility] [id number] Univers 09:30:00 09:30:00 [facility] 2023-02-04 2023-02-04 Outpatient R CHRISTOPHER ADAMS [facility] B [id number] Univers 14:45:00 15:47:35 CHRISTOPHER ADAMS [facility] 2023-02-04 2023-02-04 [facility] 1.2.840.114 [id number] Univers 14:45:00 15:47:35 Christopher HADDAD 350.1.13.10 i ty of Visit [place]2.[place] [id number] [facility] 134 Branch 2023-01-30 2023-01-30 Outpatient R CHRISTOPHER ADAMS [facility] B [id number] Univers 16:15:00 16:15:00 CHRISTOPHER ADAMS [facility] 2022-12-14 2022-12-14 Outpatient R CHRISTOPHER ADAMS [facility] B [id number] Univers 13:30:00 13:30:00 CHRISTOPHER ADAMS [facility] 2022-12-03 2022-12-03 Outpatient R CRYSTAL [facility] [id number] Univers 14:00:00 14:00:00 BURT kiser o f [facility] 2022-11-30 2022-11-30 Outpatient P [facility] [id number] Univers 08:45:00 08:45:[address] [facility] 2022-11-20 2022-11-20 Outpatient R MICK XIE [facility] [id number] Univers 13:00:00 13:00:[address] [facility] 2022-11-16 2022-11-16 Outpatient R BILL VELAZQUEZ [facility] [id number] Univers 14:00:00 15:22:13 ity of [facility] 2022-11-16 2022-11-16 Routine Bill Velazquez [facility] 1.2.840.114 [id number] Univers 14:00:00 15:22:13 Lai HADDAD 350.1.13.10 i ty of [place] [id number] [address] 2022-10-19 2022-10-19 Outpatient R ELOISELAZARO [facility] B [id number] Univers 14:15:00 15:18:29 ELOISECHRISTOPHER WILLIS diandra [facility] 2022-10-19 2022-10-19 [facility] 1.2.840.114 [id number] Univers 14:15:00 15:18:29 Christopher HADDAD 350.1.13.10 i ty of [place] [id number] [address] 2022-10-19 2022-10-19 Case Stefano [facility] 1.2.840.114 [id number] Univers 00:00:00 00:00:00 Management Christopher CATIE 350.1.13.10 ity [place] [id number] [address] 2022-09-26 2022-09-26 Outpatient R ELOISELUDIVINA WILLISJOANNE [facility] B [id number] Univers 09:30:00 09:30:00 [facility] 2022-09-07 2022-09-07 Telephone Bill Velazquez [facility] 1.2.840.114 [id number] Univers 00:00:00 00:00:00 Lai DIAMOND 350.1.13.10 i ty [place] [id number] Pa dical NAL [address] [facility] 2022-08-31 2022-08-31 Telephone Bill Velazquez [facility] 1.2.840.114 [id number] Univers 00:00:00 00:00:00 Cam [place] 350.1.13.10 i ty of [facility] 4.2.7.2.[place] [id number] Pa dicma NAL [facility] 2022-08-29 2022-08-29 Stock Clipper Fern Gilbert Lab Main [place] 1.2.8 40.114 [id number] Univers 11:15:00 11:30:00 Visit Bill Velazquez 350.1.13.10 ity [facility] 4.2.[place].2.[place] [id number] [facility] NAL [address] [facility] 2022-08-29 2022-08-29 Outpatient R BILL VELAZQUEZ [facility] [id number] Univers 10:00:00 11:08:03 ity of [facility] 2022-08-29 2022-08-29 Initial Bill Velazquez [facility] 1.2.816.154 [id number] Univers 10:00:00 11:08:03 Lai DIAMOND 350.1.13.10 ity of [place] [id number] [facility] 2022-08-29 2022-08-29 Orders Doctor SUBHASH 1.2.840.114 [id number] Univers 00:00:00 00:00:00 Only Unassigned, MARILY 350.1.13.10 ity of [place] [facility] 4.2.7.2.686 [place] as [id number] [address] 2022-08-27 2022-08-27 Outpatient P ARLEN [facility] [id number] Univers 14:00:00 14:00:[address] [facility] 2022-08-27 2022-08-27 Outpatient R CHRISTOPHER ADAMS [facility] B [id number] Univers 08:00:00 08:00:[address] [facility] 2022-08-14 2022-08-14 Outpatient R AKINSIPE, [facility] [id number] Univers 10:45:00 10:45:00 NNEKA ity o [facility] 2022-07-23 2022-07-23 Outpatient R AKINSIPE, [facility] [id number] Univers 10:45:00 10:45:00 NNEKA ity o [facility] 2022-07-16 2022-07-16 Outpatient R KHAI, [facility] [id number] Univers 13:15:00 13:15:00 NAOMINDA ity o [facility] 2022-07-09 2022-07-09 Initial [place], [facility] 1.2.047.611 [id number] Univers 15:00:00 16:30:53 Nneka Johnson [employer] 350.1.13.10 ity of Visit [facility] 4.2.7.2.686 [place] MATERNAL [id number] [facility] ical & CHILD [address] [place] [address] 2022-07-09 2022-07-09 Outpatient R AKINSIPE, [facility] [id number] Univers 15:00:00 16:30:53 NNEKA ity o [facility] 2022-07-09 2022-07-09 Outpatient R AKINSIPE, [facility] [id number] Univers 15:00:00 16:30:53 NNEKA ity o [facility] 2022-07-09 2022-07-09 Outpatient R AKINSIPE, [facility] [id number] Univers 15:00:00 16:30:53 NNEKA ity o [facility] 2022-07-09 2022-07-09 Orders Doctor SUBHASH 1.2.840.114 [id number] Univers 00:00:00 00:00:00 Only Unassigned, MARILY 350.1.13.10 ity of [place] [facility] 4.2.7.2.686 [place] [id number] [address] 2022-04-24 2022-04-25 Emergency X JOSH, [facility] ERT [id number] Univers 23:27:00 02:29:[address] [facility] 2022-04-24 2022-04-25 Emergency [facility] 1.2.113.026 [id number] Univers 23:27:00 02:29:00 Rosa [facility]AM[facility] 350.1.13.10 [facility] 4.2.7.2.686 [facility] [id number] [place] [address] Branch 2020-09-19 2020-09-19 Outpatient R AKINSIPE, [facility] [id number] Univers 15:15:00 15:15:00 NNEKA ity o f [facility] 2020-08-01 2020-08-01 Outpatient R AKINSIPE, [facility] [id number] Univers 13:45:00 13:45:00 NNEKA ity o f [facility] 2020-07-28 2020-07-28 Outpatient R AKINSIPE, [facility] [id number] Univers 14:45:00 14:45:00 NNEKA ity o [facility] 2020-07-03 2020-07-06 Hospital SUBHASH Saez 1.2.811.040 [id number] 19:39:00 16:26:00 Encounter Pedro CALIXTO 350.1.13.10 [facility] 4.2.7.2.686 [id number] 038 2020-07-02 2020-07-02 Nurse SUBHASH Garcia 1.2.840.114 [id number] 00:00:00 00:00:00 Triage Lilo Cornell [place] 350.1.13.10 [facility] 4.2.7.2.686 [id number] 019 2020-06-27 2020-06-27 [facility] 1.2.840.114 [id number] 15:32:39 16:14:31 Karen R [employer] 350.1.13.10 Visit REGIONAL 4.2.7.2.686 MATERNAL [id number] & CHILD [address] [place] [address] 2020-06-27 2020-06-27 Outpatient R KHAI [facility] [id number] Univers 15:30:00 15:30:00 ROSHUNDA margi o [place] [facility] 2020-06-23 2020-06-23 Margarito Ridley [facility] 1.2.840.114 [id number] 00:00:00 00:00:00 Roshunda R [employer] 350.1.13.10 REGIONAL 4.2.7.2.686 MATERNAL [id number] & CHILD [address] [facility] 2020-06-23 2020-06-23 Telephone SUBHASH Lees 1.2.840.114 [id number] 00:00:00 00:00:00 Cherie [place] 350.1.13.10 [place] [address].2.7.2.686 [id number] 019 2020-06-22 2020-06-22 Stock Clipper Ultrasound, [facility] 1.2.840.114 [id number] 14:18:43 14:48:43 Visit [facility] [employer] 350.1.13.10 REGIONAL 4.2.7.2.686 MATERNAL [id number] & CHILD [address] [facility] 2020-06-22 2020-06-22 Outpatient P [facility] [id number] Univers 14:15:00 14:15:00 [facility] 2020-06-22 2020-06-22 Telephone [facility] 1.2.840.114 [id number] 00:00:00 00:00:00 Senait N [employer] 350.1.13.10 REGIONAL 4.2.7.2.686 MATERNAL [id number] & CHILD [address] [facility] 2020-06-21 2020-06-21 [facility] 1.2.840.114 [id number] 14:11:25 15:15:39 Roshunda R [employer] 350.1.13.10 Visit REGIONAL 4.2.7.2.686 MATERNAL [id number] & CHILD [address] [facility] 2020-06-21 2020-06-21 Outpatient R RIDLEY, [facility] [id number] Univers 10:00:00 10:00:00 ROSHUNDA ity o f [facility] 2020-06-03 2020-06-03 Outpatient R AKINSIPE, [facility] [id number] Univers 14:15:00 14:15:00 NNEKA ity o f [facility] 2020-05-16 2020-05-16 Outpatient P [facility] [id number] Univers 11:00:00 11:00:00 [facility] 2020-05-12 2020-05-12 Outpatient R AKINSIPE, [facility] [id number] Univers 15:30:00 15:30:00 NNEKA ity o f [facility] 2020-04-05 2020-04-05 Outpatient R AKINSIPE, [facility] [id number] Univers 13:15:00 13:15:00 NNEKA granty o [facility] 2020-04-04 2020-04-04 Outpatient P BRADLEY TOVAR [facility] [id number] Univers 11:45:00 11:45:00 [facility] 2020-03-22 2020-03-22 Outpatient R AKINSIPE, [facility] [id number] Univers 13:45:00 13:45:00 NNEKA kiser o [facility] 2020-03-17 2020-03-17 Outpatient Raju_P [facility] [id number] [place] 09:35:00 09:35:00 04[facility] 2020-03-07 2020-03-07 Outpatient P [facility] [id number] Univers 11:00:00 11:00:00 [facility] 2020-03-04 2020-03-04 Outpatient P KALE, [facility] [id number] Univers 13:30:00 13:30:00 JAGDISH [facility] 2020-02-26 2020-02-26 Outpatient R AKINSIPE, [facility] [id number] Univers 15:00:00 15:00:00 NNEKA ity o [facility] 2020-02-25 2020-02-25 Outpatient R [facility] [id number] Univers 13:30:00 13:30:00 [facility] 2020-02-23 2020-02-23 Outpatient R ARLEN, [facility] [id number] Univers 12:45:00 12:45:00 SENAIT [facility] 2020-01-08 2020-01-08 Outpatient R LAKISHA, [facility] [id number] Univers 15:45:00 15:45:00 LAUREN [facility] Results Test Description Test Time Test Comments Results Result Comments Source RHO (D) IMMUNE GLOBULIN 2023-03-16 01:34:00 Test Item Value Reference Range Interpretation Comme nts RHIG CANDIDATE? (test code = Yes- see comment A Patient is a candidate for RhIg- 5188) Patient is Rh N egative and baby is Rh Positive.Per formed at [facility] Blood [address] [place] [address]Upkg Free: [phone] 266CLIA No. [id number] Lab Interpretation (test code Abnormal = 05439-3) [facility] [id number] 00:23:24 Test Item Value Reference Range Interpretation Comments ANTIBODY (test Anti-D Probable PATIENT RE CEIVED code = 683) RhIg RHIG 02/04/23.Performe d at [facility] Blood [address] [place] [address] 90710Asbw Free: [phone] A No. [id number] [facility] and Screen - ONCE [id number] 12:12:00 Test Item Value Reference Range Interpretation Comments ABO & RH (test code = 20) A Negative IAT (test code = 1185) Positive [facility] W/O SPECIFIC [id number] 21:22:00 Test Item Value Reference Range Interpretation [...] code = 3257) n/a Negative - Negative [facility] W/O SPECIFIC [id number] 14:41:00 Test Item Value Reference Range Interpretation [...] code = 3257) N/A Negative - Negative [facility] URINALYSIS W/O SPECIFIC [id number] 20:17:00 Test Item Value Reference Range Interpretation [...] code = 3257) n/a Negative - Negative [facility] URINALYSIS W/O SPECIFIC [id number] 21:11:00 Test Item Value Reference Range Interpretation [...] code = 3257) n/a Negative - [facility] SPECIFIC [id number] 20:30:00 Test Item Value Reference Range Interpretation [...] code = 3257) neg Negative - Negative [facility] W/O SPECIFIC [id number] 21:06:00 Test Item Value Reference Range Interpretation [...] code = 3257) N/A Negative - Negative [facility] 1 HOUR POST [id number] 19:18:59 Test Item Value Reference Range Interpretation Comments GLUC 1 HR (test code = 9305294597) 68 mg/dL 120-170 L Lab Interpretation (test code = Abnormal 29434-6) [facility] URINALYSIS W/O SPECIFIC [id number] 15:26:00 Test Item Value Reference Range Interpretation [...] code = 3257) n/a Negative - Negative [facility] [id number] 19:55:00 Test Item Value Reference Range Interpretation Comments POCT PREG (test code = 1605) Positive On board controls acceptable with C Yes Line (test code = 3574) POCT PREG LOT # (test code = 3575) POCT PREG TEST DATE (test code = 3576) [facility] URINALYSIS W/O SPECIFIC [id number] 19:55:00 Test Item Value Reference Range Interpretation [...] (test code = 3257) Negative - Negative [facility]
--- NOTE | 2023-07-25 23:42 | EDPHYS ---
Physician Documentation [facility] Name: Sandra Amado Age: 32 yrs Sex: Female : 1990 Arrival Date: 07/25/2023 Time: 20:59 Bed 12 Private MD: ED Physician Seferino Atkins HPI: 07/25 22:58 This 32 yrs old Female presents to ER via Ambulatory with complaints of snw Vaginal Bleeding. 22:58 The patient presents with vaginal bleeding that is light. Onset: The symptoms/episode snw began/occurred acutely, 1 month(s) ago, and became persistent. Modifying factors: The symptoms are alleviated by nothing, the symptoms are aggravated by nothing. Associated signs and symptoms: Pertinent positives: cramping. The patient has experienced similar episodes in the past. The patient has been recently seen by a physician: The patient has been recently seen at the [facility] Emergency Department, this week, for similar complaints the patient was told to return for a recheck, to repeat QHcg. 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 - Social history:: Smoking status: Reported history of juuling and/or vaping. ROS: 22:59 Constitutional: Negative for fever, chills, and weight loss, Eyes: Negative for injury, snw pain, redness, and discharge, ENT: Negative for injury, pain, and discharge, Neck: Negative for injury, pain, and swelling, Cardiovascular: Negative for chest pain, palpitations, and edema, Respiratory: Negative for shortness of breath, cough, wheezing, and pleuritic chest pain, Abdomen/GI: Negative for abdominal pain, nausea, vomiting, diarrhea, and constipation, Back: Negative for injury and pain, : Negative for injury, discharge, and swelling, + vaginal bleeding MS/Extremity: Negative for injury and deformity, Skin: Negative for injury, rash, and discoloration, Neuro: Negative for headache, weakness, numbness, tingling, and seizure, Psych: Negative for depression, anxiety, suicide ideation, homicidal ideation, and hallucinations. Exam: 22:58 Head/Face: Normocephalic, atraumatic. Eyes: Pupils equal round and reactive to light, snw extra-ocular motions intact. Lids and lashes normal. Conjunctiva and sclera are non-icteric and not injected. Cornea within normal limits. Periorbital areas with no swelling, redness, or edema. ENT: Nares patent. No nasal discharge, no septal abnormalities noted. Tympanic membranes are normal and external auditory canals are clear. Oropharynx with no redness, swelling, or masses, exudates, or evidence of obstruction, uvula midline. Mucous membranes moist. Neck: Trachea midline, no thyromegaly or masses palpated, and no cervical lymphadenopathy. Supple, full range of motion without nuchal rigidity, or vertebral point tenderness. No Meningismus. Chest/axilla: Normal chest wall appearance and motion. Nontender with no deformity. No lesions are appreciated. Cardiovascular: Regular rate and rhythm with a normal S1 and S2. No gallops, murmurs, or rubs. Normal PMI, no JVD. No pulse deficits. Respiratory: Lungs have equal breath sounds bilaterally, clear to auscultation and percussion. No rales, rhonchi or wheezes noted. No increased work of breathing, no retractions or nasal flaring. Abdomen/GI: Soft, non-tender, with normal bowel sounds. No distension or tympany. No guarding or rebound. No evidence of tenderness throughout. Back: No spinal tenderness. No costovertebral tenderness. Full range of motion. Skin: Warm, dry with normal turgor. Normal color with no rashes, no lesions, and no evidence of cellulitis. MS/ Extremity: Pulses equal, no cyanosis. Neurovascular intact. Full, normal range of motion. Neuro: Awake and alert, GCS 15, oriented to person, place, time, and situation. Cranial nerves II-XII grossly intact. Motor strength 5/5 in all extremities. Sensory grossly intact. Cerebellar exam normal. Normal gait. Psych: Awake, alert, with orientation to person, place and time. Behavior, mood, and affect are within normal limits. 22:58 Constitutional: The patient appears alert, awake, obese. Vital Signs: 21:20 BP 106 / 72; Pulse 83; Resp 18 S; Temp 98.1(TE); Pulse Ox 98% on R/A; Weight 108.86 kg; as6 Height 5 ft. 5 in. (R); Pain 0/10; 21:20 Body Mass Index 39.94 (108.86 kg, 165.1 cm) as6 21:20 Pain Scale: Adult as6 MDM: 22:42 Patient medically screened. snw 23:39 Differential diagnosis: dysmenorrhea, ectopic , nonspecific abdominal pain. snw Data reviewed: vital signs, nurses notes, lab test result(s). Counseling: I had a detailed discussion with the patient and/or guardian regarding the historical points, exam findings, and any diagnostic results supporting the discharge/admit diagnosis, the need for outpatient follow up, for definitive care. Response to treatment: There is no appreciated change of the patient's symptoms at this time. Special discussion: Based on the history and exam findings, there is no indication for further emergent testing or inpatient evaluation. I discussed with the patient/guardian the need to see the OB Gyne specialist for further evaluation of the symptoms. I discussed with the patient/guardian the need to see the primary care provider for further evaluation of the symptoms. 07/25 21:26 Order name: HCG-Quantitative; Complete Time: 23:39 snw Administered Medications: No medications were administered Disposition: 07/26 00:42 Co-signature as Attending Physician, Seferino Atkins MD I agree with the assessment sp4 and plan of care. I reviewed the patient's care provided by the Advanced Practice Provider and agree with the diagnosis and treatment plan. Disposition Summary: 07/25/23 23:42 Discharge Ordered Location: Home snw Condition: Stable snw Diagnosis - Dysmenorrhea, unspecified snw - Threatened snw Followup: snw - With: Emergency Department - When: As needed - Reason: Worsening of condition Followup: snw - With: Private Physician - When: 2 - 3 days - Reason: Recheck today's complaints, Continuance of care, Re-evaluation by your physician Discharge Instructions: - Discharge Summary Sheet snw - Dysmenorrhea snw - Threatened Miscarriage snw - Vaginal Bleeding During , First Trimester snw Forms: - Work release form snw - Medication Reconciliation Form snw - Thank You Letter snw - Antibiotic Education snw - Prescription Opioid Use snw - Patient Portal Instructions snw - Leadership Thank You Letter snw Signatures: Dispatcher [employer] Daylin Bennett FNP-C ENGINEERING PSYCHOLOGIST-Quintonw Surjit Grmies RN RN as6 Seferino Atkins MD MD sp4
--- NOTE | 2023-07-25 23:42 | ER ---
Nurse's Notes [facility] Name: Sandra Amado Age: 32 yrs Sex: Female : 1990 Arrival Date: 07/25/2023 Time: 20:59 Bed 12 Private MD: Diagnosis: Dysmenorrhea, unspecified;Threatened Presentation: 07/25 21:20 Chief complaint: Patient states: "I was here Saturday and they said if I couldn't get in as6 to see a GYNO with in 48 hours to come back to the ER to get my blood levels rechecked" pt reports vaginal bleeding for 1 month. Coronavirus screen: At this time, the client does not indicate any symptoms associated with coronavirus-19. Ebola Screen: No symptoms or risks identified at this time. Initial Sepsis Screen: Does the patient meet any 2 criteria? No. Patient's initial sepsis screen is negative. Does the patient have a suspected source of infection? No. Patient's initial sepsis screen is negative. Risk Assessment: Do you want to hurt yourself or someone else? Patient reports no desire to harm self or others. Onset of symptoms was July 25, 2023. 21:20 Method Of Arrival: Ambulatory as6 21:20 Acuity: HUGO 3 as6 Triage Assessment: 23:50 General: Appears in no apparent distress. Behavior is calm, cooperative. 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 - Social history:: Smoking status: Reported history of juuling and/or vaping. Screenin:50 [facility] ED Fall Risk Assessment (Adult) History of falling in the last 3 months, including since admission No falls in past 3 months (0 pts) Confusion or Disorientation No (0 pts) Intoxicated or Sedated No (0 pts) Impaired Gait No (0 pts) Mobility Assist Device Used No (0 pt) Altered Elimination No (0 pt) Score/Fall Risk Level 0 - 2 = Low Risk. Abuse screen: Denies threats or abuse. Nutritional screening: No deficits noted. Tuberculosis screening: No symptoms or risk factors identified. Assessment: 23:50 Reassessment: Patient appears in no apparent distress at this time. Pain: Denies pain. kl : Reports vaginal bleeding that is moderate flow. Vital Signs: 21:20 BP 106 / 72; Pulse 83; Resp 18 S; Temp 98.1(TE); Pulse Ox 98% on R/A; Weight 108.86 kg; as6 Height 5 ft. 5 in. (R); Pain 0/10; 21:20 Body Mass Index 39.94 (108.86 kg, 165.1 cm) as6 21:20 Pain Scale: Adult as6 ED Course: 21:00 Patient arrived in ED. jj6 21:17 [facility] Trev[facility]C [facility] snw 21:17 Seferino Atkins MD is Attending Physician. snw 21:23 Triage completed. as6 21:24 Arm band placed on. as6 22:53 HCG-Quantitative Sent. as6 23:50 No provider procedures requiring assistance completed. Patient did not have IV access kl during this emergency room visit. Administered Medications: No medications were administered Medication: 23:50 VIS not applicable for this client. kl Outcome: 23:42 Discharge ordered by . snw 23:50 Discharged to home ambulatory. kl 23:50 Condition: stable 23:50 Discharge instructions given to patient, Instructed on discharge instructions, follow up and referral plans. Demonstrated understanding of instructions, follow-up care. 23:51 Patient left the ED. kl Signatures: Cherie Baez, RN RN Daylin Velázquez FNP-C SPORTS RECRUITER-Aishwarya Cabello jj6 Surjit Grimes RN RN as6
== END 2023-07-25 23:51 | disposition home or self-care (01) ==
LOC: ER 20:59
DX: O20.0 Threatened abortion (principal); Z88.0 Allergy status to penicillin; Z88.5 Allergy status to narcotic agent
CPT/HCPCS: 36415; 84702; 99283

== ENCOUNTER 2023-09-20 19:25 | Emergency (ER) | payer OTHER, SELFPAY ==
--- OUTSIDE RECORDS SUMMARY | 2023-09-20 19:30 | XMS REPORT | Continuity of Care Document ---
:1990 Author Organization [facility] t Address [address] [place] [address] Care Team Providers Name Role Phone Karen Espinal Primary Care Physician Unavailable BILL VELAZQUEZ Attending Clinician Unavailable Tadeo GARVIN, Priscila Attending Clinician Bethany Parra MD Attending Clinician Bill Velazquez MD Attending Clinician Demarcus Constantino MD Attending Clinician Robert Cannon CRNA Attending Clinician Maurisio Rodriguez MD Attending Clinician MAURISIO RODRIGUEZ Attending Clinician Unavailable Pob, [facility] Attending Clinician Unavailable Doctor Unassigned, [place] Attending Clinician Unavailable CHRISTOPHER ADAMS Attending Clinician Unavailable CHRISTOPHER ADAMS Attending Clinician Unavailable 1, [facility] Attending Clinician Unavailable Radha Britt MD, Gisselle Attending Clinician [phone] GISSELLE ARNOLD Attending Clinician Unavailable BURT ROJAS Attending Clinician Unavailable MICK XIE Attending Clinician Unavailable MICK XIE Attending Clinician Unavailable SENAIT MCKINLEY Attending Clinician Unavailable NNEKA CAROLINA Attending Clinician Unavailable KAREN RIDLEY Attending Clinician Unavailable Nneka Venegas Attending Clinician [phone] ROSA CARDENAS Attending Clinician Unavailable Rosa Cardenas MD Attending Clinician Pedro Saez MD Attending Clinician Jose BARRIOS, Lilo Sarabia Attending Clinician Unavailable Karen Espinal Attending Clinician Cherei Lees MA Attending Clinician Unavailable Raquel, [facility] [...] Type Policy Number Effective Date Expiration Date [facility] [id number] [address] [facility] MEDICAID 00:00:00 Problems Condition Condition Condition Status Onset Resolution Last Treating Co mments Source Name Details Category Date Date Treatment Clinician Date Encounter Encounter Disease Active Uni vers for for 4-14 [place] of [place] 00 Medica [place] Morbid Morbid Disease Active Univers obesity obesity 4-14 [place] of with body with body 00:[place] mass index mass index 00 Me dical of of [place] 40.0-49.9 40.0-49.9 Liveborn Liveborn Disease Active Unive rs infant, of infant, of 4-14 it y of [place] , , 00 [place] dical born in born in [facility] by vaginal by vaginal delivery delivery Inability [...] of high-risk high-risk 00:[place] 00 [facility] Branch Grand Grand Disease Active Univers multiparit multiparit 8-08 it y of y, y, 00:00: [place] antepartum antepartum 00 [place] dical Branch Other Other Disease Active Overview: Univer s depression depression 808 Formattin ity of 00:00: g of this [place] 00 note Medical might be Branch different from the original. 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 Address in Labor and Delivery. Anemia of Anemia of Disease Active Uni vers mother in mother in 722 ity of , , 00:00[place] antepartum antepartum 00 Me dical Branch Anemia of Anemia of Disease Active Uni vers mother in mother in 7 ity of , , 00:00[place] antepartum antepartum 00 Me dical Branch Insufficie Insufficie Disease Active 2019- U nivers nt nt 7-21 ity of 00:00: [place] care in care in 00 Medical third third Branch trimester trimester Rh Rh Disease Active Overview: Univer s negative, negative, 3-24 Formattin i ty of antepartum antepartum 00:00: g of this 00 note Medical might be Branch different from the original. Rhogam at 28 weeks History of History of Disease Active U nivers substance substance 3-24 ity of use use 00:00: 00 Medical Branch Allergies, Adverse Reactions, Alerts [...] adverse 00:00: [place] reaction 00 Medical s [place] Social History Social Habit Start Date Stop Date Quantity Comments Source ASSERTION 2022-06-13 University of 00:00:00 [facility] Sexual orientation Univer sity of [facility] Exposure to 2023-03-05 2023-03-15 Not sure University of SARS-CoV-2 (event) 00:00:00 04:57:00 [facility] History of Social 2022-07-09 2022-07-09 Univers ity of function 00:00:00 00:00:00 [facility] History of tobacco 2021-07-02 Smokes tobacco Un iversity of use 00:00:00 daily [facility] Alcohol intake 2020-07-05 2020-07-05 Ex-drinker [facility] 00:00:00 00:00:00 (finding) [facility] Tobacco use and 2019-12-11 2019-12-11 User of Universit y of exposure 00:00:00 00:00:00 smokeless [facility] Tobacco Comment 2019-12-11 2019-12-11 2 ciggs a day [facility] sity of 00:00:00 00:00:00 [facility] Sex Ass[birth year] At [birth year] [facility] y of 00:00:00 00:00:00 [facility] Smoking Status Start Date Stop Date Source Never smoked tobacco [facility] Ex-smoker 2022-07-09 00:00:00 2022-07-09 00:00:00 Universi ty [facility] Smokes tobacco daily 2019-12-11 00:00:00 Univers ity [facility] Medications Ordered Filled Start Stop Current Ordering Indication Dosage Frequency Signature Comments Components Source Medication Medication Date Date Medication? Clinician (SIG) Name Name abdifatah Farmer Yes Topical, Un [place] (TUCKS) 50 4-15 Q4HPRN, ity of % topical 00:08[place] pad 26 on Sat [facility] 03/15/23 at Branch 1908, Until Discontinu ed, Routine, rectal/hem orrhoidal pain ibuprofen 2022-0 Yes 600mg 600 mg, Univ ers (IBU) 4-15 Oral, ity of tablet 600 00:08: Q6HPRN, [place] mg 26 Starting Medical on Sat Branch 03/15/23 at 1908, Until Discontinu ed, Routine, Pain (scale 4-6) acetaminoph 2022-0 Yes 650mg 650 mg, Un [place] en 4-15 Oral, ity of (TYLENOL) 00:08: Q6HPRN, [place] tablet 650 26 Starting Medic al mg on Sat Branch 03/15/23 at 1908, Until Discontinu ed, Routine, Pain (scale 1-3) diphenhydrA 2022-0 Yes 25mg 25 mg, Univ ers MINE 4-15 Oral, ity of (BENADRYL) 00:08: Q6HPRN, [place] tablet 25 26 Starting Medica l mg on Sat Branch 03/15/23 at 1908, Until Discontinu ed, Routine, Sleep, Itching ondansetron 0 Yes 4mg 4 mg, Slow Univers (ZOFRAN 4-15 IV Push, ity of (PF)) 00:08: Q8HPRN, [place] injection 4 26 Starting Medi blair mg on Sat Branch 03/15/23 at 1908, Until Discontinu ed, [...] QDAILYPRN, [place] mg 26 Starting Medical on Sat Branch 03/15/23 at 1908, Until Discontinu ed, Routine, Constipati on magnesium 2022-0 Yes 30mL 30 mL, Univer s hydroxide [...] 1908, Until Discontinu ed, Routine, Perineum discomfort 2022-0 Yes [id number] 1{tbl} Take 1 Univers vitamin 4-15 tablet by ity of w/FA tablet 00:00: mouth in [place] 00 the Medical morning. Branch docusate 2022-0 Yes [id number] 200mg Take 2 U nivers 100 mg 4-15 capsules ity of capsule 00:00: by mouth [place] 00 once daily Medical as needed Branch for Constipati on. ferrous 3-0 Yes [id number] 325mg Take 1 Un [place] sulfate 325 4-15 tablet by ity of mg (65 mg 00:00: [place] iron) 00 the Medical tablet morning Branch and 1 tablet in the evening. ibuprofen 3-0 Yes [id number] 600mg Take 1 Univers 600 mg 4-15 tablet by ity of tablet 00:00: mouth [place] 00 every 6 Medical (six) Branch hours as needed (Pain). Take with food or milk. 2022-0 Yes [id number] 1{tbl} Take 1 Univers vitamin 4-15 tablet by ity of w/FA tablet 00:00: mouth in [place] 00 the Medical morning. Branch docusate 2022-0 Yes [id number] 200mg Take 2 U nivers 100 mg 4-15 capsules ity of capsule 00:00: by mouth [place] 00 once daily Medical as needed Branch for Constipati on. ferrous 2022-0 Yes [id number] 325mg Take 1 [place] sulfate 325 4-15 tablet by ity of mg (65 mg 00:00: [place] iron) 00 the Medical tablet morning Branch and 1 tablet in the evening. ibuprofen 2022-0 Yes [id number] 600mg Take 1 Univers 600 mg 4-15 tablet by ity of tablet 00:00: mouth [place] 00 every 6 Medical (six) Branch hours as needed (Pain). Take with food or milk. 2022-0 Yes [id number] 1{tbl} Take 1 Univers vitamin 4-15 tablet by ity of w/FA tablet 00:00: mouth in [place] 00 the Medical morning. Branch docusate 2022-0 Yes [id number] 200mg Take 2 U nivers 100 mg 4-15 capsules ity of capsule 00:00: by mouth [place] 00 once daily Medical as needed Branch for Constipati on. ferrous 2022-0 Yes [id number] 325mg Take 1 [place] sulfate 325 4-15 tablet by ity of mg (65 mg 00:00: mouth [place] iron) 00 the Medical tablet morning Branch and 1 tablet in the evening. ibuprofen 3-0 Yes [id number] 600mg Take 1 Univers 600 mg 4-15 tablet by ity of tablet 00:00: mouth [place] 00 every 6 Medical (six) Branch hours as needed (Pain). Take with food or milk. terbutaline No .25mg 0.25 mg, Univers (BRETHINE) 03-15 Subcutaneo it y of injection 23:45: 22:46 us, ONCE, [place] 0.25 mg 00 :00 1 dose, On Medica l Fri Branch 03/15/23 at 1845, Routine amnioinfusi No 1000mL at 750 U nivers on IV 03-15 mL/hr, ity of infusion 22:15: 22:36 Intrauteri [...] until the liter is complete.& nbsp;&nbsp ;Notify Interpreter Translator if uterine resting tone exceeds 25 mmHg at any time during the amnioinfus ion. Obst etrics (SUNITA) Aminoinfus ion Orders
fentaNYL-ro 2022- No Epidural, Univers pivacaine 2 03-15 ONCE INTRA i ty of mcg/mL-0.1 21:47: 01:01 PROCEDURE, [place] % (PF) in 00 :29 Starting Medica l NS 200 mL on Sat Branch epidural 03/15/23 at infusion 1647, RTU Until Sat03/15/23 at 2001, Routine, Intra-op fentaNYL-ro 2022- No Epidural, Univers pivacaine 2 03-15 CONTINUOUS i ty of mcg/mL-0.1 21:47: 01:01 PRN, [place] % (PF) in 00 :29 Starting Medica l NS 200 mL on Fri Branch epidural 03/15/23 at infusion 1647, RTU Until Sat03/15/23 at 2000, Routine, Intra-op fentaNYL-ro 2022-0 2022- No Epidural, Univers pivacaine 2 03-1515 ONCE INTRA i ty of mcg/mL-0.1 21:47: 01:01 PROCEDURE, [place] % (PF) in 00 :29 Starting Medica l NS 200 mL on Sat Branch epidural 03/15/23 at infusion 1647, RTU Until Sat03/15/23 at 2000, Routine, Intra-op fentaNYL-ro 2022-2022- No Epidural, Univers pivacaine 2 03-15-15 CONTINUOUS i ty of mcg/mL-0.1 21:47: 01:01 PRN, [place] % (PF) in 00 :29 Starting Medica l NS 200 mL on Fri Branch epidural 03/15/23 at infusion 1647, RTU Until Sat03/15/23 at 2000, Routine, Intra-op lidocaine-e 2022- No Epidural, Univers pinephrine 03-1515 ONCE INTRA it y of (XYLOCAINE 21:41: 01:01 PROCEDURE, [place] W/EPINEPHRI 00 :29 Starting Medi blair NE) 1.5 on Sat Branch %-1:200,000 03/15/23 at injection 1641, Until Sat03/15/23 at 2000, Routine, Intra-op lidocaine-e 2022- No Epidural, Univers pinephrine 03-1515 ONCE INTRA it y of (XYLOCAINE 21:41: 01:01 PROCEDURE, [place] W/EPINEPHRI 00 :29 Starting Medi blair NE) 1.5 on Sat Branch %-1:200,000 03/15/23 at injection 1641, Until Sat03/15/23 at 2000, Routine, Intra-op oxytocin 2022- No 2mU/min at 2-40 Un [place] (PITOCIN) 03-15-15 mL/hr, IV ity of 30 units in 12:53: 00:08 Infusion, [place] NS 500 mL 24 :32 TITRATE, Medica l IV infusion Starting Bran ch on Sat03/15/23 at 0753, Until Sat03/15/23 at 1908, JESS proMETHazin 2022- No 25mg 25 mg, IV Univers e 03-1515 Piggyback, ity of (PHENERGAN) 09:34: 00:08 Q4HPRN, [place] 25 mg in 52 :32 Starting Medical NaCl 0.9% on Sat Branch (NS) 50 mL 03/15/23 at IV 0434, piggyback Until Sat03/15/23 at 1908, Routine, Nausea and Vomiting (N/V) FENTanyl PF 2022- No 100ug 100 mcg, Univers (SUBLIMAZE 03-15 Slow IV ity o f (PF)) 09:34: 00:08 Push, [place] injection 20 :32 Q1HPRN, Medical 100 mcg Starting Branch on Sat03/15/23 at 0434, Until Sat03/15/23 at 1908, Routine, Pain (scale 7-10) lactated 2022- No 500mL at 999 Unive rs ringers IV 03-15-15 mL/hr, 500 it y of infusion 09:23: 00:08 mL, IV [place] 500 mL 08 :32 Infusion, Medical PRN - SEE Branch INSTRUCTIO NS, Starting on Sat03/15/23 at 0423, Until Sat03/15/23 at 1908, Routine D5W-LR IV 2022- No 1000mL at 1-125 U nivers infusion 03-15-15 mL/hr, IV ity o f 1,000 mL 09:23: 00:08 Infusion, [place] 08 :32 TITRATE, Medical Starting Branch on Sat03/15/23 at 0423, Until Sat03/15/23 at 1908, Routine buPROPion 2022-0 Yes [id number] 150mg Take 1 U nivers XL 3-31 tablet by ity of (WELLBUTRIN 00:00: mouth in [place] XL) 150 mg 00 the Medical 24 hr morning. Branch tablet buPROPion 2022-0 Yes [id number] 150mg Take 1 U nivers XL 3-31 tablet by ity of (WELLBUTRIN 00:00: mouth in [place] XL) 150 mg 00 the Medical 24 hr morning. Branch tablet buPROPion 2022-0 Yes [id number] 150mg Take 1 U nivers XL 3-31 tablet by ity of (WELLBUTRIN 00:00: mouth in [place] XL) 150 mg 00 the Medical 24 hr morning. Branch tablet buPROPion 2023-0 Yes [id number] 150mg Take 1 U nivers XL 3-31 tablet by ity of (WELLBUTRIN 00:00: mouth in [place] XL) 150 mg 00 the Medical 24 hr morning. Branch tablet buPROPion 2023-0 Yes [id number] 150mg Take 1 U nivers XL 3-31 tablet by ity of (WELLBUTRIN 00:00: mouth in [place] XL) 150 mg 00 the Medical 24 hr morning. Branch tablet buPROPion 2023-0 Yes [id number] 150mg Take 1 U nivers XL 3-31 tablet by ity of (WELLBUTRIN 00:00: mouth in [place] XL) 150 mg 00 the Medical 24 hr morning. Branch tablet buPROPion 2023-0 Yes [id number] 150mg Take 1 U nivers XL 3-31 tablet by ity of (WELLBUTRIN 00:00: mouth in [place] XL) 150 mg 00 the Medical 24 hr morning. Branch tablet buPROPion 2023-0 Yes [id number] 150mg Take 1 U nivers XL 3-31 tablet by ity of (WELLBUTRIN 00:00: mouth in [place] XL) 150 mg 00 the Medical 24 hr morning. Branch tablet buPROPion 2023-0 Yes [id number] 150mg Take 1 U nivers XL 3-31 tablet by ity of (WELLBUTRIN 00:00: mouth in [place] XL) 150 mg 00 the Medical 24 hr morning. Branch tablet buPROPion 2023-0 Yes [id number] 150mg Take 1 U nivers XL 3-31 tablet by ity of (WELLBUTRIN 00:00: mouth in [place] XL) 150 mg 00 the Medical 24 hr morning. Branch tablet buPROPion 2023-0 Yes [id number] 150mg Take 1 U nivers XL 3-31 tablet by ity of (WELLBUTRIN 00:00: mouth in [place] XL) 150 mg 00 the Medical 24 hr morning. Branch tablet buPROPion 2023-0 Yes [id number] 150mg Take 1 U nivers XL 3-31 tablet by ity of (WELLBUTRIN 00:00: mouth in [place] XL) 150 mg 00 the Medical 24 hr morning. Branch tablet buPROPion 2023-0 Yes [id number] 150mg Take 1 U nivers XL 3-31 tablet by ity of (WELLBUTRIN 00:00: [place] XL) 150 mg 00 the Medical 24 hr morning. Branch tablet busPIRone 5 2022-0 Yes [id number] 5mg Take 1 Univers mg tablet 3-30 tablet by ity o f 00:00: mouth in [place] 00 the Medical morning Branch and 1 tablet in the evening. busPIRone 5 2022-0 Yes [id number] 5mg Take 1 Univers mg tablet 3-30 tablet by ity o f 00:00: mouth in [place] 00 the Medical morning Branch and 1 tablet in the evening. busPIRone 5 2022-0 Yes Univer s mg tablet 3-30 ity of 00:00: [place] 00 Medical Branch busPIRone 5 2022-0 Yes Univer s mg tablet 3-30 ity of 00:00: [place] 00 Medical Branch busPIRone 5 2022-0 Yes Univer s mg tablet 3-30 ity of 00:00: [place] 00 Medical Branch busPIRone 5 2022-0 Yes Univer s mg tablet 3-30 ity of 00:00: [place] 00 Medical Branch busPIRone 5 2022-0 Yes Univer s mg tablet 3-30 ity of 00:00: [place] 00 Medical Branch busPIRone 5 2022-0 Yes Univer s mg tablet 3-30 ity of 00:00: [place] 00 Medical Branch busPIRone 5 2022-0 Yes Univer s mg tablet 3-30 ity of 00:00: [place] 00 Medical Branch busPIRone 5 2022-0 Yes Univer s mg tablet 3-30 ity of 00:00: [place] 00 Medical Branch busPIRone 5 2022-0 2022- No Unive rs mg tablet 3-30 04-15 ity of 00:00: 00:00 [place] 00 :00 Medical Branch busPIRone 5 2022-0 2023- No [id number] 5mg Take 1 Univers mg tablet 3-30 03-31 tablet by ity of 00:00: 00:00 mouth in [place] 00 :00 the Medical morning Branch and 1 tablet in the evening. famotidine 2022-0 Yes [id number] 20mg Take 1 U nivers 20 mg 3-21 tablet by ity of tablet 00:00: mouth in [place] [address] the Medical morning Branch and 1 tablet in the evening. famotidine 2023-0 Yes [id number] 20mg Take 1 U nivers 20 mg 3-21 tablet by ity of tablet 00:00: mouth in [place] [address] the Medical morning Branch and 1 tablet in the evening. famotidine 2023-0 Yes [id number] 20mg Take 1 U nivers 20 mg 3-21 tablet by ity of tablet 00:00: mouth in [place] [address] the Medical morning Branch and 1 tablet in the evening. famotidine 2023-0 Yes [id number] 20mg Take 1 U nivers 20 mg 3-21 tablet by ity of tablet 00:00: mouth in [place] [address] the Medical morning Branch and 1 tablet in the evening. famotidine 2023-0 Yes [id number] 20mg Take 1 U nivers 20 mg 3-21 tablet by ity of tablet 00:00: mouth in [place] [address] the Medical morning Branch and 1 tablet in the evening. famotidine 2023-0 Yes [id number] 20mg Take 1 U nivers 20 mg 3-21 tablet by ity of tablet 00:00: mouth in [place] [address] the Medical morning Branch and 1 tablet in the evening. famotidine 2023-0 Yes [id number] 20mg Take 1 U nivers 20 mg 3-21 tablet by ity of tablet 00:00: mouth in [place] [address] the Medical morning Branch and 1 tablet in the evening. famotidine 2023-0 Yes [id number] 20mg Take 1 U nivers 20 mg 3-21 tablet by ity of tablet 00:00: mouth in [place] [address] the Medical morning Branch and 1 tablet in the evening. famotidine 2023-0 Yes [id number] 20mg Take 1 U nivers 20 mg 3-21 tablet by ity of tablet 00:00: mouth in [place] [address] the Medical morning Branch and 1 tablet in the evening. famotidine 2023-0 Yes [id number] 20mg Take 1 U nivers 20 mg 3-21 tablet by ity of tablet 00:00: mouth in [place] [address] the Medical morning Branch and 1 tablet in the evening. famotidine 2023-0 Yes [id number] 20mg Take 1 U nivers 20 mg 3-21 tablet by ity of tablet 00:00: mouth in [place] [address] the Medical morning Branch and 1 tablet in the evening. famotidine 2023-0 Yes [id number] 20mg Take 1 U nivers 20 mg 3-21 tablet by ity of tablet 00:00: mouth in [place] 00 the Medical morning Branch and 1 tablet in the evening. famotidine 3-0 Yes [id number] 20mg Take 1 U nivers 20 mg 3-21 tablet by ity of tablet 00:00: mouth in [place] 00 the Medical morning Branch and 1 tablet in the evening. famotidine 3-0 Yes [id number] 20mg Take 1 U nivers 20 mg 3-21 tablet by ity of tablet 00:00: mouth in [place] 00 the [facility] morning Branch and 1 tablet in the evening. famotidine 2022-0 2022- No [id number] 20mg Take 1 Univers 20 mg 3-21 06-20 tablet by ity of tablet 00:00: 04:59 mouth in [place] 00 :00 the [facility] morning [place] and 1 tablet in the evening. Do all this for 90 days. famotidine 2022-0 2022- No [id number] 20mg Take 1 Univers 20 mg 3-21 06-20 tablet by ity of tablet 00:00: 04:59 mouth in [place] 00 :00 the [facility] and 1 tablet in the evening. Do all this for 90 days. famotidine 2022-0 2022- No [id number] 20mg Take 1 Univers 20 mg 3-21 06-20 tablet by ity of tablet 00:00: 04:59 mouth in [place] 00 :00 the [facility] morning [place] and 1 tablet in the evening. Do all this for 90 days. famotidine 2022-0 2022- No [id number] 20mg Take 1 Univers 20 mg 3-21 06-20 tablet by ity of tablet 00:00: 04:59 mouth in [place] 00 :00 the [facility] and 1 tablet in the evening. Do all this for 90 days. famotidine 3-0 3- No [id number] 20mg Take 1 Univers 20 mg 3-21 06-20 tablet by ity of tablet 00:00: 04:59 mouth in [place] 00 :00 the [facility] morning [place] and 1 tablet in the evening. Do all this for 90 days. famotidine 2022-0 3- No [id number] 20mg Take 1 Univers 20 mg 3-21 06-20 tablet by ity of tablet 00:00: 04:59 mouth in [place] 00 :00 the Medical morning Branch and 1 tablet in the evening. Do all this for 90 days. famotidine 2022-0 2022- No [id number] 20mg Take 1 Univers 20 mg 3-21 06-20 tablet by ity of tablet 00:00: 04:59 mouth in [place] 00 :00 the Medical morning Branch and 1 tablet in the evening. Do all this for 90 days. famotidine 2022-2022- No [id number] 20mg Take 1 Univers 20 mg 3-21 06-20 tablet by ity of tablet 00:00: 04:59 mouth in [place] 00 :00 the Medical morning Branch and 1 tablet in the evening. Do all this for 90 days. famotidine 2022-2022- No [id number] 20mg Take 1 Univers 20 mg 3-21 06-20 tablet by ity of tablet 00:00: 04:59 mouth in [place] 00 :00 the Medical morning Branch and 1 tablet in the evening. Do all this for 90 days. famotidine 2022-2022- No [id number] 20mg Take 1 Univers 20 mg 3-21 06-20 tablet by ity of tablet 00:00: 04:59 mouth in [place] 00 :00 the Medical morning Branch and 1 tablet in the evening. Do all this for 90 days. famotidine 2022-2022- No [id number] 20mg Take 1 Univers 20 mg 3-21 06-20 tablet by ity of tablet 00:00: 04:59 mouth in [place] 00 :00 the Medical morning Branch and 1 tablet in the evening. Do all this for 90 days. famotidine 2022-2022- No [id number] 20mg Take 1 Univers 20 mg 3-21 06-20 tablet by ity of tablet 00:00: 04:59 mouth in [place] 00 :00 the Medical morning Branch and 1 tablet in the evening. Do all this for 90 days. famotidine 2022-0 2022- No [id number] 20mg Take 1 Univers 20 mg 3-21 06-20 tablet by ity of tablet 00:00: 04:59 mouth in [place] 00 :00 the Medical morning Branch and 1 tablet in the evening. Do all this for 90 days. famotidine 2022-0 2022- No [id number] 20mg Take 1 Univers 20 mg 3-21 06-20 tablet by ity of tablet 00:00: 04:59 mouth in [place] 00 :00 the Medical morning Branch and 1 tablet in the evening. Do all this for 90 days. famotidine 2022-2022- No [id number] 20mg Take 1 Univers 20 mg 3-21 06-20 tablet by ity of tablet 00:00: 04:59 mouth in [place] 00 :00 the Medical morning Branch and 1 tablet in the evening. Do all this for 90 days. famotidine 2022-2022- No [id number] 20mg Take 1 Univers 20 mg 3-21 04-15 tablet by ity of tablet 00:00: 00:00 mouth in [place] 00 :00 the Medical morning Branch and 1 tablet in the evening. Do all this for 90 days. famotidine 2022-2022- No [id number] 20mg Take 1 Univers 20 mg 3-21 04-15 tablet by ity of tablet 00:00: 00:00 mouth in [place] 00 :00 the Medical morning Branch and 1 tablet in the evening. famotidine 2022-0 Yes [id number] 20mg Take 1 U nivers 20 mg 3-17 tablet by ity of tablet 00:00: mouth in [place] 00 the Medical morning Branch and 1 tablet in the evening. famotidine 3-0 Yes [id number] 20mg Take 1 U nivers 20 mg 3-17 tablet by ity of tablet 00:00: mouth in [place] 00 the Medical morning Branch and 1 tablet in the evening. famotidine 0 2022- No [id number] 20mg Take 1 Univers 20 mg 3-17 03-21 tablet by ity of tablet 00:00: 00:00 mouth in [place] 00 :00 the Medical morning Branch and [...] 00 Medical combo pack Branch SELECT-OB + 0 Yes Univer s DHA 29 mg -06 ity of iron-1 mg 00:00: [place] -250 mg 00 Medical combo pack Branch SELECT-OB + 2022-0 Yes Univer s DHA 29 mg -06 ity of iron-1 mg 00:00: [place] -250 mg 00 Medical combo pack Branch SELECT-OB + 2022-0 2022- No Unive rs DHA 29 mg 12-07 04-15 ity of iron-1 mg 00:00: 00:00 [place] -250 mg 00 :00 Medical combo pack Branch magnesium 2021-12 Yes [id number] 400mg Take 1 U nivers oxide 400 1-18 tablet by ity o f mg (241.3 00:00: [place] mg 00 the Medical magnesium) morning. Branc h tablet magnesium 2021-12 Yes [id number] 400mg Take 1 U nivers oxide 400 1-18 tablet by ity o f mg (241.3 00:00: [place] mg 00 the Medical magnesium) morning. Branc h tablet magnesium 2021-12 Yes [id number] 400mg Take 1 U nivers oxide 400 1-18 tablet by ity o f mg (241.3 00:00: [place] mg 00 the Medical magnesium) morning. Branc h tablet magnesium 2021-12 Yes [id number] 400mg Take 1 U nivers oxide 400 1-18 tablet by ity o f mg (241.3 00:00: [place] mg 00 the Medical magnesium) morning. Branc h tablet magnesium 2021-12 Yes [id number] 400mg Take 1 U nivers oxide 400 1-18 tablet by ity o f mg (241.3 00:00: [place] mg 00 the Medical magnesium) morning. Branc h tablet magnesium 2021-12 Yes [id number] 400mg Take 1 U nivers oxide 400 1-18 tablet by ity o f mg (241.3 00:[place] mg 00 the Medical magnesium) morning. Branc h tablet magnesium 2021-12 Yes [id number] 400mg Take 1 U nivers oxide 400 1-18 tablet by ity o f mg (241.3 00:[place]: [place] mg 00 the Medical magnesium) morning. Branc h tablet magnesium 2021-12 Yes [id number] 400mg Take 1 U nivers oxide 400 1-18 tablet by ity o f mg (241.3 00:[place]: [place] mg 00 the Medical magnesium) morning. Branc h tablet magnesium 2021-12 Yes [id number] 400mg Take 1 U nivers oxide 400 1-18 tablet by ity o f mg (241.3 00:[place]: [place] mg 00 the Medical magnesium) morning. Branc h tablet magnesium 2021-12 Yes [id number] 400mg Take 1 U nivers oxide 400 1-18 tablet by ity o f mg (241.3 00:00: [place] mg 00 the Medical magnesium) morning. Branc h tablet magnesium 2021-12 Yes [id number] 400mg Take 1 U nivers oxide 400 1-18 tablet by ity o f mg (241.3 00:00: [place] mg 00 the Medical magnesium) morning. Branc h tablet magnesium 2021-12 Yes [id number] 400mg Take 1 U nivers oxide 400 1-18 tablet by ity o f mg (241.3 00:00: [place] mg 00 the Medical magnesium) morning. Branc h tablet magnesium 2021-12 Yes [id number] 400mg Take 1 U nivers oxide 400 1-18 tablet by ity o f mg (241.3 00:00: [place] mg 00 the Medical magnesium) morning. Branc h tablet magnesium 2021-12 Yes [id number] 400mg Take 1 U nivers oxide 400 1-18 tablet by ity o f mg (241.3 00:00: [place] mg 00 the Medical magnesium) morning. Branc h tablet magnesium 2021-12 Yes [id number] 400mg Take 1 U nivers oxide 400 1-18 tablet by ity o f mg (241.3 00:00: [place] mg 00 the Medical magnesium) morning. Branc h tablet magnesium 2021-12 Yes [id number] 400mg Take 1 U nivers oxide 400 1-18 tablet by ity o f mg (241.3 00:00: [place] mg 00 the Medical magnesium) morning. Branc h tablet magnesium 2021-12 Yes [id number] 400mg Take 1 U nivers oxide 400 1-18 tablet by ity o f mg (241.3 00:00: [place] mg 00 the Medical magnesium) morning. Branc h tablet magnesium 2021-12 Yes [id number] 400mg Take 1 U nivers oxide 400 1-18 tablet by ity o f mg (241.3 00:00: [place] mg 00 the Medical magnesium) morning. Branc h tablet magnesium 2021-12 Yes [id number] 400mg Take 1 U nivers oxide 400 1-18 tablet by ity o f mg (241.3 00:00: [place] mg 00 the Medical magnesium) morning. Branc h tablet magnesium 2021-12 Yes [id number] 400mg Take 1 U nivers oxide 400 1-18 tablet by ity o f mg (241.3 00:00: [place] mg 00 the Medical magnesium) morning. Branc h tablet magnesium 2021-123- No [id number] 400mg Take 1 [facility] oxide 400 1-18 04-15 tablet by ity of mg (241.3 00:00: 00:00 mouth in [place] mg 00 :00 the Medical magnesium) morning. Branc h tablet 2021-12 Yes [id number] 1{tbl} Take 1 U nivers multivitami 0-03 tablet by ity of n ( 00:00: mouth in [place] VITAMIN[place] 00 the Medical tablet morning. Branch 2021-12 Yes [id number] 1{tbl} Take 1 U nivers multivitami 0-03 tablet by ity of n ( 00:00: mouth in [place] VITAMIN) 00 the Medical tablet morning. Branch 2021-12 Yes [id number] 1{tbl} Take 1 U nivers multivitami 0-03 tablet by ity of n ( 00:00: mouth in [place] VITAMIN) 00 the Medical tablet morning. Branch 2021-12 Yes [id number] 1{tbl} Take 1 U nivers multivitami 0-03 tablet by ity of n ( 00:00: mouth in [place] VITAMIN) 00 the Medical tablet morning. Branch 2021-12 Yes [id number] 1{tbl} Take 1 U nivers multivitami 0-03 tablet by ity of n ( 00:00: mouth in [place] VITAMIN) 00 the Medical tablet morning. [place] 2021-12 Yes [id number] 1{tbl} Take 1 U nivers multivitami 0-03 tablet by ity of n ( 00:00: mouth in [place] VITAMIN) 00 the Medical tablet morning. [place] 2021-12 Yes [id number] 1{tbl} Take 1 U nivers multivitami 0-03 tablet by ity of n ( 00:00: mouth in [place] VITAMIN) 00 the Medical tablet morning. [place] 2021-12 Yes [id number] 1{tbl} Take 1 U nivers multivitami 0-03 tablet by ity of n ( 00:00: mouth in [place] VITAMIN) 00 the Medical tablet morning. [place] 2021-12 Yes [id number] 1{tbl} Take 1 U nivers multivitami 0-03 tablet by ity of n ( 00:00: mouth in [place] VITAMIN) 00 the Medical tablet morning. [place] 2021-12 Yes [id number] 1{tbl} Take 1 U nivers multivitami 0-03 tablet by ity of n ( 00:00: mouth in [place] VITAMIN) 00 the Medical tablet morning. [place] 2021-12 Yes [id number] 1{tbl} Take 1 U nivers multivitami 0-03 tablet by ity of n ( 00:00: mouth in [place] VITAMIN) 00 the Medical tablet morning. [place] 2021-12 Yes [id number] 1{tbl} Take 1 U nivers multivitami 0-03 tablet by ity of n ( 00:00: mouth in [place] VITAMIN) 00 the Medical tablet morning. [place] 2021-12 Yes [id number] 1{tbl} Take 1 U nivers multivitami 0-03 tablet by ity of n ( 00:00: mouth in [place] VITAMIN) 00 the Medical tablet morning. [place] 2021-12 Yes [id number] 1{tbl} Take 1 U nivers multivitami 0-03 tablet by ity of n ( 00:00: mouth in [place] VITAMIN) 00 the Medical tablet morning. [facility] 2021-12 Yes [id number] 1{tbl} Take 1 U nivers multivitami 0-03 tablet by ity of n ( 00:00: mouth in [place] VITAMIN) 00 the Medical tablet morning. [place] 2021-12 Yes [id number] 1{tbl} Take 1 U nivers multivitami 0-03 tablet by ity of n ( 00:00: mouth in [place] VITAMIN) 00 the Medical tablet morning. [place] 2021-12 Yes [id number] 1{tbl} Take 1 U nivers multivitami 0-03 tablet by ity of n ( 00:00: mouth in [place] VITAMIN) 00 the Medical tablet morning. [place] 2021-12 Yes [id number] 1{tbl} Take 1 U nivers multivitami 0-03 tablet by ity of n ( 00:00: mouth in [place] VITAMIN) 00 the Medical tablet morning. [place] 2021-12 Yes [id number] 1{tbl} Take 1 U nivers multivitami 0-03 tablet by ity of n ( 00:00: mouth in [place] VITAMIN) 00 the Medical tablet morning. [place] 2021-12 Yes [id number] 1{tbl} Take 1 U nivers multivitami 0-03 tablet by ity of n ( 00:00: mouth in [place] VITAMIN) 00 the Medical tablet morning. [place] 2021-12 Yes [id number] 1{tbl} Take 1 U nivers multivitami 0-03 tablet by ity of n ( 00:00: mouth in [place] VITAMIN) 00 the Medical tablet morning. [place] 2021-12 Yes [id number] 1{tbl} Take 1 U nivers multivitami 0-03 tablet by ity of n ( 00:00: mouth in [place] VITAMIN) 00 the Medical tablet morning. [place] 2021-12 Yes [id number] 1{tbl} Take 1 U nivers multivitami 0-03 tablet by ity of n ( 00:00: mouth in [place] VITAMIN) 00 the Medical tablet morning. [place] 2021-12 Yes [id number] 1{tbl} Take 1 U nivers multivitami 0-03 tablet by ity of n ( 00:00: mouth in [place] VITAMIN) 00 the Medical tablet morning. [facility] 2021-12- No [id number] 1{tbl} Take 1 Univers multivitami 0-03 04-15 tablet by it y of n ( 00:00: 00:00 mouth in [place] VITAMIN) 00 :00 the Medical tablet morning. Branch buPROPion 2021-0 Yes [id number] 150mg Take 1 U nivers XL 9-28 tablet by ity of (WELLBUTRIN 00:00: mouth in [place] XL) 150 mg 00 the Medical 24 hr morning. Branch tablet busPIRone 5 2021-0 Yes [id number] 5mg Take 1 Univers mg tablet 9-28 tablet by ity o f 00:00: mouth in [place] 00 the Medical morning Branch and 1 tablet in the evening. buPROPion 2021-0 Yes [id number] 150mg Take 1 U nivers XL 9-28 tablet by ity of (WELLBUTRIN 00:00: mouth in [place] XL) 150 mg 00 the Medical 24 hr morning. Branch tablet busPIRone 5 2021-0 Yes [id number] 5mg Take 1 Univers mg tablet 9-28 tablet by ity o f 00:00: mouth in [place] 00 the Medical morning Branch and 1 tablet in the evening. buPROPion 2021-0 Yes [id number] 150mg Take 1 U nivers XL 9-28 tablet by ity of (WELLBUTRIN 00:00: mouth in [place] XL) 150 mg 00 the Medical 24 hr morning. Branch tablet busPIRone 5 2021-0 Yes [id number] 5mg Take 1 Univers mg tablet 9-28 tablet by ity o f 00:00: mouth in [place] 00 the Medical morning Branch and 1 tablet in the evening. buPROPion 2021-0 Yes [id number] 150mg Take 1 U nivers XL 9-28 tablet by ity of (WELLBUTRIN 00:00: mouth in [place] XL) 150 mg 00 the Medical 24 hr morning. Branch tablet busPIRone 5 2021-0 Yes [id number] 5mg Take 1 Univers mg tablet 9-28 tablet by ity o f 00:00: mouth in [place] 00 the Medical morning Branch and 1 tablet in the evening. buPROPion 2021-0 Yes [id number] 150mg Take 1 U nivers XL 9-28 tablet by ity of (WELLBUTRIN 00:00: mouth in [place] XL) 150 mg 00 the Medical 24 hr morning. Branch tablet busPIRone 5 2021-0 Yes [id number] 5mg Take 1 Univers mg tablet 9-28 tablet by ity o f 00:00: mouth in [place] 00 the Medical morning Branch and 1 tablet in the evening. buPROPion 2021-0 Yes [id number] 150mg Take 1 U nivers XL 9-28 tablet by ity of (WELLBUTRIN 00:00: mouth in [place] XL) 150 mg 00 the Medical 24 hr morning. Branch tablet busPIRone 5 2021-0 Yes [id number] 5mg Take 1 Univers mg tablet 9-28 tablet by ity o f 00:00: mouth in [place] 00 the Medical morning Branch and 1 tablet in the evening. buPROPion 2021-0 Yes [id number] 150mg Take 1 U nivers XL 9-28 tablet by ity of (WELLBUTRIN 00:00: mouth in [place] XL) 150 mg 00 the Medical 24 hr morning. Branch tablet busPIRone 2021-0 Yes [id number] 5mg Take 1 Univers mg tablet 9-28 tablet by ity o f 00:00: mouth in [place] 00 the Medical morning Branch and 1 tablet in the evening. buPROPion 2021-0 Yes [id number] 150mg Take 1 U nivers XL 9-28 tablet by ity of (WELLBUTRIN 00:00: mouth [place] XL) 150 mg 00 the Medical 24 hr morning. Branch tablet busPIRone 2021-0 Yes [id number] 5mg Take 1 Univers mg tablet 9-28 tablet by ity o f 00:00: mouth in [place] 00 the Medical morning Branch and 1 tablet in the evening. buPROPion 2021-0 Yes [id number] 150mg Take 1 U nivers XL 9-28 tablet by ity of (WELLBUTRIN 00:00: mouth in [place] XL) 150 mg 00 the Medical 24 hr morning. Branch tablet busPIRone 5 2021-0 Yes [id number] 5mg Take 1 Univers mg tablet 9-28 tablet by ity o f 00:00: mouth in [place] 00 the Medical morning Branch and 1 tablet in the evening. buPROPion 2021-0 Yes [id number] 150mg Take 1 U nivers XL 9-28 tablet by ity of (WELLBUTRIN 00:00: mouth in [place] XL) 150 mg 00 the Medical 24 hr morning. Branch tablet busPIRone 0 Yes [id number] 5mg Take 1 Univers mg tablet 9-28 tablet by ity o f 00:00: mouth in [place] 00 the Medical morning Branch and 1 tablet in the evening. buPROPion 2021-0 Yes [id number] 150mg Take 1 U nivers XL 9-28 tablet by ity of (WELLBUTRIN 00:00: mouth in [place] XL) 150 mg 00 the Medical 24 hr morning. Branch tablet busPIRone 5 2021-0 Yes [id number] 5mg Take 1 Univers mg tablet 9-28 tablet by ity o f 00:00: mouth in [place] 00 the Medical morning Branch and 1 tablet in the evening. buPROPion 2021-0 Yes [id number] 150mg Take 1 U nivers XL 9-28 tablet by ity of (WELLBUTRIN 00:00: mouth in [place] XL) 150 mg 00 the Medical 24 hr morning. Branch tablet busPIRone 5 2021-0 Yes [id number] 5mg Take 1 Univers mg tablet 9-28 tablet by ity o f 00:00: mouth in [place] 00 the Medical morning Branch and 1 tablet in the evening. buPROPion 2021-0 Yes [id number] 150mg Take 1 U nivers XL 9-28 tablet by ity of (WELLBUTRIN 00:00: mouth in [place] XL) 150 mg 00 the Medical 24 hr morning. Branch tablet busPIRone 5 2021-0 Yes [id number] 5mg Take 1 Univers mg tablet 9-28 tablet by ity o f 00:00: mouth in [place] 00 the Medical morning Branch and 1 tablet in the evening. buPROPion 2021-0 Yes [id number] 150mg Take 1 U nivers XL 9-28 tablet by ity of (WELLBUTRIN 00:00: mouth in [place] XL) 150 mg 00 the Medical 24 hr morning. Branch tablet busPIRone 5 2021-0 Yes [id number] 5mg Take 1 Univers mg tablet 9-28 tablet by ity o f 00:00: mouth in [place] 00 the Medical morning Branch and 1 tablet in the evening. buPROPion 2021-0 Yes [id number] 150mg Take 1 U nivers XL 9-28 tablet by ity of (WELLBUTRIN 00:00: mouth in [place] XL) 150 mg 00 the Medical 24 hr morning. Branch tablet buPROPion Yes [id number] 150mg Take 1 U nivers XL 9-28 tablet by ity of (WELLBUTRIN 00:00: mouth in [place] XL) 150 mg 00 the Medical 24 hr morning. Branch tablet buPROPion 2022- No [id number] 150mg Take 1 Univers XL 08-29-31 tablet by ity of (WELLBUTRIN 00:00: 00:00 mouth in [place] XL) 150 mg 00 :00 the Medical 24 hr morning. Branch tablet busPIRone 5 2022- No [id number] 5mg Take 1 Univers mg tablet 08-2930 tablet by ity of 00:00: 00:00 mouth in [place] 00 :00 the Medical morning Branch and 1 tablet in the evening. Yes [id number] 1{tbl} Take 1 U nivers multivitami 8-08 tablet by ity of n ( 00:00: mouth in [place] VITAMIN) 00 the Medical tablet morning. Branch buPROPion Yes [id number] 150mg Take 1 U nivers XL 8-08 tablet by ity of (WELLBUTRIN 00:00: mouth in [place] XL) 150 mg 00 the Medical 24 hr morning. Branch tablet Yes [id number] 1{tbl} Take 1 U nivers multivitami 8-08 tablet by ity of n ( 00:00: mouth in [place] VITAMIN) 00 the Medical tablet morning. Branch buPROPion Yes [id number] 150mg Take 1 U nivers XL 8-08 tablet by ity of (WELLBUTRIN 00:00: mouth in [place] XL) 150 mg 00 the Medical 24 hr morning. Branch tablet Yes [id number] 1{tbl} Take 1 U nivers multivitami 8-08 tablet by ity of n ( 00:00: mouth in [place] VITAMIN) 00 the Medical tablet morning. Branch Yes [id number] 1{tbl} Take 1 U nivers multivitami 8-08 tablet by ity of n ( 00:00: mouth in [place] VITAMIN) 00 the Medical tablet morning. Branch 2021- No [id number] 1{tbl} Take 1 Univers multivitami 07-09 tablet by it y of n ( 00:00: 00:00 mouth [place] VITAMIN) 00 :00 the Medical tablet morning. Branch buPROPion 2021- No [id number] 150mg Take 1 Univers XL 07-09 tablet by ity of (WELLBUTRIN 00:00: 00:00 mouth [place] XL) 150 mg 00 :00 the Medical 24 hr morning. Branch tablet No [id number] 1{tbl} Take 1 [facility] vitamin 07-06 tablet by ity of w/FA tablet 00:00: [place] :[place] daily. Medical Branch docusate No [id number] 240mg Take 1 [facility] calcium 240 07-06 capsule by i ty of mg capsule 00:00: 00:00 mouth once [place] 00 :00 daily as Medical needed for Branch Constipati on. ferrous No [id number] 325mg Take 1 U nivers sulfate 325 07-06 tablet by it y of mg (65 mg 00:00: 00:[place] iron) 00 :00 (two) Medical tablet times Branch daily. ibuprofen No [id number] 600mg Take 1 Univers 600 mg 07-06 tablet by ity of tablet 00:00: 00:00 mouth [place] 00 :00 every 6 Medical (six) Branch hours as needed (Pain). Take with food or milk. Immunizations Ordered Filled Date Status Comments Source Immunization Name Immunization Name Rho (d) Immune 2023-03-16 Completed [facility] [place] 00:00:00 [facility] Rho (d) Immune 2023-03-16 Completed [facility] Globulin 00:00:00 [facility] TDAP 2023-02-04 Completed University of 00:00:00 [facility] Rho (d) Immune 2023-02-04 Completed [facility] Globulin 00:00:00 [facility] TDAP 2023-02-04 Completed University of 00:00:00 [facility] Rho (d) Immune 2023-02-04 Completed [facility] of Globulin 00:00:00 [facility] TDAP 2023-02-04 Completed University of 00:00:00 [facility] Rho (d) Immune 2023-02-04 Completed [facility] of Globulin 00:00:00 [facility] TDAP 2023-02-04 Completed University of 00:00:00 [facility] Branch Rho (d) Immune 2023-02-04 Completed University of Globulin 00:00:00 [facility] TDAP 2023-02-04 Completed University of 00:00:00 [facility] Rho (d) Immune 2023-02-04 Completed University of Globulin 00:00:00 [facility] TDAP 2023-02-04 Completed University of 00:00:00 [facility] Rho (d) Immune 2023-02-04 Completed University of Globulin 00:00:00 [facility] TDAP 2023-02-04 Completed University of 00:00:00 [facility] Rho (d) Immune 2023-02-04 Completed [facility] of Globulin 00:00:00 [facility] TDAP 2023-02-04 Completed University of 00:00:00 [facility] Rho (d) Immune 2023-02-04 Completed University of Globulin 00:00:00 [facility] TDAP 2023-02-04 Completed University of 00:00:00 [facility] Rho (d) Immune 2023-02-04 Completed University of Globulin 00:00:00 [facility] TDAP 2023-02-04 Completed University of 00:00:00 [facility] Rho (d) Immune 2023-02-04 Completed University of Globulin 00:00:00 [facility] TDAP 2023-02-04 Completed University of 00:00:00 [facility] Rho (d) Immune 2023-02-04 Completed University of Globulin 00:00:00 [facility] TDAP 2023-02-04 Completed University of 00:00:00 [facility] Rho (d) Immune 2023-02-04 Completed University of Globulin 00:00:00 [facility] TDAP 2023-02-04 Completed University of 00:00:00 [facility] Rho (d) Immune 2023-02-04 Completed University of Globulin 00:00:00 [facility] TDAP 2023-02-04 Completed University of 00:00:00 [facility] Rho (d) Immune 2023-02-04 Completed University of Globulin 00:00:00 [facility] TDAP 2023-02-04 Completed University of 00:00:00 [facility] Branch Rho (d) Immune 2023-02-04 Completed University of Globulin 00:00:00 [facility] TDAP 2023-02-04 Completed University of 00:00:00 [facility] Branch Rho (d) Immune 2023-02-04 Completed University of Globulin 00:00:00 [facility] TDAP 2023-02-04 Completed University of 00:00:00 [facility] Branch Rho (d) Immune 2023-02-04 Completed University of Globulin 00:00:00 [facility] TDAP 2023-02-04 Completed University of 00:00:00 [facility] Branch Rho (d) Immune 2023-02-04 Completed University of Globulin 00:00:00 [facility] TDAP 2023-02-04 Completed University of 00:00:00 [facility] Rho (d) Immune 2023-02-04 Completed University of Globulin 00:00:00 [facility] TDAP 2023-02-04 Completed University of 00:00:00 [facility] Rho (d) Immune 2023-02-04 Completed University of Globulin 00:00:00 [facility] TDAP 2023-02-04 Completed University of 00:00:00 [facility] Branch Rho (d) Immune 2023-02-04 Completed University of Globulin 00:00:00 [facility] TDAP 2023-02-04 Completed University of 00:00:00 [facility] Branch Rho (d) Immune 2023-02-04 Completed University of Globulin 00:00:00 [facility] Branch Rho (d) Immune 2009-09-19 Completed University of Globulin 00:00:00 [facility] Branch Rho (d) Immune 2009-09-19 Completed University of Globulin 00:00:00 [facility] Branch Rho (d) Immune 2009-09-19 Completed University of Globulin 00:00:00 [facility] Branch Rho (d) Immune 2009-09-19 Completed University of Globulin 00:00:00 [facility] Branch Rho (d) Immune 2009-09-19 Completed University of Globulin 00:00:00 [facility] Branch Rho (d) Immune 2009-09-19 Completed University of Globulin 00:00:00 [facility] Branch Rho (d) Immune 2009-09-19 Completed University of Globulin 00:00:00 [facility] Branch Rho (d) Immune 2009-09-19 Completed University of Globulin 00:00:00 [facility] Branch Rho (d) Immune 2009-09-19 Completed University of Globulin 00:00:00 [facility] Branch Rho (d) Immune 2009-09-19 Completed University of Globulin 00:00:00 [facility] Branch Rho (d) Immune 2009-09-19 Completed University of Globulin 00:00:00 [facility] Branch Rho (d) Immune 2009-09-19 Completed University of Globulin 00:00:00 [facility] Branch Rho (d) Immune 2009-09-19 Completed University of Globulin 00:00:00 [facility] Branch Rho (d) Immune 2009-09-19 Completed University of Globulin 00:00:00 [facility] Branch Rho (d) Immune 2009-09-19 Completed University of Globulin 00:00:00 [facility] Branch Rho (d) Immune 2009-09-19 Completed University of Globulin 00:00:00 [facility] Branch Rho (d) Immune 2009-09-19 Completed University of Globulin 00:00:00 [facility] Branch Rho (d) Immune 2009-09-19 Completed [facility] of Globulin 00:00:00 [facility] Branch Rho (d) Immune 2009-09-19 Completed University of Globulin 00:00:00 [facility] Branch Rho (d) Immune 2009-09-19 Completed University of Globulin 00:00:00 [facility] Branch Rho (d) Immune 2009-09-19 Completed University of Globulin 00:00:00 [facility] Branch Rho (d) Immune 2009-09-19 Completed University of Globulin 00:00:00 [facility] Branch Rho (d) Immune 2009-09-19 Completed University of Globulin 00:00:00 [facility] Branch Rho (d) Immune 2009-09-19 Completed University of Globulin 00:00:00 [facility] Branch Rho (d) Immune 2009-09-19 Completed [facility] of Globulin 00:00:00 [facility] Branch Rho (d) Immune 2009-09-19 Completed [facility] of Globulin 00:00:00 [facility] Branch Rho (d) Immune 2009-09-19 Completed University of Globulin 00:00:00 [facility] Branch Rho (d) Immune 2009-09-19 Completed University of Globulin 00:00:00 [facility] Branch Rho (d) Immune 2009-09-19 Completed University of Globulin 00:00:00 [facility] Branch Rho (d) Immune 2009-09-19 Completed [facility] of Globulin 00:00:00 [place] [facility] Rho (d) Immune 2009-09-19 Completed [facility] of Globulin 00:00:00 [facility] Rho (d) Immune 2009-09-19 Completed University of Globulin 00:00:00 [facility] Rho (d) Immune Unknown Completed [facility] TDAP Unknown Completed [facility] Rho (d) Immune Unknown Completed [facility] Rho (d) Immune Unknown Completed [facility] Rho (d) Immune Unknown Completed [facility] Vital Signs Vital Name Observation Time Observation Value Comments Source Systolic blood 2023-03-17 01:40:00 112 mm[Hg] [facility] Diastolic blood 2023-03-17 01:40:00 61 mm[Hg] [facility]ive rs[facility] of [facility] Heart rate 2023-03-17 01:40:00 73 /min [facility] Body temperature 2023-03-17 01:40:00 [facility].11 [facility] 2023-03-17 01:40:00 18 /min [facility] Oxygen saturation in 2023-03-17 01:40:00 99 /min [facility] Arterial blood by [facility] Pulse oximetry Branch Body height 2023-03-15 10:03:00 165.1 cm Universi ty [facility] Body weight 2023-03-15 10:03:00 117.935 kg Universi ty [facility] BMI 2023-03-15 10:03:00 43.27 kg/m2 Universi ty [facility] Systolic blood 2023-03-12 21:25:00 111 mm[Hg] [facility]iver [facility] of [facility] Diastolic blood 2023-03-12 21:25:00 75 mm[Hg] Unive rsity [facility] Heart rate 2023-03-12 21:25:00 87 /min Universi ty [facility] Body temperature 2023-03-12 21:25:00 36.72 [facility] ers[facility] Respiratory rate 2023-03-12 21:25:00 17 /min Univ ersity [facility] Body height 2023-03-12 21:25:00 165.1 cm Universi ty [facility] Body weight 2023-03-12 21:25:00 117.028 kg Universi ty [facility] BMI 2023-03-12 21:25:00 42.93 kg/m2 [facility] [place] [facility] Systolic blood 2023-03-05 14:31:00 115 mm[Hg] Univer sity of pressure [place] [facility] Diastolic blood 2023-03-05 14:31:00 78 mm[Hg] Unive rsity of pressure [place] [facility] Heart rate 2023-03-05 14:31:00 81 /min [facility] [place] [facility] Respiratory rate 2023-03-05 14:31:00 18 /min Univ ers[facility] [place] [facility] Body height 2023-03-05 14:31:00 165.1 cm [facility] [place] [facility] Body weight 2023-03-05 14:31:00 117.028 kg [facility] [place] [facility] BMI 2023-03-05 14:31:00 42.93 kg/m2 [facility] [place] [facility] Systolic blood 2023-02-15 20:17:00 118 mm[Hg] [facility]iver [facility] Diastolic blood 2023-02-15 20:17:00 76 mm[Hg] Unive rs[facility] Heart rate 2023-02-15 20:17:00 80 /min [facility] Body temperature 2023-02-15 20:17:00 36.67 Mary [facility] Respiratory rate 2023-02-15 20:17:00 18 /min [facility] Body height 2023-02-15 20:17:00 165.1 cm [facility] Body weight 2023-02-15 20:17:00 115.667 kg [facility] BMI 2023-02-15 20:17:00 42.43 kg/m2 [facility] Systolic blood 2023-02-04 21:13:00 126 mm[Hg] [facility] Diastolic blood 2023-02-04 21:13:00 72 mm[Hg] Unive [facility] Heart rate 2023-02-04 21:13:00 88 /min [facility] Body temperature 2023-02-04 21:13:00 36.83 Mary [facility] Respiratory rate 2023-02-04 21:13:00 18 /min [facility] Body height 2023-02-04 21:13:00 165.1 cm [facility] Body weight 2023-02-04 21:13:00 114.261 kg [facility] BMI 2023-02-04 21:13:00 41.92 kg/m2 [facility] Systolic blood 2022-11-16 20:26:00 102 mm[Hg] [facility] Diastolic blood 2022-11-16 20:26:00 66 mm[Hg] [facility]ive [facility] Heart rate 2022-11-16 20:26:00 77 /min [facility] Body temperature 2022-11-16 20:26:00 36.67 Mary [facility] Respiratory rate 2022-11-16 20:26:00 18 /min [facility] Body height 2022-11-16 20:26:00 165.1 cm [facility] Body weight 2022-11-16 20:26:00 113.853 kg [facility] BMI 2022-11-16 20:26:00 41.77 kg/m2 [facility] Systolic blood 2022-10-19 20:58:00 104 mm[Hg] [facility] Diastolic blood 2022-10-19 20:58:00 68 mm[Hg] [facility] Heart rate 2022-10-19 20:58:00 91 /min [facility] Body temperature 2022-10-19 20:58:00 36.78 Mary [facility] Respiratory rate 2022-10-19 20:58:00 18 /min [facility] Body height 2022-10-19 20:58:00 165.1 cm [facility] Body weight 2022-10-19 20:58:00 113.853 kg [facility] BMI 2022-10-19 20:58:00 41.77 kg/m2 [facility] Systolic blood 2022-08-29 16:00:00 109 mm[Hg] Univer sity of pressure [facility] Diastolic blood 2022-08-29 16:00:00 71 mm[Hg] Unive rsity of pressure [facility] Heart rate 2022-08-29 15:21:00 80 /min Universi ty of [facility] Body temperature 2022-08-29 15:21:00 36.94 Mary Univ ers[facility] of [facility] Respiratory rate 2022-08-29 15:21:00 18 /min Univ ersity of [facility] Body height 2022-08-29 15:21:00 165.1 cm [facility]i [facility] Body weight 2022-08-29 15:21:00 105.325 kg [facility]i [facility] BMI 2022-08-29 15:21:00 38.64 kg/m2 [facility] Systolic blood 2022-07-09 20:04:00 109 mm[Hg] Univer sity of [facility] Diastolic blood 2022-07-09 20:04:00 58 mm[Hg] Unive rsity of [facility] Heart rate 2022-07-09 20:04:00 68 /min Universi ty of [facility] Body temperature 2022-07-09 20:04:00 36.28 [facility] Res[facility] rate 2022-07-09 20:04:00 20 /min Univ ersity of [facility] Body height 2022-07-09 20:04:00 165.1 cm Universi [facility] Body weight 2022-07-09 20:04:00 99.905 kg [facility] BMI 2022-07-09 20:04:00 36.65 kg/m2 [facility] Procedures Procedure Date / Time Performed Performing Clinician Sourc e CBC WITH DIFF 2023-03-16 10:02:00 Bill Velazquez [facility] HB -MATERNAL 2023-03-16 10:02:00 Priscila Piedra [facility] CENTRAL NEURAXIAL 2023-03-15 21:32:00 Demarcus Constantino [facility] ANTI-D R/O PANEL 2023-03-15 18:36:00 Bill Velazquez [facility] EXTRA TUBE LAV (BLOOD 2023-03-15 18:36:00 Bill Velazquez [facility]) Medical Branch PREPARE PACKED RBC 2023-03-15 18:14:00 Bill Velazquez [facility] y [facility] HB ABO GROUPING 2023-03-15 10:44:00 Bill Velazquez [place] o f [facility] RHO (D) IMMUNE 2023-03-15 10:44:00 Bill Velazquez [place] GLOBULIN [facility] CONSENT/REFUSAL FOR 2023-03-13 22:06:36 Doctor Unassigned, No Un [facility] DIAGNOSIS AND Name Medical Branch TREATMENT PHYSICIAN ORDERS 2023-03-12 05:01:00 Doctor Unassigned, No Carlotae [facility] Medical [place] POCT URINALYSIS W/O 2023-03-12 00:00:00 Christopher [facility] SPECIFIC GRAVITY Medical [place] POCT URINALYSIS W/O 2023-03-05 00:00:00 Christopher Adams [facility] SPECIFIC GRAVITY Medical [place] POCT URINALYSIS W/O 2023-02-15 00:00:00 Bill Velazquez [facility] SPECIFIC GRAVITY Medical [place] DSU PRE-OP 2023-02-08 06:01:00 Doctor Unassigned, No [facility] TDAP VACCINE, >11 YRS, 2023-02-04 21:44:40 Christopher Adams [facility] POCT URINALYSIS W/O 2023-02-04 00:00:00 Christopher Adams [facility] SPECIFIC GRAVITY Medical Branch POCT URINALYSIS W/O 2022-11-16 00:00:00 Bill Velazquez [facility] SPECIFIC GRAVITY Medical [place] POCT URINALYSIS W/O 2022-10-19 00:00:00 Christopher Adams [facility] SPECIFIC GRAVITY Medical [place] <14 WEEKS US 2022-08-29 19:59:32 Bill Velazquez [facility] GLUCOSE 1 HOUR POST 2022-08-29 18:05:00 Bill Velazquez [facility] ASSIGNMENT OF BENEFITS 2022-08-29 16:33:28 Doctor Unassigned, No [facility] POCT URINALYSIS W/O 2022-08-29 00:00:00 Bill Velazquez [facility] POCT TEST 2022-07-09 19:55:00 [facility] W/O 2022-07-09 19:55:00 [facility]neka [facility] Encounters Start End Encounter Admission Attending Care Care Encounter Source Date/Time Date/Time Type Type Clinicians Facility Department ID 2021-09-29 Outpatient [facility] [id number] Univers 10:16:10 ity of [facility] 2023-04-05 2023-04-05 Outpatient R MARCUS BILL [facility] [id number] Univers 15:15:00 15:15:00 ity of [facility] 2023-03-20 2023-03-[address] [facility] 1.2.840.11 [id number] Univers 00:00:00 00:00:00 Priscila woodson 350.1.13.10 ity of PEDIATRIC 4.2.7.2.686 [facility] [id number] [facility] 134 Branch 2023-03-15 2023-03-16 Inpatient P BILL VELAZQUEZ [facility] SUNITA [id number] Univers 04:02:00 21:47:00 ity of [facility] 2023-03-15 2023-03-16 Hospital Bethany Parra [facility] 1.2.840.11 4 [id number] Univers 04:02:00 21:47:00 Encounter Marcus Bill DIAMOND 350.1.13.10 it[facility] 4.2.7.2.686 [facility] [id number] [facility] 083 Branch 2023-03-15 2023-03-15 Anesthesia Dougie [facility] 1.2.840.114 1 [id number] Univers 16:32:00 19:59:00 Event Demarcus DIAMOND 350.1.13.10 [place] [id number] [facility] 083 [place] 2023-03-15 2023-03-15 [facility]est[facility] 1.2.840.114 [id number] Univers 13:15:30 13:15:30 Event Robert DIAMOND 350.1.13.10 i [place] [id number] [facility] 083 [place] 2023-03-14 2023-03-14 Hospital BIGG Rodriguez 1.2.840.114 1 [id number] Univers 13:17:00 23:59:00 Encounter Maurisio Maddox 350.1.13.10 ity of [facility] 4.2.7.2.686 [place] [phone] [facility] 031 Branch 2023-03-14 2023-03-14 [facility] ACO [id number] Univers 00:00:00 23:59:00 MAURISIO kiser [facility] 2023-03-13 2023-03-13 Newsagent Vladimir, Adc Lab Main [facility] 1.2.8 40.114 [id number] Univers 08:45:00 09:00:00 Visit BraydenMaurisio DARA 350.1.13.10 it[place] [id number] T[place] dical [facility] 2023-03-13 2023-03-13 Outpatient R BRAYDEN [facility] [id number] Univers 08:45:00 08:45:00 MAURISIO kiser [facility] 2023-03-13 2023-03-13 Orders Doctor CULLEN 1.2.840.114 [id number] Univers 00:00:00 00:00:00 Only Unassigned, MARILY 350.1.13.10 ity of [place] [facility] 4.2.7.2.686 [place] [phone] [facility] 009 Branch 2023-03-12 2023-03-12 Outpatient R CHRISTOPHER ADAMS [facility] [id number] Univers 16:15:00 16:37:17 CHRISTOPHER ADAMS itdiandra [facility] 2023-03-12 2023-03-12 Routine [facility] 1.2.840.114 [id number] Univers 16:15:00 16:37:17 Christopher HADDAD 350.1.13.10 i ty of [place] [id number] [address] 2023-03-12 2023-03-12 Orders Doctor SUBHASH 1.2.840.114 [id number] Univers 00:00:00 00:00:00 Only Unassigned, MARILY 350.1.13.10 ity of [place] [facility] 4.2.7.2.686 [place] [id number] [address] 2023-03-08 2023-03-08 Telephone Marcus Bill [facility] 1.2.840.114 [id number] Univers 00:00:00 00:00:00 Lai HADDAD 350.1.13.10 it y [place] [id number] [address] 2023-03-05 2023-03-05 Outpatient R ELOISECHRISTOPHER WILLIS [facility] B [id number] Univers 09:15:00 09:51:39 EVELYNCHRISTOPHER ELIAS diandra [facility] 2023-03-05 2023-03-05 Routine [facility] 1.2.840.114 [id number] Univers 09:15:00 09:51:39 Christopher HADDAD 350.1.13.10 i ty of [place] [id number] [address] 2023-03-01 2023-03-01 Outpatient R MARCUS BILL [facility] [id number] Univers 08:00:00 08:00:00 ity of [facility] 2023-03-01 2023-03-01 Telephone Marcus [facility] 1.2.840.114 10 [id number] Univers 00:00:00 00:00:00 Lai DIAMOND 350.1.13.10 i [place] [id number] T[place] dical NAL [address] [place] [address] 2023-02-28 2023-02-28 [facility] 1.2.840.114 10 [id number] Univers 00:00:00 00:00:00 Lai DIAMOND 350.1.13.10 i ty [place] [id number] [place] dic[address] 2023-02-28 2023-02-28 Telephone [facility] 1.2.840.114 [id number] Univers 00:00:00 00:00:00 Lai HADDAD 350.1.13.10 it y of PEDIATRIC 4.2.7.2.686 [facility] [id number] [address] 2023-02-22 2023-02-22 Outpatient R MARCUS [facility] [id number] Univers 13:00:00 13:00:00 ity of [facility] 2023-02-20 2023-02-20 Newsagent 1Lin Room [facility] 1.2. 840.114 [id number] Univers 08:00:00 09:00:00 Visit Gisselle Arnold PRESCHOOL ASSISTANT DIRECTOR 350.1. 13.10 ity [facility] 4.2.7.2.686 [place] MATERNAL [id number] Med ical & CHILD [address] [place] [address] 2023-02-20 2023-02-20 Outpatient P RADHA [facility] [id number] Univers 08:00:00 08:00:00 NOREEN it y of S, PITTS [facility] 2023-02-20 2023-02-20 Case Stefano [facility] 1.2.840.114 [id number] Univers 00:00:00 00:00:00 Management Christopher HADDAD 350.1.13.10 ity [place] [facility] [id number] [address] 2023-02-19 2023-02-19 Telephone Marcus [facility] 1.2.840.114 10 [id number] Univers 00:00:00 00:00:00 Cam DARA 350.1.13.10 i ty [place] [id number] [place] dical [address] 2023-02-15 2023-02-15 Outpatient R MARCUS BILL [facility] [id number] Univers 15:15:00 15:34:40 ity of [facility] 2023-02-15 2023-02-15 Routine Bill Velazquez [facility] 1.2.840.114 10 [id number] Univers 15:15:00 15:34:40 Lai HADDAD 350.1.13.10 i ty of [place] [id number] [address] 2023-02-14 2023-02-14 Patient Doctor [facility] KONRAD 1.2.711.674 [id number] Univers 00:00:00 00:00:00 Secure Msg UnassignedCATIE 350.1.13.10 ity [place] [id number] [address] 2023-02-08 2023-02-08 Orders Doctor SUBHASH 1.2.840.114 [id number] Univers 00:00:00 00:00:00 Only Unassigned, MARILY 350.1.13.10 ity of [place] [facility] 4.2.7.2.686 [place] [id number] [address] 2023-02-05 2023-02-05 Outpatient R [facility] [id number] Univers 09:30:00 09:30:00 ity of [facility] 2023-02-04 2023-02-04 Outpatient R CHRISTOPHER ADAMS [facility] B [id number] Univers 14:45:00 15:47:35 CHRISTOPHER ADAMS itdiandra of [facility] 2023-02-04 2023-02-04 Routine Stefano [facility] KONRAD 1.2.840.114 [id number] Univers 14:45:00 15:47:35 Christopher HADDAD 350.1.13.10 i ty of [place] [id number] [facility] 134 Branch 2023-01-30 2023-01-30 Outpatient R CHRISTOPHER ADAMS [facility] [id number] Univers 16:15:00 16:15:00 CHRISTOPHER ADAMS [facility] 2022-12-14 2022-12-14 Outpatient R ELOISECHRISTOPHER WILLIS [facility] B [id number] Univers 13:30:00 13:30:00 ELOISECHRISTOPHER WILLIS [facility] 2022-12-03 2022-12-03 Outpatient R CRYSTAL [facility] [id number] Univers 14:00:00 14:00:00 BURT kiser o f [facility] 2022-11-30 2022-11-30 Outpatient P [facility] [id number] Univers 08:45:00 08:45:00 [facility] 2022-11-20 2022-11-20 Outpatient R MICK XIE [facility] [id number] Univers 13:00:00 13:00:00 MICK XIE [facility] 2022-11-16 2022-11-16 Outpatient R BILL VELAZQUEZ [facility] [id number] Univers 14:00:00 15:22:13 [facility] 2022-11-16 2022-11-16 [facility]ine [facility] 1.2.840.114 [id number] Univers 14:00:00 15:22:13 Cam CATIE 350.1.13.10 i ty of [place] [id number] [facility] 134 Branch 2022-11-01 2022-11-01 Patient Doctor SUBHASH 1.2.840.114 [id number] Univers 00:00:00 00:00:00 Secure Msg Unassigned, MARILY 350.1.13.10 ity of [place] [facility] 4.2.7.2.686 [place] [id number] [facility] 019 Branch 2022-10-19 2022-10-19 Outpatient R ELOISECHRISTOPHER WILLIS [facility] B [id number] Univers 14:15:00 15:18:29 CHRISTOPHER ADAMS [facility] 2022-10-19 2022-10-19 Routine [facility] 1.2.840.114 [id number] Univers 14:15:00 15:18:29 Christopher HADDAD 350.1.13.10 i ty of [place] [id number] [address] 2022-10-19 2022-10-19 Case [facility] 1.2.840.114 [id number] Univers 00:00:00 00:00:00 Management Christopher HADDAD 350.1.13.10 it[place] [id number] [address] 2022-09-26 2022-09-26 Outpatient R CHRISTOPHER ADAMS [facility] B [id number] Univers 09:30:00 09:30:00 CHRISTOPHER ADAMS [facility] 2022-09-07 2022-09-07 Telephone Bill Velazquez [facility] 1.2.840.114 [id number] Univers 00:00:00 00:00:00 Lai DIAMOND 350.1.13.10 i ty of [place] [id number] T[place] dic[address] 2022-08-31 2022-08-31 Telephone Bill Velazquez NVVICKY 1.2.840.114 [id number] Univers 00:00:00 00:00:00 Lai DIAMOND 350.1.13.10 i ty of [place].2.[place] [id number] T[place] dic[address] 2022-08-29 2022-08-29 Newsagent Vladimir, Fern Lab Main [facility] 1.2.8 40.114 [id number] Univers 11:15:00 11:30:00 Visit Bill Velazquez 350.1.13.10 ity of [place] [id number] Me dical NAL [address] [facility] 2022-08-29 2022-08-29 Outpatient R BILL VELAZQUEZ [facility] [id number] Univers 10:00:00 11:08:03 ity of [facility] 2022-08-29 2022-08-29 Initial Bill Velazquez [facility] 1.2.431.812 [id number] Univers 10:00:00 11:08:03 Cam DARA 350.1.13.10 ity of [place] [id number] Me dical NAL [address] [facility] 2022-08-29 2022-08-29 Orders Doctor SUBHASH 1.2.840.114 [id number] Univers 00:00:00 00:00:00 Only Unassigned, MARILY 350.1.13.10 ity of [place] [facility] 4.2.7.2.686 [place] [id number] [address] 2022-08-27 2022-08-27 Outpatient P ARLEN [facility] [id number] Univers 14:00:00 14:00:00 SENAIT [facility] 2022-08-27 2022-08-27 Outpatient R CHRISTOPHER ADAMS [facility] B [id number] Univers 08:00:00 08:00:00 CHRISTOPHER ADAMS [facility] 2022-08-14 2022-08-14 Outpatient R OSIEL, [facility] [id number] Univers 10:45:00 10:45:00 NNEKA ity o f [facility] 2022-07-23 2022-07-23 Outpatient R AKINSIPE, [facility] [id number] Univers 10:45:00 10:45:00 NNEKA ity o f [facility] 2022-07-16 2022-07-16 Outpatient R KHAI [facility] [id number] Univers 13:15:00 13:15:00 ROSHUNDA ity o f [facility] 2022-07-09 2022-07-09 Outpatient R AKINIAN, [facility] [id number] Univers 15:00:00 16:30:53 NNEKA ity o f [facility] 2022-07-09 2022-07-09 Initial [facility] 1.2.855.199 [id number] Univers 15:00:00 16:30:53 Nneka C PRESCHOOL ASSISTANT DIRECTOR 350.1.13.10 ity of Visit [facility] 4.2.7.2.686 [place] MATERNAL [id number] Med ical & CHILD [address] [place] [address] 2022-07-09 2022-07-09 Outpatient R AKINSIPE, [facility] [id number] Univers 15:00:00 16:30:53 NNEKA ity o f [facility] 2022-07-09 2022-07-09 Outpatient R AKINSIPE, [facility] [id number] Univers 15:00:00 16:30:53 NNEKA ity o f [facility] 2022-07-09 2022-07-09 Orders Doctor SUBHASH 1.2.840.114 [id number] Univers 00:00:00 00:00:00 Only Unassigned, MARILY 350.1.13.10 ity of [place] [facility] 4.2.7.2.686 [place] [id number] [facility] 009 Branch 2022-04-24 2022-04-25 Emergency X [facility] ERT [id number] Univers 23:27:00 02:29:00 [facility] ity of [facility] 2022-04-24 2022-04-25 Emergency [facility] 1.2.015.649 [id number] Univers 23:27:00 02:29:00 Rosa [facility] 350.1.13.10 ity of [place] 4.2.7.2.686 [facility] [id number] [facility] 084 Branch 2022-03-08 2022-03-08 Patient Doctor SUBHASH 1.2.840.114 [id number] Univers 00:00:00 00:00:00 Secure Msg Unassigned, MARILY 350.1.13.10 ity of [place] [facility] 4.2.7.2.686 [place] [id number] [facility] 019 Branch 2020-09-19 2020-09-19 Outpatient R AKINSIPE, [facility] [id number] Univers 15:15:00 15:15:00 NNEKA kiser o [place] [facility] 2020-08-01 2020-08-01 Outpatient R OSIEL, [facility] [id number] Univers 13:45:00 13:45:00 NNEKA granty o f [facility] 2020-07-28 2020-07-28 Outpatient R OSIEL, [facility] [id number] Univers 14:45:00 14:45:00 NNEKA kiser o [place] [facility] 2020-07-03 2020-07-06 [facility] SUBHASH Saez 1.2.695.109 [id number] 19:39:00 16:26:00 Encounter Pedro CAL[place] 350.1.13.10 [place] 26730.7.2.686 [id number] 2020-07-02 2020-07-02 SUBHASH Payan 1.2.840.114 [id number] 00:00:00 00:00:00 Triage Lilo CALIXTO [address].13.[address]686 [id number] 019 2020-06-27 2020-06-27 [facility] 1.2.840.114 [id number] 15:32:39 16:14:31 Roshunda R PRESCHOOL ASSISTANT DIRECTOR 350.1.13.10 Visit REGIONAL 4.2.7.2.686 MATERNAL [id number] & CHILD [address] [facility] 2020-06-27 2020-06-27 Outpatient R KHAI [facility] [id number] Univers 15:30:00 15:30:00 ROSHUNDA ity o f [facility] 2020-06-23 2020-06-23 Abstract Khai [facility] 1.2.840.114 [id number] 00:00:00 00:00:00 Roshunda R PRESCHOOL ASSISTANT DIRECTOR 350.1.13.10 REGIONAL 4.2.7.2.686 MATERNAL [id number] & CHILD [facility] 2020-06-23 2020-06-23 Telephone SUBHASH Lees 1.2.840.114 [id number] 00:00:00 00:00:00 Cherie CALIXTO 350.1.13.10 [facility] 4.2.7.2.686 [id number] 019 2020-06-22 2020-06-22 Newsagent Raquel, [facility] 1.2.840.114 [id number] 14:18:43 14:48:43 Visit [facility] PRESCHOOL ASSISTANT DIRECTOR 350.1.13.10 REGIONAL 4.2.7.2.686 MATERNAL [id number] & CHILD [facility] 2020-06-22 2020-06-22 Outpatient P [facility] [id number] Univers 14:15:00 14:15:00 [facility] 2020-06-22 2020-06-22 [facility] [id number] 00:00:00 00:00:00 Senait Ashraf PRESCHOOL ASSISTANT DIRECTOR [id number] REGIONAL [id number] MATERNAL [id number] & CHILD 107 [facility] 2020-06-21 2020-06-21 [facility] [id number] 14:11:25 15:15:39 Roshunda R PRESCHOOL ASSISTANT DIRECTOR [id number] Visit REGIONAL [id number] MATERNAL [id number] & CHILD 107 [facility] 2020-06-21 2020-06-21 Outpatient R KHAI [facility] [id number] Univers 10:00:00 10:00:00 ROSHUNDA ity o f [facility] 2020-06-03 2020-06-03 Outpatient R AKINIAN, [facility] [id number] Univers 14:15:00 14:15:00 NNEKA ity o f [facility] 2020-05-16 2020-05-16 Outpatient P [facility] [id number] Univers 11:00:00 11:00:00 [facility] 2020-05-12 2020-05-12 Outpatient R AKINSIPE, [facility] [id number] Univers 15:30:00 15:30:00 NNEKA ity o f [facility] 2020-04-05 2020-04-05 Outpatient R AKINIAN, [facility] [id number] Univers 13:15:00 13:15:00 NNEKA granty o f [facility] 2020-04-04 2020-04-04 Outpatient P BRADLEY TOVAR [facility] [id number] Univers 11:45:00 11:45:00 [facility] [facility] 2020-03-22 2020-03-22 Outpatient R OSIEL, [facility] [id number] Univers 13:45:00 13:45:00 NNEKA granty o f [facility] 2020-03-17 2020-03-17 Outpatient Raju_P MMG MMG [id number] [place] 09:35:00 09:35:00 [id number] 2020-03-07 2020-03-07 Outpatient P [facility] [id number] [facility] 11:00:00 11:00:00 [facility] 2020-03-04 2020-03-04 Outpatient P KALE, [facility] [id number] Univers 13:30:00 13:30:00 JAGDISH [facility] 2020-02-26 2020-02-26 Outpatient R AKINSIROSALINO, [facility] [id number] Univers 15:00:00 15:00:00 NNEKA kiser o [facility] 2020-02-25 2020-02-25 Outpatient R [facility] [id number] Univers 13:30:00 13:30:00 [facility] 2020-02-23 2020-02-23 Outpatient R ARLEN, [facility] [id number] Univers 12:45:00 12:45:00 SENAIT [facility] 2020-01-08 2020-01-08 Outpatient R LAKISHA, [facility] [id number] Univers 15:45:00 15:45:00 LAUREN [facility] Results Test Description Test Time Test Comments Results Result Comments Source RHO (D) IMMUNE GLOBULIN 2023-03-16 01:34:00 Test Item Value Reference Range Interpretation Comme nts RHIG CANDIDATE? (test code = Yes- see comment A Patient is a candidate for RhIg- 5188) Patient is Rh N egative and baby is Rh Positive.Per formed at [facility] Laboratory [facility] Blood [address] [place] [id number] Free: [phone] No. [id number] Lab Interpretation (test code Abnormal = 91168-6) [facility] [id number] 00:23:24 Test Item Value Reference Range Interpretation Comments ANTIBODY (test Anti-D Probable PATIENT RE CEIVED code = 683) RhIg RHIG 02/04/23.Performe d at [facility] Laboratory Services - [facility] Blood [address] [place] [address] s [id number] Free: [phone] A No. [id number] [facility] and Screen - ONCE [id number] 12:12:00 Test Item Value Reference Range Interpretation Comments ABO & RH (test code = 20) A Negative IAT (test code = 1185) Positive [facility] W/O SPECIFIC [id number] 21:22:00 Test Item Value Reference Range Interpretation [...] code = 3257) n/a Negative - Negative [facility] SPECIFIC [id number] 14:41:00 Test Item Value Reference Range Interpretation [...] code = 3257) N/A Negative - Negative [facility] SPECIFIC [id number] 20:17:00 Test Item Value Reference Range Interpretation [...] code = 3257) n/a Negative - Negative [facility] URINALYSIS W/O SPECIFIC [id number] 21:11:00 Test Item Value Reference Range Interpretation [...] code = 3257) n/a Negative - [facility] [id number] 20:30:00 Test Item Value Reference Range Interpretation [...] code = 3257) neg Negative - Negative [facility] [id number] 21:06:00 Test Item Value Reference Range Interpretation [...] code = 3257) N/A Negative - Negative [facility] 1 H[facility] [id number] 19:18:59 Test Item Value Reference Range Interpretation Comments GLUC 1 HR (test code = [id number]) 68 mg/dL 120-170 L Lab Interpretation (test code = Abnormal 66269-7) [facility] URINALYSIS W/O SPECIFIC [id number] 15:26:00 Test Item Value Reference Range Interpretation [...] code = 3257) n/a Negative - Negative [facility] [id number] 19:55:00 Test Item Value Reference Range Interpretation Comments POCT PREG (test code = 1605) Positive On board controls acceptable with C Yes Line (test code = 3574) POCT PREG LOT # (test code = 3575) POCT PREG TEST DATE (test code = 3576) [facility] URINALYSIS W/O SPECIFIC [id number] 19:55:00 Test Item Value Reference Range Interpretation [...] (test code = 3257) Negative - Negative [facility]
[2023-09-20] MEDS ORDERED: NA CHLORIDE 0.9% 0 ML ONE (20:29)
[2023-09-20] MEDS ORDERED: AZITHROMYCIN 500 MG INJ IVPB ONE (20:29)
[2023-09-20] MEDS ORDERED: NA CHLORIDE 0.9% 1,000 ML ONE (20:29)
[2023-09-20] MEDS ORDERED: NA CHLORIDE 0.9% 250 ML ONE (20:31)
--- NOTE | 2023-09-20 20:58 | ER ---
Nurse's Notes [facility] Name: Sandra Amado Age: 32 yrs Sex: Female : 1990 Arrival Date: 09/20/2023 Time: 19:25 Bed 8 Private MD: Diagnosis: Influenza due to other identified influenza virus with gastrointestinal manifestations;Acute serous otitis media, bilateral Presentation: 09/20 19:44 Chief complaint: Patient states: "Ever since 4pm yesterday, I started coughing, having mb9 a fever, sore throat, body aches, N/V/D, and pain in my ears. I took Tylenol at 5 pm for my fever. Coronavirus screen: Vaccine status: Patient reports being unvaccinated. Ebola Screen: No symptoms or risks identified at this time. Initial Sepsis Screen: Does the patient meet any 2 criteria? No. Patient's initial sepsis screen is negative. Does the patient have a suspected source of infection? No. Patient's initial sepsis screen is negative. Risk Assessment: Do you want to hurt yourself or someone else? Patient reports no desire to harm self or others. Onset of symptoms was September 20, 2023. 19:44 Method Of Arrival: Ambulatory mb9 19:44 Acuity: HUGO 4 mb9 Triage Assessment: 19:46 General: Appears uncomfortable, ill, Behavior is calm. Pain: Complains of pain in right mb9 ear and left ear and throat. Neuro: Da Islva Agitation-Sedation Scale (RASS): 0 - Alert and Calm. Cardiovascular: Patient's skin is warm and dry. Respiratory: Reports cough that is Airway is patent Respiratory effort is even, unlabored, Respiratory pattern is regular, symmetrical. GI: Reports diarrhea, nausea, vomiting. : No signs and/or symptoms were reported regarding the genitourinary system. Derm: Skin is pink, warm \\T\\ dry. Musculoskeletal: Range of motion: intact in all extremities. 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 - Social history:: Smoking status: Patient denies any tobacco usage or history of. Screenin:02 [facility] ED Fall Risk Assessment (Adult) History of falling in the last 3 months, jb4 including since admission No falls in past 3 months (0 pts) Confusion or Disorientation No (0 pts). Abuse screen: Denies threats or abuse. Nutritional screening: No deficits noted. Tuberculosis screening: No symptoms or risk factors identified. Assessment: 20:01 General: Appears in no apparent distress. uncomfortable, Behavior is calm, cooperative, jb4 appropriate for age. Pain: Complains of pain in Generalized body aches. Pain does not radiate. Pain currently is 6 out of 10 on a pain scale. Quality of pain is described as aching. Neuro: Level of Consciousness is awake, alert, obeys commands, Oriented to person, place, time, situation. Cardiovascular: Patient's skin is warm and dry. Respiratory: Airway is patent Respiratory effort is even, unlabored, Respiratory pattern is regular, symmetrical. GI: Abdomen is non-distended. : No signs and/or symptoms were reported regarding the genitourinary system. EENT: Throat is clear with gag reflex present. Derm: Skin is intact, Skin is pink, warm \\T\\ dry. Musculoskeletal: Circulation, motion, and sensation intact. Range of motion: intact in all extremities. 21:21 Reassessment: Pt to discharge s/p IV antibiotics as well as IV fluid. Pt tolerated PO nw1 medication. 0 s/s of acute respiratory distress noted at this time. Pt denies needs/wants at this time. Will discharge once medication is complete. Vital Signs: 19:44 BP 94 / 74; Pulse 111; Resp 18; Temp 98.5; Pulse Ox 100% on R/A; Weight 104.33 kg; 9 Height 5 ft. 5 in. ; 20:31 BP 109 / 76; Pulse 101; Resp 15; Pulse Ox 97% ; nw1 21:20 BP 100 / 84; Pulse 96; Resp 16; Pulse Ox 98% ; nw1 19:44 Body Mass Index 38.27 (104.33 kg, 165.1 cm) [facility] ED Course: 19:26 Patient arrived in ED. jj6 19:41 Daylin Trevino FNP-C [facility]. snw 19:41 Erick Nesbitt MD is Attending Physician. snw 19:45 Triage completed. mb9 19:46 Arm band placed on. mb9 20:01 Rhys Damon, RN is Primary Nurse. jb4 20:02 Patient has correct armband on for positive identification. Bed in low position. Call jb4 light in reach. Side rails up X 1. Client placed on continuous cardiac and pulse oximetry monitoring. NIBP monitoring applied. 20:31 Inserted saline lock: 20 gauge in right hand, using aseptic technique. nw1 22:39 Provided Education on: discharge instructions/flu information. nw1 22:39 IV discontinued, bleeding controlled, No redness/swelling at site. Pressure dressing nw1 applied. 22:39 No provider procedures requiring assistance completed. nw1 Administered Medications: 22:41 Discontinued: ns 0.9% 1000 ml IV at 1 bolus Per protocol; 1000 mL bolus nw1 22:41 Discontinued: [id number] mg IVPB once over 1 hrs; mix in 250 mL NS nw1 20:32 Drug: NS 0.9% IV 1000 ml IV at 1 bolus Per protocol; 1000 mL bolus Route: IV; Rate: 1 nw1 bolus; Site: right hand; 20:32 Drug: Zithromax IVPB 500 mg IVPB once over 1 hrs; mix in 250 mL NS Route: IVPB; Infused nw1 Over: 1 hrs; Site: right hand; 21:19 Drug: Lortab PO Liquid 15 ml PO once Route: PO; nw1 Medication: 22:40 VIS not applicable for this client. nw1 Outcome: 20:56 Discharge ordered by . snw 22:38 Discharged to home ambulatory, nw1 22:38 Condition: stable 22:38 Discharge instructions given to patient, 22:41 Patient left the ED. nw1 Signatures: Daylin Trevino FNP-C CLOTH BOIL OFF MACHINE OPERATOR-Csnw Rhys Damon, RN RN jb4 Aishwarya Cameron jj6 Vera Tompkins, RN RN mb9 Deb Rios RN RN nw1
--- NOTE | 2023-09-20 20:58 | EDPHYS ---
Physician Documentation [facility] Name: Sandra Amado Age: 32 yrs Sex: Female : 1990 Arrival Date: 09/20/2023 Time: 19:25 Bed 8 Private MD: ED Physician Erick Nesbitt HPI: 09/20 20:54 This 32 yrs old Female presents to ER via Ambulatory with complaints of snw Nausea/Vomiting, Fever, Sore Throat. 20:54 The patient presents to the emergency department with nausea, vomiting, bodyaches, snw fever, sore throat, cough. Onset: The symptoms/episode began/occurred suddenly, 2 day(s) ago, and became persistent. Associated signs and symptoms: Pertinent positives: fever, nausea, vomiting, cough, sore throat, headache. Severity of symptoms: At their worst the symptoms were moderate severe. The patient has not recently seen a physician. 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 - Social history:: Smoking status: Patient denies any tobacco usage or history of. ROS: 20:48 Eyes: Negative for injury, pain, redness, and discharge, snw 20:48 Constitutional: Positive for body aches, chills, fatigue, fever, malaise, poor PO intake, 20:48 ENT: Positive for Exam: 20:48 Head/Face: Normocephalic, atraumatic. Eyes: Pupils equal round and reactive to light, snw extra-ocular motions intact. Lids and lashes normal. Conjunctiva and sclera are non-icteric and not injected. Cornea within normal limits. Periorbital areas with no swelling, redness, or edema. 20:48 Neck: Trachea midline, no thyromegaly or masses palpated, and no cervical lymphadenopathy. Supple, full range of motion without nuchal rigidity, or vertebral point tenderness. No Meningismus. Chest/axilla: Normal chest wall appearance and motion. Nontender with no deformity. No lesions are appreciated. 20:48 Respiratory: Lungs have equal breath sounds bilaterally, clear to auscultation and percussion. No rales, rhonchi or wheezes noted. No increased work of breathing, no retractions or nasal flaring. Abdomen/GI: Soft, non-tender, with normal bowel sounds. No distension or tympany. No guarding or rebound. No evidence of tenderness throughout. Back: No spinal tenderness. No costovertebral tenderness. Full range of motion. Skin: Warm, dry with normal turgor. Normal color with no rashes, no lesions, and no evidence of cellulitis. MS/ Extremity: Pulses equal, no cyanosis. Neurovascular intact. Full, normal range of motion. Neuro: Awake and alert, GCS 15, oriented to person, place, time, and situation. Cranial nerves II-XII grossly intact. Motor strength 5/5 in all extremities. Sensory grossly intact. Cerebellar exam normal. Normal gait. Psych: Awake, alert, with orientation to person, place and time. Behavior, mood, and affect are within normal limits. 20:48 Constitutional: The patient appears alert, awake, obese, uncomfortable, 20:48 ENT: TM's: erythema, that is moderate, bilaterally, Nose: is normal, Mouth: is normal, Posterior pharynx: erythema, that is moderate, Voice: is normal, 20:48 Cardiovascular: Rate: tachycardic, Rhythm: regular, Edema: is not appreciated, Vital Signs: 19:44 BP 94 / 74; Pulse 111; Resp 18; Temp 98.5; Pulse Ox 100% on R/A; Weight 104.33 kg; mb9 Height 5 ft. 5 in. ; 20:31 BP 109 / 76; Pulse 101; Resp 15; Pulse Ox 97% ; nw1 21:20 BP 100 / 84; Pulse 96; Resp 16; Pulse Ox 98% ; nw1 19:44 Body Mass Index 38.27 (104.33 kg, 165.1 cm) mb9 MDM: 19:53 Patient medically screened. snw 20:55 Differential diagnosis: viral illness, bacterial illness. influenza, strep. Data snw reviewed: vital signs, nurses notes, lab test result(s), +flu B. I considered the following discharge prescriptions or medication management in the emergency department Medications were administered in the Emergency Department. See MAR. Care significantly affected by the following chronic conditions: Diabetes, Hypertension, Obesity. Counseling: I had a detailed discussion with the patient and/or guardian regarding the historical points, exam findings, and any diagnostic results supporting the discharge/admit diagnosis, lab results, the need for outpatient follow up, for definitive care, to return to the emergency department if symptoms worsen or persist or if there are any questions or concerns that arise at home. Response to treatment: the patient's symptoms have markedly improved after treatment. Special discussion: Based on the history and exam findings, there is no indication for further emergent testing or inpatient evaluation. I discussed with the patient/guardian the need to see the primary care provider for further evaluation of the symptoms. 09/20 19:41 Order name: Strep; Complete Time: 20:25 snw 09/20 19:41 Order name: Flu; Complete Time: 20:25 snw 09/20 19:41 Order name: COVID-19 SARS RT PCR; Complete Time: 20:36 snw 09/20 20:14 Order name: Throat Culture EDMS Administered Medications: 22:41 Discontinued: ns 0.9% 1000 ml IV at 1 bolus Per protocol; 1000 mL bolus nw1 22:41 Discontinued: [id number] mg IVPB once over 1 hrs; mix in 250 mL NS nw1 20:32 Drug: NS 0.9% IV 1000 ml IV at 1 bolus Per protocol; 1000 mL bolus Route: IV; Rate: 1 nw1 bolus; Site: right hand; 20:32 Drug: Zithromax IVPB 500 mg IVPB once over 1 hrs; mix in 250 mL NS Route: IVPB; Infused nw1 Over: 1 hrs; Site: right hand; 21:19 Drug: Lortab PO Liquid 15 ml PO once Route: PO; nw1 Disposition: 21:53 Co-signature as Attending Physician, Erick Nesbitt MD I reviewed the patient's care rt provided by the Advanced Practice Provider and agree with the diagnosis and treatment plan. Disposition Summary: 09/20/23 20:56 Discharge Ordered Notes: Location: Home snw Condition: Stable snw Diagnosis - Influenza due to other identified influenza virus with gastrointestinal snw manifestations - Acute serous otitis media, bilateral snw Followup: snw - With: Emergency Department - When: As needed - Reason: Worsening of condition Followup: snw - With: Private Physician - When: 2 - 3 days - Reason: Recheck today's complaints, Continuance of care, Re-evaluation by your physician Discharge Instructions: - Discharge Summary Sheet snw - Fever, Adult snw - Influenza, Adult snw - Otitis Media, Adult, [id number] snw Forms: - Work release form snw - Medication Reconciliation Form snw - Thank You Letter snw - Antibiotic Education snw - Prescription Opioid Use snw - Patient Portal Instructions snw - Leadership Thank You Letter snw Prescriptions: - Mobic 7.5 mg Oral tablet - take 1 tablet ORAL route once daily take with food; 10 tablet; Refills: 0, snw Product Selection Permitted - promethazine 25 mg Oral Tablet - take 1 tablet ORAL route every 6 hours As needed; 20 tablet; Refills: 0, snw Product Selection Permitted Signatures: Dispatcher [employer] EDMS Daylin Trevino, CONSTRUCTION DIRECTOR-C CONSTRUCTION DIRECTOR-Csnw Vera Tompkins RN RN mb9 Erick Nesbitt MD MD rt Deb Rios, DENIS RN nw1
[2023-09-20] MEDS ORDERED: HYDROCOD 2.5mg-ACETAMIN 108mg/5mL Soln ONE (21:24)
[2023-09-20 22:51] VITALS: TEMP 98.5
[2023-09-20 23:02] VITALS: BP 100/84; O2SAT 98
== END 2023-09-20 22:41 | disposition home or self-care (01) ==
LOC: ER 19:25
DX: J10.2 Influenza due to other identified influenza virus with gastrointestinal manifestations (principal); H65.03 Acute serous otitis media, bilateral; Z20.822 Contact with and (suspected) exposure to COVID-19
CPT/HCPCS: 87070; 87081; 87635; 87804; 96374; 99284; J7030; J7050

== ENCOUNTER → 2024-01-13 | Emergency (ER) | payer SELFPAY ==
[~2024-01-13] MED LIST: KETOROLAC 30 MG/ML INJ ONE; ONDANSETRON 4 MG (ODT) TAB ONE
--- OUTSIDE RECORDS SUMMARY | 2024-01-13 16:04 | XMS REPORT | Continuity of Care Document ---
Author Name Unknown Address [address] [facility] [address] [place] [address] [facility] Address [address] [facility] [address] [place] [address] Care Team Providers Care [employer] Consultant Name Role Phone Roque Karen VALDES Primary Care Physician Un available BILL VELAZQUEZ Attending Clinician Unavailable Tadeo GARVIN, Priscila Attending Clinician + [phone] Bethany Parra MD Attending Clinician [phone] Bill Velazquez MD Attending Clinician [phone] Demarcus Constantino MD Attending Clinician [phone] Robert Cannon CRNA Attending Clinician [phone] Maurisio Rodriguez MD Attending Clinician [phone] MAURISIO RODRIGUEZ Attending Clinician Unavaileverett Gilbert, [facility] Main Attending Clinician Unavaileverett winter Doctor Unassigned, [place] Attending Clinician U CHRISTOPHER Benavides Attending Clinician UnavailCHRISTOPHER Juares Attending Clinician Unavailradha levy 1, [facility] [place] [facility] [place]ician Rachael Mcdaniel MD, Gisselle Attending Clinician + GISSELLE ARNOLD Attending Clinician Unav ailable BURT ROJAS Attending Clinician Unavailable MICK XIE Attending Clinician Unavail able MICK XIE Attending Clinician Unavail able SENAIT MCKINLEY Attending Clinician Unavailabl NNEKA Cisneros Attending Clinician Unavail able KAREN RIDLEY Attending Clinician Unavailab guera [place] WHCNPNneka Attending Clinician + ROSA CARDENAS Attending Clinician Unavailable Rosa Cardenas MD Attending Clinician [phone] Pedro Saez MD Attending Clinician + [phone] Lilo Garcia RN Attending Clinician Unavaila mildred [place] [employer] SALES REPRESENTATIVE, Karen Jolly Attending Clinician + [phone] Cherie Lees MA Attending Clinician Unava ilable Ultrasound, Ang-Mfm Attending Clinician Unavailradha VALDES, Senait Ashraf Attending Clinician [phone] BRADLEY TOVAR Attending Clinician Unavailable Rajveronica_P Attending Clinician Unavailable JAGDISH HENLEY Attending Clinician Unavailable LAUREN BANUELOS Attending Clinician Unavailable BILL VELAZQUEZ Admitting Clinician Unavailable Bill Velazquez MD Admitting Clinician [phone] ROSA CARDENAS Admitting Clinician Unavailable Pedro Saez MD Admitting Clinician + [phone] Edd_Naun Admitting Clinician Unavailable Payers Payer Name Policy Type Policy Number Effective Date Expirati on Date Source [employer] [id number] 2019 00:00:00 Problems Condition Name Condition Details Condition Category Status Onset Date Resolution Date Last Treatment Date Treating Clinician Comments Source Encounter for induction of labor Encounter for induction of labor Disease Active 03-15 00:00: 00 [facility] Morbid obesity with body mass index of 40.0-49.9 Morbid obesity with body mass index of 40.0-49.9 Disease Active 03-15 00:00: 00 [facility] Liveborn , of montiel , born in hospital by vaginal delivery Liveborn , of montiel , born in hospital by vaginal delivery Disease Active 4-14 00:00: 00 [facility] Inability to access health care due to transporta tion insecurity Inability to access health care due to transporta tion insecurity Disease Active 4-12 00:00: 00 [facility] Need for Tdap vaccinatio n Need for Tdap vaccinatio n Disease Active 3-06 00:00: 00 [facility] Back pain during Back pain during Disease Active 2021-12 2-16 00:00: 00 [facility] Sciatic pain, right Sciatic pain, right Disease Active 2021-12 2-16 00:00: 00 [facility] Anxiety disorder, unspecifie d type Anxiety disorder, unspecifie d type Disease Active 9-28 00:00: 00 [facility] SVT (supravent ricular tachycardi a) SVT (supravent ricular tachycardi a) Disease Active 9-28 00:00: 00 [facility] Anxiety and depression Anxiety and depression Disease Active 9-28 00:00: 00 [facility] Supervisio n of high-risk Supervisio n of high-risk Disease Active 8-08 00:00: 00 [facility] Grand multiparit y, antepartum Grand multiparit y, antepartum Disease Active 8-08 00:00: 00 [facility] Other depression Other depression Disease Active 8-08 00:00: 00 Overview: Formattin g of this note might be different from the original. 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 Address in Labor and Delivery. [facility] Anemia of mother in , antepartum Anemia of mother in , antepartum Disease Active 06-22 00:00: 00 [facility] Anemia of mother in , antepartum Anemia of mother in , antepartum Disease Active 7 00:00: 00 [facility] Insufficie nt care in third trimester Insufficie nt care in third trimester Disease Active 06-21 00:00: 00 [facility] Rh negative, antepartum Rh negative, antepartum Disease Active 24 00:00: 00 Overview: Formattin g of this note might be different from the original. Rhogam at 28 weeks [facility] History of substance use History of substance use Disease Active 02-22 00:00: 00 [facility] Allergies, Adverse Reactions, Alerts Allergy Name Allergy Type Status Severity Reaction(s) Onset Date Inactive Date Treating Clinician Comments Source Tramadol Propensi ty to adverse reaction s Active Hives 2018-0 -14 00:00: 00 [facility] TRAMADOL DRUG INGREDI Active Hives 2018-0 14 00:00: 00 [facility] Penicill ins Propensi ty to adverse reaction s Active Hives 04-13 00:00: 00 [facility] PENICILL INS Drug Class Active Hives 04-13 00:00: 00 [facility] Penicill ins Propensi ty to adverse reaction s Active Hives 04-13 00:00: 00 [facility] Social History Social Habit Start Date Stop Date Quantity Comments Source ASSERTION 2022-06-13 00:00:00 [facility] Exposure to SARS-CoV-2 (event) 2023-03-05 00:00:00 2023-03-15 04:57:00 Not sure [facility] History of Social function 2022-07-09 00:00:00 2022-07-09 00:00:00 [facility] History of tobacco use 2021-07-02 00:00:00 Smokes tobacco daily [facility] Alcohol intake 2020-07-05 00:00:00 2020-07-05 00:00:00 Ex-drinker (finding) [facility] Tobacco use and exposure 2019-12-11 00:00:00 2019-12-11 00:00:00 User of smokeless tobacco [facility] Tobacco Comment 2019-12-11 00:00:00 2019-12-11 00:00:00 2 ciggs a day [facility] Sex Assigned At 1990 00:00:00 1990 00:00:00 [facility] Smoking Status Start Date Stop Date Source Never smoked tobacco [facility] Ex-smoker 2022-07-09 00:00:00 2022-07-09 00:00:00 [facility] Smokes tobacco daily 2019-12-11 00:00:00 [facility] Medications Ordered Medication Name Filled Medication Name Start Date Stop Date Current Medication? Ordering Clinician Indication Dosage Frequency Signature (SIG) Comments Components Source abdifatah CAREY) 50 % topical pad 03-16 00:08: 26 Yes Topical, Q4HPRN, Starting on Sat03/15/23 at 1908, Until Discontinu ed, Routine, rectal/hem orrhoidal pain [facility] ibuprofen (IBU) tablet 600 mg 03-16 00:08: 26 Yes 600mg 600 mg, Oral, Q6HPRN, Starting on Sat03/15/23 at 1908, Until Discontinu ed, Routine, Pain (scale 4-6) [facility] acetaminoph en (TYLENOL) tablet 650 mg 03-16 00:08: 26 Yes 650mg 650 mg, Oral, Q6HPRN, Starting on Sat03/15/23 at 1908, Until Discontinu ed, Routine, Pain (scale 1-3) [facility] diphenhydrA MINE (BENADRYL) tablet 25 mg 03-16 00:08: 26 Yes 25mg 25 mg, Oral, Q6HPRN, Starting on Sat03/15/23 at 1908, Until Discontinu ed, Routine, Sleep, Itching [facility] ondansetron (ZOFRAN (PF)) injection 4 mg 03-16 00:08: 26 Yes 4mg 4 mg, Slow IV Push, Q8HPRN, Starting on Sat03/15/23 at 1908, Until Discontinu ed, Routine, Nausea and Vomiting (N/V) [facility] simethicone (GAS RELIEF (SIMETHICON E)) chewable tablet 160 mg 03-16 00:08: 26 Yes 160mg 160 mg, Oral, PC+HSPRN, Starting on Sat03/15/23 at 1908, Until Discontinu ed, Routine, Gas [facility] docusate (COLACE) capsule 200 mg 03-16 00:08: 26 Yes 200mg 200 mg, Oral, QDAILYPRN, Starting on Sat03/15/23 at 1908, Until Discontinu ed, Routine, Constipati on [facility] magnesium hydroxide (MILK OF MAGNESIA) 400 mg/5 mL suspension 30 mL 03-16 00:08: 26 Yes 30mL 30 mL, Oral, QDAILYPRN, Starting on Sat03/15/23 at 1908, Until Discontinu ed, Routine, Constipati on [facility] benzocaine- menthol (DERMOPLAST ) 20-0.5 % topical spray 03-16 00:08: 26 Yes Topical, PRN, Starting on Sat03/15/23 at 1908, Until Discontinu ed, Routine, Perineum discomfort [facility] vitamin w/FA tablet 03-16 00:00: 00 Yes [id number] 1{tbl} Take 1 tablet by mouth in the morning. [facility] docusate 100 mg capsule 03-16 00:00: 00 Yes [id number] 200mg Take 2 capsules by mouth once daily as needed for Constipati on. [facility] ferrous sulfate 325 mg (65 mg iron) tablet 03-16 00:00: 00 Yes [id number] 325mg Take 1 tablet by mouth in the morning and 1 tablet in the evening. [facility] ibuprofen 600 mg tablet 2022-0 -15 00:00: 00 Yes [id number] 600mg Take 1 tablet by mouth every 6 (six) hours as needed (Pain). Take with food or milk. [facility] vitamin w/FA tablet 2022-0 -15 00:00: 00 Yes [id number] 1{tbl} Take 1 tablet by mouth in the morning. [facility] docusate 100 mg capsule 2022-0 -15 00:00: 00 Yes [id number] 200mg Take 2 capsules by mouth once daily as needed for Constipati on. [facility] ferrous sulfate 325 mg (65 mg iron) tablet 2022-0 15 00:00: 00 Yes [id number] 325mg Take 1 tablet by mouth in the morning and 1 tablet in the evening. [facility] ibuprofen 600 mg tablet 2022-0 15 00:00: 00 Yes [id number] 600mg Take 1 tablet by mouth every 6 (six) hours as needed (Pain). Take with food or milk. [facility] vitamin w/FA tablet 2022-0 15 00:00: 00 Yes [id number] 1{tbl} Take 1 tablet by mouth in the morning. [facility] docusate 100 mg capsule 2022-0 15 00:00: 00 Yes [id number] 200mg Take 2 capsules by mouth once daily as needed for Constipati on. [facility] ferrous sulfate 325 mg (65 mg iron) tablet 0 15 00:00: 00 Yes [id number] 325mg Take 1 tablet by mouth in the morning and 1 tablet in the evening. [facility] ibuprofen 600 mg tablet 2022-0 15 00:00: 00 Yes [id number] 600mg Take 1 tablet by mouth every 6 (six) hours as needed (Pain). Take with food or milk. [facility] terbutaline (BRETHINE) injection 0.25 mg 03-15 23:45: 00 03-15 22:46 :00 No .25mg 0.25 mg, Subcutaneo us, ONCE, 1 dose, On Sat03/15/23 at 1845, Routine [facility] amnioinfusi on IV infusion via PUMP 0.9 NaCL 1,000 mL 03-15 22:15: 00 03-15 22:36 :00 No 1000mL at 750 mL/hr, Intrauteri ne, ONCE, 1 dose, On Sat03/15/23 at 1715, JESS
Ma y give up 1000 mL. & nbsp;Infus e via Intrauteri ne Pressure Catheter.& nbsp;&nbsp ;The infusion is started at 750 mL/hr by volume controlled infusion pump. "The infusion pump should be clearly labeled AMNIOINF USION.&n bsp; Once 750 mL has been infused, the infusion may be discontinu ed or decreased to 100 mL/hr until the liter is complete.& nbsp;&nbsp ;Notify Plan Rep if uterine resting tone exceeds 25 mmHg at any time during the amnioinfus ion. Obst etrics (SUNITA) Aminoinfus ion Orders
[facility] fentaNYL-ro pivacaine 2 mcg/mL-0.1 % (PF) in NS 200 mL epidural infusion RTU 03-15 21:47: 00 03-16 01:01 :29 No Epidural, ONCE INTRA PROCEDURE, Starting on Sat03/15/23 at 1647, Until Sat03/15/23 at 2000, Routine, Intra-op [facility] fentaNYL-ro pivacaine 2 mcg/mL-0.1 % (PF) in NS 200 mL epidural infusion RTU 03-15 21:47: 00 03-16 01:01 :29 No Epidural, CONTINUOUS PRN, Starting on Sat03/15/23 at 1647, Until Sat03/15/23 at 2000, Routine, Intra-op [facility] fentaNYL-ro pivacaine 2 mcg/mL-0.1 % (PF) in NS 200 mL epidural infusion RTU 03-15 21:47: 00 03-16 01:01 :29 No Epidural, ONCE INTRA PROCEDURE, Starting on Sat03/15/23 at 1647, Until Sat03/15/23 at 2000, Routine, Intra-op [facility] fentaNYL-ro pivacaine 2 mcg/mL-0.1 % (PF) in NS 200 mL epidural infusion RTU 03-15 21:47: 00 03-16 01:01 :29 No Epidural, CONTINUOUS PRN, Starting on Sat03/15/23 at 1647, Until Sat03/15/23 at 2000, Routine, Intra-op [facility] lidocaine-e pinephrine (XYLOCAINE W/EPINEPHRI NE) 1.5 %-1:200,000 injection 03-15 21:41: 00 03-16 01:01 :29 No Epidural, ONCE INTRA PROCEDURE, Starting on Sat03/15/23 at 1641, Until Sat03/15/23 at 2000, Routine, Intra-op [facility] lidocaine-e pinephrine (XYLOCAINE W/EPINEPHRI NE) 1.5 %-1:200,000 injection 03-15 21:41: 00 03-16 01:01 :29 No Epidural, ONCE INTRA PROCEDURE, Starting on Sat03/15/23 at 1641, Until Sat03/15/23 at 2000, Routine, Intra-op [facility] oxytocin (PITOCIN) 30 units in NS 500 mL IV infusion 03-15 12:53: 24 03-16 00:08 :32 No 2mU/min at 2-40 mL/hr, IV Infusion, TITRATE, Starting on Sat03/15/23 at 0753, Until Sat03/15/23 at 1908, JESS [facility] proMETHazin e (PHENERGAN) 25 mg in NaCl 0.9% (NS) 50 mL IV piggyback 03-15 09:34: 52 03-16 00:08 :32 No 25mg 25 mg, IV Piggyback, Q4HPRN, Starting on Sat03/15/23 at 0434, Until Sat03/15/23 at 1908, Routine, Nausea and Vomiting (N/V) [facility] FENTanyl PF (SUBLIMAZE (PF)) injection 100 mcg 03-15 09:34: 20 03-16 00:08 :32 No 100ug 100 mcg, Slow IV Push, Q1HPRN, Starting on Sat03/15/23 at 0434, Until Sat03/15/23 at 190, Routine, Pain (scale 7-10) [facility] lactated ringers IV infusion 500 mL 03-15 09:23: 08 03-16 00:08 :32 No 500mL at 999 mL/hr, 500 mL, IV Infusion, PRN - SEE INSTRUCTIO NS, Starting on Sat03/15/23 at 0423, Until Sat03/15/23 at 1908, Routine [facility] D5W-LR IV infusion 1,000 mL 03-15 09:23: 08 03-16 00:08 :32 No 1000mL at 1-125 mL/hr, IV Infusion, TITRATE, Starting on Sat03/15/23 at 0423, Until Sat03/15/23 at 190, Routine [facility] buPROPion XL (WELLBUTRIN XL) 150 mg 24 hr tablet 03-01 00:00: 00 Yes [id number] 150mg Take 1 tablet by mouth in the morning. [facility] buPROPion XL (WELLBUTRIN XL) 150 mg 24 hr tablet 03-01 00:00: 00 Yes [id number] 150mg Take 1 tablet by mouth in the morning. [facility] buPROPion XL (WELLBUTRIN XL) 150 mg 24 hr tablet 2022-0 03-01 00:00: 00 Yes [id number] 150mg Take 1 tablet by mouth in the morning. [facility] buPROPion XL (WELLBUTRIN XL) 150 mg 24 hr tablet 2022-0 03-01 00:00: 00 Yes [id number] 150mg Take 1 tablet by mouth in the morning. [facility] buPROPion XL (WELLBUTRIN XL) 150 mg 24 hr tablet 2022-0 03-01 00:00: 00 Yes [id number] 150mg Take 1 tablet by mouth in the morning. [facility] buPROPion XL (WELLBUTRIN XL) 150 mg 24 hr tablet 0 03-01 00:00: 00 Yes [id number] 150mg Take 1 tablet by mouth in the morning. [facility] buPROPion XL (WELLBUTRIN XL) 150 mg 24 hr tablet 3-0 3 00:00: 00 Yes [id number] 150mg Take 1 tablet by mouth in the morning. [facility] buPROPion XL (WELLBUTRIN XL) 150 mg 24 hr tablet 3-0 3 00:00: 00 Yes [id number] 150mg Take 1 tablet by mouth in the morning. [facility] buPROPion XL (WELLBUTRIN XL) 150 mg 24 hr tablet 3-0 3 00:00: 00 Yes [id number] 150mg Take 1 tablet by mouth in the morning. [facility] buPROPion XL (WELLBUTRIN XL) 150 mg 24 hr tablet 2022-0 03-01 00:00: 00 Yes [id number] 150mg Take 1 tablet by mouth in the morning. [facility] buPROPion XL (WELLBUTRIN XL) 150 mg 24 hr tablet 2022-0 03-01 00:00: 00 Yes [id number] 150mg Take 1 tablet by mouth in the morning. [facility] buPROPion XL (WELLBUTRIN XL) 150 mg 24 hr tablet 2022-0 03-01 00:00: 00 Yes [id number] 150mg Take 1 tablet by mouth in the morning. [facility] buPROPion XL (WELLBUTRIN XL) 150 mg 24 hr tablet 2022-0 03-01 00:00: 00 Yes [id number] 150mg Take 1 tablet by mouth in the morning. [facility] busPIRone 5 mg tablet 3-0 330 00:00: 00 Yes [id number] 5mg Take 1 tablet by mouth in the morning and 1 tablet in the evening. [facility] busPIRone 5 mg tablet 3-0 330 00:00: 00 Yes [id number] 5mg Take 1 tablet by mouth in the morning and 1 tablet in the evening. [facility] busPIRone 5 mg tablet 3-0 330 00:00: 00 Yes [facility] busPIRone 5 mg tablet 2023-0 330 00:00: 00 Yes [facility] busPIRone 5 mg tablet 2022-0 30 00:00: 00 Yes [facility] busPIRone 5 mg tablet 2022-0 30 00:00: 00 Yes [facility] busPIRone 5 mg tablet 2022-0 02-28 00:00: 00 Yes [facility] busPIRone 5 mg tablet 2022-0 02-28 00:00: 00 Yes [facility] busPIRone 5 mg tablet 3-0 02-28 00:00: 00 Yes [facility] busPIRone 5 mg tablet 2022-0 02-28 00:00: 00 Yes [facility] busPIRone 5 mg tablet 2022-0 02-28 00:00: 00 202-15 00:00 :00 No [facility] busPIRone 5 mg tablet 2022-0 02-28 00:00: 00 03-01 00:00 :00 No [id number] 5mg Take 1 tablet by mouth in the morning and 1 tablet in the evening. [facility] famotidine 20 mg tablet 3-0 02-19 00:00: 00 Yes [id number] 20mg Take 1 tablet by mouth in the morning and 1 tablet in the evening. [facility] famotidine 20 mg tablet 3-0 02-19 00:00: 00 Yes [id number] 20mg Take 1 tablet by mouth in the morning and 1 tablet in the evening. [facility] famotidine 20 mg tablet 3-0 21 00:00: 00 Yes [id number] 20mg Take 1 tablet by mouth in the morning and 1 tablet in the evening. [facility] famotidine 20 mg tablet 3-0 321 00:00: 00 Yes [id number] 20mg Take 1 tablet by mouth in the morning and 1 tablet in the evening. [facility] famotidine 20 mg tablet 3-0 321 00:00: 00 Yes [id number] 20mg Take 1 tablet by mouth in the morning and 1 tablet in the evening. [facility] famotidine 20 mg tablet 3-0 321 00:00: 00 Yes [id number] 20mg Take 1 tablet by mouth in the morning and 1 tablet in the evening. [facility] 3-0 21 00:00: 00 Yes [id number] 20mg Take 1 tablet by mouth in the morning and 1 tablet in the evening. [facility] fam[facility] mg tablet 3-0 21 00:00: 00 Yes [id number] 20mg Take 1 tablet by mouth in the morning and 1 tablet in the evening. [facility] fam[facility] mg tablet 3-0 21 00:00: 00 Yes [id number] 20mg Take 1 tablet by mouth in the morning and 1 tablet in the evening. [facility] famotidine 20 mg tablet 3-0 02-19 00:00: 00 Yes [id number] 20mg Take 1 tablet by mouth in the morning and 1 tablet in the evening. [facility] famotidine 20 mg tablet 2022-0 02-19 00:00: 00 Yes [id number] 20mg Take 1 tablet by mouth in the morning and 1 tablet in the evening. [facility] famotidine 20 mg tablet 2022-0 02-19 00:00: 00 Yes [id number] 20mg Take 1 tablet by mouth in the morning and 1 tablet in the evening. [facility] famotidine 20 mg tablet 3-0 21 00:00: 00 Yes [id number] 20mg Take 1 tablet by mouth in the morning and 1 tablet in the evening. [facility] famotidine 20 mg tablet 3-0 02-19 00:00: 00 Yes [id number] 20mg Take 1 tablet by mouth in the morning and 1 tablet in the evening. [facility] famotidine 20 mg tablet 3-0 21 00:00: 00 20 04:59 :00 No [id number] 20mg Take 1 tablet by mouth in the morning and 1 tablet in the evening. Do all this for 90 days. [facility] famotidine 20 mg tablet 3-0 21 00:00: 00 05-21 04:59 :00 No [id number] 20mg Take 1 tablet by mouth in the morning and 1 tablet in the evening. Do all this for 90 days. [facility] famotidine 20 mg tablet 02-19 00:00: 00 05-21 04:59 :00 No [id number] 20mg Take 1 tablet by mouth in the morning and 1 tablet in the evening. Do all this for 90 days. [facility] famotidine 20 mg tablet 02-19 00:00: 00 05-21 04:59 :00 No [id number] 20mg Take 1 tablet by mouth in the morning and 1 tablet in the evening. Do all this for 90 days. [facility] famotidine 20 mg tablet 02-19 00:00: 00 05-21 04:59 :00 No [id number] 20mg Take 1 tablet by mouth in the morning and 1 tablet in the evening. Do all this for 90 days. [facility] famotidine 20 mg tablet 02-19 00:00: 00 05-21 04:59 :00 No [id number] 20mg Take 1 tablet by mouth in the morning and 1 tablet in the evening. Do all this for 90 days. [facility] famotidine 20 mg tablet 02-19 00:00: 00 05-21 04:59 :00 No [id number] 20mg Take 1 tablet by mouth in the morning and 1 tablet in the evening. Do all this for 90 days. [facility] famotidine 20 mg tablet 02-19 00:00: 00 05-21 04:59 :00 No [id number] 20mg Take 1 tablet by mouth in the morning and 1 tablet in the evening. Do all this for 90 days. [facility] famotidine 20 mg tablet 02-19 00:00: 00 05-21 04:59 :00 No [id number] 20mg Take 1 tablet by mouth in the morning and 1 tablet in the evening. Do all this for 90 days. [facility] famotidine 20 mg tablet 2023-0 321 00:00: 00 05-21 04:59 :00 No [id number] 20mg Take 1 tablet by mouth in the morning and 1 tablet in the evening. Do all this for 90 days. [facility] famotidine 20 mg tablet 3-0 321 00:00: 00 05-21 04:59 :00 No [id number] 20mg Take 1 tablet by mouth in the morning and 1 tablet in the evening. Do all this for 90 days. [facility] famotidine 20 mg tablet 2022-0 21 00:00: 00 05-21 04:59 :00 No [id number] 20mg Take 1 tablet by mouth in the morning and 1 tablet in the evening. Do all this for 90 days. [facility] famotidine 20 mg tablet 2022-0 02-19 00:00: 00 05-21 04:59 :00 No [id number] 20mg Take 1 tablet by mouth in the morning and 1 tablet in the evening. Do all this for 90 days. [facility] famotidine 20 mg tablet 2022-0 02-19 00:00: 00 05-21 04:59 :00 No [id number] 20mg Take 1 tablet by mouth in the morning and 1 tablet in the evening. Do all this for 90 days. [facility] famotidine 20 mg tablet 2022-0 02-19 00:00: 00 05-21 04:59 :00 No [id number] 20mg Take 1 tablet by mouth in the morning and 1 tablet in the evening. Do all this for 90 days. [facility] famotidine 20 mg tablet 2022-0 21 00:00: 00 03-16 00:00 :00 No [id number] 20mg Take 1 tablet by mouth in the morning and 1 tablet in the evening. Do all this for 90 days. [facility] famotidine 20 mg tablet 3-0 321 00:00: 00 03-16 00:00 :00 No [id number] 20mg Take 1 tablet by mouth in the morning and 1 tablet in the evening. [facility] famotidine 20 mg tablet 2022-0 17 00:00: 00 Yes [id number] 20mg Take 1 tablet by mouth in the morning and 1 tablet in the evening. [facility] famotidine 20 mg tablet 2022-0 17 00:00: 00 Yes [id number] 20mg Take 1 tablet by mouth in the morning and 1 tablet in the evening. [facility] famotidine 20 mg tablet 2022-0 17 00:00: 00 02-19 00:00 :00 No [id number] 20mg Take 1 tablet by mouth in the morning and 1 tablet in the evening. [facility] SELECT-OB + DHA 29 mg iron-1 mg -250 mg combo pack 0 1- 00:00: 00 Yes [facility] SELECT-OB + DHA 29 mg iron-1 mg -250 mg combo pack 2022-0 12-07 00:00: 00 Yes [facility] SELECT-OB + DHA 29 mg iron-1 mg -250 mg combo pack 0 1- 00:00: 00 Yes [facility] SELECT-OB + DHA 29 mg iron-1 mg -250 mg combo pack 2022-0 - 00:00: 00 Yes [facility] SELECT-OB + DHA 29 mg iron-1 mg -250 mg combo pack 2022-0 12-07 00:00: 00 Yes [facility] SELECT-OB + DHA 29 mg iron-1 mg -250 mg combo pack 2022-0 1- 00:00: 00 Yes [facility] SELECT-OB + DHA 29 mg iron-1 mg -250 mg combo pack 2022-0 - 00:00: 00 Yes [facility] SELECT-OB + DHA 29 mg iron-1 mg -250 mg combo pack 2022-0 - 00:00: 00 Yes [facility] SELECT-OB + DHA 29 mg iron-1 mg -250 mg combo pack 2022-0 1- 00:00: 00 Yes [facility] SELECT-OB + DHA 29 mg iron-1 mg -250 mg combo pack 12-07 00:00: 00 Yes [facility] SELECT-OB + DHA 29 mg iron-1 mg -250 mg combo pack 0 12-07 00:00: 00 Yes [facility] SELECT-OB + DHA 29 mg iron-1 mg -250 mg combo pack 0 12-07 00:00: 00 Yes [facility] SELECT-OB + DHA 29 mg iron-1 mg -250 mg combo pack 0 12-07 00:00: 00 Yes [facility] SELECT-OB + DHA 29 mg iron-1 mg -250 mg combo pack 0 12-07 00:00: 00 Yes [facility] SELECT-OB + DHA 29 mg iron-1 mg -250 mg combo pack 0 12-07 00:00: 00 Yes [facility] SELECT-OB + DHA 29 mg iron-1 mg -250 mg combo pack 0 12-07 00:00: 00 Yes [facility] SELECT-OB + DHA 29 mg iron-1 mg -250 mg combo pack 0 12-07 00:00: 00 Yes [facility] SELECT-OB + DHA 29 mg iron-1 mg -250 mg combo pack 0 12-07 00:00: 00 Yes [facility] SELECT-OB + DHA 29 mg iron-1 mg -250 mg combo pack 12-07 00:00: 00 03-16 00:00 :00 No [facility] magnesium oxide 400 mg (241.3 mg magnesium) tablet 2021-12 00:00: 00 Yes [id number] 400mg Take 1 tablet by mouth in the morning. [facility] magnesium oxide 400 mg (241.3 mg magnesium) tablet 2021-12 00:00: 00 Yes [id number] 400mg Take 1 tablet by mouth in the morning. [facility] magnesium oxide 400 mg (241.3 mg magnesium) tablet 2021-12 00:00: 00 Yes [id number] 400mg Take 1 tablet by mouth in the morning. [facility] magnesium oxide 400 mg (241.3 mg magnesium) tablet 2021-12 00:00: 00 Yes [id number] 400mg Take 1 tablet by mouth in the morning. [facility] magnesium oxide 400 mg (241.3 mg magnesium) tablet 2021-12 00:00: 00 Yes [id number] 400mg Take 1 tablet by mouth in the morning. [facility] mg (241.3 mg magnesium) tablet 2021-12 00:00: 00 Yes [id number] 400mg Take 1 tablet by mouth in the morning. [facility] 400 mg (241.3 mg magnesium) tablet 2021-12 00:00: 00 Yes [id number] 400mg Take 1 tablet by mouth in the morning. [facility] magnesium oxide 400 mg (241.3 mg magnesium) tablet 2021-12 00:00: 00 Yes [id number] 400mg Take 1 tablet by mouth in the morning. [facility] magnesium oxide 400 mg (241.3 mg magnesium) tablet 2021-12 00:00: 00 Yes [id number] 400mg Take 1 tablet by mouth in the morning. [facility] magnesium oxide 400 mg (241.3 mg magnesium) tablet 2021-12 00:00: 00 Yes [id number] 400mg Take 1 tablet by mouth in the morning. [facility] magnesium oxide 400 mg (241.3 mg magnesium) tablet 2021-12 00:00: 00 Yes [id number] 400mg Take 1 tablet by mouth in the morning. [facility] magnesium oxide 400 mg (241.3 mg magnesium) tablet 2021-12 00:00: 00 Yes [id number] 400mg Take 1 tablet by mouth in the morning. [facility] magnesium oxide 400 mg (241.3 mg magnesium) tablet 2021-12 00:00: 00 Yes [id number] 400mg Take 1 tablet by mouth in the morning. [facility] magnesium oxide 400 mg (241.3 mg magnesium) tablet 2021-12 00:00: 00 Yes [id number] 400mg Take 1 tablet by mouth in the morning. [facility] magnesium oxide 400 mg (241.3 mg magnesium) tablet 2021-12 00:00: 00 Yes [id number] 400mg Take 1 tablet by mouth in the morning. [facility] magnesium oxide 400 mg (241.3 mg magnesium) tablet 2021-12 00:00: 00 Yes [id number] 400mg Take 1 tablet by mouth in the morning. [facility] magnesium oxide 400 mg (241.3 mg magnesium) tablet 2021-12 00:00: 00 Yes [id number] 400mg Take 1 tablet by mouth in the morning. [facility] magnesium oxide 400 mg (241.3 mg magnesium) tablet 2021-12 00:00: 00 Yes [id number] 400mg Take 1 tablet by mouth in the morning. [facility] magnesium oxide 400 mg (241.3 mg magnesium) tablet 2021-12 00:00: 00 Yes [id number] 400mg Take 1 tablet by mouth in the morning. [facility] magnesium oxide 400 mg (241.3 mg magnesium) tablet 2021-12 00:00: 00 Yes [id number] 400mg Take 1 tablet by mouth in the morning. [facility] magnesium oxide 400 mg (241.3 mg magnesium) tablet 2021-12 00:00: 00 03-16 00:00 :00 No [id number] 400mg Take 1 tablet by mouth in the morning. [facility] multivitami n ( VITAMIN) tablet 2021-12 0 00:00: 00 Yes [id number] 1{tbl} Take 1 tablet by mouth in the morning. [facility] multivitami n ( VITAMIN) tablet 2021-12 0 00:00: 00 Yes [id number] 1{tbl} Take 1 tablet by mouth in the morning. [facility] multivitami n ( VITAMIN) tablet 2021-12 0 00:00: 00 Yes [id number] 1{tbl} Take 1 tablet by mouth in the morning. [facility] multivitami n ( VITAMIN) tablet 2021-12 0-03 00:00: 00 Yes [id number] 1{tbl} Take 1 tablet by mouth in the morning. [facility] multivitami n ( VITAMIN) tablet 2021-12 0- 00:00: 00 Yes [id number] 1{tbl} Take 1 tablet by mouth in the morning. [facility] multivitami n ( VITAMIN) tablet 2021-12 0- 00:00: 00 Yes [id number] 1{tbl} Take 1 tablet by mouth in the morning. [facility] multivitami n ( VITAMIN) tablet 2021-12 0- 00:00: 00 Yes [id number] 1{tbl} Take 1 tablet by mouth in the morning. [facility] multivitami n ( VITAMIN) tablet 2021-12 0- 00:00: 00 Yes [id number] 1{tbl} Take 1 tablet by mouth in the morning. [facility] multivitami n ( VITAMIN) tablet 2021-12 0- 00:00: 00 Yes [id number] 1{tbl} Take 1 tablet by mouth in the morning. [facility] multivitami n ( VITAMIN) tablet 2021-12 0- 00:00: 00 Yes [id number] 1{tbl} Take 1 tablet by mouth in the morning. [facility] multivitami n ( VITAMIN) tablet 2021-12 0- 00:00: 00 Yes [id number] 1{tbl} Take 1 tablet by mouth in the morning. [facility] multivitami n ( VITAMIN) tablet 2021-12 0- 00:00: 00 Yes [id number] 1{tbl} Take 1 tablet by mouth in the morning. [facility] multivitami n ( VITAMIN) tablet 2021-12 0- 00:00: 00 Yes [id number] 1{tbl} Take 1 tablet by mouth in the morning. [facility] multivitami n ( VITAMIN) tablet 2021-12 0- 00:00: 00 Yes [id number] 1{tbl} Take 1 tablet by mouth in the morning. [facility] multivitami n ( VITAMIN) tablet 2021-12 0-03 00:00: 00 Yes [id number] 1{tbl} Take 1 tablet by mouth in the morning. [facility] multivitami n ( VITAMIN) tablet 2021-12 0-03 00:00: 00 Yes [id number] 1{tbl} Take 1 tablet by mouth in the morning. [facility] multivitami n ( VITAMIN) tablet 2021-12 0- 00:00: 00 Yes [id number] 1{tbl} Take 1 tablet by mouth in the morning. [facility] multivitami n ( VITAMIN) tablet 2021-12 0- 00:00: 00 Yes [id number] 1{tbl} Take 1 tablet by mouth in the morning. [facility] multivitami n ( VITAMIN) tablet 2021-12 0- 00:00: 00 Yes [id number] 1{tbl} Take 1 tablet by mouth in the morning. [facility] multivitami n ( VITAMIN) tablet 2021-12 0- 00:00: 00 Yes [id number] 1{tbl} Take 1 tablet by mouth in the morning. [facility] multivitami n ( VITAMIN) tablet 2021-12 0- 00:00: 00 Yes [id number] 1{tbl} Take 1 tablet by mouth in the morning. [facility] multivitami n ( VITAMIN) tablet 2021-12 0- 00:00: 00 Yes [id number] 1{tbl} Take 1 tablet by mouth in the morning. [facility] multivitami n ( VITAMIN) tablet 2021-12 0-03 00:00: 00 Yes [id number] 1{tbl} Take 1 tablet by mouth in the morning. [facility] multivitami n ( VITAMIN) tablet 2021-12 0-03 00:00: 00 Yes [id number] 1{tbl} Take 1 tablet by mouth in the morning. [facility] multivitami n ( VITAMIN) tablet 2021-12 0-03 00:00: 00 03-16 00:00 :00 No [id number] 1{tbl} Take 1 tablet by mouth in the morning. [facility] buPROPion XL (WELLBUTRIN XL) 150 mg 24 hr tablet 2021-0 08-29 00:00: 00 Yes [id number] 150mg Take 1 tablet by mouth in the morning. [facility] busPIRone 5 mg tablet 0 08-29 00:00: 00 Yes [id number] 5mg Take 1 tablet by mouth in the morning and 1 tablet in the evening. [facility] buPROPion XL (WELLBUTRIN XL) 150 mg 24 hr tablet 2021-0 08-29 00:00: 00 Yes [id number] 150mg Take 1 tablet by mouth in the morning. [facility] busPIRone 5 mg tablet 0 08-29 00:00: 00 Yes [id number] 5mg Take 1 tablet by mouth in the morning and 1 tablet in the evening. [facility] buPROPion XL (WELLBUTRIN XL) 150 mg 24 hr tablet 0 08-29 00:00: 00 Yes [id number] 150mg Take 1 tablet by mouth in the morning. [facility] busPIRone 5 mg tablet 2021-0 08-29 00:00: 00 Yes [id number] 5mg Take 1 tablet by mouth in the morning and 1 tablet in the evening. [facility] buPROPion XL (WELLBUTRIN XL) 150 mg 24 hr tablet 2021-0 08-29 00:00: 00 Yes [id number] 150mg Take 1 tablet by mouth in the morning. [facility] busPIRone 5 mg tablet 2021-0 08-29 00:00: 00 Yes [id number] 5mg Take 1 tablet by mouth in the morning and 1 tablet in the evening. [facility] buPROPion XL (WELLBUTRIN XL) 150 mg 24 hr tablet 2021-0 08-29 00:00: 00 Yes [id number] 150mg Take 1 tablet by mouth in the morning. [facility] busPIRone 5 mg tablet 2021-0 08-29 00:00: 00 Yes [id number] 5mg Take 1 tablet by mouth in the morning and 1 tablet in the evening. [facility] buPROPion XL (WELLBUTRIN XL) 150 mg 24 hr tablet 2021-0 08-29 00:00: 00 Yes [id number] 150mg Take 1 tablet by mouth in the morning. [facility] busPIRone 5 mg tablet 0 08-29 00:00: 00 Yes [id number] 5mg Take 1 tablet by mouth in the morning and 1 tablet in the evening. [facility] buPROPion XL (WELLBUTRIN XL) 150 mg 24 hr tablet 0 08-29 00:00: 00 Yes [id number] 150mg Take 1 tablet by mouth in the morning. [facility] busPIRone 5 mg tablet 0 08-29 00:00: 00 Yes [id number] 5mg Take 1 tablet by mouth in the morning and 1 tablet in the evening. [facility] buPROPion XL (WELLBUTRIN XL) 150 mg 24 hr tablet 2021-0 08-29 00:00: 00 Yes [id number] 150mg Take 1 tablet by mouth in the morning. [facility] busPIRone 5 mg tablet 2021-0 08-29 00:00: 00 Yes [id number] 5mg Take 1 tablet by mouth in the morning and 1 tablet in the evening. [facility] buPROPion XL (WELLBUTRIN XL) 150 mg 24 hr tablet 0 08-29 00:00: 00 Yes [id number] 150mg Take 1 tablet by mouth in the morning. [facility] busPIRone 5 mg tablet 2021-0 08-29 00:00: 00 Yes [id number] 5mg Take 1 tablet by mouth in the morning and 1 tablet in the evening. [facility] buPROPion XL (WELLBUTRIN XL) 150 mg 24 hr tablet 2021-0 08-29 00:00: 00 Yes [id number] 150mg Take 1 tablet by mouth in the morning. [facility] busPIRone 5 mg tablet 2021-0 08-29 00:00: 00 Yes [id number] 5mg Take 1 tablet by mouth in the morning and 1 tablet in the evening. [facility] buPROPion XL (WELLBUTRIN XL) 150 mg 24 hr tablet 2021-0 928 00:00: 00 Yes [id number] 150mg Take 1 tablet by mouth in the morning. [facility] busPIRone 5 mg tablet 2021-0 08-29 00:00: 00 Yes [id number] 5mg Take 1 tablet by mouth in the morning and 1 tablet in the evening. [facility] buPROPion XL (WELLBUTRIN XL) 150 mg 24 hr tablet 0 08-29 00:00: 00 Yes [id number] 150mg Take 1 tablet by mouth in the morning. [facility] busPIRone 5 mg tablet 0 08-29 00:00: 00 Yes [id number] 5mg Take 1 tablet by mouth in the morning and 1 tablet in the evening. [facility] buPROPion XL (WELLBUTRIN XL) 150 mg 24 hr tablet 0 08-29 00:00: 00 Yes [id number] 150mg Take 1 tablet by mouth in the morning. [facility] busPIRone 5 mg tablet 0 08-29 00:00: 00 Yes [id number] 5mg Take 1 tablet by mouth in the morning and 1 tablet in the evening. [facility] buPROPion XL (WELLBUTRIN XL) 150 mg 24 hr tablet 0 08-29 00:00: 00 Yes [id number] 150mg Take 1 tablet by mouth in the morning. [facility] busPIRone 5 mg tablet 0 08-29 00:00: 00 Yes [id number] 5mg Take 1 tablet by mouth in the morning and 1 tablet in the evening. [facility] buPROPion XL (WELLBUTRIN XL) 150 mg 24 hr tablet 2021-0 08-29 00:00: 00 Yes [id number] 150mg Take 1 tablet by mouth in the morning. [facility] buPROPion XL (WELLBUTRIN XL) 150 mg 24 hr tablet 2021-0 08-29 00:00: 00 Yes [id number] 150mg Take 1 tablet by mouth in the morning. [facility] buPROPion XL (WELLBUTRIN XL) 150 mg 24 hr tablet 0 08-29 00:00: 00 03-01 00:00 :00 No [id number] 150mg Take 1 tablet by mouth in the morning. [facility] busPIRone 5 mg tablet 08-29 00:00: 00 02-28 00:00 :00 No [id number] 5mg Take 1 tablet by mouth in the morning and 1 tablet in the evening. [facility] multivitami n ( VITAMIN) tablet 8- 00:00: 00 Yes [id number] 1{tbl} Take 1 tablet by mouth in the morning. [facility] buPROPion XL (WELLBUTRIN XL) 150 mg 24 hr tablet 8-08 00:00: 00 Yes [id number] 150mg Take 1 tablet by mouth in the morning. [facility] multivitami n ( VITAMIN) tablet 8- 00:00: 00 Yes [id number] 1{tbl} Take 1 tablet by mouth in the morning. [facility] buPROPion XL (WELLBUTRIN XL) 150 mg 24 hr tablet 8 00:00: 00 Yes [id number] 150mg Take 1 tablet by mouth in the morning. [facility] multivitami n ( VITAMIN) tablet 0 8-08 00:00: 00 Yes [id number] 1{tbl} Take 1 tablet by mouth in the morning. [facility] multivitami n ( VITAMIN) tablet 0 8 00:00: 00 Yes [id number] 1{tbl} Take 1 tablet by mouth in the morning. [facility] multivitami n ( VITAMIN) tablet 0 8-08 00:00: 00 09-03 00:00 :00 No [id number] 1{tbl} Take 1 tablet by mouth in the morning. [facility] buPROPion XL (WELLBUTRIN XL) 150 mg 24 hr tablet 8-08 00:00: 00 08-29 00:00 :00 No [id number] 150mg Take 1 tablet by mouth in the morning. [facility] vitamin w/FA tablet 2020-0 8-05 00:00: 00 07-09 00:00 :00 No [id number] 1{tbl} Take 1 tablet by mouth daily. [facility] docusate calcium 240 mg capsule 07-06 00:00: 00 07-09 00:00 :00 No [id number] 240mg Take 1 capsule by mouth once daily as needed for Constipati on. [facility] ferrous sulfate 325 mg (65 mg iron) tablet 07-06 00:00: 00 07-09 00:00 :00 No [id number] 325mg Take 1 tablet by mouth 2 (two) times daily. [facility] ibuprofen 600 mg tablet 07-06 00:00: 07-09 00:00 :00 No [id number] 600mg Take 1 tablet by mouth every 6 (six) hours as needed (Pain). Take with food or milk. [facility] Immunizations Ordered Immunization Name Filled Immunization Name Date Status Comments Source Rho (d) Immune Globulin 2023-03-16 00:00:00 Completed [facility] Rho (d) Immune Globulin 2023-03-16 00:00:00 Completed [facility] TDAP 2023-02-04 00:00:00 Completed [facility] Rho (d) Immune Globulin 2023-02-04 00:00:00 Completed [facility] TDAP 2023-02-04 00:00:00 Completed [facility] Rho (d) Immune Globulin 2023-02-04 00:00:00 Completed [facility] TDAP 2023-02-04 00:00:00 Completed [facility] Rho (d) Immune Globulin 2023-02-04 00:00:00 Completed [facility] TDAP 2023-02-04 00:00:00 Completed [facility] Rho (d) Immune Globulin 2023-02-04 00:00:00 Completed [facility] TDAP 2023-02-04 00:00:00 Completed [facility] Rho (d) Immune Globulin 2023-02-04 00:00:00 Completed [facility] TDAP 2023-02-04 00:00:00 Completed [facility] Rho (d) Immune Globulin 2023-02-04 00:00:00 Completed [facility] TDAP 2023-02-04 00:00:00 Completed [facility] Rho (d) Immune Globulin 2023-02-04 00:00:00 Completed [facility] TDAP 2023-02-04 00:00:00 Completed [facility] Rho (d) Immune Globulin 2023-02-04 00:00:00 Completed [facility] TDAP 2023-02-04 00:00:00 Completed [facility] Rho (d) Immune Globulin 2023-02-04 00:00:00 Completed [facility] TDAP 2023-02-04 00:00:00 Completed [facility] Rho (d) Immune Globulin 2023-02-04 00:00:00 Completed [facility] TDAP 2023-02-04 00:00:00 Completed [facility] Rho (d) Immune Globulin 2023-02-04 00:00:00 Completed [facility] TDAP 2023-02-04 00:00:00 Completed [facility] Rho (d) Immune Globulin 2023-02-04 00:00:00 Completed [facility] TDAP 2023-02-04 00:00:00 Completed [facility] Rho (d) Immune Globulin 2023-02-04 00:00:00 Completed [facility] TDAP 2023-02-04 00:00:00 Completed [facility] Rho (d) Immune Globulin 2023-02-04 00:00:00 Completed [facility] TDAP 2023-02-04 00:00:00 Completed [facility] Rho (d) Immune Globulin 2023-02-04 00:00:00 Completed [facility] TDAP 2023-02-04 00:00:00 Completed [facility] Rho (d) Immune Globulin 2023-02-04 00:00:00 Completed [facility] TDAP 2023-02-04 00:00:00 Completed [facility] Rho (d) Immune Globulin 2023-02-04 00:00:00 Completed [facility] TDAP 2023-02-04 00:00:00 Completed [facility] Rho (d) Immune Globulin 2023-02-04 00:00:00 Completed [facility] TDAP 2023-02-04 00:00:00 Completed [facility] Rho (d) Immune Globulin 2023-02-04 00:00:00 Completed [facility] TDAP 2023-02-04 00:00:00 Completed [facility] Rho (d) Immune Globulin 2023-02-04 00:00:00 Completed [facility] TDAP 2023-02-04 00:00:00 Completed [facility] Rho (d) Immune Globulin 2023-02-04 00:00:00 Completed [facility] TDAP 2023-02-04 00:00:00 Completed [facility] Rho (d) Immune Globulin 2023-02-04 00:00:00 Completed [facility] Rho (d) Immune Globulin 2009-09-19 00:00:00 Completed [facility] Rho (d) Immune Globulin 2009-09-19 00:00:00 Completed [facility] Rho (d) Immune Globulin 2009-09-19 00:00:00 Completed [facility] Rho (d) Immune Globulin 2009-09-19 00:00:00 Completed [facility] Rho (d) Immune Globulin 2009-09-19 00:00:00 Completed [facility] Rho (d) Immune Globulin 2009-09-19 00:00:00 Completed [facility] Rho (d) Immune Globulin 2009-09-19 00:00:00 Completed [facility] Rho (d) Immune Globulin 2009-09-19 00:00:00 Completed [facility] Rho (d) Immune Globulin 2009-09-19 00:00:00 Completed [facility] Rho (d) Immune Globulin 2009-09-19 00:00:00 Completed [facility] Rho (d) Immune Globulin 2009-09-19 00:00:00 Completed [facility] Rho (d) Immune Globulin 2009-09-19 00:00:00 Completed [facility] Rho (d) Immune Globulin 2009-09-19 00:00:00 Completed [facility] Rho (d) Immune Globulin 2009-09-19 00:00:00 Completed [facility] Rho (d) Immune Globulin 2009-09-19 00:00:00 Completed [facility] Rho (d) Immune Globulin 2009-09-19 00:00:00 Completed [facility] Rho (d) Immune Globulin 2009-09-19 00:00:00 Completed [facility] Rho (d) Immune Globulin 2009-09-19 00:00:00 Completed [facility] Rho (d) Immune Globulin 2009-09-19 00:00:00 Completed [facility] Rho (d) Immune Globulin 2009-09-19 00:00:00 Completed [facility] Rho (d) Immune Globulin 2009-09-19 00:00:00 Completed [facility] Rho (d) Immune Globulin 2009-09-19 00:00:00 Completed [facility] Rho (d) Immune Globulin 2009-09-19 00:00:00 Completed [facility] Rho (d) Immune Globulin 2009-09-19 00:00:00 Completed [facility] Rho (d) Immune Globulin 2009-09-19 00:00:00 Completed [facility] Rho (d) Immune Globulin 2009-09-19 00:00:00 Completed [facility] Rho (d) Immune Globulin 2009-09-19 00:00:00 Completed [facility] Rho (d) Immune Globulin 2009-09-19 00:00:00 Completed [facility] Rho (d) Immune Globulin 2009-09-19 00:00:00 Completed [facility] Rho (d) Immune Globulin 2009-09-19 00:00:00 Completed [facility] Rho (d) Immune Globulin 2009-09-19 00:00:00 Completed [facility] Rho (d) Immune Globulin 2009-09-19 00:00:00 Completed [facility] Rho (d) Immune Globulin Unknown Completed [facility] TDAP Unknown Completed [facility] Rho (d) Immune Globulin Unknown Completed [facility] Rho (d) Immune Globulin Unknown Completed [facility] Rho (d) Immune Globulin Unknown Completed [facility] Vital Signs Vital Name Observation Time Observation Value Comments S ource Systolic blood pressure 2023-03-17 01:40:00 112 mm[Hg] [facility] Diastolic blood pressure 2023-03-17 01:40:00 61 mm[Hg] [facility] Heart rate 2023-03-17 01:40:00 73 /min [facility] Body temperature 2023-03-17 01:40:00 36.11 Mary [facility] Respiratory rate 2023-03-17 01:40:00 18 /min [facility] Oxygen saturation in Arterial blood by Pulse oximetry 2023-03-17 01:40:00 99 /min [facility] Body height 2023-03-15 10:03:00 165.1 cm [facility] Body weight 2023-03-15 10:03:00 117.935 kg [facility] BMI 2023-03-15 10:03:00 43.27 kg/m2 [facility] Systolic blood pressure 2023-03-12 21:25:00 111 mm[Hg] [facility] Diastolic blood pressure 2023-03-12 21:25:00 75 mm[Hg] [facility] Heart rate 2023-03-12 21:25:00 87 /min [facility] Body temperature 2023-03-12 21:25:00 36.72 [facility] Respiratory rate 2023-03-12 21:25:00 17 /min [facility] Body height 2023-03-12 21:25:00 165.1 cm [facility] Body weight 2023-03-12 21:25:00 117.028 kg [facility] BMI 2023-03-12 21:25:00 42.93 kg/m2 [facility] Systolic blood pressure 2023-03-05 14:31:00 115 mm[Hg] [facility] Diastolic blood pressure 2023-03-05 14:31:00 78 mm[Hg] [facility] Heart rate 2023-03-05 14:31:00 81 /min [facility] Respiratory rate 2023-03-05 14:31:00 18 /min [facility] Body height 2023-03-05 14:31:00 165.1 cm [facility] Body weight 2023-03-05 14:31:00 117.028 kg [facility] BMI 2023-03-05 14:31:00 42.93 kg/m2 [facility] Systolic blood pressure 2023-02-15 20:17:00 118 mm[Hg] [facility] Diastolic blood pressure 2023-02-15 20:17:00 76 mm[Hg] [facility] Heart rate 2023-02-15 20:17:00 80 /min [facility] Body temperature 2023-02-15 20:17:00 36.67 [facility] Respiratory rate 2023-02-15 20:17:00 18 /min [facility] Body height 2023-02-15 20:17:00 165.1 cm [facility] Body weight 2023-02-15 20:17:00 115.667 kg [facility] BMI 2023-02-15 20:17:00 42.43 kg/m2 [facility] Systolic blood pressure 2023-02-04 21:13:00 126 mm[Hg] [facility] Diastolic blood pressure 2023-02-04 21:13:00 72 mm[Hg] [facility] Heart rate 2023-02-04 21:13:00 88 /min [facility] Body temperature 2023-02-04 21:13:00 36.83 [facility] Respiratory rate 2023-02-04 21:13:00 18 /min [facility] Body height 2023-02-04 21:13:00 165.1 cm [facility] Body weight 2023-02-04 21:13:00 114.261 kg [facility] BMI 2023-02-04 21:13:00 41.92 kg/m2 [facility] Systolic blood pressure 2022-11-16 20:26:00 102 mm[Hg] [facility] Diastolic blood pressure 2022-11-16 20:26:00 66 mm[Hg] [facility] Heart rate 2022-11-16 20:26:00 77 /[facility] 2022-11-16 20:26:00 36.67 [facility] Respiratory rate 2022-11-16 20:26:00 18 /min [facility] Body height 2022-11-16 20:26:00 165.1 cm [facility] Body weight 2022-11-16 20:26:00 113.853 kg [facility] BMI 2022-11-16 20:26:00 41.77 kg/m2 [facility] Systolic blood pressure 2022-10-19 20:58:00 104 mm[Hg] [facility] Diastolic blood pressure 2022-10-19 20:58:00 68 mm[Hg] [facility] Heart rate 2022-10-19 20:58:00 91 /min [facility] Body temperature 2022-10-19 20:58:00 36.78 Mary [facility] Respiratory rate 2022-10-19 20:58:00 18 /min [facility] Body height 2022-10-19 20:58:00 165.1 cm [facility] Body weight 2022-10-19 20:58:00 113.853 kg [facility] BMI 2022-10-19 20:58:00 41.77 kg/m2 [facility] Systolic blood pressure 2022-08-29 16:00:00 109 mm[Hg] [facility] Diastolic blood pressure 2022-08-29 16:00:00 71 mm[Hg] [facility] Heart rate 2022-08-29 15:21:00 80 /min [facility] Body temperature 2022-08-29 15:21:00 36.94 [facility] Respiratory rate 2022-08-29 15:21:00 18 /min [facility] Body height 2022-08-29 15:21:00 165.1 cm [facility] Body weight 2022-08-29 15:21:00 105.325 kg [facility] BMI 2022-08-29 15:21:00 38.64 kg/m2 [facility] Systolic blood pressure 2022-07-09 20:04:00 109 mm[Hg] Burns o [facility] Diastolic blood pressure 2022-07-09 20:04:00 58 mm[Hg] Burns o [facility] Heart rate 2022-07-09 20:04:00 68 /min [facility] Body temperature 2022-07-09 20:04:00 36.28 Mary [facility] Respiratory rate 2022-07-09 20:04:00 20 /min [facility] Body height 2022-07-09 20:04:00 165.1 cm [facility] Body weight 2022-07-09 20:04:00 99.905 kg [facility] BMI 2022-07-09 20:04:00 36.65 kg/m2 [facility] Procedures Procedure Date / Time Performed Performing Clinicia n Source CBC WITH DIFF 2023-03-16 10:02:00 Bill Velazquez [facility] HB -MATERNAL HEMORRHAGE SCREEN 2023-03-16 10:02:00 Priscila Piedra [facility] CENTRAL NEURAXIAL BLOCK 2023-03-15 21:32:00 Demarcus Constantino [facility] ANTI-D R/O PANEL 2023-03-15 18:36:00 Bill Velazquez Uni [facility] EXTRA TUBE LAV (BLOOD BANK) 2023-03-15 18:36:00 Bill Velaqzuez [facility] PREPARE PACKED RBC 2023-03-15 18:14:00 [facility] HB ABO GROUPING 2023-03-15 10:44:00 Bill Velazquez [facility] RHO (D) IMMUNE GLOBULIN 2023-03-15 10:44:00 Bill Velazquez [facility] CONSENT/REFUSAL FOR DIAGNOSIS AND TREATMENT 2023-03-13 22:06:36 Doctor Unassigned, [place] [facility] PHYSICIAN ORDERS 2023-03-12 05:01:00 Doctor Unas signed, [place] [facility] POCT URINALYSIS W/O SPECIFIC GRAVITY 2023-03-12 00:00:00 Christopher Adams [facility] POCT URINALYSIS W/O SPECIFIC GRAVITY 2023-03-05 00:00:00 Christopher Adams [facility] POCT URINALYSIS W/O SPECIFIC GRAVITY 2023-02-15 00:00:00 Bill Velazquez [facility] DSU PRE-OP 2023-02-08 06:01:00 Doctor Unass igned, [place] [facility] TDAP VACCINE, >11 YRS, IM 2023-02-04 21:44:40 [facility] POCT URINALYSIS W/O SPECIFIC GRAVITY 2023-02-04 00:00:00 Stefano [facility] POCT URINALYSIS W/O SPECIFIC GRAVITY 2022-11-16 00:00:00 Bill Velazquez [facility] POCT URINALYSIS W/O SPECIFIC GRAVITY 2022-10-19 00:00:00 Christopher Adams [facility] <14 WEEKS US LIMITED 2022-08-29 19:59:32 Bill Velazquez [facility] GLUCOSE 1 HOUR POST PRANDIAL 2022-08-29 18:05:00 Bill Velazquez [facility] ASSIGNMENT OF BENEFITS 2022-08-29 16:33:28 Docto r Unassigned, [place] [facility] POCT URINALYSIS W/O SPECIFIC GRAVITY 2022-08-29 00:00:00 Bill Velazquez [facility] POCT TEST 2022-07-09 19:55:00 Basil Carolina [facility] POCT URINALYSIS W/O SPECIFIC GRAVITY 2022-07-09 19:55:00 Nneka Carolina [facility] Encounters Start Date/Time End Date/Time Encounter Type Admission Type Attending Clinicians Care Facility Care Department Encounter ID Source 2021-09-29 10:16:10 Outpatient [facility] [id number] [facility] 2023-04-05 15:15:00 2023-04-05 15:15:00 Outpatient R BILL VELAZQUEZ [facility] [id number] [facility] 2023-03-20 00:00:00 2023-03-20 00:00:00 Telephone FidelinaStephaniePriscila buenrostro [facility] 1.2.840.114 350.1.13.10 4.2.7.2.686 [id number] [facility] 2023-03-15 04:02:00 2023-03-16 21:47:00 Inpatient BILL FAYE [facility] SUNITA [id number] [facility] 2023-03-15 04:02:00 2023-03-16 21:47:00 Hospital Encounter Bethany Parra Vien Cam [facility] 1.2.840.114 350.1.13.10 4.2.7.2.686 [id number] [facility] 2023-03-15 16:32:00 2023-03-15 19:59:00 Anesthesia Event Demarcus Constantino [facility] 1.2.840.114 350.1.13.10 4.2.7.2.686 [id number] [facility] 2023-03-15 13:15:30 2023-03-15 13:15:30 Anesthesia Event DavisMarkyRobert [facility] 1.2.840.114 350.1.13.10 4.2.7.2.686 [id number] [facility] 2023-03-14 13:17:00 2023-03-14 23:59:00 Hospital Encounter Maurisio Rodriguez [facility] 1.2.840.114 350.1.13.10 4.2.7.2.686 [id number] [facility] 2023-03-14 00:00:00 2023-03-14 23:59:00 Outpatient R MAURISIO RODRIGUEZ [facility] ACO [id number] [facility] 2023-03-13 08:45:00 2023-03-13 09:00:00 Director Of Industrial Relations Visit Pob, Adc Lab Maurisio Medina [facility] DARA SOLOMON [facility] 1.0.114 350.1.13.10 4.2.7.2.686 [id number] [facility] 2023-03-13 08:45:00 2023-03-13 08:45:00 Outpatient Rik MAURISIO RODRIGUEZ [facility] [id number] [facility] 2023-03-13 00:00:00 2023-03-13 00:00:00 Orders Only Doctor Unassigned, [place]y [facility] 1.0.114 350.1.13.10 4.2.7.2.686 [id number] [facility] 2023-03-12 16:15:00 2023-03-12 16:37:17 [facility] [id number] [facility] 2023-03-12 16:15:00 2023-03-12 16:37:17 Routine Visit Stefano [facility] 1..114 350.1.13.10 4.2.7.2.686 [id number] [facility] 2023-03-12 00:00:00 2023-03-12 00:00:00 Orders Only Doctor Unassigned, [place]acky [facility] 1.0.114 350.1.13.10 4.2.7.2.686 [id number] [facility] 2023-03-08 00:00:00 2023-03-08 00:00:00 Telephone Bill Velazquez [facility] 1..114 350.1.13.10 4.2.7.2.686 [id number] [facility] 2023-03-05 09:15:00 2023-03-05 09:51:39 Outpatient R CHRISTOPHER ADAMS ELOISECHRISTOPHER WILLIS [facility] [id number] [facility] 2023-03-05 09:15:00 2023-03-05 09:51:39 Routine Visit CherylChristopher sousa [facility] 1.2.840.114 350.1.13.10 4.2.7.2.686 [id number] [facility] 2023-03-01 08:00:00 2023-03-01 08:00:00 Outpatient R BILL VELAZQUEZ [facility] [id number] [facility] 2023-03-01 00:00:00 2023-03-01 00:00:00 Telephone Lc Bill [facility] 1.2.840.114 350.1.13.10 4.2.7.2.686 [id number] [facility] 2023-02-28 00:00:00 2023-02-28 00:00:00 Telephone VelazquezBill [facility] 1.2.840.114 350.1.13.10 4.2.7.2.686 [id number] 134 [id number] [facility] 2023-02-28 00:00:00 2023-02-28 00:00:00 Telephone Lc Bill [facility] 1.2.840.114 350.1.13.10 4.2.7.2.686 [id number] [facility] 2023-02-22 13:00:00 2023-02-22 13:00:00 Outpatient R BILL VELAZQUEZ [facility] [id number] [facility] 2023-02-20 08:00:00 2023-02-20 09:00:00 Director Of Industrial Relations Visit 1Lin Room Radha Monroybonnie Gisselle woodson [facility] DRY KILN [facility]ERNAL & CHILD [facility] 1..114 350.1.13.10 4.2.7.2.686 [id number] [facility] 2023-02-20 08:00:00 2023-02-20 08:00:00 Outpatient P RADHA MONROYBONNIE GISSELLE Woodson [facility] [id number] [facility] 2023-02-20 00:00:00 2023-02-20 00:00:00 Case Management Eloiselazaro Christopher [facility] 1.114 350.1.13.10 4.2.7.2.686 [id number] [facility] 2023-02-19 00:00:00 2023-02-19 00:00:00 Telephone [facility] 1..114 350.1.13.10 4.2.7.2.686 [id number] 134 [id number] [facility] 2023-02-15 15:15:00 2023-02-15 15:34:40 Outpatient R BILL VELAZQUEZ [facility] [id number] [facility] 2023-02-15 15:15:00 2023-02-15 15:34:40 Routine Visit Bill Velazquez [facility] 1.114 350.1.13.10 4.2.7.2.686 [id number] [facility] 2023-02-14 00:00:00 2023-02-14 00:00:00 Patient Secure Msg Doctor Unassigned, [place] [facility] 1.114 350.1.13.10 4.2.7.2.686 [id number] [facility] 2023-02-08 00:00:00 2023-02-08 00:00:00 Orders Only Doctor Unassigned, [place]acky [facility] 1..840.114 350.1.13.10 4.2.7.2.686 [id number] [facility] 2023-02-05 09:30:00 2023-02-05 09:30:00 Outpatient R [facility] [id number] [facility] 2023-02-04 14:45:00 2023-02-04 15:47:35 Outpatient R CHRISTOPHER ADAMS CHERYAL [facility] [id number] [facility] 2023-02-04 14:45:00 2023-02-04 15:47:35 Routine Visit Christopher Adams [facility] 1..840.114 350.1.13.10 4.2.7.2.686 [id number] [facility] 2023-01-30 16:15:00 2023-01-30 16:15:00 Outpatient R CHRISTOPHER ADAMS CHERYAL [facility] [id number] [facility] 2022-12-14 13:30:00 2022-12-14 13:30:00 Outpatient R CHRISTOPHER ADAMS CHERYAL [facility] [id number] [facility] 2022-12-03 14:00:00 2022-12-03 14:00:00 Outpatient BURT AYOUB [facility] [id number] [facility] 2022-11-30 08:45:00 2022-11-30 08:45:00 Outpatient P [facility] [id number] [facility] 2022-11-20 13:00:00 2022-11-20 13:00:00 Outpatient MICK ASIF HOWARD [facility] [id number] [facility] 2022-11-16 14:00:00 2022-11-16 15:22:13 Outpatient R BILL VELAZQUEZ [facility] [id number] [facility] 2022-11-16 14:00:00 2022-11-16 15:22:13 Routine Visit Bill Velazquez [facility] 1.114 350.1.13.10 4.2.7.2.686 [id number] [facility] 2022-11-01 00:00:00 2022-11-01 00:00:00 Patient Secure Msg Doctor Unassigned, [place]acky [facility] 1.114 350.1.13.10 4.2.7.2.686 [id number] [facility] 2022-10-19 14:15:00 2022-10-19 15:18:29 Outpatient R CHRISTOPHER ADAMS [facility] [id number] [facility] 2022-10-19 14:15:00 2022-10-19 15:18:29 Routine Visit Stefano [facility] 1..114 350.1.13.10 4.2.7.2.686 [id number] [facility] 2022-10-19 00:00:00 2022-10-19 00:00:00 Case Management Stefano [facility] 1.2.114 350.1.13.10 4.2.7.2.686 [id number] [facility] 2022-09-26 09:30:00 2022-09-26 09:30:00 Outpatient R CHRISTOPHER ADAMS [facility] [id number] [facility] 2022-09-07 00:00:00 2022-09-07 00:00:00 Telephone Bill Velazquez Lai [facility] 1.2.114 350.1.13.10 4.2.7.2.686 [id number] [facility] 2022-08-31 00:00:00 2022-08-31 00:00:00 Telephone Bill Velazquez [facility] 1.2.840.114 350.1.13.10 4.2.7.2.686 [id number] [facility] 2022-08-29 11:15:00 2022-08-29 11:30:00 Director Of Industrial Relations Visit Pob, Adc Lab Main Bill Velazquez [facility] 1.2.840.114 350.1.13.10 4.2.7.2.686 [id number] [facility] 2022-08-29 10:00:00 2022-08-29 11:08:03 Outpatient R BILL VELAZQUEZ [facility] [id number] [facility] 2022-08-29 10:00:00 2022-08-29 11:08:03 Initial Visit Bill Velazquez [facility] 1.2.840.114 350.1.13.10 4.2.7.2.686 [id number] [facility] 2022-08-29 00:00:00 2022-08-29 00:00:00 Orders Only Doctor Unassigned, [place]acky [facility] 1.2.840.114 350.1.13.10 4.2.7.2.686 [id number] [facility] 2022-08-27 14:00:00 2022-08-27 14:00:00 Outpatient SENAIT GILES [facility] [id number] [facility] 2022-08-27 08:00:00 2022-08-27 08:00:00 Outpatient CHRISTOPHER COLEY CHERYAL [facility] [id number] [facility] 2022-08-14 10:45:00 2022-08-14 10:45:00 Outpatient R DIMAIAN NNEKA [facility] [id number] [facility] 2022-07-23 10:45:00 2022-07-23 10:45:00 Outpatient R SHAGUFTAROSALINONNEKA [facility] [id number] [facility] 2022-07-16 13:15:00 2022-07-16 13:15:00 Outpatient R RIDLEY BREACAROLINE [facility] [id number] [facility] 2022-07-09 15:00:00 2022-07-09 16:30:53 Outpatient R OSIEL NNEKA [facility] [id number] [facility] 2022-07-09 15:00:00 2022-07-09 16:30:53 Initial Visit Nneka Carolina [facility] DRY KILN LOADER [facility] 1..840.114 350.1.13.10 4.2.7.2.686 [id number] [facility] 2022-07-09 15:00:00 2022-07-09 16:30:53 Outpatient R SHAGUFTAROSALINONNEKA [facility] [id number] [facility] 2022-07-09 15:00:00 2022-07-09 16:30:53 Outpatient R SHAGUFTAROSALINONNEKA [facility] [id number] [facility] 2022-07-09 00:00:00 2022-07-09 00:00:00 Orders Only Doctor Unassigned, [place]acky [facility] 1..840.114 350.1.13.10 4.2.7.2.686 [id number] [facility] 2022-04-24 23:27:00 2022-04-25 02:29:00 Emergency X ROSA CARDENAS [facility] ERT [id number] [facility] 2022-04-24 23:27:00 2022-04-25 02:29:00 Emergency Rosa Cardenas [facility] 1.2.840.114 350.1.13.10 4.2.7.2.686 [id number] [facility] 2022-03-08 00:00:00 2022-03-08 00:00:00 Patient Secure Msg Doctor Unassigned, [place]acky [facility] 1.2.840.114 350.1.13.10 4.2.7.2.686 [id number] [facility] 2020-09-19 15:15:00 2020-09-19 15:15:00 Outpatient R NNEKA CAROLINA [facility] [id number] [facility] 2020-08-01 13:45:00 2020-08-01 13:45:00 Outpatient R NNEKA CAROLINA [facility] [id number] [facility] 2020-07-28 14:45:00 2020-07-28 14:45:00 Outpatient R NNEKA CAROLINA [facility] [id number] [facility] 2020-07-03 19:39:00 2020-07-06 16:26:00 Hospital Encounter Pedro Saez [facility] 1.2.840.114 350.1.13.10 4.2.7.2.686 [id number] 2020-07-02 00:00:00 2020-07-02 00:00:00 Nurse Triage Lilo Garcia [facility] 1.2.840.114 350.1.13.10 4.2.7.2.686 [id number] 2020-06-27 15:32:39 2020-06-27 16:14:31 Routine Visit Karen Ridley [facility] DRY KILN [facility] 1.2.840.114 350.1.13.10 4.2.7.2.686 [id number] 2020-06-27 15:30:00 2020-06-27 15:30:00 Outpatient R KAREN RIDLEY [facility] [id number] [facility] 2020-06-23 00:00:00 2020-06-23 00:00:00 Abstract Ridley, Karen Jolly [facility] DRY KILN [facility] MATERNAL & CHILD [facility] 1.2840.114 350.1.13.10 4.2.7.2.686 [id number] 2020-06-23 00:00:00 2020-06-23 00:00:00 Telephone Cherie Lees [facility] 1.20.114 350.1.13.10 4.2.7.2.686 [id number] 2020-06-22 14:18:43 2020-06-22 14:48:43 Director Of Industrial Relations Visit Ultrasound, [facility] DRY KILN [facility]ER [facility] MATERNAL & CHILD [facility] 1.2840.114 350.1.13.10 4.2.7.2.686 [id number] 2020-06-22 14:15:00 2020-06-22 14:15:00 Outpatient P [facility] [id number] [facility] 2020-06-22 00:00:00 2020-06-22 00:00:00 Telephone Senait Mckinley [facility] DRY KILN [facility] MATERNAL & CHILD [facility] 1.20.114 350.1.13.10 4.2.7.2.686 [id number] 2020-06-21 14:11:25 2020-06-21 15:15:39 Routine Visit Karen Ridley [facility] DRY KILN LOADER [facility]ILD [facility] 1.2840.114 350.1.13.10 [id number] 2020-06-21 10:00:00 2020-06-21 10:00:00 Outpatient R AKREN RIDLEY [facility] [id number] [facility] 2020-06-03 14:15:00 2020-06-03 14:15:00 Outpatient R DIMAIANNNEKA [facility] [id number] [facility] 2020-05-16 11:00:00 2020-05-16 11:00:00 Outpatient P [facility] [id number] [facility] 2020-05-12 15:30:00 2020-05-12 15:30:00 Outpatient R AKINIAN NNEKA [facility] [id number] [facility] 2020-04-05 13:15:00 2020-04-05 13:15:00 Outpatient R OSIEL NNEKA [facility] [id number] [facility] 2020-04-04 11:45:00 2020-04-04 11:45:00 Outpatient P BRADLEY TOVAR [facility] [id number] [facility] 2020-03-22 13:45:00 2020-03-22 13:45:00 Outpatient R OSIEL NNEKA [facility] [id number] [facility] 2020-03-17 09:35:00 2020-03-17 09:35:00 Outpatient Raju_P [facility] [id number] [facility] 2020-03-07 11:00:00 2020-03-07 11:00:00 Outpatient P [facility] [id number] [facility] 2020-03-04 13:30:00 2020-03-04 13:30:00 Outpatient P JAGDISH HENELY [facility] [id number] [facility] 2020-02-26 15:00:00 2020-02-26 15:00:00 Outpatient R OSIEL NNEKA [facility] [id number] [facility] 2020-02-25 13:30:00 2020-02-25 13:30:00 Outpatient R [facility] [id number] [facility] 2020-02-23 12:45:00 2020-02-23 12:45:00 Outpatient R SENAIT MCKINLEY [facility] [id number] [facility] 2020-01-08 15:45:00 2020-01-08 15:45:00 Outpatient R LAUREN BANUELOS [facility] [id number] [facility] Results Test Description Test Time Test Comments Results Result Co mments Source [facility] [id number] 00:23:24* Test Item Value Reference Range Interpretation Comme nts ANTIBODY (test code = 683) Anti-D Probable RhIg PATIENT RECEIVED RHIG 02/04/23.Performed at [facility] Laboratory Services - [facility] Blood [address] [place] [address] [id number] Free: [phone] No. [id number] [facility] and Screen - ONCE [id number] 12:12:00 * Test Item Value Reference Range Interpretation Comme nts ABO & RH (test code = 20) A Negative IAT (test code = 1185) Positive [facility] W/O SPECIFIC [id number] 21:22:00* Test Item Value Reference Range Interpretation Comme nts POCT PH U (test code = 3254) n/a 5-8 POCT U LEUK EST (test code = 3263) n/a Negative - Negative POCT U NIT (test code = 3262) n/a Negative - Negati ve POCT U PROT (test code = 3259) negative Negative - Negat cam[place] POCT U GLU (test code = 3256) negative Negative - Negati ve POCT U KETONE (test code = 3258) n/a Negative - Neg ative POCT U BLD (test code = 3257) n/a Negative - Negati ve [facility] W/O SPECIFIC [id number] 14:41:00* Test Item Value Reference Range Interpretation Comme nts POCT PH U (test code = 3254) N/A 5-8 POCT U LEUK EST (test code = 3263) N/A Negative - Negative POCT U NIT (test code = 3262) N/A Negative - Negati ve POCT U PROT (test code = 3259) Negative Negative - Negat [place] POCT U GLU (test code = 3256) Negative Negative - Negati ve POCT U KETONE (test code = 3258) N/A Negative - Neg ative POCT U BLD (test code = 3257) N/A Negative - Negati ve [facility] URINALYSIS W/O SPECIFIC [id number] 20:17:00* Test Item Value Reference Range Interpretation Comme nts POCT PH U (test code = 3254) n/a 5-8 POCT U LEUK EST (test code = 3263) n/a Negative - Negative POCT U NIT (test code = 3262) n/a Negative - Negati ve POCT U PROT (test code = 3259) negative Negative - Negat [place] POCT U GLU (test code = 3256) negative Negative - Negati ve POCT U KETONE (test code = 3258) n/a Negative - Neg ative POCT U BLD (test code = 3257) n/a Negative - Negati ve [facility] URINALYSIS W/O SPECIFIC [id number] 21:11:00* Test Item Value Reference Range Interpretation Comme nts POCT PH U (test code = 3254) n/a 5-8 POCT U LEUK EST (test code = 3263) n/a Negative - Negative POCT U NIT (test code = 3262) n/a Negative - Negati ve POCT U PROT (test code = 3259) negative Negative - Negat [place] POCT U GLU (test code = 3256) negative Negative - Negati ve POCT U KETONE (test code = 3258) n/a Negative - Neg ative POCT U BLD (test code = 3257) n/a Negative - Negati ve [facility] URINALYSIS W/O SPECIFIC [id number] 20:30:00* Test Item Value Reference Range Interpretation Comme nts POCT PH U (test code = 3254) 7 mg/dl 5-8 POCT U LEUK EST (test code = 3263) neg Negative - Negative POCT U NIT (test code = 3262) neg Negative - Negati ve POCT U PROT (test code = 3259) trace Negative - Negat [place] POCT U GLU (test code = 3256) neg Negative - Negati ve POCT U KETONE (test code = 3258) neg Negative - Neg ative POCT U BLD (test code = 3257) neg Negative - Negati ve [facility] URINALYSIS W/O SPECIFIC [id number] 21:06:00* Test Item Value Reference Range Interpretation Comme nts POCT PH U (test code = 3254) N/A 5-8 POCT U LEUK EST (test code = 3263) N/A Negative - Negative POCT U NIT (test code = 3262) N/A Negative - Negati ve POCT U PROT (test code = 3259) Negative Negative - Negat [place] POCT U GLU (test code = 3256) Negative Negative - Negati ve POCT U KETONE (test code = 3258) N/A Negative - Neg ative POCT U BLD (test code = 3257) N/A Negative - Negati ve [facility] 1 H[facility] POST [id number] 19:18:59* Test Item Value Reference Range Interpretation Comme nts GLUC 1 HR (test code = 0683947785) 68 mg/dL 120-170 L Lab Interpretation (test cod e = 52737-8) Abnormal [facility] URINALYSIS W/O SPECIFIC [id number] 15:26:00* Test Item Value Reference Range Interpretation Comme nts POCT PH U (test code = 3254) n/a 5-8 POCT U LEUK EST (test code = 3263) n/a Negative - Negative POCT U NIT (test code = 3262) n/a Negative - Negati ve POCT U PROT (test code = 3259) negative Negative - Negat [place] POCT U GLU (test code = 3256) negative Negative - Negati ve POCT U KETONE (test code = 3258) n/a Negative - Neg ative POCT U BLD (test code = 3257) n/a Negative - Negati ve [facility] [id number] 19:55:00* Test Item Value Reference Range Interpretation Comme nts POCT PREG (test code = 1605) Positive On board controls acceptable with C Line (test code = 3574) Yes POCT PREG LOT # (test code = 3575) POCT PREG TEST DATE ( test code = 3576) [facility] W/O SPECIFIC [id number] 19:55:00* Test Item Value Reference Range Interpretation Comme nts POCT PH U (test code = 3254) 5 mg/dl 5-8 POCT U LEUK EST (test code = 3263) 2+ Negative - Negative POCT U NIT (test code = 3262) Neg Negative - Negati ve POCT U PROT (test code = 6719) Trace Negative - Negat [place] POCT U GLU (test code = 3256) Neg Negative - Negati ve POCT U KETONE (test code = 3258) Neg Negative - Neg ative POCT U BLD (test code = 7077) Negative - Negati ve [facility]
[2024-01-13 17:08] LABS: SARS-CoV-2 Antigen Rapid Res Negative (Negative)
--- NOTE | 2024-01-13 17:51 | ER ---
Nurse's Notes [facility] Name: Sandra Amado Age: 33 yrs Sex: Female : 1990 Arrival Date: 01/13/2024 Time: 15:59 Bed 10 Private MD: Diagnosis: Other acute sinusitis Presentation: 01/13 16:36 Chief complaint: Patient states: congestion, cough, ear pain, chills, vomiting since tn1 Saturday. Coronavirus screen: Vaccine status: Patient reports being unvaccinated. Ebola Screen: Patient denies travel to an Ebola-affected area in the 21 days before illness onset. Initial Sepsis Screen: Does the patient meet any 2 criteria? No. Patient's initial sepsis screen is negative. Does the patient have a suspected source of infection? No. Patient's initial sepsis screen is negative. Risk Assessment: Do you want to hurt yourself or someone else? Patient reports no desire to harm self or others. Onset of symptoms was January 11, 2024. 16:36 Method Of Arrival: Ambulatory [facility] 16:36 Acuity: HUGO 4 nj1 Historical: - Allergies: 16:37 PENICILLINS (Anaphylaxis); nj1 16:37 tramadol; hallucinations; nj1 - PMHx: 16:37 Anxiety; Bipolar disorder; Depression; Diabetes - NIDDM; gestational diabetes; nj1 Hypertension; Kidney stones; Neck Cancer; ovary cyst; RAPID HEART RATE; - Immunization history:: Client reports having NOT received the Covid vaccine. - Social history:: Smoking status: Reported history of juuling and/or vaping. Screenin:30 [facility] ED Fall Risk Assessment (Adult) History of falling in the last 3 months, ko1 including since admission No falls in past 3 months (0 pts). Abuse screen: Denies threats or abuse. Denies injuries from another. Nutritional screening: No deficits noted. Tuberculosis screening: No symptoms or risk factors identified. Assessment: 17:30 Pain: Complains of pain in throat pain and generalized body aches. ko1 Vital Signs: 16:36 BP 117 / 72; Pulse 74; Resp 18; Temp 98.5; Pulse Ox 100% ; Weight 108.86 kg; Height 5 nj1 ft. 5 in. ; Pain 8/10; 18:08 BP 124 / 74; Pulse 78; Resp 16; Pulse Ox 98% ; ko1 16:36 Body Mass Index 39.94 (108.86 kg, 165.1 cm) nj1 16:36 Pain Scale: Adult [facility] ED Course: 16:01 Patient arrived in ED. im 16:15 Rosibel Arce PA-C is PHCP. sb4 16:15 Ramy Sheikh DO is Attending Physician. sb4 16:37 Triage completed. nj1 16:38 Arm band placed on right wrist. nj1 17:30 Patient has correct armband on for positive identification. Allergy band placed. Bed in ko1 low position. Call light in reach. Side rails up X 1. Pulse ox on. NIBP on. Door closed. Noise minimized. Lights dimmed. 17:51 Leyla Madrigal, RN is Primary Nurse. ko1 18:07 Provided Education on: na. ko1 18:07 No provider procedures requiring assistance completed. Patient did not have IV access ko1 during this emergency room visit. Administered Medications: 17:57 Drug: Ondansetron Oral Disintegrating Tablet Oral Disintegrating Tablet 4 mg PO once ko1 Route: PO; 18:18 Follow up: Response: No adverse reaction; Nausea is decreased ko1 17:57 Drug: Ketorolac IM 30 mg IM once Route: IM; Site: right deltoid; ko1 18:18 Follow up: Response: No adverse reaction ko1 Medication: 17:30 VIS not applicable for this client. ko1 Outcome: 17:50 Discharge ordered by MD. sb4 18:21 Discharged to home ambulatory, with friend, ko1 18:21 Condition: stable 18:21 Discharge instructions given to patient, Instructed on discharge instructions, follow up and referral plans. medication usage, Demonstrated understanding of instructions, follow-up care, medications, Prescriptions given X 3, 18:23 Patient left the ED. ko1 Signatures: Leyla Madrigal, RN RN ko1 Rosibel Arce PA-C PA-C sb4 Toyin Smalls RN RN nj1 Charla Adams im
--- NOTE | 2024-01-13 17:51 | EDPHYS ---
Physician Documentation [facility] Name: Sandra Amado Age: 33 yrs Sex: Female : 1990 Arrival Date: 01/13/2024 Time: 15:59 Bed 10 Private MD: ED Physician Ramy Sheikh HPI: 01/13 16:48 This 33 yrs old Female presents to ER via Ambulatory with complaints of Flu sb4 Symptoms. 19:22 cough, congestion, sore throat, ear pain, chills, vomiting x 2 days. has been taking sb4 tylenol and motrin but can barely keep anything down. denies any known sick contacts. Historical: - Allergies: 16:37 PENICILLINS (Anaphylaxis); nj1 16:37 tramadol; hallucinations; nj1 - PMHx: 16:37 Anxiety; Bipolar disorder; Depression; Diabetes - NIDDM; gestational diabetes; nj1 Hypertension; Kidney stones; Neck Cancer; ovary cyst; RAPID HEART RATE; - Immunization history:: Client reports having NOT received the Covid vaccine. - Social history:: Smoking status: Reported history of juuling and/or vaping. ROS: 19:22 Cardiovascular: Negative for chest pain, palpitations, and edema, sb4 19:22 Constitutional: Positive for body aches, chills, 19:22 ENT: Positive for ear pain, sinus congestion, sore throat, 19:22 Respiratory: Positive for cough, 19:22 Abdomen/GI: Positive for nausea and vomiting, 19:22 All other systems are negative, sb4 Exam: 19:22 Constitutional: This is a well developed, well nourished patient who is awake, alert, sb4 and in no acute distress. Head/Face: Normocephalic, atraumatic. Eyes: Extra-ocular motions intact. Periorbital areas with no swelling, redness, or edema. ENT: Mucous membranes moist. Cardiovascular: Regular rate and rhythm with a normal S1 and S2. Respiratory: Lungs have equal breath sounds bilaterally, clear to auscultation and percussion. No rales, rhonchi or wheezes noted. No increased work of breathing, no retractions or nasal flaring. Abdomen/GI: Soft, non-tender, no distension. Skin: Warm, dry with normal turgor. Normal color with no rashes, no lesions, and no evidence of cellulitis. MS/ Extremity: Pulses equal, no cyanosis. Neurovascular intact. Full, normal range of motion. Vital Signs: 16:36 BP 117 / 72; Pulse 74; Resp 18; Temp 98.5; Pulse Ox 100% ; Weight 108.86 kg; Height 5 nj1 ft. 5 in. ; Pain 8/10; 18:08 BP 124 / 74; Pulse 78; Resp 16; Pulse Ox 98% ; ko1 16:36 Body Mass Index 39.94 (108.86 kg, 165.1 cm) nj1 16:36 Pain Scale: Adult nj1 MDM: 16:45 Patient medically screened. sb4 19:22 Differential diagnosis: viral Infection, bacterial infection, URI. Data reviewed: vital sb4 signs, nurses notes, lab test result(s), radiologic studies, and as a result, I will discharge patient. Counseling: I had a detailed discussion with the patient and/or guardian regarding the historical points, exam findings, and any diagnostic results supporting the discharge/admit diagnosis, lab results, radiology results, to return to the emergency department if symptoms worsen or persist or if there are any questions or concerns that arise at home. 02 16:45 Order name: SARS RAPID; Complete Time: 17:12 sb4 01/13 16:45 Order name: Flu; Complete Time: 17:17 sb4 01/13 16:45 Order name: Strep; Complete Time: 17:12 sb4 01/13 17:10 Order name: Throat Culture EDMS Administered Medications: 17:57 Drug: Ondansetron Oral Disintegrating Tablet Oral Disintegrating Tablet 4 mg PO once ko1 Route: PO; 18:18 Follow up: Response: No adverse reaction; Nausea is decreased ko1 17:57 Drug: Ketorolac IM 30 mg IM once Route: IM; Site: right deltoid; ko1 18:18 Follow up: Response: No adverse reaction ko1 Disposition: 17:06 I was immediately available on-site in the Emergency Department for consultation in the ms3 care of the patient. Disposition Summary: 01/13/24 17:50 Discharge Ordered Notes: Location: Home sb4 Problem: new sb4 Symptoms: are unchanged sb4 Condition: Stable sb4 Diagnosis - Other acute sinusitis sb4 Followup: sb4 - With: Emergency Department - When: As needed - Reason: Trouble breathing, Worsening of condition Discharge Instructions: - Discharge Summary Sheet sb4 - Sinusitis, Adult sb4 Forms: - Work release form sb4 - Medication Reconciliation Form sb4 - Thank You Letter sb4 - Antibiotic Education sb4 - Prescription Opioid Use sb4 - Patient Portal Instructions sb4 - Leadership Thank You Letter sb4 Prescriptions: - Zofran 4 mg Oral Tablet - take 1 tablet ORAL route every 12 hours As needed; 20 tablet; Refills: 0, sb4 Product Selection Permitted - Tessalon Perles 100 mg Oral Capsule - take 1 capsule ORAL route every 8 hours As needed; 15 capsule; Refills: 0, sb4 Product Selection Permitted - Doxycycline Hyclate 100 mg Oral Tablet - take 1 tablet ORAL route every 12 hours; 20 tablet; Refills: 0, Product sb4 Selection Permitted Signatures: Dispatcher [employer] EDRamy Llanes, DO ms3 Leyla Madrigal, DENIS RN ko1 Rosibel Arce PAAwaC PAAwaC sb4 Toyin Smalls RN RN nj1
[2024-01-13 18:43] VITALS: BP 124/74; TEMP 98.5; O2SAT 98
== END ==
LOC: ER 15:59
DX: J01.80 Other acute sinusitis (principal); Z11.52 Encounter for screening for COVID-19
CPT/HCPCS: 36415; 87070; 87081; 87804; 87811; 96372; 99284; Q0162

== ENCOUNTER 2024-11-13 20:25 | Emergency (ER) | payer OTHER ==
[2024-11-13] MEDS ORDERED: predniSONE 20 MG TAB ONE (20:49)
[2024-11-13] MEDS ORDERED: HYDROCODONE/APAP 5/325 MG TAB ONE (20:57)
--- NOTE | 2024-11-13 21:00 | ER ---
Nurse's Notes [facility] Name: Sandra Amado Age: 33 yrs Sex: Female : 1990 Arrival Date: 11/13/2024 Time: 20:25 Bed 16 Private MD: Diagnosis: Gutiérrez's palsy Presentation: 11/13 20:34 Chief complaint: Patient states: left sided facial droop that started yesterday. Also cp4 reports bilateral arm numbness and pain behind the left ear. Coronavirus screen: Client denies travel out of the [place] in the last 14 days. At this time, the client does not indicate any symptoms associated with coronavirus-19. Ebola Screen: Patient negative for fever greater than or equal to 101.5 degrees Fahrenheit, and additional compatible Ebola Virus Disease symptoms Patient denies exposure to infectious person. Patient denies travel to an Ebola-affected area in the 21 days before illness onset. No symptoms or risks identified at this time. 20:34 Method Of Arrival: Ambulatory cp4 20:49 Initial Sepsis Screen: Does the patient meet any 2 criteria?. Initial Sepsis Screen: cp4 Does the patient have a suspected source of infection? No. Patient's initial sepsis screen is negative. Risk Assessment: Do you want to hurt yourself or someone else? Patient reports no desire to harm self or others. Onset of symptoms was November 12, 2024. 20:49 Acuity: HUGO 2 cp4 20:55 No acute neurological deficit is noted. Pre-hospital glucose is not applicable to this me1 patient. Triage Assessment: 21:23 The onset of the patients symptoms was November 12, 2024 at 15:00. Neuro: Reports left me1 sided facial droop. MANAGER RISK: 21:24 LMP 10/21/2024, unknown me1 Stroke Activation: Symptom onset > 6 hours Physician: ED Attending; Name: ; Notified At: ; Arrived At: Physician: Mid-Level Provider; Name: ; Notified At: ; Arrived At: Physician: [not used]; Name: ; Notified At: ; Arrived At: Physician: [not used]; Name: ; Notified At: ; Arrived At: Physician: [not used]; Name: ; Notified At: ; Arrived At: Historical: - Allergies: 20:50 PENICILLINS (Anaphylaxis); cp4 20:50 tramadol; hallucinations; cp4 - PMHx: 20:50 Anxiety; Bipolar disorder; Depression; Diabetes - NIDDM; Diabetes - NIDDM; gestational cp4 diabetes; Hypertension; Kidney stones; Neck Cancer; ovary cyst; RAPID HEART RATE; - Immunization history:: Adult Immunizations up to date. - Infectious Disease History:: Denies. - Social history:: Smoking status: Patient denies any tobacco usage or history of. Screenin:55 [facility] ED Fall Risk Assessment (Adult) History of falling in the last 3 months, me1 including since admission No falls in past 3 months (0 pts) Confusion or Disorientation No (0 pts) Intoxicated or Sedated No (0 pts) Impaired Gait No (0 pts) Mobility Assist Device Used No (0 pt) Altered Elimination No (0 pt) Score/Fall Risk Level 0 - 2 = Low Risk Maintained a safe environment, Provided non-skid footwear, Hourly rounding (assess needs \T\ fall precautionary measures) done. 20:55 Abuse screen: Denies threats or abuse. Nutritional screening: No deficits noted. me1 Tuberculosis screening: No symptoms or risk factors identified. Assessment: 20:55 VAN Scoring: Arm Drift: Patients demonstrates NO arm weakness. Patient is VAN Negative. me1 Visual Disturbance: No visual disturbance noted. Aphasia: No aphasia noted. Neglect: No neglect noted. Renetta Swallow Protocol Exclusion Criteria: Brief Cognitive Screen What is your name? Normal, Where are you right now? Normal, What year is it? Normal. Oral Mechanism Examination Facial Symmetry: Normal, Motion: Normal, Lip Closure: Normal, Oral Mechanism Result: Normal. 3 oz Water Swallow Challenge: Pt able to drink all water without stopping, coughing, choking or throat clearing: Yes Result: PASS Notified: Ramy Sheikh DO. General: Appears uncomfortable, obese, well developed, well nourished, Behavior is calm, cooperative, appropriate for age, Reports left sided facial droop that started yesterday. Also reports bilateral arm numbness and pain behind the left ear. Pain: Complains of pain in left occipital area Pain does not radiate. Pain currently is 9 out of 10 on a pain scale. Quality of pain is described as pressure, Pain began gradually, Is continuous. Neuro: Level of Consciousness is awake, alert, obeys commands, Oriented to person, place, time, situation, Appropriate for age. Neuro: Water Pump Servicer are equal bilaterally Moves all extremities. Full function Gait is steady, Speech is normal, Facial droop on left, Pupils are PERRLA, Intact. Cardiovascular: Patient's skin is warm and dry. Respiratory: Airway is patent Respiratory effort is even, unlabored, Respiratory pattern is regular, symmetrical. GI: No signs and/or symptoms were reported involving the gastrointestinal system. : No signs and/or symptoms were reported regarding the genitourinary system. EENT: No signs and/or symptoms were reported regarding the EENT system. Derm: Skin is intact, is healthy with good turgor, Skin is pink, warm \T\ dry. Musculoskeletal: Reports numbness in right arm and left arm. 21:23 TNKase (Tenecteplase) Screening: Not Applicable. me1 Vital Signs: 20:34 BP 115 / 71; Pulse 98; Resp 18; Temp 97.9; Pulse Ox 99% ; Weight 120.66 kg; Height 5 cp4 ft. 5 in. ; Pain 9/10; 21:00 BP 108 / 71; Pulse 90; Resp 17; Pulse Ox 98% ; me1 21:21 BP 106 / 59; Pulse 77; Resp 16; Temp 98.2; Pulse Ox 96% ; me1 21:22 Pain 6/10; me1 20:34 Body Mass Index 44.26 (120.66 kg, 165.1 cm) cp4 20:34 Pain Scale: Adult cp4 21:22 Pain Scale: Adult me1 NIH Stroke Scale Scores: 20:55 NIHSS Score: 1 nv1 ED Course: 20:27 Patient arrived in ED. ra3 20:27 Tanya Torres FNP-C is PHCP. kb 20:27 Ramy Sheikh DO is Attending Physician. kb 20:48 Milka Perez, DENIS is Primary Nurse. me1 20:50 Triage completed. cp4 20:50 Arm band placed on right wrist. Patient placed in waiting room. cp4 20:55 Patient has correct armband on for positive identification. Bed in low position. Call nv1 light in reach. Side rails up X2. Provided Education on: POC. Verbalized understanding.. Client placed on continuous cardiac and pulse oximetry monitoring. NIBP monitoring applied. Pulse ox on. NIBP on. 20:55 No provider procedures requiring assistance completed. Patient did not have IV access me1 during this emergency room visit. Administered Medications: 20:55 Drug: predniSONE PO 60 mg PO once Route: PO; me1 21:02 Follow up: Response: No adverse reaction me1 21:02 Drug: HYDROcodone-acetaminophen PO 5 mg-325 mg 1 tabs PO once Route: PO; me1 21:22 Follow up: Response: No adverse reaction me1 21:22 Follow up: Pain 6/10 Adult; Response: No adverse reaction; Pain is decreased me1 Medication: 20:55 VIS not applicable for this client. me1 Outcome: 21:00 Discharge ordered by . frandy 21:31 Discharged to home ambulatory, with significant other, me1 21:31 Condition: stable 21:31 Discharge instructions given to patient, significant other, Instructed on discharge instructions, follow up and referral plans. medication usage, Demonstrated understanding of instructions, follow-up care, medications, Prescriptions given X 1, 21:37 Patient left the ED. me1 NIH Stroke Scale - NIH Stroke Score Date: 11/13/2024 Time: 20:55 Total Score = 1 10. Dysarthria (speech clarity - read or repeat words) - 0(Normal) 11. Extinction and Inattention (visual/tactile/auditory/spatial/personal) - 0(No abnormality) 1a. Level of Consciousness (LOC) - 0(Alert) 1b. Level of Consciousness (LOC) (Month \T\ Age) - 0(Both) 1c. LOC Commands (Open \T\ Closes Eyes/Stunt Driver) - 0(Both) 2. Best Gaze (Lateral Gaze Paresis) - 0(Normal) 3. Visual Field Loss - 0(No visual loss) 4. Facial Palsy - 1(Minor Paralysis) 5a. Left Arm: Motor (10-second hold) - 0(No drift) 5b. Right Arm: Motor (10-second hold) - 0(No drift) 6a. Left Leg: Motor (5-second hold - always test supine) - 0(No drift) 6b. Right Leg: Motor (5-second hold - always test supine) - 0(No drift) 7. Limb Ataxia (finger/nose \T\ heel/majano - test with eyes open) - 0(Absent) 8. Sensory Loss (pinprick arms/legs/face) - 0(Normal) 9. Best Language: Aphasia (description/naming/reading) - 0(No aphasia) Initials: me1 Signatures: Tanya Torres, POULTRY FARM LABORER-C POULTRY FARM LABORER-Ckb Milka Perez RN RN me1 Ann Cortes cp4 Hanny Dickens ra3 Corrections: (The following items were deleted from the chart) 20:55 20:34 Chief complaint: Patient states: left sided facial droop that started me1 yesterday. Also reports bilateral arm numbness and pain behind the left ear. cp4 21:21 21:00 BP 108 / 71; Pulse 90bpm; Resp 17bpm; Pulse Ox 98%; Temp 98.2F; me1 me1
--- NOTE | 2024-11-13 21:01 | EDPHYS ---
Physician Documentation [facility] Name: Sandra Amado Age: 33 yrs Sex: Female : 1990 Arrival Date: 11/13/2024 Time: 20:25 Bed 16 Private MD: ED Physician Ramy Forrester HPI: 11/13 23:07 This 33 yrs old Female presents to ER via Ambulatory with complaints of Facial kb Droop. 23:07 Pt is a 33 year old female who presents for left sided facial droop. States it started kb in her left eye yesterday and has spread down to her mouth. Denies any other symptoms. ORAL AND MAXILLOFACIAL SURGERY: 21:24 LMP 10/21/2024, unknown me1 Historical: - Allergies: 20:50 PENICILLINS (Anaphylaxis); cp4 20:50 tramadol; hallucinations; cp4 - PMHx: 20:50 Anxiety; Bipolar disorder; Depression; Diabetes - NIDDM; Diabetes - NIDDM; gestational cp4 diabetes; Hypertension; Kidney stones; Neck Cancer; ovary cyst; RAPID HEART RATE; - Immunization history:: Adult Immunizations up to date. - Infectious Disease History:: Denies. - Social history:: Smoking status: Patient denies any tobacco usage or history of. ROS: 23:05 Constitutional: As per HPI kb Exam: 23:05 Constitutional: This is a well developed, well nourished patient who is awake, alert, kb and in no acute distress. Head/Face: Normocephalic, atraumatic. ENT: Moist Mucous membranes Cardiovascular: Regular rate Respiratory: Respirations even and unlabored. No increased work of breathing. Talking in full sentences Abdomen/GI: Soft, non-tender. No distention Skin: Warm, dry with normal turgor. Normal color. MS/ Extremity: Pulses equal, no cyanosis. Neurovascular intact. Full, normal range of motion. 23:05 Neuro: Orientation: is normal, Mentation: is normal, Memory: is normal, Cranial nerves: facial droop noted on left, with forehead involved. Vital Signs: 20:34 BP 115 / 71; Pulse 98; Resp 18; Temp 97.9; Pulse Ox 99% ; Weight 120.66 kg; Height 5 cp4 ft. 5 in. ; Pain 9/10; 21:00 BP 108 / 71; Pulse 90; Resp 17; Pulse Ox 98% ; me1 21:21 BP 106 / 59; Pulse 77; Resp 16; Temp 98.2; Pulse Ox 96% ; me1 21:22 Pain 6/10; me1 20:34 Body Mass Index 44.26 (120.66 kg, 165.1 cm) cp4 20:34 Pain Scale: Adult cp4 21:22 Pain Scale: Adult me1 NIH Stroke Scale Scores: 20:55 NIHSS Score: 1 ne1 MDM: 20:27 Medical Screening Exam initiated kb 23:06 Data reviewed: vital signs, nurses notes. Management of patient was discussed with the kb following: dr forrester who also evaluated the pt, agrees with bells palsy. Counseling: I had a detailed discussion with the patient and/or guardian regarding the historical points, exam findings, and any diagnostic results supporting the discharge/admit diagnosis, the need for outpatient follow up, a family practitioner, to return to the emergency department if symptoms worsen or persist or if there are any questions or concerns that arise at home. 23:07 Test considered but Not performed: CT: ct head considered but deficit has forehead kb involvement consistent with bells palsy. ED course: differential diagnosis: bells palsy, CVA. Administered Medications: 20:55 Drug: predniSONE PO 60 mg PO once Route: PO; me1 21:02 Follow up: Response: No adverse reaction me1 21:02 Drug: HYDROcodone-acetaminophen PO 5 mg-325 mg 1 tabs PO once Route: PO; me1 21:22 Follow up: Response: No adverse reaction me1 21:22 Follow up: Pain 6/10 Adult; Response: No adverse reaction; Pain is decreased me1 Disposition: 11/14 00:05 I was immediately available on-site in the Emergency Department for consultation in the ms3 care of the patient. Disposition Summary: 11/13/24 21:00 Discharge Ordered Notes: Location: Home kb Condition: Stable kb Diagnosis - Gutiérrez's palsy kb Followup: kb - With: Emergency Department - When: As needed - Reason: Worsening of condition Followup: kb - With: Private Physician - When: 2 - 3 days - Reason: Recheck today's complaints, Continuance of care, Re-evaluation by your physician Discharge Instructions: - Discharge Summary Sheet kb - Gutiérrez's Palsy, Adult kb Forms: - Medication Reconciliation Form kb - Antibiotic Education kb - Prescription Opioid Use kb - Patient Portal Instructions kb - Leadership Thank You Letter Prescriptions: - Prednisone 20 mg Oral Tablet - take 1 tablet ORAL route once daily for 5 days; 5 tablet; Refills: 0, Product kb Selection Permitted NIH Stroke Scale - NIH Stroke Score Date: 11/13/2024 Time: 20:55 Total Score = 1 10. Dysarthria (speech clarity - read or repeat words) - 0(Normal) 11. Extinction and Inattention (visual/tactile/auditory/spatial/personal) - 0(No abnormality) 1a. Level of Consciousness (LOC) - 0(Alert) 1b. Level of Consciousness (LOC) (Month \T\ Age) - 0(Both) 1c. LOC Commands (Open \T\ Closes Eyes/Nurse Practical) - 0(Both) 2. Best Gaze (Lateral Gaze Paresis) - 0(Normal) 3. Visual Field Loss - 0(No visual loss) 4. Facial Palsy - 1(Minor Paralysis) 5a. Left Arm: Motor (10-second hold) - 0(No drift) 5b. Right Arm: Motor (10-second hold) - 0(No drift) 6a. Left Leg: Motor (5-second hold - always test supine) - 0(No drift) 6b. Right Leg: Motor (5-second hold - always test supine) - 0(No drift) 7. Limb Ataxia (finger/nose \T\ heel/majano - test with eyes open) - 0(Absent) 8. Sensory Loss (pinprick arms/legs/face) - 0(Normal) 9. Best Language: Aphasia (description/naming/reading) - 0(No aphasia) Initials: me1 Signatures: Tanya Torres, JOINT YARNER-C JOINT YARNER-Ckb Ramy Forrester DO DO ms3 Milka Perez, RN RN me1 Ann Cortes cp4
[2024-11-13 22:14] VITALS: BP 106/59; TEMP 98.2; O2SAT 96
== END 2024-11-13 21:37 | disposition home or self-care (01) ==
LOC: ER 20:25
DX: G51.0 Bell's palsy (principal)
CPT/HCPCS: 99284; J7512

== ENCOUNTER 2024-11-23 21:57 | Emergency (ER) | payer OTHER ==
--- OUTSIDE RECORDS SUMMARY | 2024-11-23 22:02 | XMS REPORT | Continuity of Care Document ---
Author Name Unknown Address [address] [facility] [address] [place] [address] [facility] Address [address] [facility] [address] [place] [address] Care Team Providers Care Nurse Chemical Dependency Name Role Phone Pcp, Patient Does Not Have A Primary Care Physic ramón Bill Velazquez MD Attending Clinician [phone] BILL VELAZQUEZ Attending Clinician Unavailable Tadeo GARVIN, Priscila Attending Clinician + [phone] Bethany Parra MD Attending Clinician [phone] Demarcus Constantino MD Attending Clinician [phone] Robert Cannon CRNA Attending Clinician [phone] Maurisio Rodriguez MD Attending Clinician [phone] MAURISIO RODRIGUEZ Attending Clinician Unavaileverett winter Pob, [facility] Main Attending Clinician Unavaileverett winetr Doctor Unassigned, [place] Attending Clinician U MARCELLE Benavides Attending Clinician MARCELLE Banks Attending Clinician Unavailradha levy 1, [facility] [place] [facility] Attending Clinician Rachael Mcdaniel MD, Gisselle Attending Clinician + RADHA GISSELLE GUTIERREZ Attending Clinician Unav ailable CRYSTAL, BURT Attending Clinician Unavailable MICK XIE Attending Clinician Unavail able MICK XIE Attending Clinician Unavail able PRETTY MCKINLEY Attending Clinician Unavailabl NICKIE Cisneros Attending Clinician Unavail able KAREN RIDLEY Attending Clinician Unavailab guera [place] WHCNPNickie Attending Clinician + ROSA CARDENAS Attending Clinician Unavailable Rosa Cardenas MD Attending Clinician [phone] Pedro Saez MD Attending Clinician + [phone] Lilo Garcia RN Attending Clinician Unavaila mildred Ridley MODELING AND SIMULATION ANALYST, Karen Jolly Attending Clinician + [phone] Cherie Lees MA Attending Clinician Unava ilable Ultrasound, Ang-Mfm Attending Clinician Unavailradha VALDES, Pretty Ashraf Attending Clinician [phone] BRADLEY TOVAR Attending Clinician Unavailable Rajveronica_P Attending Clinician Unavailable JAGDISH HENLEY Attending Clinician Unavailable LAUREN BANUELOS Attending Clinician Unavailable BILL VELAZQUEZ Admitting Clinician Unavailable Bill Velazquez MD Admitting Clinician [phone] ROSA CARDENAS Admitting Clinician Unavailable Pedro Saez MD Admitting Clinician + [phone] Rajveronica_Naun Admitting Clinician Unavailable Payers Payer Name Policy Type Policy Number Effective Date Expirati on Date Source [employer] MEDICA[employer] [id number] 2019 00:00:00 Problems Condition Name Condition Details Condition Category Status Onset Date Resolution Date Last Treatment Date Treating Clinician Comments Source Encounter for induction of labor Encounter for induction of labor Disease Active 03-15 00:00: 00 [facility] Morbid obesity with body mass index of 40.0-49.9 Morbid obesity with body mass index of 40.0-49.9 Disease Active 03-15 00:00: 00 [facility] Liveborn infant, of montiel , born in hospital by vaginal delivery Liveborn , of montiel , born in hospital by vaginal delivery Disease Active 4-14 00:00: 00 [facility] Inability to access health care due to transporta tion insecurity Inability to access health care due to transporta tion insecurity Disease Active 4-12 00:00: 00 [facility] Need for Tdap vaccinatio n Need for Tdap vaccinatio n Disease Active 3-06 00:00: 00 [facility] Back pain during Back pain during Disease Active 2021-12 2-16 00:00: 00 [facility] Sciatic pain, right Sciatic pain, right Disease Active 2021-12 2-16 00:00: 00 [facility] Anxiety disorder, unspecifie d type Anxiety disorder, unspecifie d type Disease Active 9-28 00:00: 00 [facility] SVT (supravent ricular tachycardi a) SVT (supravent ricular tachycardi a) Disease Active 9-28 00:00: 00 [facility] Anxiety and depression Anxiety and depression Disease Active 9-28 00:00: 00 [facility] Supervisio n of high-risk Supervisio n of high-risk Disease Active 8-08 00:00: 00 [facility] Grand multiparit y, antepartum Grand multiparit y, antepartum Disease Active 8-08 00:00: 00 [facility] Other depression Other depression Disease Active 8-08 00:00: 00 Overview: Formattin g of this note might be different from the original. 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 Address in Labor and Delivery. [facility] Anemia of mother in , antepartum Anemia of mother in , antepartum Disease Active 06-22 00:00: 00 [facility] Anemia of mother in , antepartum Anemia of mother in , antepartum Disease Active 06-22 00:00: 00 [facility] Insufficie nt care in third trimester Insufficie nt care in third trimester Disease Active 06-21 00:00: 00 [facility] Rh negative, antepartum Rh negative, antepartum Disease Active 24 00:00: 00 Overview: Formattin g of this note might be different from the original. Rhogam at 28 weeks [facility] History of substance use History of substance use Disease Active 02-22 00:00: 00 [facility] Allergies, Adverse Reactions, Alerts Allergy Name Allergy Type Status Severity Reaction(s) Onset Date Inactive Date Treating Clinician Comments Source Tramadol Propensi ty to adverse reaction s Active Hives 2018-0 -14 00:00: 00 [facility] TRAMADOL DRUG INGREDI Active Hives 2018-0 14 00:00: 00 [facility] Penicill ins Propensi ty to adverse reaction s Active Hives 04-13 00:00: 00 [facility] PENICILL INS Drug Class Active Hives 04-13 00:00: 00 [facility] Penicill ins Propensi ty to adverse reaction s Active Hives 04-13 00:00: 00 [facility] Social History Social Habit Start Date Stop Date Quantity Comments Source ASSERTION 2022-06-13 00:00:00 [facility] Exposure to SARS-CoV-2 (event) 2023-03-05 00:00:00 2023-03-15 04:57:00 Not sure [facility] Alcohol intake 2023-03-15 00:00:00 2023-03-15 00:00:00 Ex-drinker (finding) [facility] History of Social function 2022-07-09 00:00:00 2022-07-09 00:00:00 [facility] History of tobacco use 2021-07-02 00:00:00 Smokes tobacco daily [facility] Tobacco use and exposure 2019-12-11 00:00:00 2019-12-11 00:00:00 User of smokeless tobacco [facility] Tobacco Comment 2019-12-11 00:00:00 2019-12-11 00:00:00 2 ciggs a day [facility] Sex Assigned At 1990 00:00:00 1990 00:00:00 [facility] Smoking Status Start Date Stop Date Source Never smoked tobacco [facility] Ex-smoker 2022-07-09 00:00:00 2022-07-09 00:00:00 [facility] Smokes tobacco daily 2019-12-11 00:00:00 [facility] Medications Ordered Medication Name Filled Medication Name Start Date Stop Date Current Medication? Ordering Clinician Indication Dosage Frequency Signature (SIG) Comments Components Source abdifatah CAREY) 50 % topical pad 03-16 00:08: 26 Yes Topical, Q4HPRN, Starting on Sat03/15/23 at 1908, Until Discontinu ed, Routine, rectal/hem orrhoidal pain [facility] ibuprofen (IBU) tablet 600 mg 03-16 00:08: 26 Yes 600mg 600 mg, Oral, Q6HPRN, Starting on Sat03/15/23 at 1908, Until Discontinu ed, Routine, Pain (scale 4-6) [facility] acetaminoph en (TYLENOL) tablet 650 mg 03-16 00:08: 26 Yes 650mg 650 mg, Oral, Q6HPRN, Starting on Sat03/15/23 at 1908, Until Discontinu ed, Routine, Pain (scale 1-3) [facility] diphenhydrA MINE (BENADRYL) tablet 25 mg 03-16 00:08: 26 Yes 25mg 25 mg, Oral, Q6HPRN, Starting on Sat03/15/23 at 1908, Until Discontinu ed, Routine, Sleep, Itching [facility] ondansetron (ZOFRAN (PF)) injection 4 mg 03-16 00:08: 26 Yes 4mg 4 mg, Slow IV Push, Q8HPRN, Starting on Sat03/15/23 at 1908, Until Discontinu ed, Routine, Nausea and Vomiting (N/V) [facility] simethicone (GAS RELIEF (SIMETHICON E)) chewable tablet 160 mg 03-16 00:08: 26 Yes 160mg 160 mg, Oral, PC+HSPRN, Starting on Sat03/15/23 at 1908, Until Discontinu ed, Routine, Gas [facility] docusate (COLACE) capsule 200 mg 03-16 00:08: 26 Yes 200mg 200 mg, Oral, QDAILYPRN, Starting on Sat03/15/23 at 1908, Until Discontinu ed, Routine, Constipati on [facility] magnesium hydroxide (MILK OF MAGNESIA) 400 mg/5 mL suspension 30 mL 03-16 00:08: 26 Yes 30mL 30 mL, Oral, QDAILYPRN, Starting on Sat03/15/23 at 1908, Until Discontinu ed, Routine, Constipati on [facility] benzocaine- menthol (DERMOPLAST ) 20-0.5 % topical spray 03-16 00:08: 26 Yes Topical, PRN, Starting on Sat03/15/23 at 1908, Until Discontinu ed, Routine, Perineum discomfort [facility] vitamin w/FA tablet 03-16 00:00: 00 Yes [id number] 1{tbl} Take 1 tablet by mouth in the morning. [facility] docusate 100 mg capsule 03-16 00:00: 00 Yes [id number] 200mg Take 2 capsules by mouth once daily as needed for Constipati on. [facility] ferrous sulfate 325 mg (65 mg iron) tablet 03-16 00:00: 00 Yes [id number] 325mg Take 1 tablet by mouth in the morning and 1 tablet in the evening. [facility] ibuprofen 600 mg tablet 03-16 00:00: 00 Yes [id number] 600mg Take 1 tablet by mouth every 6 (six) hours as needed (Pain). Take with food or milk. [facility] vitamin w/FA tablet 03-16 00:00: 00 Yes [id number] 1{tbl} Take 1 tablet by mouth in the morning. [facility] terbutaline (BRETHINE) injection 0.25 mg 03-15 23:45: 00 03-15 22:46 :00 No .25mg 0.25 mg, Subcutaneo us, ONCE, 1 dose, On Sat03/15/23 at 1845, Routine [facility] amnioinfusi on IV infusion via PUMP [...] until the liter is complete.& nbsp;&nbsp ;Notify Mechanical Engineering Manager if uterine resting tone exceeds 25 mmHg at any time during the amnioinfus ion. Obst etrics (SUNITA) Aminoinfus ion Orders
[facility] fentaNYL-ro pivacaine 2 mcg/mL-0.1 % (PF) in NS 200 mL epidural infusion RTU 03-15 21:47: 00 03-16 01:01 :29 No Epidural, ONCE INTRA PROCEDURE, Starting on Sat03/15/23 at 1647, Until Sat03/15/23 at 2000, Routine, Intra-op [facility] lidocaine-e pinephrine (XYLOCAINE W/EPINEPHRI NE) 1.5 %-1:200,000 injection 03-15 21:41: 00 03-16 01:01 :29 No Epidural, ONCE INTRA PROCEDURE, Starting on Sat03/15/23 at 1641, Until Sat03/15/23 at 2001, Routine, Intra-op [facility] oxytocin (PITOCIN) 30 units in NS 500 mL IV infusion 03-15 12:53: 24 03-16 00:08 :32 No 2mU/min at 2-40 mL/hr, IV Infusion, TITRATE, Starting on Sat03/15/23 at 0753, Until Sat03/15/23 at 1908, JESS [facility] proMETHazin e (PHENERGAN) 25 mg in NaCl 0.9% (NS) 50 mL IV piggyback 03-15 09:34: 52 03-16 00:08 :32 No 25mg 25 mg, IV Piggyback, Q4HPRN, Starting on Sat03/15/23 at 0434, Until Sat03/15/23 at 1908, Routine, Nausea and Vomiting (N/V) [facility] FENTanyl PF (SUBLIMAZE (PF)) injection 100 mcg 03-15 09:34: 20 03-16 00:08 :32 No 100ug 100 mcg, Slow IV Push, Q1HPRN, Starting on Sat03/15/23 at 0434, Until Sat03/15/23 at 190, Routine, Pain (scale 7-10) [facility] lactated ringers IV infusion 500 mL 03-15 09:23: 08 03-16 00:08 :32 No 500mL at 999 mL/hr, 500 mL, IV Infusion, PRN - SEE INSTRUCTIO NS, Starting on Sat03/15/23 at 0423, Until Sat03/15/23 at 1908, Routine [facility] [id number] IV infusion 1,000 mL 03-15 09:23: 08 03-16 00:08 :32 No 1000mL at 1-125 mL/hr, IV Infusion, TITRATE, Starting on Sat03/15/23 at 0423, Until Sat03/15/23 at 1908, Routine [facility] buPROPion XL (WELLBUTRIN XL) 150 mg 24 hr tablet 03-01 00:00: 00 Yes [id number] 150mg Take 1 tablet by mouth in the morning. [facility] busPIRone 5 mg tablet 02-28 00:00: 00 03-16 00:00 :00 No [facility] famotidine 20 mg tablet 02-19 00:00: 00 03-16 00:00 :00 No [id number] 20mg Take 1 tablet by mouth in the morning and 1 tablet in the evening. Do all this for 90 days. [facility] famotidine 20 mg tablet 02-15 00:00: 00 02-19 00:00 :00 No [id number] 20mg Take 1 tablet by mouth in the morning and 1 tablet in the evening. [facility] SELECT-OB + DHA 29 mg iron-1 mg -250 mg combo pack 1-06 00:00: 00 03-16 00:00 :00 No [facility] magnesium oxide 400 mg (241.3 mg magnesium) tablet 2021-12-18 00:00: 00 03-16 00:00 :00 No [id number] 400mg Take 1 tablet by mouth in the morning. [facility] multivitami n ( VITAMIN) tablet 2021-12 0- 00:00: 00 03-16 00:00 :00 No [id number] 1{tbl} Take 1 tablet by mouth in the morning. [facility] buPROPion XL (WELLBUTRIN XL) 150 mg 24 hr tablet 08-29 00:00: 00 03-01 00:00 :00 No [id number] 150mg Take 1 tablet by mouth in the morning. [facility] busPIRone 5 mg tablet 08-29 00:00: 00 02-28 00:00 :00 No [id number] 5mg Take 1 tablet by mouth in the morning and 1 tablet in the evening. [facility] multivitami n ( VITAMIN) tablet 07-09 00:00: 00 09-03 00:00 :00 No [id number] 1{tbl} Take 1 tablet by mouth in the morning. [facility] buPROPion XL (WELLBUTRIN XL) 150 mg 24 hr tablet 07-09 00:00: 00 08-29 00:00 :00 No [id number] 150mg Take 1 tablet by mouth in the morning. [facility] vitamin w/FA tablet 07-06 00:00: 07-09 00:00 :00 No [id number] 1{tbl} Take 1 tablet by mouth daily. [facility] docusate calcium 240 mg capsule 07-06 00:00: 07-09 00:00 :00 No [id number] 240mg Take 1 capsule by mouth once daily as needed for Constipati on. [facility] ferrous sulfate 325 mg (65 mg iron) tablet 07-06 00:00: 07-09 00:00 :00 No [id number] 325mg Take 1 tablet by mouth 2 (two) times daily. [facility] ibuprofen 600 mg tablet 07-06 00:00: 07-09 00:00 :00 No [id number] 600mg Take 1 tablet by mouth every 6 (six) hours as needed (Pain). Take with food or milk. [facility] Immunizations Ordered Immunization Name Filled Immunization Name Date Status Comments Source Rho (d) Immune Globulin 2023-03-16 00:00:00 Completed [facility] Rho (d) Immune Globulin 2023-03-16 00:00:00 Completed [facility] TDAP 2023-02-04 00:00:00 Completed [facility] Rho (d) Immune Globulin 2023-02-04 00:00:00 Completed [facility] TDAP 2023-02-04 00:00:00 Completed [facility] Rho (d) Immune Globulin 2023-02-04 00:00:00 Completed [facility] TDAP 2023-02-04 00:00:00 Completed [facility] Rho (d) Immune Globulin 2023-02-04 00:00:00 Completed [facility] TDAP 2023-02-04 00:00:00 Completed [facility] Rho (d) Immune Globulin 2023-02-04 00:00:00 Completed [facility] TDAP 2023-02-04 00:00:00 Completed [facility] Rho (d) Immune Globulin 2023-02-04 00:00:00 Completed [facility] TDAP 2023-02-04 00:00:00 Completed [facility] Rho (d) Immune Globulin 2023-02-04 00:00:00 Completed [facility] TDAP 2023-02-04 00:00:00 Completed [facility] Rho (d) Immune Globulin 2023-02-04 00:00:00 Completed [facility] TDAP 2023-02-04 00:00:00 Completed [facility] Rho (d) Immune Globulin 2023-02-04 00:00:00 Completed [facility] TDAP 2023-02-04 00:00:00 Completed [facility] Rho (d) Immune Globulin 2023-02-04 00:00:00 Completed [facility] TDAP 2023-02-04 00:00:00 Completed [facility] Rho (d) Immune Globulin 2023-02-04 00:00:00 Completed [facility] TDAP 2023-02-04 00:00:00 Completed [facility] Rho (d) Immune Globulin 2023-02-04 00:00:00 Completed [facility] TDAP 2023-02-04 00:00:00 Completed [facility] Rho (d) Immune Globulin 2023-02-04 00:00:00 Completed [facility] TDAP 2023-02-04 00:00:00 Completed [facility] Rho (d) Immune Globulin 2023-02-04 00:00:00 Completed [facility] TDAP 2023-02-04 00:00:00 Completed [facility] Rho (d) Immune Globulin 2023-02-04 00:00:00 Completed [facility] TDAP 2023-02-04 00:00:00 Completed [facility] Rho (d) Immune Globulin 2023-02-04 00:00:00 Completed [facility] TDAP 2023-02-04 00:00:00 Completed [facility] Rho (d) Immune Globulin 2023-02-04 00:00:00 Completed [facility] TDAP 2023-02-04 00:00:00 Completed [facility] Rho (d) Immune Globulin 2023-02-04 00:00:00 Completed [facility] TDAP 2023-02-04 00:00:00 Completed [facility] Rho (d) Immune Globulin 2023-02-04 00:00:00 Completed [facility] TDAP 2023-02-04 00:00:00 Completed [facility] Rho (d) Immune Globulin 2023-02-04 00:00:00 Completed [facility] TDAP 2023-02-04 00:00:00 Completed [facility] Rho (d) Immune Globulin 2023-02-04 00:00:00 Completed [facility] Rho (d) Immune Globulin 2009-09-19 00:00:00 Completed [facility] Rho (d) Immune Globulin 2009-09-19 00:00:00 Completed [facility] Rho (d) Immune Globulin 2009-09-19 00:00:00 Completed [facility] Rho (d) Immune Globulin 2009-09-19 00:00:00 Completed [facility] Rho (d) Immune Globulin 2009-09-19 00:00:00 Completed [facility] Rho (d) Immune Globulin 2009-09-19 00:00:00 Completed [facility] Rho (d) Immune Globulin 2009-09-19 00:00:00 Completed [facility] Rho (d) Immune Globulin 2009-09-19 00:00:00 Completed [facility] Rho (d) Immune Globulin 2009-09-19 00:00:00 Completed [facility] Rho (d) Immune Globulin 2009-09-19 00:00:00 Completed [facility] Rho (d) Immune Globulin 2009-09-19 00:00:00 Completed [facility] Rho (d) Immune Globulin 2009-09-19 00:00:00 Completed [facility] Rho (d) Immune Globulin 2009-09-19 00:00:00 Completed [facility] Rho (d) Immune Globulin 2009-09-19 00:00:00 Completed [facility] Rho (d) Immune Globulin 2009-09-19 00:00:00 Completed [facility] Rho (d) Immune Globulin 2009-09-19 00:00:00 Completed [facility] Rho (d) Immune Globulin 2009-09-19 00:00:00 Completed [facility] Rho (d) Immune Globulin 2009-09-19 00:00:00 Completed [facility] Rho (d) Immune Globulin 2009-09-19 00:00:00 Completed [facility] Rho (d) Immune Globulin 2009-09-19 00:00:00 Completed [facility] Rho (d) Immune Globulin 2009-09-19 00:00:00 Completed [facility] Rho (d) Immune Globulin 2009-09-19 00:00:00 Completed [facility] Rho (d) Immune Globulin 2009-09-19 00:00:00 Completed [facility] Rho (d) Immune Globulin 2009-09-19 00:00:00 Completed [facility] Rho (d) Immune Globulin 2009-09-19 00:00:00 Completed [facility] Rho (d) Immune Globulin 2009-09-19 00:00:00 Completed [facility] Rho (d) Immune Globulin 2009-09-19 00:00:00 Completed [facility] Rho (d) Immune Globulin 2009-09-19 00:00:00 Completed [facility] Rho (d) Immune Globulin 2009-09-19 00:00:00 Completed [facility] Rho (d) Immune Globulin Unknown Completed [facility] TDAP Unknown Completed [facility] Rho (d) Immune Globulin Unknown Completed [facility] Rho (d) Immune Globulin Unknown Completed [facility] Rho (d) Immune Globulin Unknown Completed [facility] Rho (d) Immune Globulin Unknown Completed [facility] TDAP Unknown Completed [facility] Rho (d) Immune Globulin Unknown Completed [facility] Vital Signs Vital Name Observation Time Observation Value Comments S milo Systolic blood pressure 2023-03-17 01:40:00 112 mm[Hg] [facility] Diastolic blood pressure 2023-03-17 01:40:00 61 mm[Hg] [facility] Heart rate 2023-03-17 01:40:00 73 /min [facility] Body temperature 2023-03-17 01:40:00 36.11 [facility] Respiratory rate 2023-03-17 01:40:00 18 /min [facility] Oxygen saturation in Arterial blood by Pulse oximetry 2023-03-17 01:40:00 99 /min [facility] Body height 2023-03-15 10:03:00 165.1 cm [facility] Body weight 2023-03-15 10:03:00 117.935 kg [facility] BMI 2023-03-15 10:03:00 43.27 kg/m2 [facility] Systolic blood pressure 2023-03-12 21:25:00 111 mm[Hg] [facility] Diastolic blood pressure 2023-03-12 21:25:00 75 mm[Hg] [facility] Heart rate 2023-03-12 21:25:00 87 /min [facility] Body temperature 2023-03-12 21:25:00 36.72 [facility] Respiratory rate 2023-03-12 21:25:00 17 /min [facility] Body height 2023-03-12 21:25:00 165.1 cm [facility] Body weight 2023-03-12 21:25:00 117.028 kg [facility] BMI 2023-03-12 21:25:00 42.93 kg/m2 [facility] Systolic blood pressure 2023-03-05 14:31:00 115 mm[Hg] [facility] Diastolic blood pressure 2023-03-05 14:31:00 78 mm[Hg] [facility] Heart rate 2023-03-05 14:31:00 81 /min [facility] Respiratory rate 2023-03-05 14:31:00 18 /min [facility] Body height 2023-03-05 14:31:00 165.1 cm [facility] Body weight 2023-03-05 14:31:00 117.028 kg [facility] BMI 2023-03-05 14:31:00 42.93 kg/m2 [facility] Systolic blood pressure 2023-02-15 20:17:00 118 mm[Hg] [facility] Diastolic blood pressure 2023-02-15 20:17:00 76 mm[Hg] [facility] Heart rate 2023-02-15 20:17:00 80 /min [facility] Body temperature 2023-02-15 20:17:00 36.67 [facility] Respiratory rate 2023-02-15 20:17:00 18 /min [facility] Body height 2023-02-15 20:17:00 165.1 cm [facility] Body weight 2023-02-15 20:17:00 115.667 kg [facility] BMI 2023-02-15 20:17:00 42.43 kg/m2 [facility] Systolic blood pressure 2023-02-04 21:13:00 126 mm[Hg] [facility] Diastolic blood pressure 2023-02-04 21:13:00 72 mm[Hg] [facility] Heart rate 2023-02-04 21:13:00 88 /min [facility] Body temperature 2023-02-04 21:13:00 36.83 [facility] Respiratory rate 2023-02-04 21:13:00 18 /min [facility] Body height 2023-02-04 21:13:00 165.1 cm [facility] Body weight 2023-02-04 21:13:00 114.261 kg [facility] BMI 2023-02-04 21:13:00 41.92 kg/m2 [facility] Systolic blood pressure 2022-11-16 20:26:00 102 mm[Hg] [facility] Diastolic blood pressure 2022-11-16 20:26:00 66 mm[Hg] [facility] Heart rate 2022-11-16 20:26:00 77 /min [facility] [facility] Body temperature 2022-11-16 20:26:00 36.67 [facility] Respiratory rate 2022-11-16 20:26:00 18 /min [facility] Body height 2022-11-16 20:26:00 165.1 cm [facility] Body weight 2022-11-16 20:26:00 113.853 kg [facility] BMI 2022-11-16 20:26:00 41.77 kg/m2 [facility] Systolic blood pressure 2022-10-19 20:58:00 104 mm[Hg] [facility] Diastolic blood pressure 2022-10-19 20:58:00 68 mm[Hg] [facility] Heart rate 2022-10-19 20:58:00 91 /min [facility] Body temperature 2022-10-19 20:58:00 36.78 [facility] Respiratory rate 2022-10-19 20:58:00 18 /min [facility] Body height 2022-10-19 20:58:00 165.1 cm [facility] Body weight 2022-10-19 20:58:00 113.853 kg [facility] BMI 2022-10-19 20:58:00 41.77 kg/m2 [facility] Systolic blood pressure 2022-08-29 16:00:00 109 mm[Hg] [facility] Diastolic blood pressure 2022-08-29 16:00:00 71 mm[Hg] [facility] Heart rate 2022-08-29 15:21:00 80 /min [facility] Body temperature 2022-08-29 15:21:00 36.94 [facility] Respiratory rate 2022-08-29 15:21:00 18 /min [facility] Body height 2022-08-29 15:21:00 165.1 cm [facility] Body weight 2022-08-29 15:21:00 105.325 kg [facility] BMI 2022-08-29 15:21:00 38.64 kg/m2 [facility] Systolic blood pressure 2022-07-09 20:04:00 109 mm[Hg] [facility] Diastolic blood pressure 2022-07-09 20:04:00 58 mm[Hg] [facility] Heart rate 2022-07-09 20:04:00 68 /min [facility] Body temperature 2022-07-09 20:04:00 36.28 [facility] Respiratory rate 2022-07-09 20:04:00 20 /min [facility] Body height 2022-07-09 20:04:00 165.1 cm [facility] Body weight 2022-07-09 20:04:00 99.905 kg [facility] BMI 2022-07-09 20:04:00 36.65 kg/m2 [facility] Procedures Procedure Date / Time Performed Performing Clinicia n Source CBC WITH DIFF 2023-03-16 10:02:00 Bill Velazquez [facility] HB -MATERNAL HEMORRHAGE SCREEN 2023-03-16 10:02:00 Priscila Piedra [facility] CENTRAL NEURAXIAL BLOCK 2023-03-15 21:32:00 Demarcus Constantino [facility] ANTI-D R/O PANEL 2023-03-15 18:36:00 Bill Velazquez [facility] EXTRA TUBE LAV (BLOOD BANK) 2023-03-15 18:36:00 Bill Velazquez [facility] PREPARE PACKED RBC 2023-03-15 18:14:00 [facility] 2023-03-15 10:44:00 Bill Velazquez [facility] RHO (D) IMMUNE GLOBULIN 2023-03-15 10:44:00 Bill Velazquez [facility] CONSENT/REFUSAL FOR DIAGNOSIS AND TREATMENT 2023-03-13 22:06:36 Doctor Unassigned, [facility] PHYSICIAN ORDERS 2023-03-12 05:01:00 Doctor Unas signed, [facility]osa [facility] POCT URINALYSIS W/O SPECIFIC GRAVITY 2023-03-12 00:00:00 Marcelle Adams [facility] POCT URINALYSIS W/O SPECIFIC GRAVITY 2023-03-05 00:00:00 Marcelle Adams [facility] POCT URINALYSIS W/O SPECIFIC GRAVITY 2023-02-15 00:00:00 Bill Velazquez [facility] DSU PRE-OP 2023-02-08 06:01:00 Doctor Unass igned, [facility] TDAP VACCINE, >11 YRS, IM 2023-02-04 21:44:40 Marcelle Adams [facility] POCT URINALYSIS W/O SPECIFIC GRAVITY 2023-02-04 00:00:00 Marcelle Adams [facility] POCT URINALYSIS W/O SPECIFIC GRAVITY 2022-11-16 00:00:00 Bill Velazquez [facility] POCT URINALYSIS W/O SPECIFIC GRAVITY 2022-10-19 00:00:00 Marcelle Adams [facility] <14 WEEKS US LIMITED 2022-08-29 19:59:32 Bill Velazquez [facility] GLUCOSE 1 HOUR POST PRANDIAL 2022-08-29 18:05:00 Bill Velazquez [facility] ASSIGNMENT OF BENEFITS 2022-08-29 16:33:28 Docto r Unassigned, [facility] POCT URINALYSIS W/O SPECIFIC GRAVITY 2022-08-29 00:00:00 Bill Velazquez [facility] POCT TEST 2022-07-09 19:55:00 Basil Carolina [facility] POCT URINALYSIS W/O SPECIFIC GRAVITY 2022-07-09 19:55:00 Nickie Carolina [facility] Encounters Start Date/Time End Date/Time Encounter Type Admission Type Attending [facility] [employer] Care Facility Care Department Encounter ID Source 2021-09-29 10:16:10 Outpatient [facility] [id number] [facility] 2024-11-04 14:05:23 2024-11-04 14:05:23 Outpatient [facility] [id number] Prabhjot Stark 2024-03-10 09:38:57 2024-03-10 09:38:57 Outpatient [facility] [id number] Prabhjot Stark 2024-03-05 11:39:20 2024-03-05 11:39:20 Outpatient [facility] [id number] Prabhjot Stark 2024-01-14 00:00:00 2024-01-14 00:00:00 Refill Bill Velazquez [facility] 1.84.114 350.1.13.10 4.2.7.2.686 [id number] [facility] 2023-04-05 15:15:00 2023-04-05 15:15:00 Outpatient BILL KRISHNAMURTHY [facility] [id number] [facility] 2023-03-20 00:00:00 2023-03-20 00:00:00 Telephone Priscila Hoang [facility] 1..114 350.1.13.10 4.2.7.2.686 [id number] 134 [id number] [facility] 2023-03-15 04:02:00 2023-03-16 21:47:00 Inpatient P BILL VELAZQUEZ [facility] [id number] [facility] 2023-03-15 04:02:00 2023-03-16 21:47:00 Hospital Encounter Bethany Parra Vien Cam [facility] 1.84.114 350.1.13.10 4.2.7.2.686 [id number] [facility] 2023-03-15 16:32:00 2023-03-15 19:59:00 Anesthesia Event Demarcus Constantino S [facility] 1.2.840.114 350.1.13.10 4.2.7.2.686 [id number] [facility] 2023-03-15 13:15:30 2023-03-15 13:15:30 Anesthesia Event Robert Cannon [facility] 1.2.840.114 350.1.13.10 4.2.7.2.686 [id number] [facility] 2023-03-14 13:17:00 2023-03-14 23:59:00 Hospital Encounter Maurisio Rodriguez [facility] 1.2.840.114 350.1.13.10 4.2.7.2.686 [id number] [facility] 2023-03-14 00:00:00 2023-03-14 23:59:00 Outpatient MAURISIO PRADO [facility] [id number] [facility] 2023-03-13 08:45:00 2023-03-13 09:00:00 Emd Teacher Visit Pob, Adc Lab Main Maurisio Rodriguez [facility] 1.20.114 350.1.13.10 4.2.7.2.686 [id number] [facility] 2023-03-13 08:45:00 2023-03-13 08:45:00 Outpatient MAURISIO PRADO [facility] [id number] [facility] 2023-03-13 00:00:00 2023-03-13 00:00:00 Orders Only Doctor Unassigned, Herm[place] [facility] 1.2840.114 350.1.13.10 4.2.7.2.686 [id number] [facility] 2023-03-12 16:15:00 2023-03-12 16:37:17 Outpatient MARCELLE COLEY CHERYAL [facility] [id number] [facility] 2023-03-12 16:15:00 2023-03-12 16:37:17 [facility] 1.2840.114 350.1.13.10 4.2.7.2.686 [id number] [facility] 2023-03-12 00:00:00 2023-03-12 00:00:00 Orders Only Doctor Unassigned, Hermosa [facility] 1.840.114 350.1.13.10 4.2.7.2.686 [id number] [facility] 2023-03-08 00:00:00 2023-03-08 00:00:00 Telephone Bill Velazquez [facility] 1.0.114 350.1.13.10 4.2.7.2.686 [id number] [facility] 2023-03-05 09:15:00 2023-03-05 09:51:39 Outpatient R [facility]ELLE [facility] [id number] [facility] 2023-03-05 09:15:00 2023-03-05 09:51:39 [facility] 1.0.114 350.1.13.10 4.2.7.2.686 [id number] [facility] 2023-03-01 08:00:00 2023-03-01 08:00:00 Outpatient R BILL VELAZQUEZ [facility] [id number] [facility] 2023-03-01 00:00:00 2023-03-01 00:00:00 Telephone Bill Velazquez [facility] 1.20.114 350.1.13.10 4.2.7.2.686 [id number] [facility] 2023-02-28 00:00:00 2023-02-28 00:00:00 Telephone Bill Velazquez [facility] 1.2.840.114 350.1.13.10 4.2.7.2.686 [id number] [facility] 2023-02-28 00:00:00 2023-02-28 00:00:00 Telephone Bill Velazquez [facility] 1.2.840.114 350.1.13.10 4.2.7.2.686 [id number] [facility] 2023-02-22 13:00:00 2023-02-22 13:00:00 Outpatient R MARCUSBILL [facility] [id number] [facility] 2023-02-20 08:00:00 2023-02-20 09:00:00 Emd Teacher Visit 1, [facility] Room Gisselle Sims [facility] HELP DESK INTERN [facility]ERNAL & [facility]ILD [facility] 1.2840.114 350.1.13.10 4.2.7.2.686 [id number] [facility] 2023-02-20 08:00:00 2023-02-20 08:00:00 Outpatient P GISSELLE SIMS [facility] [id number] [facility] 2023-02-20 00:00:00 2023-02-20 00:00:00 Case Management Marcelle Adams [facility] 1.2840.114 350.1.13.10 4.2.7.2.686 [id number] 134 [id number] [facility] 2023-02-19 00:00:00 2023-02-19 00:00:00 Telephone Bill Velazquez [facility] 1.2.840.114 350.1.13.10 4.2.7.2.686 [id number] 134 [id number] [facility] 2023-02-15 15:15:00 2023-02-15 15:34:40 Outpatient R BILL VELAZQUEZ [facility] [id number] [facility] 2023-02-15 15:15:00 2023-02-15 15:34:40 Routine Visit Bill Velazquez Lai [facility] 1.2840.114 350.1.13.10 4.2.7.2.686 [id number] [facility] 2023-02-14 00:00:00 2023-02-14 00:00:00 Patient Secure Msg Doctor Unassigned, Hermosa [facility] 1.2.840.114 350.1.13.10 4.2.7.2.686 [id number] 134 [id number] [facility] 2023-02-08 00:00:00 2023-02-08 00:00:00 Orders Only Doctor Unassigned, Hermosa [facility] 1.2.840.114 350.1.13.10 4.2.7.2.686 [id number] [facility] 2023-02-05 09:30:00 2023-02-05 09:30:00 Outpatient R [facility] [id number] [facility] 2023-02-04 14:45:00 2023-02-04 15:47:35 Outpatient R MARCELLE ADAMS CHERYAL [facility] [id number] [facility] 2023-02-04 14:45:00 2023-02-04 15:47:35 Routine Visit Marcelle Adams [facility] 1.20.114 350.1.13.10 4.2.7.2.686 [id number] 134 [id number] [facility] 2023-01-30 16:15:00 2023-01-30 16:15:00 Outpatient R MARCELLE ADAMS CHERYAL [facility] [id number] [facility] 2022-12-14 13:30:00 2022-12-14 13:30:00 Outpatient R MARCELLE ADAMS CHERYAL [facility] [id number] [facility] 2022-12-03 14:00:00 2022-12-03 14:00:00 Outpatient R BURT ROJAS [facility] [id number] [facility] 2022-11-30 08:45:00 2022-11-30 08:45:00 Outpatient P [facility] [id number] [facility] 2022-11-20 13:00:00 2022-11-20 13:00:00 Outpatient MICK ASIF HOWARD [facility] [id number] [facility] 2022-11-16 14:00:00 2022-11-16 15:22:13 Outpatient R BILL VELAZQUEZ [facility] [id number] [facility] 2022-11-16 14:00:00 2022-11-16 15:22:13 Routine Visit Bill Velazquez [facility] 1.840.114 350.1.13.10 4.2.7.2.686 [id number] 134 [id number] [facility] 2022-11-01 00:00:00 2022-11-01 00:00:00 Patient Secure Msg Doctor Unassigned, [place] [facility] 1.840.114 350.1.13.10 4.2.7.2.686 [id number] [facility] 2022-10-19 14:15:00 2022-10-19 15:18:29 Outpatient R MARCELLE ADAMS CHERYAL [facility] [id number] [facility] 2022-10-19 14:15:00 2022-10-19 15:18:29 [facility] 1.2.840.114 350.1.13.10 4.2.7.2.686 [id number] [facility] 2022-10-19 00:00:00 2022-10-19 00:00:00 Case Management Marcelle Adams [facility] 1.2.840.114 350.1.13.10 4.2.7.2.686 [id number] [facility] 2022-09-26 09:30:00 2022-09-26 09:30:00 Outpatient R MARCELLE ADAMS [facility] [id number] [facility] 2022-09-07 00:00:00 2022-09-07 00:00:00 Telephone Marcus Bill [facility] 1.2.840.114 350.1.13.10 4.2.7.2.686 [id number] [facility] 2022-08-31 00:00:00 2022-08-31 00:00:00 [facility] 1.2.840.114 350.1.13.10 4.2.7.2.686 [id number] [facility] 2022-08-29 11:15:00 2022-08-29 11:30:00 Emd Teacher Visit Pob, Adc Lab Main VelazquezBill [facility] 1.2.840.114 350.1.13.10 4.2.7.2.686 [id number] [facility] 2022-08-29 10:00:00 2022-08-29 11:08:03 Outpatient R IBLL VELAZQUEZ [facility] [id number] [facility] 2022-08-29 10:00:00 2022-08-29 11:08:03 Initial Visit Marcus Bill Lai [facility] YSABEL [facility] 1.114 350.1.13.10 4.2.7.2.686 [id number] 134 [id number] [facility] 2022-08-29 00:00:00 2022-08-29 00:00:00 Orders Only Doctor Unassigned, [place] [facility] 1..114 350.1.13.10 4.2.7.2.686 [id number] [facility] 2022-08-27 14:00:00 2022-08-27 14:00:00 Outpatient PRETTY GILES [facility] [id number] [facility] 2022-08-27 08:00:00 2022-08-27 08:00:00 Outpatient R MARCELLE ADAMS CHERYAL [facility] [id number] [facility] 2022-08-14 10:45:00 2022-08-14 10:45:00 Outpatient R NICKIE CAROLINA [facility] [id number] [facility] 2022-07-23 10:45:00 2022-07-23 10:45:00 Outpatient R NICKIE CAROLINA [facility] [id number] [facility] 2022-07-16 13:15:00 2022-07-16 13:15:00 Outpatient R KAREN RIDLEY [facility] [id number] [facility] 2022-07-09 15:00:00 2022-07-09 16:30:53 Outpatient R NICKIE CAROLINA [facility] [id number] [facility] 2022-07-09 15:00:00 2022-07-09 16:30:53 Initial Visit Nickie Carolina [facility] HELP DESK INTERN [facility] 1.84.114 350.1.13.10 4.2.7.2.686 [id number] [facility] 2022-07-09 15:00:00 2022-07-09 16:30:53 Outpatient R AKINARJUNROSALINONICKIE [facility] [id number] [facility] 2022-07-09 15:00:00 2022-07-09 16:30:53 Outpatient R AKINSIPENICKIE [facility] [id number] [facility] 2022-07-09 00:00:00 2022-07-09 00:00:00 Orders Only Doctor Unassigned, [place] [facility] 1.2.840.114 350.1.13.10 4.2.7.2.686 [id number] [facility] 2022-04-24 23:27:00 2022-04-25 02:29:00 Emergency X JOSH [facility]VIAN [facility] ERT [id number] [facility] 2022-04-24 23:27:00 2022-04-25 02:29:00 Emergency Yahaira Cardenaskeren S [facility] 1.2.840.114 350.1.13.10 4.2.7.2.686 [id number] [facility] 2022-03-08 00:00:00 2022-03-08 00:00:00 Patient Secure Msg Doctor Unassigned, [place] [facility] 1.2.840.114 350.1.13.10 4.2.7.2.686 [id number] [facility] 2020-09-19 15:15:00 2020-09-19 15:15:00 Outpatient R AKINSIROSALINONICKIE [facility] [id number] [facility] 2020-08-01 13:45:00 2020-08-01 13:45:00 Outpatient R AKINSIPE NICKIE [facility] [id number] [facility] 2020-07-28 14:45:00 2020-07-28 14:45:00 Outpatient R AKINSIPE, NICKIE [facility] [id number] [facility] 2020-07-03 19:39:00 2020-07-06 16:26:00 Hospital Encounter Pedro Saez [facility] 1.2.840.114 350.1.13.10 4.2.7.2.686 [id number] 2020-07-02 00:00:00 2020-07-02 00:00:00 Nurse T[address] Lilo Garcia [facility] 1.2.840.114 350.1.13.10 4.2.7.2.686 [id number] 2020-06-27 15:32:39 2020-06-27 16:14:31 Routine Visit Karen Ridley [facility] HELP DESK INTERN [facility]NAL [facility] CHILD [facility] 1.2.840.114 350.1.13.10 4.2.7.2.686 [id number] 2020-06-27 15:30:00 2020-06-27 15:30:00 Outpatient R KAREN RIDLEY [facility] [id number] [facility] 2020-06-23 00:00:00 2020-06-23 00:00:00 Abstract Karen Ridley [facility] HELP DESK INTERN [facility] 1.2.840.114 350.1.13.10 4.2.7.2.686 [id number] 2020-06-23 00:00:00 2020-06-23 00:00:[address] [facility] 1.2.840.114 350.1.13.10 4.2.7.2.686 [id number] 2020-06-22 14:18:43 2020-06-22 14:48:43 Emd Teacher Visit Ultrasound, [facility] HELP DESK INTERN [facility]NAL [facility] CHILD [facility] 1.2.840.114 350.1.13.10 4.2.7.2.686 [id number] 2020-06-22 14:15:00 2020-06-22 14:15:00 Outpatient P [facility] [id number] [facility] 2020-06-22 00:00:00 2020-06-22 00:00:00 Telephone ArlenPretty Pascale [facility] HELP DESK INTERN [facility] MATERNAL & CHILD [facility] 1.2.840.114 350.1.13.10 4.2.7.2.686 [id number] 2020-06-21 14:11:25 2020-06-21 15:15:39 Routine Visit Ridley Effiecynthia Jolly [facility] HELP DESK INTERN [facility] & CHILD [facility] 1.2.840.114 350.1.13.10 4.2.7.2.686 [id number] 2020-06-21 10:00:00 2020-06-21 10:00:00 Outpatient R KAREN RIDLEY [facility] [id number] [facility] 2020-06-03 14:15:00 2020-06-03 14:15:00 Outpatient R NICKIE CAROLINA [facility] [id number] [facility] 2020-05-16 11:00:00 2020-05-16 11:00:00 Outpatient P [facility] [id number] [facility] 2020-05-12 15:30:00 2020-05-12 15:30:00 Outpatient R AKINIAN NICKIE [facility] [id number] [facility] 2020-04-05 13:15:00 2020-04-05 13:15:00 Outpatient R AKINIAN NICKIE [facility] [id number] [facility] 2020-04-04 11:45:00 2020-04-04 11:45:00 Outpatient P BRADLEY TOVAR [facility] [id number] [facility] 2020-03-22 13:45:00 2020-03-22 13:45:00 Outpatient R AKINIAN NICKIE [facility] [id number] [facility] 2020-03-17 09:35:00 2020-03-17 09:35:00 Outpatient Raju_P [facility] [id number] [facility] 2020-03-07 11:00:00 2020-03-07 11:00:00 Outpatient P [facility] [id number] [facility] 2020-03-04 13:30:00 2020-03-04 13:30:00 Outpatient P JAGDISH HENLEY [facility] [id number] [facility] 2020-02-26 15:00:00 2020-02-26 15:00:00 Outpatient R NICKIE CAROLINA [facility] [id number] [facility] 2020-02-25 13:30:00 2020-02-25 13:30:00 Outpatient R [facility] [id number] [facility] 2020-02-23 12:45:00 2020-02-23 12:45:00 Outpatient R ARLENPRETTY [facility] [id number] [facility] 2020-01-08 15:45:00 2020-01-08 15:45:00 Outpatient R LAUREN BANUELOS [facility] [id number] [facility] Results Test Description Test Time Test Comments Results Result Co mments Source [facility] [id number] 00:23:24* Test Item Value Reference Range Interpretation Comme nts ANTIBODY (test code = 683) Anti-D Probable RhIg PATIENT RECEIVED RHIG 02/04/23.Performed at [facility] Laboratory Services - [facility] Blood [address] [id number] Free: [phone] No. [id number] [facility] CenterType and Screen - ONCE [id number] 12:12:00 * Test Item Value Reference Range Interpretation Comme nts ABO & RH (test code = 20) A Negative IAT (test code = 1185) Positive [facility]/O SPECIFIC [id number] 21:22:00* Test Item Value Reference Range Interpretation [...] = 3257) n/a Negative - Negati ve [facility] URINALYSIS W/O SPECIFIC [id number] 14:41:00* Test Item Value Reference Range Interpretation [...] = 3257) N/A Negative - Negati ve [facility] URINALYSIS W/O SPECIFIC [id number] 20:17:00* Test Item Value Reference Range Interpretation [...] = 3257) n/a Negative - Negati ve [facility] URINALYSIS W/O SPECIFIC [id number] 21:11:00* Test Item Value Reference Range Interpretation [...] = 3257) n/a Negative - Negati ve [facility] URINALYSIS W/O SPECIFIC [id number] 20:30:00* Test Item Value Reference Range Interpretation [...] = 3257) neg Negative - Negati ve [facility] URINALYSIS W/O SPECIFIC [id number] 21:06:00* Test Item Value Reference Range Interpretation [...] = 3257) N/A Negative - Negati ve [facility] H[facility] POST [id number] 19:18:59* Test Item Value Reference Range Interpretation Comme nts GLUC 1 HR (test code = 4211948070) 68 mg/dL 120-170 L Lab Interpretation (test cod e = 73778-0) Abnormal [facility] URINALYSIS W/O SPECIFIC [id number] 15:26:00* Test Item Value Reference Range Interpretation [...] = 3257) n/a Negative - Negati ve [facility]PO[facility] [id number] 19:55:00* Test Item Value Reference Range Interpretation Comme nts POCT PREG (test code = 1605) Positive On board controls acceptable with C Line (test code = 3574) Yes POCT PREG LOT # (test code = 3575) POCT PREG TEST DATE ( test code = 3576) [facility]/O SPECIFIC [id number] 19:55:00* Test Item Value Reference Range Interpretation Comme nts POCT PH U (test code = 3254) 5 mg/dl 5-8 POCT U LEUK EST (test code = 3263) 2+ Negative - Negative POCT U NIT (test code = 3262) Neg Negative - Negati ve POCT U PROT (test code = 3259) Trace Negative - Negat [place] POCT U GLU (test code = 3256) Neg Negative - Negati ve POCT U KETONE (test code = 3258) Neg Negative - Neg ative POCT U BLD (test code = 3257) Negative - Negati ve [facility]
[2024-11-23] MEDS ORDERED: KETOROLAC 30 MG/ML INJ ONE (23:03)
--- NOTE | 2024-11-24 02:31 | RAD REPORT ---
EXAM: CT Head Without Intravenous Contrast CLINICAL HISTORY: Gutiérrez's palsy, headache. TECHNIQUE: Axial computed tomography images of the head/brain without intravenous contrast. Sagittal and coron al reformatted images were created and reviewed. This CT exam was performed using one or more of the following dose reduction techniques: automated exposure control, adjustment of the mA and/or kV according to patient size, and/or use of iterative reconstruction technique. COMPARISON: No relevant prior studies available. FINDINGS: Brain: Unremarkable. No hemorrhage. No significant white matter disease. No edema. Ventricles: Unremarkable. No ventriculomegaly. Bones/joints: Unremarkable. No acute fracture. Soft tissues: Unremarkable. Sinuses: Unremarkable as visualized. No acute sinusitis. Mastoid air cells: Unremarkable as visualized. No mastoid effusion. IMPRESSION: No acute intracranial or extra-axial abnormality. Electronically signed by: Wily Crabtree MD 11/24/2024 02:24 AM [facility] Due to temporary technical issues with the PACS/[place] reporting system, reports are being ugy d by the in-house radiologist without review as a courtesy to ensure prompt reporting the interpreting radiologist is fully responsible for the content of the report. Transcribed Date/Time: 11/24/2024 2:30 AM
--- NOTE | 2024-11-24 02:36 | ER ---
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 Coronavirus screen: Client denies travel out of the [place] in the last 14 days. At this time, the client does not indicate any symptoms associated with coronavirus-19. Ebola Screen: Patient negative for fever greater than or equal to 101.5 degrees Fahrenheit, and additional compatible Ebola Virus Disease symptoms Patient denies exposure to infectious person. Patient denies travel to an Ebola-affected area in the 21 days before illness onset. No symptoms or risks identified at this time. Initial Sepsis Screen: Does the patient meet any 2 criteria? No. Patient's initial sepsis screen is negative. Does the patient have a suspected source of infection? No. Patient's initial sepsis screen is negative. Risk Assessment: Do you want to hurt yourself or someone else? Patient reports no desire to harm self or others. Onset of symptoms is unknown. 22:39 Method Of Arrival: Ambulatory vc1 22:39 Acuity: HUGO 4 vc1 Triage Assessment: 11/24 03:29 Headache History: Denies prior headaches. General: Appears in no apparent distress. vc1 uncomfortable, Behavior is calm, cooperative, appropriate for age. Pain: Complains of pain in head Pain does not radiate. Pain currently is 10 out of 10 on a pain scale. Pain began Also complains of no other associated symptoms. EENT: No deficits noted. No signs and/or symptoms were reported regarding the EENT system. Neuro: Level of Consciousness is awake, alert, obeys commands, Oriented to person, place, time, situation, Appropriate for age Reports headache. Cardiovascular: No deficits noted. Respiratory: Airway is patent Respiratory effort is even, unlabored, Respiratory pattern is regular, symmetrical, Breath sounds are clear bilaterally. GI: No deficits noted. No signs and/or symptoms were reported involving the gastrointestinal system. : No deficits noted. No signs and/or symptoms were reported regarding the genitourinary system. Derm: Skin is intact, is healthy with good turgor, Skin is dry, Skin is normal, Skin temperature is warm. Musculoskeletal: Circulation, motion, and sensation intact. Range of motion: intact in all extremities. Historical: - Allergies: 11/23 22:41 PENICILLINS (Anaphylaxis); vc1 22:41 tramadol; hallucinations; vc1 - PMHx: 22:41 Anxiety; Bipolar disorder; Depression; Diabetes - NIDDM; gestational diabetes; vc1 Hypertension; Kidney stones; Neck Cancer; ovary cyst; RAPID HEART RATE; - PSHx: 22:41 None; vc1 - Immunization history:: Adult Immunizations unknown. - Infectious Disease History:: Denies. - Social history:: Smoking status: Patient denies any tobacco usage or history of. Screenin:00 [facility] ED Fall Risk Assessment (Adult) History of falling in the last 3 months, vc1 including since admission No falls in past 3 months (0 pts) Confusion or Disorientation No (0 pts) Intoxicated or Sedated No (0 pts) Impaired Gait No (0 pts) Mobility Assist Device Used No (0 pt) Altered Elimination No (0 pt) Score/Fall Risk Level 0 - 2 = Low Risk Oriented to surroundings, Maintained a safe environment, Educated pt \T\ family on fall prevention, incl call for assistance when getting out of bed. Abuse screen: Denies threats or abuse. Nutritional screening: No deficits noted. Tuberculosis screening: No symptoms or risk factors identified. Vital Signs: 22:39 BP 119 / 85; Pulse 74; Resp 16; Temp 97.5; Pulse Ox 99% ; vc1 22:41 Weight 120.6 kg; Height 5 ft. 5 in. ; vc1 11/24 02:24 BP 103 / 75; Pulse 76; Pulse Ox 98% ; oh1 11/23 22:41 Body Mass Index 44.24 (120.60 kg, 165.1 cm) vc1 [place] Coma Score: 11/23 22:36 Eye Response: spontaneous(4). Motor Response: obeys commands(6). Verbal Response: kb oriented(5). Total: 15. ED Course: 21:59 Patient arrived in ED. im 22:00 Tanya Torres FNP-C is PHCP. kb 22:00 Wesley Holguin MD is Attending Physician. kb 22:40 Triage completed. vc1 12/24 00:56 CT Head Brain wo Cont In Process Unspecified. EDMS 03:31 No provider procedures requiring assistance completed. Patient did not have IV access vc1 during this emergency room visit. Administered Medications: 11/23 23:53 Drug: Ketorolac IM 30 mg IM once Route: IM; Site: right deltoid; vc1 11/24 03:01 Follow up: Response: Pain is unchanged, physician notified vc1 03:01 Drug: [place] PO 10 mg-325 mg 1 tabs PO once Route: PO; vc1 03:01 Follow up: Response: Medication administered at discharge. vc1 Medication: 03:31 VIS not applicable for this client. vc1 Outcome: 02:35 Discharge ordered by . rn 03:31 Discharged to home ambulatory, vc1 03:31 Condition: good 03:31 Discharge instructions given to patient, Instructed on discharge instructions, follow up and referral plans. the need for admit, 03:31 Patient left the ED. vc1 Signatures: Dispatcher [employer] EDMS Tanya Torres, EMERGENCY RESPONSE TECHNICIAN-C EMERGENCY RESPONSE TECHNICIAN-Ckb Wesley Holguin MD MD rn [place]cote, Vanessa, RN RN vc1 Charla Adams Olivia oh1
--- NOTE | 2024-11-24 02:36 | EDPHYS ---
Physician Documentation [facility] Name: Sandra Amado Age: 33 yrs Sex: Female : 1990 Arrival Date: 11/23/2024 Time: 21:57 Bed 10 Private MD: ED Physician Wesley Holguin HPI: 11/23 22:36 This 33 yrs old Female presents to ER via Unassigned with complaints of kb Headache, head pressure. 22:37 Pt is a 33 year old female who presents for headache to left side of head and face that kb started 4-5 days ago and got worse yesterday. 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 States the pain is a burning pain and she wasn't sure if that was part of the hanley's palsy or not so she wanted to get it checked out. . Historical: - Allergies: 22:41 PENICILLINS (Anaphylaxis); vc1 22:41 tramadol; hallucinations; vc1 - PMHx: 22:41 Anxiety; Bipolar disorder; Depression; Diabetes - NIDDM; gestational diabetes; vc1 Hypertension; Kidney stones; Neck Cancer; ovary cyst; RAPID HEART RATE; - PSHx: 22:41 None; vc1 - Immunization history:: Adult Immunizations unknown. - Infectious Disease History:: Denies. - Social history:: Smoking status: Patient denies any tobacco usage or history of. ROS: 22:35 Constitutional: As per HPI kb Exam: 22:35 Constitutional: This is a well developed, well nourished patient who is awake, alert, kb and in no acute distress. Head/Face: Normocephalic, atraumatic. ENT: Moist Mucous membranes Cardiovascular: Regular rate Respiratory: Respirations even and unlabored. No increased work of breathing. Talking in full sentences Skin: Warm, dry with normal turgor. Normal color. MS/ Extremity: Pulses equal, no cyanosis. Neurovascular intact. Full, normal range of motion. 22:35 Neuro: Orientation: to person, place, time \T\ situation. Mentation: is normal, able to follow commands, Memory: is normal, Cranial nerves: with forehead involved. Vital Signs: 22:39 BP 119 / 85; Pulse 74; Resp 16; Temp 97.5; Pulse Ox 99% ; vc1 22:41 Weight 120.6 kg; Height 5 ft. 5 in. ; vc1 11/24 02:24 BP 103 / 75; Pulse 76; Pulse Ox 98% ; oh1 11/23 22:41 Body Mass Index 44.24 (120.60 kg, 165.1 cm) vc1 [place] Coma Score: 11/23 22:36 Eye Response: spontaneous(4). Motor Response: obeys commands(6). Verbal Response: kb oriented(5). Total: 15. MDM: 22:00 Medical Screening Exam initiated kb 22:36 Data reviewed: vital signs, nurses notes. kb 11/24 01:49 Transition of care: After a detail discussion of the patient's case, care is kb transferred to Wesley Holguin MD. 02:02 Transition of care: Care assumed from Tanya FOOTE. rn 02:34 Differential diagnosis: migraine, neoplasm, sinusitis, subarachnoid bleed, tension rn headache. Counseling: I had a detailed discussion with the patient and/or guardian regarding the historical points, exam findings, and any diagnostic results supporting the discharge/admit diagnosis, radiology results, the need for outpatient follow up, to return to the emergency department if symptoms worsen or persist or if there are any questions or concerns that arise at home. Special discussion: I discussed with the patient/guardian in detail that at this point there is no indication for admission to the hospital. It is understood, however, that if the symptoms persist or worsen the patient needs to return immediately for re-evaluation. Based on the history and exam findings, there is no indication for further emergent testing or inpatient evaluation. I discussed with the patient/guardian the need to see the neurologist for further evaluation of the symptoms. 11/23 22:34 Order name: CT Head Brain wo Cont kb Administered Medications: 11/23 23:53 Drug: Ketorolac IM 30 mg IM once Route: IM; Site: right deltoid; vc1 11/24 03:01 Follow up: Response: Pain is unchanged, physician notified vc1 03:01 Drug: [place] PO 10 mg-325 mg 1 tabs PO once Route: PO; vc1 03:01 Follow up: Response: Medication administered at discharge. vc1 Disposition: 04:25 Co-signature as Attending Physician, Wesley Holguin MD I reviewed the patient's care rn provided by the Advanced Practice Provider and agree with the diagnosis and treatment plan. Disposition Summary: 11/24/24 02:35 Discharge Ordered Notes: Location: Home rn Problem: new rn Symptoms: have improved rn Condition: Stable rn Diagnosis - Headache rn Followup: rn - With: Private Physician - When: As needed - Reason: Recheck today's complaints, Re-evaluation by your physician Discharge Instructions: - Discharge Summary Sheet rn - General Headache Without Cause rn Forms: - Medication Reconciliation Form rn - Antibiotic financial internship - Prescription Opioid Use rn - Patient Portal Instructions rn - Leadership Thank You Letter rn Prescriptions: - acetaminophen-codeine 300-30 mg Oral tablet - take 1 tablet ORAL route 3 times per day as needed for pain; 12 tablet; rn Refills: 0, Product Selection Permitted Signatures: Dispatcher [employer] EDMS Tanya Torres, STEAM SHOVELMAN-C STEAM SHOVELMAN-Wesley Oliva MD MD rn Ruby Owen RN RN vc1 Corrections: (The following items were deleted from the chart) 11/23 22:35 22:35 Head Brain Wo [id number].RAD.BRZ ordered. EDMS EDMS
[2024-11-24] MEDS ORDERED: HYDROCODONE/APAP 10/325 TAB ONE (02:55)
[2024-11-24 03:36] VITALS: TEMP 97.5
[2024-11-24 03:37] VITALS: BP 103/75; O2SAT 98
== END 2024-11-24 03:31 | disposition home or self-care (01) ==
LOC: ER 21:57
DX: R51.9 Headache, unspecified (principal); I10 Essential (primary) hypertension; Z88.0 Allergy status to penicillin; Z88.5 Allergy status to narcotic agent
CPT/HCPCS: 70450; 96372; 99284

== ENCOUNTER 2024-12-09 17:53 | Emergency (ER) | payer OTHER ==
--- OUTSIDE RECORDS SUMMARY | 2024-12-09 17:57 | XMS REPORT | Continuity of Care Document ---
Author Name Unknown Address [address] [facility] [address] [place] [address] [facility] Address [address] [facility] [address] [place] [address] Care Team Providers Care [employer] Name Role Phone Pcp, Patient Does Not Have A Primary Care Physic ramón Bill Velazquez MD Attending Clinician [phone] BILL VELAZQUEZ Attending Clinician Unavailable Tadeo GARVIN, Priscila Attending Clinician + [phone] Bethany Parra MD Attending Clinician [phone] Demarcus Constantino MD Attending Clinician [phone] Robert Cannon CRNA Attending Clinician [phone] Maurisio Rodriguez MD Attending Clinician [phone] MAURISIO RODRIGUEZ Attending Clinician Unavaileverett winter Pob, [facility] Main Attending Clinician Unavaileverett winter Doctor Unassigned, Hiller Attending Clinician U MARCELLE Benavides Attending Clinician MARCELLE Banks Attending Clinician Unavailradha levy 1, [facility] Room Attending Clinician Rachael Mcdaniel MD, Gisselle [...] Clinician Unavailable Rosa Cardenas MD Attending Clinician [phone] Pedro Saez MD Attending Clinician + [phone] Lilo Garcia RN Attending Clinician Unavaila mildred Ridley WELL CONTROL INSTRUCTOR, Karen Jolly Attending Clinician + [phone] Cherie Lees MA Attending Clinician Unava ilable Ultrasound, Ang-Mfm Attending Clinician Unavailradha VALDES, Pretty Ashraf Attending Clinician [phone] BRADLEY TOVAR Attending Clinician Unavailable Rajveronica_P Attending Clinician Unavailable JAGDISH HENLEY Attending Clinician Unavailable LAUREN BANUELOS Attending Clinician Unavailable BILL VELAZQUEZ Admitting Clinician Unavailable Bill Velazquez MD Admitting Clinician [phone] ROSA CARDENAS Admitting Clinician Unavailable Pedro Saez MD Admitting Clinician [phone] Rajveronica_Naun Admitting Clinician Unavailable Payers Payer Name Policy Type Policy Number Effective Date Expirati on Date Source [employer] [id number] 2019 00:00:00 Problems Condition Name Condition Details Condition Category Status Onset Date Resolution Date Last Treatment Date Treating Clinician Comments Source Encounter for induction of labor Encounter for induction of labor Disease Active 03-15 00:00: 00 [facility] Morbid obesity with body mass index of 40.0-49.9 Morbid obesity with body mass index of 40.0-49.9 Disease Active 03-15 00:00: 00 [facility] Liveborn , of montiel , born in hospital by vaginal delivery Liveborn , of montiel , born in hospital by vaginal delivery Disease Active 4-14 00:00: 00 [facility] Inability to access health care due to transporta tion insecurity Inability to access health care due to transporta tion insecurity Disease Active 4-12 00:00: 00 [facility] Need for Tdap vaccinatio n Need for Tdap vaccinatio n Disease Active 3-06 00:00: 00 [facility] Back pain during Back pain during Disease Active 2021-12 2-16 00:00: 00 [facility] Sciatic pain, right Sciatic pain, right Disease Active 2021-12 2-16 00:00: 00 [facility] Anxiety disorder, unspecifie d type Anxiety disorder, unspecifie d type Disease Active 9-28 00:00: 00 [facility] SVT (supravent ricular tachycardi a) SVT (supravent ricular tachycardi a) Disease Active 9-28 00:00: 00 [facility] Anxiety and depression Anxiety and depression Disease Active 9-28 00:00: 00 [facility] Supervisio n of high-risk Supervisio n of high-risk Disease Active 8-08 00:00: 00 [facility] Grand multiparit y, antepartum Grand multiparit y, antepartum Disease Active 8-08 00:00: 00 [facility] Other depression Other depression Disease Active 8-08 00:00: 00 Overview: Formattin g of this note might be different from the original. 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 Address in Labor and Delivery. [facility] Anemia of mother in , antepartum Anemia of mother in , antepartum Disease Active 06-22 00:00: 00 [facility] Anemia of mother in , antepartum Anemia of mother in , antepartum Disease Active 06-22 00:00: 00 [facility] Insufficie nt care in third trimester Insufficie nt care in third trimester Disease Active 06-21 00:00: 00 [facility] Rh negative, antepartum Rh negative, antepartum Disease Active 24 00:00: 00 Overview: Formattin g of this note might be different from the original. Rhogam at 28 weeks [facility] History of substance use History of substance use Disease Active 02-22 00:00: 00 [facility] Allergies, Adverse Reactions, Alerts Allergy Name Allergy Type Status Severity Reaction(s) Onset Date Inactive Date Treating Clinician Comments Source Tramadol Propensi ty to adverse reaction s Active Hives 2018-0 -14 00:00: 00 [facility] TRAMADOL DRUG INGREDI Active Hives 2018-0 14 00:00: 00 [facility] Penicill ins Propensi ty to adverse reaction s Active Hives 04-13 00:00: 00 [facility] PENICILL INS Drug Class Active Hives 04-13 00:00: 00 [facility] Penicill ins Propensi ty to adverse reaction s Active Hives 04-13 00:00: 00 [facility] Social History Social Habit Start Date Stop Date Quantity Comments Source ASSERTION 2022-06-13 00:00:00 [facility] Exposure to SARS-CoV-2 (event) 2023-03-05 00:00:00 2023-03-15 04:57:00 Not sure [facility] Alcohol intake 2023-03-15 00:00:00 2023-03-15 00:00:00 Ex-drinker (finding) [facility] History of Social function 2022-07-09 00:00:00 2022-07-09 00:00:00 [facility] History of tobacco use 2021-07-02 00:00:00 Smokes tobacco daily [facility] Tobacco use and exposure 2019-12-11 00:00:00 2019-12-11 00:00:00 User of smokeless tobacco [facility] Tobacco Comment 2019-12-11 00:00:00 2019-12-11 00:00:00 2 ciggs a day [facility] Sex Assigned At 1990 00:00:00 1990 00:00:00 [facility] Smoking Status Start Date Stop Date Source Never smoked tobacco [facility] Ex-smoker 2022-07-09 00:00:00 2022-07-09 00[facility]00[facility] Smokes tobacco daily 2019-12-11 00:00:00 [facility] Medications Ordered Medication Name Filled Medication Name Start Date Stop Date Current Medication? Ordering Clinician Indication Dosage Frequency Signature (SIG) Comments Components Source abdifatah CAREY) 50 % topical pad 03-16 00:08: 26 Yes Topical, Q4HPRN, Starting on Sat03/15/23 at 1908, Until Discontinu ed, Routine, rectal/hem orrhoidal pain [facility] ibuprofen (IBU) tablet 600 mg 03-16 00:08: 26 Yes 600mg 600 mg, Oral, Q6HPRN, Starting on Sat03/15/23 at 1908, Until Discontinu ed, Routine, Pain (scale 4-6) [facility] acetaminoph en (TYLENOL) tablet 650 mg 03-16 00:08: 26 Yes 650mg 650 mg, Oral, Q6HPRN, Starting on Sat03/15/23 at 1908, Until Discontinu ed, Routine, Pain (scale 1-3) [facility] diphenhydrA MINE (BENADRYL) tablet 25 mg 03-16 00:08: 26 Yes 25mg 25 mg, Oral, Q6HPRN, Starting on Sat03/15/23 at 1908, Until Discontinu ed, Routine, Sleep, Itching [facility] ondansetron (ZOFRAN (PF)) injection 4 mg 03-16 00:08: 26 Yes 4mg 4 mg, Slow IV Push, Q8HPRN, Starting on Sat03/15/23 at 1908, Until Discontinu ed, Routine, Nausea and Vomiting (N/V) [facility] simethicone (GAS RELIEF (SIMETHICON E)) chewable tablet 160 mg 03-16 00:08: 26 Yes 160mg 160 mg, Oral, PC+HSPRN, Starting on Sat03/15/23 at 1908, Until Discontinu ed, Routine, Gas [facility] docusate (COLACE) capsule 200 mg 03-16 00:08: 26 Yes 200mg 200 mg, Oral, QDAILYPRN, Starting on Sat03/15/23 at 1908, Until Discontinu ed, Routine, Constipati on [facility] magnesium hydroxide (MILK OF MAGNESIA) 400 mg/5 mL suspension 30 mL 03-16 00:08: 26 Yes 30mL 30 mL, Oral, QDAILYPRN, Starting on Sat03/15/23 at 1908, Until Discontinu ed, Routine, Constipati on [facility] benzocaine- menthol (DERMOPLAST ) 20-0.5 % topical spray 03-16 00:08: 26 Yes Topical, PRN, Starting on Sat03/15/23 at 1908, Until Discontinu ed, Routine, Perineum discomfort [facility] vitamin w/FA tablet 03-16 00:00: 00 Yes [id number] 1{tbl} Take 1 tablet by mouth in the morning. [facility] docusate 100 mg capsule 03-16 00:00: 00 Yes [id number] 200mg Take 2 capsules by mouth once daily as needed for Constipati on. [facility] ferrous sulfate 325 mg (65 mg iron) tablet 03-16 00:00: 00 Yes [id number] 325mg Take 1 tablet by mouth in the morning and 1 tablet in the evening. [facility] ibuprofen 600 mg tablet 03-16 00:00: 00 Yes [id number] 600mg Take 1 tablet by mouth every 6 (six) hours as needed (Pain). Take with food or milk. [facility] vitamin w/FA tablet 03-16 00:00: 00 Yes [id number] 1{tbl} Take 1 tablet by mouth in the morning. [facility] terbutaline (BRETHINE) injection 0.25 mg 03-15 23:45: 00 03-15 22:46 :00 No .25mg 0.25 mg, Subcutaneo us, ONCE, 1 dose, On Sat03/15/23 at 1845, Routine [facility] amnioinfusi on IV infusion via PUMP 0.9 [...] until the liter is complete.& nbsp;&nbsp ;Notify [employer] if uterine resting tone exceeds 25 mmHg at any time during the amnioinfus ion. Obst etrics (SUNITA) Aminoinfus ion Orders
[facility] fentaNYL-ro pivacaine 2 mcg/mL-0.1 % (PF) in NS 200 mL epidural infusion RTU 03-15 21:47: 00 03-16 01:01 :29 No Epidural, ONCE INTRA PROCEDURE, Starting on Sat03/15/23 at 1647, Until Sat03/15/23 at 2000, Routine, Intra-op [facility] lidocaine-e pinephrine (XYLOCAINE W/EPINEPHRI NE) 1.5 %-1:200,000 injection 03-15 21:41: 00 03-16 01:01 :29 No Epidural, ONCE INTRA PROCEDURE, Starting on Sat03/15/23 at 1641, Until Sat03/15/23 at 2001, Routine, Intra-op [facility] oxytocin (PITOCIN) 30 units in NS 500 mL IV infusion 03-15 12:53: 24 03-16 00:08 :32 No 2mU/min at 2-40 mL/hr, IV Infusion, TITRATE, Starting on Sat03/15/23 at 0753, Until Sat03/15/23 at 1908, JESS [facility] proMETHazin e (PHENERGAN) 25 mg in NaCl 0.9% (NS) 50 mL IV piggyback 03-15 09:34: 52 03-16 00:08 :32 No 25mg 25 mg, IV Piggyback, Q4HPRN, Starting on Sat03/15/23 at 0434, Until Sat03/15/23 at 1908, Routine, Nausea and Vomiting (N/V) [facility] FENTanyl PF (SUBLIMAZE (PF)) injection 100 mcg 03-15 09:34: 20 03-16 00:08 :32 No 100ug 100 mcg, Slow IV Push, Q1HPRN, Starting on Sat03/15/23 at 0434, Until Sat03/15/23 at 190, Routine, Pain (scale 7-10) [facility] lactated ringers IV infusion 500 mL 03-15 09:23: 08 03-16 00:08 :32 No 500mL at 999 mL/hr, 500 mL, IV Infusion, PRN - SEE INSTRUCTIO NS, Starting on Sat03/15/23 at 0423, Until Sat03/15/23 at 1908, Routine [facility] D5W-LR IV infusion 1,000 mL 03-15 09:23: 08 03-16 00:08 :32 No 1000mL at 1-125 mL/hr, IV Infusion, TITRATE, Starting on Sat03/15/23 at 0423, Until Sat03/15/23 at 1908, Routine [facility] buPROPion XL (WELLBUTRIN XL) 150 mg 24 hr tablet 03-01 00:00: 00 Yes [id number] 150mg Take 1 tablet by mouth in the morning. [facility] busPIRone 5 mg tablet 02-28 00:00: 00 03-16 00:00 :00 No [facility] famotidine 20 mg tablet 02-19 00:00: 00 03-16 00:00 :00 No [id number] 20mg Take 1 tablet by mouth in the morning and 1 tablet in the evening. Do all this for 90 days. [facility] famotidine 20 mg tablet 02-15 00:00: 00 02-19 00:00 :00 No [id number] 20mg Take 1 tablet by mouth in the morning and 1 tablet in the evening. [facility] SELECT-OB + DHA 29 mg iron-1 mg -250 mg combo pack 1-06 00:00: 00 03-16 00:00 :00 No [facility] magnesium oxide 400 mg (241.3 mg magnesium) tablet 2021-12-18 00:00: 00 03-16 00:00 :00 No [id number] 400mg Take 1 tablet by mouth in the morning. [facility] multivitami n ( VITAMIN) tablet 2021-12 0- 00:00: 00 03-16 00:00 :00 No [id number] 1{tbl} Take 1 tablet by mouth in the morning. [facility] buPROPion XL (WELLBUTRIN XL) 150 mg 24 hr tablet 08-29 00:00: 00 03-01 00:00 :00 No [id number] 150mg Take 1 tablet by mouth in the morning. [facility] busPIRone 5 mg tablet 08-29 00:00: 00 02-28 00:00 :00 No [id number] 5mg Take 1 tablet by mouth in the morning and 1 tablet in the evening. [facility] multivitami n ( VITAMIN) tablet 07-09 00:00: 00 09-03 00:00 :00 No [id number] 1{tbl} Take 1 tablet by mouth in the morning. [facility] buPROPion XL (WELLBUTRIN XL) 150 mg 24 hr tablet 07-09 00:00: 00 08-29 00:00 :00 No [id number] 150mg Take 1 tablet by mouth in the morning. [facility] vitamin w/FA tablet 07-06 00:00: 07-09 00:00 :00 No [id number] 1{tbl} Take 1 tablet by mouth daily. [facility] docusate calcium 240 mg capsule 07-06 00:00: 07-09 00:00 :00 No [id number] 240mg Take 1 capsule by mouth once daily as needed for Constipati on. [facility] ferrous sulfate 325 mg (65 mg iron) tablet 07-06 00:00: 07-09 00:00 :00 No [id number] 325mg Take 1 tablet by mouth 2 (two) times daily. [facility] ibuprofen 600 mg tablet 07-06 00:00: 07-09 00:00 :00 No [id number] 600mg Take 1 tablet by mouth every 6 (six) hours as needed (Pain). Take with food or milk. [facility] Immunizations Ordered Immunization Name Filled Immunization Name Date Status Comments Source Rho (d) Immune Globulin 2023-03-16 00:00:00 Completed [facility] Rho (d) Immune Globulin 2023-03-16 00:00:00 Completed [facility] TDAP 2023-02-04 00:00:00 Completed [facility] Rho (d) Immune Globulin 2023-02-04 00:00:00 Completed [facility] TDAP 2023-02-04 00:00:00 Completed [facility] Rho (d) Immune Globulin 2023-02-04 00:00:00 Completed [facility] TDAP 2023-02-04 00:00:00 Completed [facility] Rho (d) Immune Globulin 2023-02-04 00:00:00 Completed [facility] TDAP 2023-02-04 00:00:00 Completed [facility] Rho (d) Immune Globulin 2023-02-04 00:00:00 Completed [facility] TDAP 2023-02-04 00:00:00 Completed [facility] Rho (d) Immune Globulin 2023-02-04 00:00:00 Completed [facility] TDAP 2023-02-04 00:00:00 Completed [facility] Rho (d) Immune Globulin 2023-02-04 00:00:00 Completed [facility] TDAP 2023-02-04 00:00:00 Completed [facility] Rho (d) Immune Globulin 2023-02-04 00:00:00 Completed [facility] TDAP 2023-02-04 00:00:00 Completed [facility] Rho (d) Immune Globulin 2023-02-04 00:00:00 Completed [facility] TDAP 2023-02-04 00:00:00 Completed [facility] Rho (d) Immune Globulin 2023-02-04 00:00:00 Completed [facility] TDAP 2023-02-04 00:00:00 Completed [facility] Rho (d) Immune Globulin 2023-02-04 00:00:00 Completed [facility] TDAP 2023-02-04 00:00:00 Completed [facility] Rho (d) Immune Globulin 2023-02-04 00:00:00 Completed [facility] TDAP 2023-02-04 00:00:00 Completed [facility] Rho (d) Immune Globulin 2023-02-04 00:00:00 Completed [facility] TDAP 2023-02-04 00:00:00 Completed [facility] Rho (d) Immune Globulin 2023-02-04 00:00:00 Completed [facility] TDAP 2023-02-04 00:00:00 Completed [facility] Rho (d) Immune Globulin 2023-02-04 00:00:00 Completed [facility] TDAP 2023-02-04 00:00:00 Completed [facility] Rho (d) Immune Globulin 2023-02-04 00:00:00 Completed [facility] TDAP 2023-02-04 00:00:00 Completed [facility] Rho (d) Immune Globulin 2023-02-04 00:00:00 Completed [facility] TDAP 2023-02-04 00:00:00 Completed [facility] Rho (d) Immune Globulin 2023-02-04 00:00:00 Completed [facility] TDAP 2023-02-04 00:00:00 Completed [facility] Rho (d) Immune Globulin 2023-02-04 00:00:00 Completed [facility] TDAP 2023-02-04 00:00:00 Completed [facility] Rho (d) Immune Globulin 2023-02-04 00:00:00 Completed [facility] TDAP 2023-02-04 00:00:00 Completed [facility] Rho (d) Immune Globulin 2023-02-04 00:00:00 Completed [facility] Rho (d) Immune Globulin 2009-09-19 00:00:00 Completed [facility] Rho (d) Immune Globulin 2009-09-19 00:00:00 Completed [facility] Rho (d) Immune Globulin 2009-09-19 00:00:00 Completed [facility] Rho (d) Immune Globulin 2009-09-19 00:00:00 Completed [facility] Rho (d) Immune Globulin 2009-09-19 00:00:00 Completed [facility] Rho (d) Immune Globulin 2009-09-19 00:00:00 Completed [facility] Rho (d) Immune Globulin 2009-09-19 00:00:00 Completed [facility] Rho (d) Immune Globulin 2009-09-19 00:00:00 Completed [facility] Rho (d) Immune Globulin 2009-09-19 00:00:00 Completed [facility] Rho (d) Immune Globulin 2009-09-19 00:00:00 Completed [facility] Rho (d) Immune Globulin 2009-09-19 00:00:00 Completed [facility] Rho (d) Immune Globulin 2009-09-19 00:00:00 Completed [facility] Rho (d) Immune Globulin 2009-09-19 00:00:00 Completed [facility] Rho (d) Immune Globulin 2009-09-19 00:00:00 Completed [facility] Rho (d) Immune Globulin 2009-09-19 00:00:00 Completed [facility] Rho (d) Immune Globulin 2009-09-19 00:00:00 Completed [facility] Rho (d) Immune Globulin 2009-09-19 00:00:00 Completed [facility] Rho (d) Immune Globulin 2009-09-19 00:00:00 Completed [facility] Rho (d) Immune Globulin 2009-09-19 00:00:00 Completed [facility] Rho (d) Immune Globulin 2009-09-19 00:00:00 Completed [facility] Rho (d) Immune Globulin 2009-09-19 00:00:00 Completed [facility] Rho (d) Immune Globulin 2009-09-19 00:00:00 Completed [facility] Rho (d) Immune Globulin 2009-09-19 00:00:00 Completed [facility] Rho (d) Immune Globulin 2009-09-19 00:00:00 Completed [facility] Rho (d) Immune Globulin 2009-09-19 00:00:00 Completed [facility] Rho (d) Immune Globulin 2009-09-19 00:00:00 Completed [facility] Rho (d) Immune Globulin 2009-09-19 00:00:00 Completed [facility] Rho (d) Immune Globulin 2009-09-19 00:00:00 Completed [facility] Rho (d) Immune Globulin 2009-09-19 00:00:00 Completed [facility] Rho (d) Immune Globulin Unknown Completed [facility] TDAP Unknown Completed [facility] Rho (d) Immune Globulin Unknown Completed [facility] Rho (d) Immune Globulin Unknown Completed [facility] Rho (d) Immune Globulin Unknown Completed [facility] Rho (d) Immune Globulin Unknown Completed [facility] TDAP Unknown Completed [facility] Rho (d) Immune Globulin Unknown Completed [facility] Vital Signs Vital Name Observation Time Observation Value Comments S milo Systolic blood pressure 2023-03-17 01:40:00 112 mm[Hg] [facility] Diastolic blood pressure 2023-03-17 01:40:00 61 mm[Hg] [facility] Heart rate 2023-03-17 01:40:00 73 /min [facility] Body temperature 2023-03-17 01:40:00 36.11 [facility] Respiratory rate 2023-03-17 01:40:00 18 /min [facility] Oxygen saturation in Arterial blood by Pulse oximetry 2023-03-17 01:40:00 99 /min [facility] Body height 2023-03-15 10:03:00 165.1 cm [facility] Body weight 2023-03-15 10:03:00 117.935 kg [facility] BMI 2023-03-15 10:03:00 43.27 kg/m2 [facility] Systolic blood pressure 2023-03-12 21:25:00 111 mm[Hg] [facility] Diastolic blood pressure 2023-03-12 21:25:00 75 mm[Hg] [facility] Heart rate 2023-03-12 21:25:00 87 /min [facility] Body temperature 2023-03-12 21:25:00 36.72 [facility] Respiratory rate 2023-03-12 21:25:00 17 /min [facility] Body height 2023-03-12 21:25:00 165.1 cm [facility] Body weight 2023-03-12 21:25:00 117.028 kg [facility] BMI 2023-03-12 21:25:00 42.93 kg/m2 [facility] Systolic blood pressure 2023-03-05 14:31:00 115 mm[Hg] [facility] Diastolic blood pressure 2023-03-05 14:31:00 78 mm[Hg] [facility] Heart rate 2023-03-05 14:31:00 81 /min [facility] Respiratory rate 2023-03-05 14:31:00 18 /min [facility] Body height 2023-03-05 14:31:00 165.1 cm [facility] Body weight 2023-03-05 14:31:00 117.028 kg [facility] BMI 2023-03-05 14:31:00 42.93 kg/m2 [facility] Systolic blood pressure 2023-02-15 20:17:00 118 mm[Hg] [facility] Diastolic blood pressure 2023-02-15 20:17:00 76 mm[Hg] [facility] Heart rate 2023-02-15 20:17:00 80 /min [facility] Body temperature 2023-02-15 20:17:00 36.67 [facility] Respiratory rate 2023-02-15 20:17:00 18 /min [facility] Body height 2023-02-15 20:17:00 165.1 cm [facility] Body weight 2023-02-15 20:17:00 115.667 kg [facility] BMI 2023-02-15 20:17:00 42.43 kg/m2 [facility] Systolic blood pressure 2023-02-04 21:13:00 126 mm[Hg] [facility] Diastolic blood pressure 2023-02-04 21:13:00 72 mm[Hg] [facility] Heart rate 2023-02-04 21:13:00 88 /min [facility] Body temperature 2023-02-04 21:13:00 36.83 [facility] Respiratory rate 2023-02-04 21:13:00 18 /min [facility] Body height 2023-02-04 21:13:00 165.1 cm [facility] Body weight 2023-02-04 21:13:00 114.261 kg [facility] BMI 2023-02-04 21:13:00 41.92 kg/m2 [facility] Systolic blood pressure 2022-11-16 20:26:00 102 mm[Hg] [facility] Diastolic blood pressure 2022-11-16 20:26:00 66 mm[Hg] [facility] Heart rate 2022-11-16 20:26:00 77 /min [facility] Body temperature 2022-11-16 20:26:00 36.67 [facility] Respiratory rate 2022-11-16 20:26:00 18 /min [facility] Body height 2022-11-16 20:26:00 165.1 cm [facility] Body weight 2022-11-16 20:26:00 113.853 kg [facility] BMI 2022-11-16 20:26:00 41.77 kg/m2 [facility] Systolic blood pressure 2022-10-19 20:58:00 104 mm[Hg] [facility] Diastolic blood pressure 2022-10-19 20:58:00 68 mm[Hg] [facility] Heart rate 2022-10-19 20:58:00 91 /min [facility] Body temperature 2022-10-19 20:58:00 36.78 [facility] Respiratory rate 2022-10-19 20:58:00 18 /min [facility] Body height 2022-10-19 20:58:00 165.1 cm [facility] Body weight 2022-10-19 20:58:00 113.853 kg [facility] BMI 2022-10-19 20:58:00 41.77 kg/m2 [facility] Systolic blood pressure 2022-08-29 16:00:00 109 mm[Hg] [facility] Diastolic blood pressure 2022-08-29 16:00:00 71 mm[Hg] [facility] Heart rate 2022-08-29 15:21:00 80 /min [facility] Body temperature 2022-08-29 15:21:00 36.94 [facility] Respiratory rate 2022-08-29 15:21:00 18 /min [facility] Body height 2022-08-29 15:21:00 165.1 cm [facility] Body weight 2022-08-29 15:21:00 105.325 kg [facility] BMI 2022-08-29 15:21:00 38.64 kg/m2 [facility] Systolic blood pressure 2022-07-09 20:04:00 109 mm[Hg] [facility] Diastolic blood pressure 2022-07-09 20:04:00 58 mm[Hg] [facility] Heart rate 2022-07-09 20:04:00 68 /min [facility] Body temperature 2022-07-09 20:04:00 36.28 [facility] Respiratory rate 2022-07-09 20:04:00 20 /min [facility] Body height 2022-07-09 20:04:00 165.1 cm [facility] Body weight 2022-07-09 20:04:00 99.905 kg [facility] BMI 2022-07-09 20:04:00 36.65 kg/m2 [facility] Procedures Procedure Date / Time Performed Performing Clinicia n Source CBC WITH DIFF 2023-03-16 10:02:00 Bill Velazquez [facility] HB -MATERNAL HEMORRHAGE SCREEN 2023-03-16 10:02:00 Priscila Piedra [facility] CENTRAL NEURAXIAL BLOCK 2023-03-15 21:32:00 Demarcus Constantino [facility] ANTI-D R/O PANEL 2023-03-15 18:36:00 Bill Velazquez [facility] EXTRA TUBE LAV (BLOOD BANK) 2023-03-15 18:36:00 Bill Velazquez [facility] PREPARE PACKED RBC 2023-03-15 18:14:00 [facility] 2023-03-15 10:44:00 Bill Velazquez [facility] RHO (D) IMMUNE GLOBULIN 2023-03-15 10:44:00 Bill Velazquez [facility] CONSENT/REFUSAL FOR DIAGNOSIS AND TREATMENT 2023-03-13 22:06:36 Doctor Unassigned, [facility] PHYSICIAN ORDERS 2023-03-12 05:01:00 Doctor Unas signed, [facility] POCT URINALYSIS W/O SPECIFIC GRAVITY 2023-03-12 00:00:00 Marcelle Adams [facility] POCT URINALYSIS W/O SPECIFIC GRAVITY 2023-03-05 00:00:00 Marcelle Adams [facility] POCT URINALYSIS W/O SPECIFIC GRAVITY 2023-02-15 00:00:00 Bill Velazquez [facility] DSU PRE-OP 2023-02-08 06:01:00 Doctor Unass igned, [facility] TDAP VACCINE, >11 YRS, IM 2023-02-04 21:44:40 Marcelle Adams [facility] POCT URINALYSIS W/O SPECIFIC GRAVITY 2023-02-04 00:00:00 Marcelle Adams [facility] POCT URINALYSIS W/O SPECIFIC GRAVITY 2022-11-16 00:00:00 Bill Velazquez [facility] POCT URINALYSIS W/O SPECIFIC GRAVITY 2022-10-19 00:00:00 Marcelle Adams [facility] <14 WEEKS US LIMITED 2022-08-29 19:59:32 Bill Velazquez [facility] GLUCOSE 1 HOUR POST PRANDIAL 2022-08-29 18:05:00 Bill Velazquez [facility] ASSIGNMENT OF BENEFITS 2022-08-29 16:33:28 Docto r Unassigned, [facility] POCT URINALYSIS W/O SPECIFIC GRAVITY 2022-08-29 00:00:00 Bill Velazquez [facility] POCT TEST 2022-07-09 19:55:00 Basil Carolina [facility] POCT URINALYSIS W/O SPECIFIC GRAVITY 2022-07-09 19:55:00 Nickie Carolina [facility] Encounters Start Date/Time End Date/Time Encounter Type Admission Type Attending [facility] Care Facility Care Department Encounter ID Source 2021-09-29 10:16:10 Outpatient [facility] [id number] [facility] 2024-11-04 14:05:23 2024-11-04 14:05:23 Outpatient [facility] [id number] Prabhjot Stark 2024-03-10 09:38:57 2024-03-10 09:38:57 Outpatient [facility] [id number] Prabhjot Stark 2024-03-05 11:39:20 2024-03-05 11:39:20 Outpatient [facility] [id number] Prabhjot Stark 2024-01-14 00:00:00 2024-01-14 00:00:00 Refill Bill Velazquez [facility] 1.84.114 350.1.13.10 4.2.7.2.686 [id number] [facility] 2023-04-05 15:15:00 2023-04-05 15:15:00 Outpatient BILL KRISHNAMURTHY [facility] [id number] [facility] 2023-03-20 00:00:00 2023-03-20 00:00:00 Telephone Priscila Hoang [facility] 1..114 350.1.13.10 4.2.7.2.686 [id number] 134 [id number] [facility] 2023-03-15 04:02:00 2023-03-16 21:47:00 Inpatient P BILL VELAZQUEZ [facility] [id number] [facility] 2023-03-15 04:02:00 2023-03-16 21:47:00 Hospital Encounter Bethany Parra Vien Cam [facility] 1.84.114 350.1.13.10 4.2.7.2.686 [id number] [facility] 2023-03-15 16:32:00 2023-03-15 19:59:00 Anesthesia Event Demarcus Constantino S [facility] 1.2.840.114 350.1.13.10 4.2.7.2.686 [id number] [facility] 2023-03-15 13:15:30 2023-03-15 13:15:30 Anesthesia Event Robert Cannon [facility] 1.2.840.114 350.1.13.10 4.2.7.2.686 [id number] [facility] 2023-03-14 13:17:00 2023-03-14 23:59:00 Hospital Encounter Maurisio Rodriguez [facility] 1.2.840.114 350.1.13.10 4.2.7.2.686 [id number] [facility] 2023-03-14 00:00:00 2023-03-14 23:59:00 Outpatient MAURISIO PRADO [facility] ACO [id number] [facility] 2023-03-13 08:45:00 2023-03-13 09:00:00 Director Of Procurement Visit Pob, Adc Lab Main Maurisio Rodriguez [facility] 1.20.114 350.1.13.10 4.2.7.2.686 [id number] [facility] 2023-03-13 08:45:00 2023-03-13 08:45:00 Outpatient MAURISIO PRADO [facility] [id number] [facility] 2023-03-13 00:00:00 2023-03-13 00:00:00 Orders Only Doctor Unassigned, [facility] 1.2840.114 350.1.13.10 4.2.7.2.686 [id number] [facility] 2023-03-12 16:15:00 2023-03-12 16:37:17 Outpatient MARCELLE COLEY CHERYAL [facility] [id number] [facility] 2023-03-12 16:15:00 2023-03-12 16:37:17 [facility] 1.2840.114 350.1.13.10 4.2.7.2.686 [id number] [facility] 2023-03-12 00:00:00 2023-03-12 00:00:00 Orders Only Doctor Unassigned, [facility] 1.840.114 350.1.13.10 4.2.7.2.686 [id number] [facility] 2023-03-08 00:00:00 2023-03-08 00:00:[address] [facility] 1.0.114 350.1.13.10 4.2.7.2.686 [id number] [facility] 2023-03-05 09:15:00 2023-03-05 09:51:39 Outpatient R [facility] [id number] [facility] 2023-03-05 09:15:00 2023-03-05 09:51:39 [facility] 1.0.114 350.1.13.10 4.2.7.2.686 [id number] [facility] 2023-03-01 08:00:00 2023-03-01 08:00:00 Outpatient R BILL VELAZQUEZ [facility] [id number] [facility] 2023-03-01 00:00:00 2023-03-01 00:00:00 Telephone Bill Velazquez [facility] 1.20.114 350.1.13.10 4.2.7.2.686 [id number] [facility] 2023-02-28 00:00:00 2023-02-28 00:00:00 Telephone Bill Velazquez [facility]ESS[facility] 1.2.840.114 350.1.13.10 4.2.7.2.686 [id number] [facility] 2023-02-28 00:00:00 2023-02-28 00:00:00 Telephone Bill Velazquez [facility] 1.2.840.114 350.1.13.10 4.2.7.2.686 [id number] [facility] 2023-02-22 13:00:00 2023-02-22 13:00:00 Outpatient R MARCUSBILL [facility] [id number] [facility] 2023-02-20 08:00:00 2023-02-20 09:00:00 Director Of Procurement Visit 1, [facility] Room Gisselle Sims [facility] ACCOUNT DEVELOPER [facility] MATERNAL & CHILD [facility] 1.2840.114 350.1.13.10 4.2.7.2.686 [id number] [facility] 2023-02-20 08:00:00 2023-02-20 08:00:00 Outpatient P GISSELLE SIMS [facility] [id number] [facility] 2023-02-20 00:00:00 2023-02-20 00:00:00 Case Management Marcelle Adams [facility] 1.2840.114 350.1.13.10 4.2.7.2.686 [id number] 134 [id number] [facility] 2023-02-19 00:00:00 2023-02-19 00:00:00 Telephone Bill Velazquez [facility] 1.2.840.114 350.1.13.10 4.2.7.2.686 [id number] [facility] 2023-02-15 15:15:00 2023-02-15 15:34:40 Outpatient R BILL VELAZQUEZ [facility] [id number] [facility] 2023-02-15 15:15:00 2023-02-15 15:34:40 Routine Visit Bill Velazquez Lai [facility] 1.2840.114 350.1.13.10 4.2.7.2.686 [id number] [facility] 2023-02-14 00:00:00 2023-02-14 00:00:00 Patient Secure Msg Doctor Unassigned, Hiller [facility] 1.2.840.114 350.1.13.10 4.2.7.2.686 [id number] [facility] 2023-02-08 00:00:00 2023-02-08 00:00:00 Orders Only Doctor Unassigned, [facility] 1.2.840.114 350.1.13.10 4.2.7.2.686 [id number] [facility] 2023-02-05 09:30:00 2023-02-05 09:30:00 Outpatient R [facility] [id number] [facility] 2023-02-04 14:45:00 2023-02-04 15:47:35 Outpatient R MARCELLE ADAMS CHERYAL [facility] [id number] [facility] 2023-02-04 14:45:00 2023-02-04 15:47:35 Routine Visit Marcelle Adams [facility] 1.20.114 350.1.13.10 4.2.7.2.686 [id number] [facility] 2023-01-30 16:15:00 2023-01-30 16:15:00 Outpatient R MARCELLE ADAMS CHERYAL [facility] [id number] [facility] 2022-12-14 13:30:00 2022-12-14 13:30:00 Outpatient R MARCELLE ADAMS CHERYAL [facility] [id number] [facility] 2022-12-03 14:00:00 2022-12-03 14:00:00 Outpatient R BURT ROJAS [facility] [id number] [facility] 2022-11-30 08:45:00 2022-11-30 08:45:00 Outpatient P [facility] [id number] [facility] 2022-11-20 13:00:00 2022-11-20 13:00:00 Outpatient MICK ASIF HOWARD [facility] [id number] [facility] 2022-11-16 14:00:00 2022-11-16 15:22:13 Outpatient R BILL VELAZQUEZ [facility] [id number] [facility] 2022-11-16 14:00:00 2022-11-16 15:22:13 Routine Visit Bill Velazquez [facility] 1.840.114 350.1.13.10 4.2.7.2.686 [id number] [facility] 2022-11-01 00:00:00 2022-11-01 00:00:00 Patient Secure Msg Doctor Unassigned, [facility]iller [facility] 1.840.114 350.1.13.10 4.2.7.2.686 [id number] [facility] 2022-10-19 14:15:00 2022-10-19 15:18:29 Outpatient R MARCELLE ADAMS CHERYAL [facility] [id number] [facility] 2022-10-19 14:15:00 2022-10-19 15:18:29 [facility]ine [facility] 1.2.840.114 350.1.13.10 4.2.7.2.686 [id number] [facility] 2022-10-19 00:00:00 2022-10-19 00:00:00 Case Management Marcelle Adams [facility] 1.2.840.114 350.1.13.10 4.2.7.2.686 [id number] [facility] 2022-09-26 09:30:00 2022-09-26 09:30:00 Outpatient R MARCELLE ADAMS [facility] [id number] [facility] 2022-09-07 00:00:00 2022-09-07 00:00:00 Telephone Marcus Bill [facility] 1.2.840.114 350.1.13.10 4.2.7.2.686 [id number] [facility] 2022-08-31 00:00:00 2022-08-31 00:00:00 Telephone VelazquezBill [facility] 1.2.840.114 350.1.13.10 4.2.7.2.686 [id number] [facility] 2022-08-29 11:15:00 2022-08-29 11:30:00 Director Of Procurement Visit Pob, Adc Lab Main VelazquezBill [facility] 1.2.840.114 350.1.13.10 4.2.7.2.686 [id number] [facility] 2022-08-29 10:00:00 2022-08-29 11:08:03 Outpatient R BILL VELAZQUEZ [facility] [id number] [facility] 2022-08-29 10:00:00 2022-08-29 11:08:03 Initial Visit Marcus Bill Lai [facility] YSABEL [facility] 1.114 350.1.13.10 4.2.7.2.686 [id number] [facility] 2022-08-29 00:00:00 2022-08-29 00:00:00 Orders Only Doctor Unassigned, [facility]iller [facility] 1..114 350.1.13.10 4.2.7.2.686 [id number] [facility] 2022-08-27 14:00:00 2022-08-27 14:00:00 Outpatient PRETTY GILES [facility] [id number] [facility] 2022-08-27 08:00:00 2022-08-27 08:00:00 Outpatient R MARCELLE ADAMS CHERYAL [facility] [id number] [facility] 2022-08-14 10:45:00 2022-08-14 10:45:00 Outpatient R NICKIE CAROLINA [facility] [id number] [facility] 2022-07-23 10:45:00 2022-07-23 10:45:00 Outpatient R NICKIE CAROLINA [facility] [id number] [facility] 2022-07-16 13:15:00 2022-07-16 13:15:00 Outpatient R KAREN RIDLEY [facility] [id number] [facility] 2022-07-09 15:00:00 2022-07-09 16:30:53 Outpatient R NICKIE CAROLINA [facility] [id number] [facility] 2022-07-09 15:00:00 2022-07-09 16:30:53 Initial Visit Nickie Carolina [facility] ACCOUNT DEVELOPER [facility] 1.84.114 350.1.13.10 4.2.7.2.686 [id number] [facility] 2022-07-09 15:00:00 2022-07-09 16:30:53 Outpatient R AKINARJUNROSALINONICKIE [facility] [id number] [facility] 2022-07-09 15:00:00 2022-07-09 16:30:53 Outpatient R AKINSIPENICKIE [facility] [id number] [facility] 2022-07-09 00:00:00 2022-07-09 00:00:00 Orders Only Doctor Unassigned, [facility]iller [facility] 1.2.840.114 350.1.13.10 4.2.7.2.686 [id number] [facility] 2022-04-24 23:27:00 2022-04-25 02:29:00 Emergency X JOSH GARRETTFAVIAN [facility] ERT [id number] [facility] 2022-04-24 23:27:00 2022-04-25 02:29:00 Emergency Yahaira Cardenaskeren S [facility] 1.2.840.114 350.1.13.10 4.2.7.2.686 [id number] [facility] 2022-03-08 00:00:00 2022-03-08 00:00:00 Patient Secure Msg Doctor Unassigned, [facility]iller [facility] 1.2.840.114 350.1.13.10 4.2.7.2.686 [id number] [facility] 2020-09-19 15:15:00 2020-09-19 15:15:00 Outpatient R AKINSIROSALINONICKIE [facility] [id number] [facility] 2020-08-01 13:45:00 2020-08-01 13:45:00 Outpatient R AKINSIPE NICKIE [facility] [id number] [facility] 2020-07-28 14:45:00 2020-07-28 14:45:00 Outpatient R AKINSIPE, NICKIE [facility] [id number] [facility] 2020-07-03 19:39:00 2020-07-06 16:26:00 Hospital Encounter Pedro Saez [facility] 1.2.840.114 350.1.13.10 4.2.7.2.686 [id number] 2020-07-02 00:00:00 2020-07-02 00:00:00 Nurse Triage Lilo Garcia [facility] 1.2.840.114 350.1.13.10 4.2.7.2.686 [id number] 2020-06-27 15:32:39 2020-06-27 16:14:31 Routine Visit Karen Ridley [facility] ACCOUNT DEVELOPER [facility] 1.2.840.114 350.1.13.10 4.2.7.2.686 [id number] 2020-06-27 15:30:00 2020-06-27 15:30:00 Outpatient R KAREN RIDLEY [facility] [id number] [facility] 2020-06-23 00:00:00 2020-06-23 00:00:00 Abstract Karen Ridley [facility] ACCOUNT DEVELOPER [facility] 1.2.840.114 350.1.13.10 4.2.7.2.686 [id number] 2020-06-23 00:00:00 2020-06-23 00:00:00 Telephone Cherie Lees [facility] 1.2.840.114 350.1.13.10 4.2.7.2.686 [id number] 2020-06-22 14:18:43 2020-06-22 14:48:43 Director Of Procurement Visit Ultrasound, [facility] ACCOUNT DEVELOPER [facility] 1.2.840.114 350.1.13.10 4.2.7.2.686 [id number] 2020-06-22 14:15:00 2020-06-22 14:15:00 Outpatient P [facility] [id number] [facility] 2020-06-22 00:00:00 2020-06-22 00:00:00 Telephone ArlenPretty Pascale [facility] ACCOUNT DEVELOPER [facility] MATERNAL & CHILD [facility] 1.2.840.114 350.1.13.10 4.2.7.2.686 [id number] 2020-06-21 14:11:25 2020-06-21 15:15:39 Routine Visit Ridley Effiecynthia Jolly [facility] ACCOUNT DEVELOPER [facility] CHILD [facility] 1.2.840.114 350.1.13.10 4.2.7.2.686 [id number] 2020-06-21 10:00:00 2020-06-21 10:00:00 Outpatient R KAREN RIDLEY [facility] [id number] [facility] 2020-06-03 14:15:00 2020-06-03 14:15:00 Outpatient R NICKIE CAROLINA [facility] [id number] [facility] 2020-05-16 11:00:00 2020-05-16 11:00:00 Outpatient P [facility] [id number] [facility] 2020-05-12 15:30:00 2020-05-12 15:30:00 Outpatient R AKINIAN NICKIE [facility] [id number] [facility] 2020-04-05 13:15:00 2020-04-05 13:15:00 Outpatient R AKINIAN NICKIE [facility] [id number] [facility] 2020-04-04 11:45:00 2020-04-04 11:45:00 Outpatient P BRADLEY TOVAR [facility] [id number] [facility] 2020-03-22 13:45:00 2020-03-22 13:45:00 Outpatient R AKINIAN NICKIE [facility] [id number] [facility] 2020-03-17 09:35:00 2020-03-17 09:35:00 Outpatient Raju_P [facility] [id number] [facility] 2020-03-07 11:00:00 2020-03-07 11:00:00 Outpatient P [facility] [id number] [facility] 2020-03-04 13:30:00 2020-03-04 13:30:00 Outpatient P JAGDISH HENLEY [facility] [id number] [facility] 2020-02-26 15:00:00 2020-02-26 15:00:00 Outpatient R NICKIE CAROLINA [facility] [id number] [facility] 2020-02-25 13:30:00 2020-02-25 13:30:00 Outpatient R [facility] [id number] [facility] 2020-02-23 12:45:00 2020-02-23 12:45:00 Outpatient R ARLENPRETTY [facility] [id number] [facility] 2020-01-08 15:45:00 2020-01-08 15:45:00 Outpatient R LAUREN BANUELOS [facility] [id number] [facility] Results Test Description Test Time Test Comments Results Result Co [facility]ments [facility] [id number] 00:23:24* Test Item Value Reference Range Interpretation Comme nts ANTIBODY (test code = 683) Anti-D Probable RhIg PATIENT RECEIVED RHIG 02/04/23.Performed at [facility] Laboratory Services - [facility] Blood [address] [address]Wpvz Free: [phone] No. [id number] [facility] CenterType and Screen - ONCE [id number] 12:12:00 * Test Item Value Reference Range Interpretation Comme nts ABO & RH (test code = 20) A Negative IAT (test code = 1185) Positive [facility]/O SPECIFIC [id number] 21:22:00* Test Item Value Reference Range Interpretation [...] = 3257) n/a Negative - [facility] URINALYSIS W/O SPECIFIC [id number] 14:41:00* Test Item Value Reference Range Interpretation [...] = 3257) N/A Negative - Negati ve [facility] URINALYSIS W/O SPECIFIC [id number] 20:17:00* Test Item Value Reference Range Interpretation [...] = 3257) n/a Negative - Negati ve [facility] URINALYSIS W/O SPECIFIC [id number] 21:11:00* Test Item Value Reference Range Interpretation [...] = 3257) n/a Negative - Negati ve [facility] URINALYSIS W/O SPECIFIC [id number] 20:30:00* Test Item Value Reference Range Interpretation [...] = 3257) neg Negative - Negati ve [facility] URINALYSIS W/O SPECIFIC [id number] 21:06:00* Test Item Value Reference Range Interpretation [...] = 3257) N/A Negative - Negati ve [facility] CenterGLU[facility] 1 HOUR POST [id number] 19:18:59* Test Item Value Reference Range Interpretation Comme nts GLUC 1 HR (test code = [id number]) 68 mg/dL 120-170 L Lab Interpretation (test cod e = 27802-7) [facility] URINALYSIS W/O SPECIFIC [id number] 15:26:00* Test Item Value Reference Range Interpretation [...] = 3257) n/a Negative - [facility] [id number] 19:55:00* Test Item Value Reference Range Interpretation Comme nts POCT PREG (test code = 1605) Positive On board controls acceptable with C Line (test code = 3574) Yes POCT PREG LOT # (test code = 3575) POCT PREG TEST DATE ( test code = 3576) [facility] SPECIFIC [id number] 19:55:00* Test Item Value Reference Range Interpretation [...] code = 3257) Negative - Negati ve [facility]
--- NOTE | 2024-12-09 18:57 | RAD REPORT ---
EXAMINATION: TWO VIEW CHEST XR CLINICAL INDICATION: Congestion;Cough TECHNIQUE: 2 views of the chest was performed. COMPARISON: 12/25/2020 FINDINGS: The lungs are well inflated and clear. The heart is normal in size. No displaced fractures evident. IMPRESSION: No acute or significant abnormalities.
[2024-12-09] MEDS ORDERED: ALBUTEROL 2.5 MG/3 ML NEB SOL ONE (19:15)
[2024-12-09] MEDS ORDERED: ONDANSETRON 4 MG/2 ML VIAL ONE (19:16)
[2024-12-09] MEDS ORDERED: NA CHLORIDE 0.9% 1,000 ML ONE (19:16)
[2024-12-09] MEDS ORDERED: IPRATROPIUM BROM 0.5MG/2.5ML ONE (19:16)
[2024-12-09 19:42] LABS: Absolute Basophils 0.1 K/uL (0-0.5); Absolute Eosinophils 0.1 K/uL (0-0.5); Absolute Lymphocytes (CBC) 1.8 K/uL (0.7-4.9); Absolute Monocytes 1.1 K/uL (0.1-1.3); Absolute Neutrophil 2.6 K/uL (1.8-8.0); Basophils % 0.9 % (0-1.3); Eosinophils % 2.1 % (0-4.4); Hematocrit 40.2 % (36.0-45.0); Hemoglobin 13.2 g/dL (12.0-15.0); Lymphocytes % 32.2 % (15.3-44.8); MCH 27.5 pg (27.0-35.0); MCHC 32.8 g/dL (32.0-36.0); MCV 83.9 fL (80-100); MPV 8.1 fL (7.6-11.3); Monocytes % 18.8 % (3.3-12.3); Nucleated Red Blood Cells % 0.2 % (0-0); Platelets 292 thou/uL (152-406); Red Cell Distribution Width 13.3 % (12.1-15.2)
[2024-12-09 20:02] LABS: Albumin 3.9 g/dL (3.4-5.0); Anion Gap 11.4 mEq/L (5.0-15.0); Bilirubin Total 0.3 mg/dL (0.2-1.0); Potassium 3.4 mEq/L (3.5-5.1); Protein, Total 7.9 g/dL (6.4-8.2)
[2024-12-09 20:08] LABS: SARS-CoV-2 Antigen CONTROL BLUE LINE VIS/BG OK; SARS-CoV-2 Antigen Rapid Res Negative (Negative)
--- NOTE | 2024-12-09 20:12 | EDPHYS ---
Physician Documentation [facility] Name: Sandra Amado Age: 33 yrs Sex: Female : 1990 Arrival Date: 12/09/2024 Time: 17:53 Bed 11 Private MD: ED Physician Oleksandr Rawls HPI: 12/09 18:33 This 33 yrs old Female presents to ER via Unassigned with complaints of Flu kb Symptoms. 18:33 Pt reports cough, congestion, fever, chills, bodyaches, shortness of breath, n/v/d that kb started 2 days ago. No aggravating or alleviating factors. . 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 - Infectious Disease History:: Denies. - Social history:: Smoking status: Patient denies any tobacco usage or history of. ROS: 18:33 Constitutional: As per HPI kb Exam: 18:41 Constitutional: This is a well developed, well nourished patient who is awake, alert, kb and in no acute distress. Head/Face: Normocephalic, atraumatic. ENT: Moist Mucous membranes Cardiovascular: Regular rate Respiratory: Respirations even and unlabored. No increased work of breathing. Talking in full sentences Skin: Warm, dry with normal turgor. Normal color. MS/ Extremity: Pulses equal, no cyanosis. Neurovascular intact. Full, normal range of motion. Neuro: Awake and alert, GCS 15, oriented to person, place, time, and situation. Vital Signs: 18:52 Pulse 103; Resp 22; Temp 98.7(O); Pulse Ox 100% on R/A; Weight 119.75 kg; Height 5 ft. tm6 5 in. ; Pain 10/10; 18:53 BP 112 / 76; MAP 88 mmHg; tm6 18:52 Body Mass Index 43.93 (119.75 kg, 165.1 cm) tm6 18:52 Pain Scale: Adult tm6 MDM: 17:55 Medical Screening Exam initiated kb 18:41 Data reviewed: vital signs, nurses notes. kb 20:10 Differential diagnosis: flu, covid, uri, strep, gastroenteritis. I considered the kb following discharge prescriptions or medication management in the emergency department I discussed and recommended Over The Counter medications, Antibiotics: At this time antibiotics are not recommended, Antivirals: At this time, antivirals are not recommended. Counseling: I had a detailed discussion with the patient and/or guardian regarding the historical points, exam findings, and any diagnostic results supporting the discharge/admit diagnosis, lab results, radiology results, the need for outpatient follow up, a family practitioner, to return to the emergency department if symptoms worsen or persist or if there are any questions or concerns that arise at home. 12/09 18:21 Order name: Flu; Complete Time: 20:08 kb 12/09 18:21 Order name: SARS-COV-2 Antigen Rapid; Complete Time: 20:09 kb 12/09 18:36 Order name: Strep; Complete Time: 20:08 tm6 12/09 18:36 Order name: CBC with Diff; Complete Time: 19:46 tm6 12/09 18:36 Order name: CMP; Complete Time: 20:08 tm6 12/09 18:36 Order name: Lipase; Complete Time: 20:08 tm6 12/09 20:10 Order name: Throat Culture EDAR 12/09 18:36 Order name: Chest Pa And Lat (2 Views) XRAY; Complete Time: 18:58 tm6 12/09 18:36 Order name: IV Saline Lock; Complete Time: 19:36 tm6 12/09 18:36 Order name: Labs collected and sent; Complete Time: 19:36 tm6 Administered Medications: 19:35 Drug: NS 0.9% IV 1000 ml IV at 1 bolus Per protocol; to be given as a bolus over 60 jb4 minutes Route: IV; Rate: 1 bolus; Site: right forearm; 20:37 Follow up: Response: No adverse reaction; IV Status: Order to discontinue infusion; IV jb4 Intake: 700ml 19:36 Drug: Albuterol Inhalation 2.5 mg Inhalation once Route: Inhalation; jb4 19:36 Drug: Ipratropium Inhalation Aerosol 0.5 mg Inhalation once Route: Inhalation; jb4 19:36 Drug: Ondansetron IVP 4 mg IVP once; over 2 minutes Route: IVP; Site: right forearm; jb4 20:38 Follow up: Response: No adverse reaction; Marked relief of symptoms jb4 20:31 Drug: Ketorolac IVP 15 mg IVP once Route: IVP; Site: right forearm; jb4 20:37 Follow up: Response: Medication administered at discharge. jb4 Disposition Summary: 12/09/24 20:11 Discharge Ordered Notes: Location: Home kb Condition: Stable kb Diagnosis - Influenza due to identified novel influenza A virus kb Followup: kb - With: Emergency Department - When: As needed - Reason: Worsening of condition Followup: kb - With: Private Physician - When: 2 - 3 days - Reason: Recheck today's complaints, Continuance of care, Re-evaluation by your physician Discharge Instructions: - Discharge Summary Sheet kb - Influenza, Adult, [id number] kb Forms: - Medication Reconciliation Form kb - Antibiotic Education kb - Prescription Opioid Use kb - Patient Portal Instructions kb - Leadership Thank You Letter kb Prescriptions: - Zofran 4 mg Oral tablet - take 1 tablet ORAL route every 6 hours As needed; 12 tablet; Refills: 0, kb Product Selection Permitted Signatures: Dispatcher [employer] EDMS Tanya Torres, FIRE OPERATIONS FORESTER-C FIRE OPERATIONS FORESTER-Rhys Reyna, RN RN jb4 Ever Velasco RN RN tm6 Corrections: (The following items were deleted from the chart) 18:36 18:36 Group A Streptococcus Rapid Sc+BA.LAB.BRZ ordered. EDMS EDMS 18:36 18:36 CBC+H.LAB.BRZ ordered. EDMS EDMS 18:36 18:36 COMPREHENSIVE METABOLIC PANEL+C.LAB.BRZ ordered. EDMS EDMS 18:36 18:36 LIPASE+C.LAB.BRZ ordered. EDMS EDMS
--- NOTE | 2024-12-09 20:12 | ER ---
Nurse's Notes [facility] Name: Sandra Amado Age: 33 yrs Sex: Female : 1990 Arrival Date: 12/09/2024 Time: 17:53 Bed 11 Private MD: Diagnosis: Influenza due to identified novel influenza A virus Presentation: 12/09 18:53 Chief complaint: Patient states: x2 days with cough, fever, n/v/d, body aches. tm6 Coronavirus screen: Client denies travel out of the [place] in the last 14 days. Ebola Screen: Patient negative for fever greater than or equal to 101.5 degrees Fahrenheit, and additional compatible Ebola Virus Disease symptoms Patient denies exposure to infectious person. Patient denies travel to an Ebola-affected area in the 21 days before illness onset. No symptoms or risks identified at this time. Initial Sepsis Screen: Does the patient meet any 2 criteria? RR > 20 per min. HR > 90 bpm. Does the patient have a suspected source of infection? No. Patient's initial sepsis screen is negative. Risk Assessment: Do you want to hurt yourself or someone else? Patient reports no desire to harm self or others. Onset of symptoms was December 07, 2024. 18:53 Method Of Arrival: Ambulatory tm6 18:53 Acuity: HUGO 3 tm6 Triage Assessment: 18:53 General: Appears uncomfortable, Behavior is calm, cooperative. Pain: Complains of pain tm6 in body aches. EENT: Reports nasal congestion nasal discharge. Neuro: Level of Consciousness is awake, alert, obeys commands, Oriented to person, place, time, situation. Cardiovascular: Patient's skin is warm and dry. Respiratory: Reports cough that is Airway is patent Respiratory effort is even, unlabored, Respiratory pattern is regular, symmetrical. GI: Abdomen is round Reports diarrhea, nausea, vomiting. : No signs and/or symptoms were reported regarding the genitourinary system. Derm: No signs and/or symptoms reported regarding the dermatologic system. Musculoskeletal: Reports body aches. 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 - Infectious Disease History:: Denies. - Social history:: Smoking status: Patient denies any tobacco usage or history of. Screenin:38 [facility] ED Fall Risk Assessment (Adult) History of falling in the last 3 months, jb4 including since admission No falls in past 3 months (0 pts) Confusion or Disorientation No (0 pts) Intoxicated or Sedated No (0 pts) Impaired Gait No (0 pts) Mobility Assist Device Used No (0 pt) Altered Elimination No (0 pt) Score/Fall Risk Level 0 - 2 = Low Risk Oriented to surroundings, Maintained a safe environment. Abuse screen: Denies threats or abuse. Nutritional screening: No deficits noted. Tuberculosis screening: No symptoms or risk factors identified. Assessment: 20:38 Reassessment: Patient appears in no apparent distress at this time. Patient and/or jb4 family updated on plan of care and expected duration. Pain level reassessed. Patient is alert, oriented x 3, equal unlabored respirations, skin warm/dry/pink. Patient states feeling better. Vital Signs: 18:52 Pulse 103; Resp 22; Temp 98.7(O); Pulse Ox 100% on R/A; Weight 119.75 kg; Height 5 ft. tm6 5 in. ; Pain 10/10; 18:53 BP 112 / 76; MAP 88 mmHg; tm6 18:52 Body Mass Index 43.93 (119.75 kg, 165.1 cm) tm6 18:52 Pain Scale: Adult tm6 ED Course: 17:55 Patient arrived in ED. mr 17:55 Tanya Torres FNP-C [facility]. kb 17:55 Oleksandr Rawls MD is Attending Physician. kb 18:53 Arm band placed on right wrist. tm6 18:54 Chest Pa And Lat (2 Views) XRAY In Process Unspecified. EDMS 18:54 Triage completed. tm6 19:36 Strep Sent. jb4 19:36 Lipase Sent. jb4 19:36 CBC with Diff Sent. jb4 19:36 CMP Sent. jb4 19:36 SARS-COV-2 Antigen Rapid Sent. jb4 19:36 Flu Sent. jb4 20:38 Patient has correct armband on for positive identification. Bed in low position. Call jb4 light in reach. Side rails up X 1. Provided Education on: discharge instructions.. 20:38 No provider procedures requiring assistance completed. IV discontinued, intact, jb4 bleeding controlled, No redness/swelling at site. Pressure dressing applied. Administered Medications: 19:35 Drug: NS 0.9% IV 1000 ml IV at 1 bolus Per protocol; to be given as a bolus over 60 jb4 minutes Route: IV; Rate: 1 bolus; Site: right forearm; 20:37 Follow up: Response: No adverse reaction; IV Status: Order to discontinue infusion; IV jb4 Intake: 700ml 19:36 Drug: Albuterol Inhalation 2.5 mg Inhalation once Route: Inhalation; jb4 19:36 Drug: Ipratropium Inhalation Aerosol 0.5 mg Inhalation once Route: Inhalation; jb4 19:36 Drug: Ondansetron IVP 4 mg IVP once; over 2 minutes Route: IVP; Site: right forearm; jb4 20:38 Follow up: Response: No adverse reaction; Marked relief of symptoms jb4 20:31 Drug: Ketorolac IVP 15 mg IVP once Route: IVP; Site: right forearm; jb4 20:37 Follow up: Response: Medication administered at discharge. jb4 Medication: 20:38 VIS not applicable for this client. jb4 Intake: 20:37 IV: 700ml; Total: 700ml. jb4 Outcome: 20:11 Discharge ordered by . frandy 20:38 Discharged to home ambulatory, jb4 20:38 Condition: stable 20:38 Discharge instructions given to patient, Instructed on discharge instructions, follow up and referral plans. medication usage, Demonstrated understanding of instructions, follow-up care, medications, Prescriptions given X 1, 20:39 Patient left the ED. jb4 Signatures: Dispatcher [employer] EDMS Tanya Torres, LUCIO-Alex SMITHP-Vera Christensen, Steffen Reg Rhys Philip, RN RN jb4 Ever Velasco RN RN tm6
[2024-12-09] MEDS ORDERED: KETOROLAC 30 MG/ML INJ ONE (20:26)
[2024-12-09 20:58] VITALS: TEMP 98.7; O2SAT 100
[2024-12-09 20:59] VITALS: BP 112/76
== END 2024-12-09 20:39 | disposition home or self-care (01) ==
LOC: ER 17:53
DX: J10.1 Influenza due to other identified influenza virus with other respiratory manifestations (principal); Z11.52 Encounter for screening for COVID-19
CPT/HCPCS: 96361; 87070; 85025; 36415; 87081; 83690; 80053; 87804 ×2; 71046; 96375; 96374; 99284; 87811; J7613; J7644; J2405; J7030

== ENCOUNTER 2025-03-13 16:10 | Emergency (ER) | payer OTHER ==
--- OUTSIDE RECORDS SUMMARY | 2025-03-13 16:16 | XMS REPORT | Continuity of Care Document ---
Author Name Unknown Address [address] [facility] [address] [place] [address] [facility] [place] Address [address] [facility] [address] [place] [address] Care Team Providers Care Surveying Or Spatial Science Technician Name Role Phone Pcp, Patient Does Not Have A Primary Care Physic ramón Bill Velazquez MD Attending Clinician [phone] BILL VELAZQUEZ Attending Clinician Unavailable Tadeo GARVIN, Priscila Attending Clinician + [phone] Bethany Parra MD Attending Clinician [phone] Demarcus Constantino MD Attending Clinician [phone] Robert Cannon CRNA Attending Clinician [phone] Maurisio Rodriguez MD Attending Clinician [phone] MAURISIO RODRIGUEZ Attending Clinician Unavaileverett Gilbert, [facility] Main Attending Clinician Unavaileverett winter Doctor Unassigned, [place] Attending Clinician U MARCELLE Benavides Attending Clinician UnavailMARCELLE Juares Attending Clinician Unavailradha levy 1, [facility] Attending Clinician Rachael Mcdaniel MD, Gisselle [...] Clinician Unavailable Rosa Cardenas MD Attending Clinician [phone] Pedro Saez MD Attending Clinician + [phone] Lilo Garcia RN Attending Clinician Unavaila mildred Ridley JEWEL BEARING DRILLER, Karen Jolly Attending Clinician + [phone] Cherie Lees MA Attending Clinician Unava ilable Ultrasound, Ang-Mfm Attending Clinician Unavailradha VALDES, Pretty Ashraf Attending Clinician [phone] BRADLEY TOVAR Attending Clinician Unavailable Rajveronica_P Attending Clinician Unavailable JAGDISH HENLEY Attending Clinician Unavailable LAUREN BANUELOS Attending Clinician Unavailable BILL VELAZQUEZ Admitting Clinician Unavailable Bill Velazquez MD Admitting Clinician [phone] ROSA CARDENAS Admitting Clinician Unavailable Pedro Saez MD Admitting Clinician + [phone] Edd_Naun Admitting Clinician Unavailable Payers Payer Name Policy Type Policy Number Effective Date Expirati on Date Source [employer] MEDICA[employer] [id number] 2019 00:00:00 Problems Condition Name Condition Details Condition Category Status Onset Date Resolution Date Last Treatment Date Treating Clinician Comments Source Encounter for induction of labor Encounter for induction of labor Disease Active 03-15 00:00: 00 [facility] Morbid obesity with body mass index of 40.0-49.9 Morbid obesity with body mass index of 40.0-49.9 Disease Active 03-15 00:00: 00 [facility] Liveborn , of montiel , born in hospital by vaginal delivery Liveborn , of montiel , born in hospital by vaginal delivery Disease Active 4-14 00:00: 00 [facility] Inability to access health care due to transporta tion insecurity Inability to access health care due to transporta tion insecurity Disease Active 4-12 00:00: 00 [facility] Need for Tdap vaccinatio n Need for Tdap vaccinatio n Disease Active 3-06 00:00: 00 [facility] Back pain during Back pain during Disease Active 2021-12 2-16 00:00: 00 [facility] Sciatic pain, right Sciatic pain, right Disease Active 2021-12 2-16 00:00: 00 [facility] Anxiety disorder, unspecifie d type Anxiety disorder, unspecifie d type Disease Active 9-28 00:00: 00 [facility] SVT (supravent ricular tachycardi a) SVT (supravent ricular tachycardi a) Disease Active 9-28 00:00: 00 [facility] Anxiety and depression Anxiety and depression Disease Active 9-28 00:00: 00 [facility] Supervisio n of high-risk Supervisio n of high-risk Disease Active 8-08 00:00: 00 [facility] Grand multiparit y, antepartum Grand multiparit y, antepartum Disease Active 8-08 00:00: 00 [facility] Other depression Other depression Disease Active 8-08 00:00: 00 Overview: Formattin g of this note might be different from the original. 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 Address in Labor and Delivery. [facility] Anemia of mother in , antepartum Anemia of mother in , antepartum Disease Active 06-22 00:00: 00 [facility] Anemia of mother in , antepartum Anemia of mother in , antepartum Disease Active 06-22 00:00: 00 [facility] Insufficie nt care in third trimester Insufficie nt care in third trimester Disease Active 06-21 00:00: 00 [facility] Rh negative, antepartum Rh negative, antepartum Disease Active 24 00:00: 00 Overview: Formattin g of this note might be different from the original. Rhogam at 28 weeks [facility] History of substance use History of substance use Disease Active 02-22 00:00: 00 [facility] Allergies, Adverse Reactions, Alerts Allergy Name Allergy Type Status Severity Reaction(s) Onset Date Inactive Date Treating Clinician Comments Source Tramadol Propensi ty to adverse reaction s Active Hives 2018-0 14 00:00: 00 [facility] TRAMADOL DRUG INGREDI Active Hives 0 14 00:00: 00 [facility] Penicill ins Propensi ty to adverse reaction s Active Hives 04-13 00:00: 00 [facility] PENICILL INS Drug Class Active Hives 04-13 00:00: 00 [facility] Penicill ins Propensi ty to adverse reaction s Active Hives 04-13 00:00: 00 [facility] Social History Social Habit Start Date Stop Date Quantity Comments Source ASSERTION 2022-06-13 00:00:00 [facility] to SARS-CoV-2 (event) 2023-03-05 00:00:00 2023-03-15 04:57:00 Not sure [facility] Alcohol intake 2023-03-15 00:00:00 2023-03-15 00:00:00 Ex-drinker (finding) [facility] History of Social function 2022-07-09 00:00:00 2022-07-09 00:00:00 [facility] History of tobacco use 2021-07-02 00:00:00 Smokes tobacco daily [facility] Tobacco use and exposure 2019-12-11 00:00:00 2019-12-11 00:00:00 User of smokeless tobacco [facility] Tobacco Comment 2019-12-11 00:00:00 2019-12-11 00:00:00 2 ciggs a day [facility] Sex Assigned At 1990 00:00:00 1990 00:00:00 [facility] Smoking Status Start Date Stop Date Source Never smoked tobacco [facility] Ex-smoker 2022-07-09 00:00:00 2022-07-09 [facility] Smokes tobacco daily 2019-12-11 00:00:00 [facility] Medications Ordered Medication Name Filled Medication Name Start Date Stop Date Current Medication? Ordering Clinician Indication Dosage Frequency Signature (SIG) Comments Components Source abdifatah CAREY) 50 % topical pad 03-16 00:08: 26 Yes Topical, Q4HPRN, Starting on Sat03/15/23 at 1908, Until Discontinu ed, Routine, rectal/hem orrhoidal pain [facility] ibuprofen (IBU) tablet 600 mg 03-16 00:08: 26 Yes 600mg 600 mg, Oral, Q6HPRN, Starting on Sat03/15/23 at 1908, Until Discontinu ed, Routine, Pain (scale 4-6) [facility] acetaminoph en (TYLENOL) tablet 650 mg 03-16 00:08: 26 Yes 650mg 650 mg, Oral, Q6HPRN, Starting on Sat03/15/23 at 1908, Until Discontinu ed, Routine, Pain (scale 1-3) [facility] diphenhydrA MINE (BENADRYL) tablet 25 mg 03-16 00:08: 26 Yes 25mg 25 mg, Oral, Q6HPRN, Starting on Sat03/15/23 at 1908, Until Discontinu ed, Routine, Sleep, Itching [facility] ondansetron (ZOFRAN (PF)) injection 4 mg 03-16 00:08: 26 Yes 4mg 4 mg, Slow IV Push, Q8HPRN, Starting on Sat03/15/23 at 1908, Until Discontinu ed, Routine, Nausea and Vomiting (N/V) [facility] simethicone (GAS RELIEF (SIMETHICON E)) chewable tablet 160 mg 03-16 00:08: 26 Yes 160mg 160 mg, Oral, PC+HSPRN, Starting on Sat03/15/23 at 1908, Until Discontinu ed, Routine, Gas [facility] docusate (COLACE) capsule 200 mg 03-16 00:08: 26 Yes 200mg 200 mg, Oral, QDAILYPRN, Starting on Sat03/15/23 at 1908, Until Discontinu ed, Routine, Constipati on [facility] magnesium hydroxide (MILK OF MAGNESIA) 400 mg/5 mL suspension 30 mL 03-16 00:08: 26 Yes 30mL 30 mL, Oral, QDAILYPRN, Starting on Sat03/15/23 at 1908, Until Discontinu ed, Routine, Constipati on [facility] benzocaine- menthol (DERMOPLAST ) 20-0.5 % topical spray 03-16 00:08: 26 Yes Topical, PRN, Starting on Sat03/15/23 at 1908, Until Discontinu ed, Routine, Perineum discomfort [facility] vitamin w/FA tablet 03-16 00:00: 00 Yes [id number] 1{tbl} Take 1 tablet by mouth in the morning. [facility] docusate 100 mg capsule 03-16 00:00: 00 Yes [id number] 200mg Take 2 capsules by mouth once daily as needed for Constipati on. [facility] ferrous sulfate 325 mg (65 mg iron) tablet 03-16 00:00: 00 Yes [id number] 325mg Take 1 tablet by mouth in the morning and 1 tablet in the evening. [facility] ibuprofen 600 mg tablet 03-16 00:00: 00 Yes [id number] 600mg Take 1 tablet by mouth every 6 (six) hours as needed (Pain). Take with food or milk. [facility] vitamin w/FA tablet 03-16 00:00: 00 Yes [id number] 1{tbl} Take 1 tablet by mouth in the morning. [facility] terbutaline (BRETHINE) injection 0.25 mg 03-15 23:45: 00 03-15 22:46 :00 No .25mg 0.25 mg, Subcutaneo us, ONCE, 1 dose, On Sat03/15/23 at 1845, Routine [facility] amnioinfusi on IV infusion via PUMP [...] until the liter is complete.& nbsp;&nbsp ;Notify Cryptographic Technician if uterine resting tone exceeds 25 mmHg at any time during the amnioinfus ion. Obst etrics (SUNITA) Aminoinfus ion Orders
[facility] fentaNYL-ro pivacaine 2 mcg/mL-0.1 % (PF) in NS 200 mL epidural infusion RTU 03-15 21:47: 00 03-16 01:01 :29 No Epidural, ONCE INTRA PROCEDURE, Starting on Sat03/15/23 at 1647, Until Sat03/15/23 at 2000, Routine, Intra-op [facility] lidocaine-e pinephrine (XYLOCAINE W/EPINEPHRI NE) 1.5 %-1:200,000 injection 03-15 21:41: 00 03-16 01:01 :29 No Epidural, ONCE INTRA PROCEDURE, Starting on Sat03/15/23 at 1641, Until Sat03/15/23 at 2001, Routine, Intra-op [facility] oxytocin (PITOCIN) 30 units in NS 500 mL IV infusion 03-15 12:53: 24 03-16 00:08 :32 No 2mU/min at 2-40 mL/hr, IV Infusion, TITRATE, Starting on Sat03/15/23 at 0753, Until Sat03/15/23 at 1908, JESS [facility] proMETHazin e (PHENERGAN) 25 mg in NaCl 0.9% (NS) 50 mL IV piggyback 03-15 09:34: 52 03-16 00:08 :32 No 25mg 25 mg, IV Piggyback, Q4HPRN, Starting on Sat03/15/23 at 0434, Until Sat03/15/23 at 1908, Routine, Nausea and Vomiting (N/V) [facility] FENTanyl PF (SUBLIMAZE (PF)) injection 100 mcg 03-15 09:34: 20 03-16 00:08 :32 No 100ug 100 mcg, Slow IV Push, Q1HPRN, Starting on Sat03/15/23 at 0434, Until Sat03/15/23 at 190, Routine, Pain (scale 7-10) [facility] lactated ringers IV infusion 500 mL 03-15 09:23: 08 03-16 00:08 :32 No 500mL at 999 mL/hr, 500 mL, IV Infusion, PRN - SEE INSTRUCTIO NS, Starting on Sat03/15/23 at 0423, Until Sat03/15/23 at 1908, Routine [facility] D5W-LR IV infusion 1,000 mL 03-15 09:23: 08 03-16 00:08 :32 No 1000mL at 1-125 mL/hr, IV Infusion, TITRATE, Starting on Sat03/15/23 at 0423, Until Sat03/15/23 at 1908, Routine [facility] buPROPion XL (WELLBUTRIN XL) 150 mg 24 hr tablet 03-01 00:00: 00 Yes [id number] 150mg Take 1 tablet by mouth in the morning. [facility] busPIRone 5 mg tablet 02-28 00:00: 00 03-16 00:00 :00 No [facility] famotidine 20 mg tablet 02-19 00:00: 00 03-16 00:00 :00 No [id number] 20mg Take 1 tablet by mouth in the morning and 1 tablet in the evening. Do all this for 90 days. [facility] famotidine 20 mg tablet 02-15 00:00: 00 02-19 00:00 :00 No [id number] 20mg Take 1 tablet by mouth in the morning and 1 tablet in the evening. [facility] SELECT-OB + DHA 29 mg iron-1 mg -250 mg combo pack 1-06 00:00: 00 03-16 00:00 :00 No [facility] magnesium oxide 400 mg (241.3 mg magnesium) tablet 2021-12-18 00:00: 00 03-16 00:00 :00 No [id number] 400mg Take 1 tablet by mouth in the morning. [facility] multivitami n ( VITAMIN) tablet 2021-12 0- 00:00: 00 03-16 00:00 :00 No [id number] 1{tbl} Take 1 tablet by mouth in the morning. [facility] buPROPion XL (WELLBUTRIN XL) 150 mg 24 hr tablet 08-29 00:00: 00 03-01 00:00 :00 No [id number] 150mg Take 1 tablet by mouth in the morning. [facility] busPIRone 5 mg tablet 08-29 00:00: 00 02-28 00:00 :00 No [id number] 5mg Take 1 tablet by mouth in the morning and 1 tablet in the evening. [facility] multivitami n ( VITAMIN) tablet 07-09 00:00: 00 09-03 00:00 :00 No [id number] 1{tbl} Take 1 tablet by mouth in the morning. [facility] buPROPion XL (WELLBUTRIN XL) 150 mg 24 hr tablet 07-09 00:00: 00 08-29 00:00 :00 No [id number] 150mg Take 1 tablet by mouth in the morning. [facility] vitamin w/FA tablet 07-06 00:00: 07-09 00:00 :00 No [id number] 1{tbl} Take 1 tablet by mouth daily. [facility] docusate calcium 240 mg capsule 07-06 00:00: 07-09 00:00 :00 No [id number] 240mg Take 1 capsule by mouth once daily as needed for Constipati on. [facility] ferrous sulfate 325 mg (65 mg iron) tablet 07-06 00:00: 07-09 00:00 :00 No [id number] 325mg Take 1 tablet by mouth 2 (two) times daily. [facility] ibuprofen 600 mg tablet 07-06 00:00: 07-09 00:00 :00 No [id number] 600mg Take 1 tablet by mouth every 6 (six) hours as needed (Pain). Take with food or milk. [facility] Immunizations Ordered Immunization Name Filled Immunization Name Date Status Comments Source Rho (d) Immune Globulin 2024-01-14 00:00:00 Completed [facility] TDAP 2024-01-14 00:00:00 Completed [facility] Rho (d) Immune Globulin 2024-01-14 00:00:00 Completed [facility] Rho (d) Immune Globulin 2023-03-16 00:00:00 Completed [facility] Rho (d) Immune Globulin 2023-03-16 00:00:00 Completed [facility] Rho (d) Immune Globulin 2023-02-14 00:00:00 Completed [facility] TDAP 2023-02-14 00:00:00 Completed [facility] Rho (d) Immune Globulin 2023-02-14 00:00:00 Completed [facility] TDAP 2023-02-04 00:00:00 Completed [facility] Rho (d) Immune Globulin 2023-02-04 00:00:00 Completed [facility] TDAP 2023-02-04 00:00:00 Completed [facility] Rho (d) Immune Globulin 2023-02-04 00:00:00 Completed [facility] TDAP 2023-02-04 00:00:00 Completed [facility] Rho (d) Immune Globulin 2023-02-04 00:00:00 Completed [facility] TDAP 2023-02-04 00:00:00 Completed [facility] Rho (d) Immune Globulin 2023-02-04 00:00:00 Completed [facility] TDAP 2023-02-04 00:00:00 Completed [facility] Rho (d) Immune Globulin 2023-02-04 00:00:00 Completed [facility] TDAP 2023-02-04 00:00:00 Completed [facility] Rho (d) Immune Globulin 2023-02-04 00:00:00 Completed [facility] TDAP 2023-02-04 00:00:00 Completed [facility] Rho (d) Immune Globulin 2023-02-04 00:00:00 Completed [facility] TDAP 2023-02-04 00:00:00 Completed [facility] Rho (d) Immune Globulin 2023-02-04 00:00:00 Completed [facility] TDAP 2023-02-04 00:00:00 Completed [facility] Rho (d) Immune Globulin 2023-02-04 00:00:00 Completed [facility] TDAP 2023-02-04 00:00:00 Completed [facility] Rho (d) Immune Globulin 2023-02-04 00:00:00 Completed [facility] TDAP 2023-02-04 00:00:00 Completed [facility] Rho (d) Immune Globulin 2023-02-04 00:00:00 Completed [facility] TDAP 2023-02-04 00:00:00 Completed [facility] Rho (d) Immune Globulin 2023-02-04 00:00:00 Completed [facility] TDAP 2023-02-04 00:00:00 Completed [facility] Rho (d) Immune Globulin 2023-02-04 00:00:00 Completed [facility] TDAP 2023-02-04 00:00:00 Completed [facility] Rho (d) Immune Globulin 2023-02-04 00:00:00 Completed [facility] TDAP 2023-02-04 00:00:00 Completed [facility] Rho (d) Immune Globulin 2023-02-04 00:00:00 Completed [facility] TDAP 2023-02-04 00:00:00 Completed [facility] Rho (d) Immune Globulin 2023-02-04 00:00:00 Completed [facility] TDAP 2023-02-04 00:00:00 Completed [facility] Rho (d) Immune Globulin 2023-02-04 00:00:00 Completed [facility] TDAP 2023-02-04 00:00:00 Completed [facility] Rho (d) Immune Globulin 2023-02-04 00:00:00 Completed [facility] TDAP 2023-02-04 00:00:00 Completed [facility] Rho (d) Immune Globulin 2023-02-04 00:00:00 Completed [facility] TDAP 2023-02-04 00:00:00 Completed [facility] Rho (d) Immune Globulin 2023-02-04 00:00:00 Completed [facility] Rho (d) Immune Globulin 2022-11-01 00:00:00 Completed [facility] Rho (d) Immune Globulin 2022-03-08 00:00:00 Completed [facility] Rho (d) Immune Globulin 2009-09-19 00:00:00 Completed [facility] Rho (d) Immune Globulin 2009-09-19 00:00:00 Completed [facility] Rho (d) Immune Globulin 2009-09-19 00:00:00 Completed [facility] Rho (d) Immune Globulin 2009-09-19 00:00:00 Completed [facility] Rho (d) Immune Globulin 2009-09-19 00:00:00 Completed [facility] Rho (d) Immune Globulin 2009-09-19 00:00:00 Completed [facility] Rho (d) Immune Globulin 2009-09-19 00:00:00 Completed [facility] Rho (d) Immune Globulin 2009-09-19 00:00:00 Completed [facility] Rho (d) Immune Globulin 2009-09-19 00:00:00 Completed [facility] Rho (d) Immune Globulin 2009-09-19 00:00:00 Completed [facility] Rho (d) Immune Globulin 2009-09-19 00:00:00 Completed [facility] Rho (d) Immune Globulin 2009-09-19 00:00:00 Completed [facility] Rho (d) Immune Globulin 2009-09-19 00:00:00 Completed [facility] Rho (d) Immune Globulin 2009-09-19 00:00:00 Completed [facility] Rho (d) Immune Globulin 2009-09-19 00:00:00 Completed [facility] Rho (d) Immune Globulin 2009-09-19 00:00:00 Completed [facility] Rho (d) Immune Globulin 2009-09-19 00:00:00 Completed [facility] Rho (d) Immune Globulin 2009-09-19 00:00:00 Completed [facility] Rho (d) Immune Globulin 2009-09-19 00:00:00 Completed [facility] Rho (d) Immune Globulin 2009-09-19 00:00:00 Completed [facility] Rho (d) Immune Globulin 2009-09-19 00:00:00 Completed [facility] Rho (d) Immune Globulin 2009-09-19 00:00:00 Completed [facility] Rho (d) Immune Globulin 2009-09-19 00:00:00 Completed [facility] Rho (d) Immune Globulin 2009-09-19 00:00:00 Completed [facility] Rho (d) Immune Globulin 2009-09-19 00:00:00 Completed [facility] Rho (d) Immune Globulin 2009-09-19 00:00:00 Completed [facility] Rho (d) Immune Globulin 2009-09-19 00:00:00 Completed [facility] Rho (d) Immune Globulin 2009-09-19 00:00:00 Completed [facility] Rho (d) Immune Globulin 2009-09-19 00:00:00 Completed [facility] Vital Signs Vital Name Observation Time Observation Value Comments S ource Systolic blood pressure 2023-03-17 01:40:00 112 mm[Hg] [facility] Diastolic blood pressure 2023-03-17 01:40:00 61 mm[Hg] [facility] Heart rate 2023-03-17 01:40:00 73 /min [facility] Body temperature 2023-03-17 01:40:00 36.11 [facility] Respiratory rate 2023-03-17 01:40:00 18 /min [facility] Oxygen saturation in Arterial blood by Pulse oximetry 2023-03-17 01:40:00 99 /min [facility] Body height 2023-03-15 10:03:00 165.1 cm [facility] Body weight 2023-03-15 10:03:00 117.935 kg [facility] BMI 2023-03-15 10:03:00 43.27 kg/m2 [facility] Systolic blood pressure 2023-03-12 21:25:00 111 mm[Hg] [facility] Diastolic blood pressure 2023-03-12 21:25:00 75 mm[Hg] [facility] Heart rate 2023-03-12 21:25:00 87 /min [facility] Body temperature 2023-03-12 21:25:00 36.72 [facility] Respiratory rate 2023-03-12 21:25:00 17 /min [facility] Body height 2023-03-12 21:25:00 165.1 cm [facility] Body weight 2023-03-12 21:25:00 117.028 kg [facility] BMI 2023-03-12 21:25:00 42.93 kg/m2 [facility] Systolic blood pressure 2023-03-05 14:31:00 115 mm[Hg] [facility] Diastolic blood pressure 2023-03-05 14:31:00 78 mm[Hg] [facility] Heart rate 2023-03-05 14:31:00 81 /min [facility] Respiratory rate 2023-03-05 14:31:00 18 /min [facility] Body height 2023-03-05 14:31:00 [facility] 2023-03-05 14:31:00 117.028 kg [facility] BMI 2023-03-05 14:31:00 42.93 kg/m2 [facility] Systolic blood pressure 2023-02-15 20:17:00 118 mm[Hg] [facility] Diastolic blood pressure 2023-02-15 20:17:00 76 mm[Hg] [facility] Heart rate 2023-02-15 20:17:00 80 /min [facility] Body temperature 2023-02-15 20:17:00 36.67 [facility] Respiratory rate 2023-02-15 20:17:00 18 /min [facility] Body height 2023-02-15 20:17:00 165.1 cm [facility] Body weight 2023-02-15 20:17:00 115.667 kg [facility] BMI 2023-02-15 20:17:00 42.43 kg/m2 [facility] Systolic blood pressure 2023-02-04 21:13:00 126 mm[Hg] [facility] Diastolic blood pressure 2023-02-04 21:13:00 72 mm[Hg] [facility] Heart rate 2023-02-04 21:13:00 88 /min [facility] Body temperature 2023-02-04 21:13:00 36.83 [facility] Respiratory rate 2023-02-04 21:13:00 18 /min [facility] Body height 2023-02-04 21:13:00 165.1 cm [facility] Body weight 2023-02-04 21:13:00 114.261 kg [facility] BMI 2023-02-04 21:13:00 41.92 kg/m2 [facility] Systolic blood pressure 2022-11-16 20:26:00 102 mm[Hg] [facility] Diastolic blood pressure 2022-11-16 20:26:00 66 mm[Hg] [facility] Heart rate 2022-11-16 20:26:00 77 /min [facility] Body temperature 2022-11-16 20:26:00 36.67 [facility] Respiratory rate 2022-11-16 20:26:00 18 /min [facility] Body height 2022-11-16 20:26:00 165.1 cm [facility] Body weight 2022-11-16 20:26:00 113.853 kg [facility] BMI 2022-11-16 20:26:00 41.77 kg/m2 [facility] Systolic blood pressure 2022-10-19 20:58:00 104 mm[Hg] [facility] Diastolic blood pressure 2022-10-19 20:58:00 68 mm[Hg] [facility] Heart rate 2022-10-19 20:58:00 91 /min Unive [facility] Body temperature 2022-10-19 20:58:00 36.78 [facility] Respiratory rate 2022-10-19 20:58:00 18 /min [facility] Body height 2022-10-19 20:58:00 165.1 cm [facility] Body weight 2022-10-19 20:58:00 113.853 kg [facility] BMI 2022-10-19 20:58:00 41.77 kg/m2 [facility] Systolic blood pressure 2022-08-29 16:00:00 109 mm[Hg] [facility] Diastolic blood pressure 2022-08-29 16:00:00 71 mm[Hg] [facility] Heart rate 2022-08-29 15:21:00 80 /min Unive [facility] Body temperature 2022-08-29 15:21:00 36.94 [facility] Respiratory rate 2022-08-29 15:21:00 18 /min [facility] Body height 2022-08-29 15:21:00 165.1 cm [facility] Body weight 2022-08-29 15:21:00 105.325 kg [facility] BMI 2022-08-29 15:21:00 38.64 kg/m2 [facility] Systolic blood pressure 2022-07-09 20:04:00 109 mm[Hg] [facility] Diastolic blood pressure 2022-07-09 20:04:00 58 mm[Hg] [facility] Heart rate 2022-07-09 20:04:00 68 /min [facility] Body temperature 2022-07-09 20:04:00 36.28 [facility] Respiratory rate 2022-07-09 20:04:00 20 /min [facility] Body height 2022-07-09 20:04:00 165.1 cm [facility] Body weight 2022-07-09 20:04:00 99.905 kg [facility] BMI 2022-07-09 20:04:00 36.65 kg/m2 [facility] Procedures Procedure Date / Time Performed Performing Clinicia n Source CBC WITH DIFF 2023-03-16 10:02:00 Bill Velazquez [facility] HB -MATERNAL HEMORRHAGE SCREEN 2023-03-16 10:02:00 Mary Piedrasol [facility] CENTRAL NEURAXIAL BLOCK 2023-03-15 21:32:00 Demarcus Constantino [facility] ANTI-D R/O PANEL 2023-03-15 18:36:[address] [facility] EXTRA TUBE LAV (BLOOD BANK) 2023-03-15 18:36:00 Bill Velazquez [facility] PREPARE PACKED RBC 2023-03-15 18:14:00 Bill Velazquez [facility] HB ABO GROUPING 2023-03-15 10:44:00 Bill Velazquez [facility] RHO (D) IMMUNE GLOBULIN 2023-03-15 10:44:00 Bill Velazquez [facility] CONSENT/REFUSAL FOR DIAGNOSIS AND TREATMENT 2023-03-13 22:06:36 Doctor Unassigned, [place] [facility] PHYSICIAN ORDERS 2023-03-12 05:01:00 Doctor Unas signed, [place] [facility] POCT URINALYSIS W/O SPECIFIC GRAVITY 2023-03-12 00:00:00 [facility]/O SPECIFIC GRAVITY 2023-03-05 00:00:00 Angie [facility] POCT URINALYSIS W/O SPECIFIC GRAVITY 2023-02-15 00:00:00 Bill Velazquez [facility] DSU PRE-OP 2023-02-08 06:01:00 Doctor Unass igned, [place] [facility] TDAP VACCINE, >11 YRS, IM 2023-02-04 21:44:40 Angie [facility] POCT URINALYSIS W/O SPECIFIC GRAVITY 2023-02-04 00:00:00 [facility] PO[facility] URINALYSIS W/O SPECIFIC GRAVITY 2022-11-16 00:00:00 Bill Velazquez [facility] POCT URINALYSIS W/O SPECIFIC GRAVITY 2022-10-19 00:00:00 Marcelle Adams [facility] <14 WEEKS US LIMITED 2022-08-29 19:59:32 Bill Velazquez [facility] GLUCOSE 1 HOUR POST PRANDIAL 2022-08-29 18:05:00 Bill Velazquez [facility] ASSIGNMENT OF BENEFITS 2022-08-29 16:33:28 Docto r Unassigned, [place] [facility] POCT URINALYSIS W/O SPECIFIC GRAVITY 2022-08-29 00:00:00 Bill Velazquez [facility] POCT TEST 2022-07-09 19:55:00 Basil Carolina [facility] POCT URINALYSIS W/O SPECIFIC GRAVITY 2022-07-09 19:55:00 Nickie Carolina [facility] Encounters Start Date/Time End Date/Time Encounter Type Admission Type Attending [facility] Facility Care Department Encounter ID Source 2021-09-29 10:16:10 Outpatient [facility] [id number] [facility] 2025-02-16 14:13:16 2025-02-16 14:13:16 Outpatient SFA SFA [id number] Prabhjot Stark 2025-01-09 09:26:36 2025-01-09 09:26:36 Outpatient SFA SFA [id number] Prabhjot Stark 2025-01-08 16:03:12 2025-01-08 16:03:12 Outpatient SFA SFA [id number] Prabhjot Stark 2024-11-04 14:05:23 2024-11-04 14:05:23 Outpatient SFA SFA [id number] Prabhjot Stark 2024-03-10 09:38:57 2024-03-10 09:38:57 Outpatient SFA SFA [id number] Prabhjot [facility] 2024-03-05 11:39:20 2024-03-05 11:39:20 Outpatient SFA SFA [id number] Prabhjot Stark 2024-01-14 00:00:00 2024-01-14 00:00:00 [facility] 1..840.114 350.1.13.10 4.2.7.2.686 [id number] [facility] 2023-04-05 15:15:00 2023-04-05 15:15:00 Outpatient BILL KRISHNAMURTHY [facility] [id number] [facility] 2023-03-20 00:00:00 2023-03-20 00:00:00 Telephone Priscila Hoang [facility] .840.114 350.1.13.10 4.2.7.2.686 [id number] 134 [id number] [facility] 2023-03-15 04:02:00 2023-03-16 21:47:00 Inpatient P BILL VELAZQUEZ [facility] SUNITA [id number] [facility] 2023-03-15 04:02:00 2023-03-16 21:47:00 Hospital Encounter Bethany Parra Vien Cam [facility] 1.2840.114 350.1.13.10 4.2.7.2.686 [id number] [facility] 2023-03-15 16:32:00 2023-03-15 19:59:00 Anesthesia Event Demarcus Constantino [facility] 1.2.840.114 350.1.13.10 4.2.7.2.686 [id number] [facility] 2023-03-15 13:15:30 2023-03-15 13:15:30 Anesthesia Event Robert Cannon [facility] 1.2840.114 350.1.13.10 4.2.7.2.686 [id number] [facility] 2023-03-14 13:17:00 2023-03-14 23:59:00 Hospital Encounter Maurisio Rodriguez [facility] 1.2840.114 350.1.13.10 4.2.7.2.686 [id number] [facility] 2023-03-14 00:00:00 2023-03-14 23:59:00 Outpatient R MAURISIO RODRIGUEZ [facility] ACO [id number] [facility] 2023-03-13 08:45:00 2023-03-13 09:00:00 Rock Climbing Instructor Visit Pob, Adc Lab Main Brayden Maurisio [facility] 1.2840.114 350.1.13.10 4.2.7.2.686 [id number] [facility] 2023-03-13 08:45:00 2023-03-13 08:45:00 Outpatient R MAURISIO RODRIGUEZ [facility] [id number] [facility] 2023-03-13 00:00:00 2023-03-13 00:00:00 Orders Only Doctor Unassigned, [place] [facility] 1.2.840.114 350.1.13.10 4.2.7.2.686 [id number] [facility] 2023-03-12 16:15:00 2023-03-12 16:37:17 Outpatient R MARCELLE ADAMS CHERYAL [facility] [id number] [facility] 2023-03-12 16:15:00 2023-03-12 16:37:17 [facility] 1.2.840.114 350.1.13.10 4.2.7.2.686 [id number] 134 [id number] [facility] 2023-03-12 00:00:00 2023-03-12 00:00:00 Orders Only Doctor Unassigned, [place] [facility] 1.2.840.114 350.1.13.10 4.2.7.2.686 [id number] [facility] 2023-03-08 00:00:00 2023-03-08 00:00:00 Telephone Bill Velazquez [facility] 1.2.840.114 350.1.13.10 4.2.7.2.686 [id number] [facility] 2023-03-05 09:15:00 2023-03-05 09:51:39 Outpatient R MARCELLE ADAMS CHERYAL [facility] [id number] [facility] 2023-03-05 09:15:00 2023-03-05 09:51:39 Routine Visit Marcelle Adams [facility] 1.20.114 350.1.13.10 4.2.7.2.686 [id number] 134 [id number] [facility] 2023-03-01 08:00:00 2023-03-01 08:00:00 Outpatient R BILL VELAZQUEZ [facility] [id number] [facility] 2023-03-01 00:00:00 2023-03-01 00:00:00 [facility] 1.2.840.114 350.1.13.10 4.2.7.2.686 [id number] 134 [id number] [facility] 2023-02-28 00:00:00 2023-02-28 00:00:00 [facility] 1.2840.114 350.1.13.10 4.2.7.2.686 [id number] 134 [id number] [facility] 2023-02-28 00:00:00 2023-02-28 00:00:00 Telephone Bill Velazquez [facility] 1.2840.114 350.1.13.10 4.2.7.2.686 [id number] 134 [id number] [facility] 2023-02-22 13:00:00 2023-02-22 13:00:00 Outpatient R BLIL VELAZQUEZ [facility] [id number] [facility] 2023-02-20 08:00:00 2023-02-20 09:00:00 Rock Climbing Instructor Visit 1, [facility] Room Gisselle Sims [facility] CABLE TESTERS [facility] 1.2840.114 350.1.13.10 4.2.7.2.686 [id number] [facility] [id number] [facility] 2023-02-20 08:00:00 2023-02-20 08:00:00 Outpatient P RADHA SORTO GISSELLE Moon [facility] [id number] [facility] 2023-02-20 00:00:00 2023-02-20 00:00:00 Case Management Marcelle Adams [facility] 1.2.840.114 350.1.13.10 4.2.7.2.686 [id number] 134 [id number] [facility] 2023-02-19 00:00:00 2023-02-19 00:00:00 Telephone Bill Velazquez [facility] 1.2840.114 350.1.13.10 4.2.7.2.686 [id number] 134 [id number] [facility] 2023-02-15 15:15:00 2023-02-15 15:34:40 Outpatient R BILL VELAZQUEZ [facility] [id number] [facility] 2023-02-15 15:15:00 2023-02-15 15:34:40 Routine Visit VelazquezBill Lai [facility] 1.2840.114 350.1.13.10 4.2.7.2.686 [id number] 134 [id number] [facility] 2023-02-14 00:00:00 2023-02-14 00:00:00 Patient Secure Msg Doctor Unassigned, [place] [facility] 1.2840.114 350.1.13.10 4.2.7.2.686 [id number] 134 [id number] [facility] 2023-02-08 00:00:00 2023-02-08 00:00:00 Orders Only Doctor Unassigned, [place] [facility] 1.2.840.114 350.1.13.10 4.2.7.2.686 [id number] [facility] 2023-02-05 09:30:00 2023-02-05 09:30:00 Outpatient R [facility] [id number] [facility] 2023-02-04 14:45:00 2023-02-04 15:47:35 Outpatient R ANGIEMARCELLE ANGIE MARCELLE [facility] [id number] [facility] 2023-02-04 14:45:00 2023-02-04 15:47:35 Routine Visit CoraMarcelle willis [facility] 1.114 350.1.13.10 4.2.7.2.686 [id number] [facility] [id number] [facility] 2023-01-30 16:15:00 2023-01-30 16:15:00 Outpatient R MORE [facility]JOANNE [facility] [id number] [facility] 2022-12-14 13:30:00 2022-12-14 13:30:00 Outpatient R MORE ADAMSJOANNE ANGIE MARCELLE [facility] [id number] [facility] 2022-12-03 14:00:00 2022-12-03 14:00:00 Outpatient R BURT ROJAS [facility] [id number] [facility] 2022-11-30 08:45:00 2022-11-30 08:45:00 Outpatient P [facility] [id number] [facility] 2022-11-20 13:00:00 2022-11-20 13:00:00 Outpatient MICK ASIF HOWARD [facility] [id number] [facility] 2022-11-16 14:00:00 2022-11-16 15:22:13 Outpatient R BILL VELAZQUEZ [facility] [id number] [facility] 2022-11-16 14:00:00 2022-11-16 15:22:13 Routine Visit Bill Velazquez [facility] 1.84.114 350.1.13.10 4.2.7.2.686 [id number] [facility] 2022-11-01 00:00:00 2022-11-01 00:00:00 Patient Secure Msg Doctor Unassigned, [place] [facility] 1.2840.114 350.1.13.10 4.2.7.2.686 [id number] [facility] 2022-10-19 14:15:00 2022-10-19 15:18:29 Outpatient R AMALIAJESSEEURVASHIMARCELLE WILLIS ANGIE [facility] [id number] [facility] 2022-10-19 14:15:00 2022-10-19 15:18:29 Routine Visit Angie [facility] 1..114 350.1.13.10 4.2.7.2.686 [id number] 134 [id number] [facility] 2022-10-19 00:00:00 2022-10-19 00:00:00 [facility] 1..114 350.1.13.10 4.2.7.2.686 [id number] 134 [id number] [facility] 2022-09-26 09:30:00 2022-09-26 09:30:00 Outpatient R ANGIE MARCELLE ADAMS [facility] [id number] [facility] 2022-09-07 00:00:00 2022-09-07 00:00:00 Telephone Bill Velazquez [facility] 1.840.114 350.1.13.10 4.2.7.2.686 [id number] 134 [id number] [facility] 2022-08-31 00:00:00 2022-08-31 00:00:00 Telephone Bill Velazquez [facility] 1.20.114 350.1.13.10 4.2.7.2.686 [id number] 134 [id number] [facility] 2022-08-29 11:15:00 2022-08-29 11:30:00 Rock Climbing Instructor Visit Pob, Adc Lab Main Bill Velazquez [facility] 1.2.840.114 350.1.13.10 4.2.7.2.686 [id number] [facility] 2022-08-29 10:00:00 2022-08-29 11:08:03 Outpatient R BILL VELAZQUEZ [facility] [id number] [facility] 2022-08-29 10:00:00 2022-08-29 11:08:03 Initial Visit Bill Velazquez [facility] 1.2.840.114 350.1.13.10 4.2.7.2.686 [id number] 134 [id number] [facility] 2022-08-29 00:00:00 2022-08-29 00:00:00 Orders Only Doctor Unassigned, [place] [facility] 1.2.840.114 350.1.13.10 4.2.7.2.686 [id number] [facility] 2022-08-27 14:00:00 2022-08-27 14:00:00 Outpatient PRETTY GILES [facility] [id number] [facility] 2022-08-27 08:00:00 2022-08-27 08:00:00 Outpatient R MARCELLE ADAMS CHERYAL [facility] [id number] [facility] 2022-08-14 10:45:00 2022-08-14 10:45:00 Outpatient R NICKIE CAROLINA [facility] [id number] [facility] 2022-07-23 10:45:00 2022-07-23 10:45:00 Outpatient R NICKIE CAROLINA [facility] [id number] [facility] 2022-07-16 13:15:00 2022-07-16 13:15:00 Outpatient R KAREN RIDLEY [facility] [id number] [facility] 2022-07-09 15:00:00 2022-07-09 16:30:53 Outpatient R NICKIE CAROLINA [facility] [id number] [facility] 2022-07-09 15:00:00 2022-07-09 16:30:53 Initial Visit Nickie Carolina [facility] CABLE TESTERS [facility]NAL & CHILD [facility] 1.840.114 350.1.13.10 4.2.7.2.686 [id number] [facility] 2022-07-09 15:00:00 2022-07-09 16:30:53 Outpatient R NICKIE CAROLINA [facility] [id number] [facility] 2022-07-09 15:00:00 2022-07-09 16:30:53 Outpatient R SHAGUFTAROSALINONICKIE [facility] [id number] [facility] 2022-07-09 00:00:00 2022-07-09 00:00:00 Orders Only Doctor Unassigned, [place] [facility] 1.84.114 350.1.13.10 4.2.7.2.686 [id number] [facility] 2022-04-24 23:27:00 2022-04-25 02:29:00 Emergency X ROSA CARDENAS [facility] ERT [id number] [facility] 2022-04-24 23:27:00 2022-04-25 02:29:00 Emergency Rosa Cardenas [facility] 1.840.114 350.1.13.10 4.2.7.2.686 [id number] [facility] 2022-03-08 00:00:00 2022-03-08 00:00:00 Patient Secure Msg Doctor Unassigned, [place] [facility] 1.2.840.114 350.1.13.10 4.2.7.2.686 [id number] [facility] 2020-09-19 15:15:00 2020-09-19 15:15:00 Outpatient R NICKIE CAROLINA [facility] [id number] [facility] 2020-08-01 13:45:00 2020-08-01 13:45:00 Outpatient R NICKIE CAROLINA [facility] [id number] [facility] 2020-07-28 14:45:00 2020-07-28 14:45:00 Outpatient R NICKIE CAROLINA [facility] [id number] [facility] 2020-07-03 19:39:00 2020-07-06 16:26:00 Hospital Encounter Pedro Saez [facility] 1.2.840.114 350.1.13.10 4.2.7.2.686 [id number] 2020-07-02 00:00:00 2020-07-02 00:00:00 Nurse Triage Lilo Garcia [facility] 1.2.840.114 350.1.13.10 4.2.7.2.686 [id number] 2020-06-27 15:32:39 2020-06-27 16:14:31 Routine Visit Karen Ridley [facility] CABLE TESTERS HELPER [facility] & CHILD [facility] 1.2.840.114 350.1.13.10 4.2.7.2.686 [id number] 2020-06-27 15:30:00 2020-06-27 15:30:00 Outpatient R KAREN RIDLEY [facility] [id number] [facility] 2020-06-23 00:00:00 2020-06-23 00:00:00 Abstract Karen Ridley [facility] CABLE TESTERS [facility]ILD [facility] 1.2.840.114 350.1.13.10 4.2.7.2.686 [id number] 2020-06-23 00:00:00 2020-06-23 00:00:00 Telephone Nabeel Cherie Tim [facility] 1.2.840.114 350.1.13.10 4.2.7.2.686 [id number] 2020-06-22 14:18:43 2020-06-22 14:48:43 Rock Climbing Instructor Visit Ultrasound, [facility] CABLE TESTERS [facility]NAL & CHILD [facility] 1.2.840.114 350.1.13.10 4.2.7.2.686 [id number] 2020-06-22 14:15:00 2020-06-22 14:15:00 Outpatient P [facility] [id number] [facility] 2020-06-22 00:00:00 2020-06-22 00:00:00 Telephone Pretty Mckinley [facility] CABLE TESTERS [facility] MAT[facility]NAL & CHILD [facility] 1.2.840.114 350.1.13.10 4.2.7.2.686 [id number] 2020-06-21 14:11:25 2020-06-21 15:15:39 Routine Visit Karen Ridley [facility] CABLE TESTERS [facility] MATERNAL & CHILD [facility] 1.2.840.114 350.1.13.10 4.2.7.2.686 [id number] 2020-06-21 10:00:00 2020-06-21 10:00:00 Outpatient R KAREN RIDLEY [facility] [id number] [facility] 2020-06-03 14:15:00 2020-06-03 14:15:00 Outpatient R NICKIE CAROLINA [facility] [id number] [facility] 2020-05-16 11:00:00 2020-05-16 11:00:00 Outpatient P [facility] [id number] [facility] 2020-05-12 15:30:00 2020-05-12 15:30:00 Outpatient R NICKIE CAROLINA [facility] [id number] [facility] 2020-04-05 13:15:00 2020-04-05 13:15:00 Outpatient R NICKIE CAROLINA [facility] [id number] [facility] 2020-04-04 11:45:00 2020-04-04 11:45:00 Outpatient P BRADLEY TOVAR [facility] [id number] [facility] 2020-03-22 13:45:00 2020-03-22 13:45:00 Outpatient R NICKIE CAROLINA [facility] [id number] [facility] 2020-03-17 09:35:00 2020-03-17 09:35:00 Outpatient Raju_P MMG MMG [id number] [facility] 2020-03-07 11:00:00 2020-03-07 11:00:00 Outpatient P [facility] [id number] [facility] 2020-03-04 13:30:00 2020-03-04 13:30:00 Outpatient P JAGDISH HENLEY [facility] [id number] [facility] 2020-02-26 15:00:00 2020-02-26 15:00:00 Outpatient R NICKIE CAROLINA [facility] [id number] [facility] 2020-02-25 13:30:00 2020-02-25 13:30:00 Outpatient R [facility] [id number] [facility] 2020-02-23 12:45:00 2020-02-23 12:45:00 Outpatient R PRETTY MCKINLEY [facility] [id number] [facility] 2020-01-08 15:45:00 2020-01-08 15:45:00 Outpatient R LAKISHA LAUREN [facility] [id number] [facility] Results Test Description Test Time Test Comments Results Result Co mments Source COMPREHENSIVE METABOLIC [id number] 00:40:10* Test Item Value Reference Range Interpretation Comme nts GLUCOSE (test code = 2216) 90 MG/DL 70-99 BUN (test code = 220) 21 MG/DL 6-20 H CREATININE (test code = 2214) 0.84 MG/DL 0.60-1.30 eGFR (2020 CKD-EPI) (test co de = 43779) 93 ML/MIN/1.73 >60 CALC BUN/CREAT (test code = 223) 25 RATIO 6-28 SODIUM (test code = 223) 140 MEQ/L 133-146 POTASSIUM (test code = 222) 4.5 MEQ/L 3.5-5.4 CHLORIDE (test code = 2214) 107 MEQ/L 95-107 CARBON DIOXIDE (test code = 220) 20 MEQ/L 19-31 CALCIUM (test code = 220) 8.9 MG/DL 8.5-10.5 PROTEIN, TOTAL (test code = 222) 6.2 G/DL 6.1-8.3 ALBUMIN (test code = 2200) 3.9 G/DL 3.5-5.2 CALC GLOBULIN (test code = 2240) 2.3 G/DL 1.9-3.7 CALC A/G RATIO (test code = 2234) 1.7 RATIO 1.0-2.6 BILIRUBIN, TOTAL (test code = 2206) <0.2 MG/DL <=1.2 ALKALINE PHOSPHATASE (test code = 2204) 85 U/L 40-114 AST (test code = 2218) 16 U/L 9-40 ALT (test code = 2219) 20 U/L 5-40 LIPID [id number] 00:40:10* Test Item Value Reference Range Interpretation Comme nts CHOLESTEROL (test code = 2210) 193 MG/DL <200 TRIGLYCERIDES (test code = 2232) 155 MG/DL <150 H HDL CHOLESTEROL (test code = 2220) 54 MG/DL >39 CALC LDL CHOL (test code = 2237) 112 MG/DL <100 H NOTE: CALCULATED LDL IS BASED ON IRWIN-ZAMARRIPA METHOD WHICHINCLUDES ADJUSTABLE TRIGLYCERIDE:VLDL CHOLESTEROL RATIO.THIS FACTOR VARIES BY MEASURED TRIGLYCERIDE AND NON-HDLCHOLESTEROL CONCENTRATIONS WITH INCREASED CALCULATED LDL SEENIN HIGHER TRIGLYCERIDE OR LOWER NON-HDL SPECIMENS. FOR MOREINFORMATION, SEE CLIENT ANNOUNCEMENT AT [email or web address] RATIO LDL/HDL (test code = 2238) 2.07 RATIO <3.22 HEMOGLOBIN [id number] 03:29:53* Test Item Value Reference Range Interpretation Comme nts HEMOGLOBIN A1c (test code = 54064) 5.4 % 4.2-5.6 RHO (D) IMMUNE [id number] 01:34:00* Test Item Value Reference Range Interpretation Comme nts RHIG CANDIDATE? (test code = 5188) Yes- see comment A Patient is a candidate for RhIg- Patient is Rh Negative and baby is Rh Positive.Performe d at [facility] Laboratory Services - [facility] Blood [address] [place] [id number] Free: [phone] No. [id number] Lab Interpretation (test code = 07238-7) [facility]normal [facility] [id number] 00:23:24* Test Item Value Reference Range Interpretation Comme nts ANTIBODY (test code = 683) Anti-D Probable RhIg PATIENT RECEIVED RHIG 02/04/23.Performed at [facility] Laboratory Services - [facility] Blood [address] [place] [id number] Free: [phone] No. [id number] [facility] and Screen - ONCE [id number] 12:12:00 * Test Item Value Reference Range Interpretation Comme nts ABO & RH (test code = 20) A Negative IAT (test code = 1185) Positive [facility] W/O SPECIFIC [id number] 21:22:00* Test Item Value Reference Range Interpretation [...] = 3257) n/a Negative - Negati ve [facility] URINALYSIS W/O SPECIFIC [id number] 14:41:00* Test Item Value Reference Range Interpretation [...] = 3257) N/A Negative - Negati ve [facility] URINALYSIS W/O SPECIFIC [id number] 20:17:00* Test Item Value Reference Range Interpretation [...] = 3257) n/a Negative - Negati ve [facility] URINALYSIS W/O SPECIFIC [id number] 21:11:00* Test Item Value Reference Range Interpretation [...] = 3257) n/a Negative - Negati ve [facility] URINALYSIS W/O SPECIFIC [id number] 20:30:00* Test Item Value Reference Range Interpretation [...] = 3257) neg Negative - Negati ve [facility] URINALYSIS W/O SPECIFIC [id number] 21:06:00* Test Item Value Reference Range Interpretation [...] = 3257) N/A Negative [facility] [id number] 19:18:59* Test Item Value Reference Range Interpretation Comme nts GLUC 1 HR (test code = 5986670333) 68 mg/dL 120-170 L Lab Interpretation (test cod e = 55725-6) Abnormal [facility] URINALYSIS W/O SPECIFIC [id number] 15:26:00* Test Item Value Reference Range Interpretation [...] = 3257) n/a Negative - [facility] [id number] 19:55:00* Test Item Value Reference Range Interpretation Comme nts POCT PREG (test code = 1605) Positive On board controls acceptable with C Line (test code = 3574) Yes POCT PREG LOT # (test code = 3575) POCT PREG TEST DATE ( test code = 3576) [facility] URINALYSIS W/O SPECIFIC [id number] 19:55:00* Test Item Value Reference Range Interpretation [...] code = 3257) Negative - Negati ve [facility]
[2025-03-13] MEDS ORDERED: BENZONATATE 100 MG CAP PO ONE (16:41)
[2025-03-13 16:59] LABS: Influenza A Ag Negative; Influenza B Ag Negative; SARS-CoV-2 Antigen Rapid Res Negative (Negative)
--- NOTE | 2025-03-13 17:14 | EDPHYS ---
Physician Documentation [facility] Name: Sandra Amado Age: 34 yrs Sex: Female : 1990 Arrival Date: 03/13/2025 Time: 16:10 Bed 9 Private MD: ED Physician Erick Nesbitt HPI: 03/13 16:25 This 34 yrs old Female presents to ER via Ambulatory with complaints of Flu cp Symptoms. 16:25 The patient or guardian reports cough, burning in chest, sore throat, body aches, cp diarrhea. 16:25 Onset: The symptoms/episode began/occurred yesterday. Associated signs and symptoms: cp Pertinent negatives: vomiting. ROLL WINDER: 17:37 LMP N/A - control method, Not me1 Historical: - Allergies: 16:21 PENICILLINS (Anaphylaxis); cm10 16:21 tramadol; hallucinations; cm10 - PMHx: 16:21 Anxiety; Bipolar disorder; Depression; Diabetes - NIDDM; gestational diabetes; cm10 Hypertension; Kidney stones; Neck Cancer; ovary cyst; RAPID HEART RATE; - Immunization history:: Adult Immunizations not up to date. - Infectious Disease History:: Denies. - Social history:: Smoking status: Patient denies any tobacco usage or history of. ROS: 16:30 Constitutional: Positive for body aches, Negative for fever, cp 16:30 Eyes: Negative for injury, pain, redness, and discharge, cp 16:30 ENT: Positive for ear pain, sore throat, Negative for drainage from ear(s), difficulty swallowing, difficulty handling secretions, 16:30 Respiratory: Positive for cough, Negative for wheezing, 16:30 Abdomen/GI: Positive for diarrhea, Negative for vomiting, 16:30 All other systems are negative, Exam: 16:35 Constitutional: The patient appears in no acute distress, alert, awake, non-toxic, well cp developed, well nourished, obese, 16:35 Head/Face: Normocephalic, atraumatic. cp 16:35 Eyes: Periorbital structures: appear normal, Conjunctiva: normal, no exudate, no injection, Sclera: no appreciated abnormality, Lids and lashes: appear normal, bilaterally, 16:35 ENT: External ear(s): are unremarkable, Ear canal(s): are normal, clear, TM's: dullness, bilaterally, Nose: is normal, Mouth: Lips: moist, Oral mucosa: moist, Posterior pharynx: Airway: no evidence of obstruction, patent, Tonsils: no enlargement, no exudate, erythema, that is mild, exudate, is not appreciated, 16:35 Neck: ROM/movement: Meningeal signs: are not present, Lymph nodes: no appreciated lymphadenopathy, 16:35 Chest/axilla: Inspection: normal, 16:35 Cardiovascular: Rate: normal, 16:35 Respiratory: the patient does not display signs of respiratory distress, Respirations: normal, no use of accessory muscles, no retractions, labored breathing, is not present, Breath sounds: decreased breath sounds, are not appreciated, stridor, is not appreciated, + upper airway congestion. wheezing: is not appreciated, 16:35 Abdomen/GI: Inspection: abdomen appears normal, Palpation: abdomen is soft and non-tender, in all quadrants, Vital Signs: 16:22 BP 103 / 73; Pulse 97; Resp 18; Temp 97.7(O); Pulse Ox 97% on R/A; Weight 119.75 kg; cm10 Height 5 ft. 5 in. ; Pain 9/10; 17:37 BP 112 / 86; Pulse 92; Resp 17; Temp 98.2; Pulse Ox 97% ; me1 16:22 Body Mass Index 43.93 (119.75 kg, 165.1 cm) cm10 16:22 Pain Scale: Adult cm10 MDM: 16:23 Medical Screening Exam initiated cp 17:13 Data reviewed: vital signs, nurses notes, lab test result(s), and as a result, I will cp discharge patient. 17:13 Differential diagnosis: bronchitis, flu, pneumonia, influenza, COVID, strep throat. I cp considered the following discharge prescriptions or medication management in the emergency department Medications were administered in the Emergency Department. See MAR. Counseling: I had a detailed discussion with the patient and/or guardian regarding the historical points, exam findings, and any diagnostic results supporting the discharge/admit diagnosis, lab results. 03/13 16:21 Order name: COVID-19 Ag + Flu A+B Ag 10 03/13 16:21 Order name: Group A Streptococcus [facility] 03/13 17:01 Order name: Throat Culture EDMS Administered Medications: 16:45 Drug: Tessalon Perle PO 200 mg PO once Route: PO; me1 17:37 Follow up: Response: No adverse reaction; Marked relief of symptoms me1 Disposition Summary: 03/13/25 17:14 Discharge Ordered Notes: Location: Home cp Problem: new cp Symptoms: have improved cp Condition: Stable cp Diagnosis - Cough cp - Acute pharyngitis, unspecified cp - Diarrhea, unspecified cp Followup: cp - With: Private Physician - When: 2 - 3 days - Reason: Worsening of condition Discharge Instructions: - Discharge Summary Sheet cp - Diarrhea, Adult cp - Pharyngitis cp - Sore Throat cp - Cough, Adult cp - Form - Return To Work cp Forms: - Medication Reconciliation Form cp - Antibiotic Education cp - Prescription Opioid Use cp - Patient Portal Instructions cp - Leadership Thank You Letter cp - Work release form me1 Prescriptions: - Ibuprofen 800 mg Oral Tablet - take 1 tablet ORAL route every 8 hours As needed take with food; 30 tablet; cp Refills: 0, Product Selection Permitted - Tessalon Perles 100 mg Oral capsule - take 2 capsule ORAL route every 8 hours As needed; 30 capsule; Refills: 0, cp Product Selection Permitted Addendum: 03/15/2025 09:19 Co-signature as Attending Physician, Erick Nesbitt MD I reviewed the patient's care r t provided by the Advanced Practice Provider and agree with the diagnosis and treatment plan. Signatures: Dispatcher [employer] Rubén White PA PA cp Erick Nesbitt MD MD rt Katiuska Nielsen RN RN cm10 Milka Perez RN RN me1
--- NOTE | 2025-03-13 17:14 | ER ---
Nurse's Notes [facility] Name: Sandra Amado Age: 34 yrs Sex: Female : 1990 Arrival Date: 03/13/2025 Time: 16:10 Bed 9 Private MD: Diagnosis: Cough;Acute pharyngitis, unspecified;Diarrhea, unspecified Presentation: 03/13 16:22 Chief complaint: Patient states: Cough, sore throat, bilateral ear pain, diarrhea and cm10 burning in chest onset yesterday. Coronavirus screen: Client denies travel out of the [place] in the last 14 days. Ebola Screen: Patient denies travel to an Ebola-affected area in the 21 days before illness onset. Initial Sepsis Screen: Does the patient meet any 2 criteria? HR > 90 bpm. Does the patient have a suspected source of infection? No. Patient's initial sepsis screen is negative. Risk Assessment: Do you want to hurt yourself or someone else? Patient reports no desire to harm self or others. Onset of symptoms was March 13, 2025. 16:22 Method Of Arrival: Ambulatory cm10 16:22 Acuity: HUGO 4 cm10 Triage Assessment: 16:23 General: Appears in no apparent distress. uncomfortable, Behavior is calm, cooperative. cm10 Neuro: No deficits noted. Level of Consciousness is awake, alert, obeys commands, Oriented to person, place, time, situation, Appropriate for age. Respiratory: No deficits noted. Airway is patent Respiratory effort is even, unlabored, Respiratory pattern is regular, symmetrical. DRESS MARKER: 17:37 LMP N/A - control method, Not me1 Historical: - Allergies: 16:21 PENICILLINS (Anaphylaxis); cm10 16:21 tramadol; hallucinations; cm10 - PMHx: 16:21 Anxiety; Bipolar disorder; Depression; Diabetes - NIDDM; gestational diabetes; cm10 Hypertension; Kidney stones; Neck Cancer; ovary cyst; RAPID HEART RATE; - Immunization history:: Adult Immunizations not up to date. - Infectious Disease History:: Denies. - Social history:: Smoking status: Patient denies any tobacco usage or history of. Screenin:48 [facility] ED Fall Risk Assessment (Adult) History of falling in the last 3 months, me1 including since admission No falls in past 3 months (0 pts) Confusion or Disorientation No (0 pts) Intoxicated or Sedated No (0 pts) Impaired Gait No (0 pts) Mobility Assist Device Used No (0 pt) Altered Elimination No (0 pt) Score/Fall Risk Level 0 - 2 = Low Risk Maintained a safe environment, Provided non-skid footwear, Hourly rounding (assess needs \T\ fall precautionary measures) done. Abuse screen: Denies threats or abuse. Nutritional screening: No deficits noted. Tuberculosis screening: No symptoms or risk factors identified. Assessment: 16:48 General: Appears ill, well groomed, well developed, well nourished, Behavior is calm, me1 cooperative, appropriate for age, Reports Cough, sore throat, bilateral ear pain, diarrhea and burning in chest onset yesterday. Pain: Complains of pain in right ear and left ear and throat Pain does not radiate. Pain Quality of pain is described as aching, tender, Pain began 1 day ago. Is continuous. Neuro: Level of Consciousness is awake, alert, obeys commands, Oriented to person, place, time, situation, Appropriate for age. Cardiovascular: Patient's skin is warm and dry. Respiratory: Airway is patent Respiratory effort is even, unlabored, Respiratory pattern is regular, symmetrical. Respiratory: Reports burning in chest since yesterday GI: Reports diarrhea. GI: Reports. : No signs and/or symptoms were reported regarding the genitourinary system. EENT: Reports pain in left ear and right ear. Derm: Skin is intact, is healthy with good turgor, Skin is pink, warm \T\ dry. Musculoskeletal: No signs and/or symptoms reported regarding the musculoskeletal system. Vital Signs: 16:22 BP 103 / 73; Pulse 97; Resp 18; Temp 97.7(O); Pulse Ox 97% on R/A; Weight 119.75 kg; cm10 Height 5 ft. 5 in. ; Pain 9/10; 17:37 BP 112 / 86; Pulse 92; Resp 17; Temp 98.2; Pulse Ox 97% ; me1 16:22 Body Mass Index 43.93 (119.75 kg, 165.1 cm) cm10 16:22 Pain Scale: Adult cm10 ED Course: 16:12 Patient arrived in ED. im 16:13 Rubén Cespedes PA is PHCP. cp 16:13 Erick Nesbitt MD is Attending Physician. cp 16:23 Triage completed. cm10 16:23 Arm band placed on right wrist. Patient placed in an exam room, on a stretcher. cm10 16:24 Group A Streptococcus Rapid Sent. cm10 16:24 COVID-19 Ag + Flu A+B Ag Sent. cm10 16:24 COVID swab sent to lab. Strep swab sent to lab. cm10 16:39 Milka Perez, RN is Primary Nurse. me1 16:48 Patient has correct armband on for positive identification. Bed in low position. Call me1 light in reach. Side rails up X 1. Provided Education on: POC. Verbalized understanding.. 16:48 No provider procedures requiring assistance completed. me1 17:37 Patient did not have IV access during this emergency room visit. me1 Administered Medications: 16:45 Drug: Tessalon Perle PO 200 mg PO once Route: PO; me1 17:37 Follow up: Response: No adverse reaction; Marked relief of symptoms me1 Medication: 16:48 VIS not applicable for this client. me1 Outcome: 17:14 Discharge ordered by MD. cp 17:37 Discharged to home ambulatory, with significant other, me1 17:37 Condition: stable 17:37 Discharge instructions given to patient, significant other, Instructed on discharge instructions, follow up and referral plans. medication usage, Demonstrated understanding of instructions, follow-up care, medications, Prescriptions given X 2, 17:38 Patient left the ED. me1 Signatures: Rubén Cespedes PA PA cp Mendoza, Itzel im Martinez, Clarissa, RN RN 10 Milka Perez, RN RN me1 Corrections: (The following items were deleted from the chart) 16:48 16:22 Chief complaint: Patient states: Cough, sore throat, bilateral ear pain, diarrhea me1 and burning in chest onset yesterday. cm10
[2025-03-13 17:46] VITALS: O2SAT 97
[2025-03-13 17:55] VITALS: BP 112/86; TEMP 98.2
== END 2025-03-13 17:38 | disposition home or self-care (01) ==
LOC: ER 16:10
DX: R05.9 Cough, unspecified (principal); J02.9 Acute pharyngitis, unspecified; R19.7 Diarrhea, unspecified; Z11.52 Encounter for screening for COVID-19
CPT/HCPCS: 36415; 87070; 87428; 99284